=== PATIENT | female | born 1955 | race Caucasian/White ===

== ENCOUNTER → 2019-11-23 11:30 | Outpatient (CLI) | payer MEDICARE, OTHER, SELFPAY ==
--- NOTE | ~2019-11-23 | DEXA_ITS ---
Bone Density Report Name: Ofelia Hilliard Age: 64 Sex: Female Ethnicity: White Date of : 1955 Indication: postmenopausal; screening for osteoporosis; hysterectomy; Referring Provider: Hermilo, Lindsay Valerio Study: Bone densitometry was performed. Exam Date: November 23, 2019 Accession number: [id number] Bone Density: Region BMD T-score Z-score Classification AP Spine (L1-L4) 1.085 0.3 2.1 Normal Femoral Neck (Left) 0.709 -1.3 0.3 Osteopenia Total Hip (Left) 0.854 -0.7 0.5 Normal Femoral Neck (Right) 0.731 -1.1 0.5 Osteopenia Total Hip (Right) 0.933 -0.1 1.2 Normal Total Hip Mean 0.894 -0.4 0.9 Normal World Health Organization criteria for BMD impression classify patients as: Normal (T-score at or above -1.0), Osteopenia (T-score between -1.0 and -2.5), or Osteoporosis (T-score at or below -2.5). 10-year Fracture Risk(1): Major Osteoporotic Fracture 7.4% Hip Fracture 0.6% Reported Risk Factors: [place] (), Neck BMD=0.709, BMI=39.5 (1) FRAX(R) Version 3.08. Fracture probability calculated for an untreated patient. Fracture probability may be lower if the patient has received treatment. Previous Exams: Region Exam Age BMD T-score BMD Change BMD Change Date g/cm2 vs Baseline vs Previous AP Spine(L1-L4) 11/23/2019 64 1.085 0.3 -0.002 0.012 09/09/2017 62 1.074 0.2 -0.014 0.057* 01/05/2011 55 1.017 -0.3 -0.070 -0.048* 11/30/2008 53 1.065 0.2 -0.023 -0.023 10/25/2005 50 1.087 0.4 Total Hip(Left) 11/23/2019 64 0.854 -0.7 -0.019 -0.029* 09/09/2017 62 0.883 -0.5 0.010 0.035* 01/05/2011 55 0.849 -0.8 -0.025 0.020 11/30/2008 53 0.829 -0.9 -0.044 -0.044 10/25/2005 50 0.873 -0.6 Total Hip(Right) 11/23/2019 64 0.933 -0.1 -0.009 -0.039* 09/09/2017 62 0.972 0.2 0.030 0.066* 01/05/2011 55 0.906 -0.3 -0.036 -0.008 11/30/2008 53 0.913 -0.2 -0.028 -0.028 10/25/2005 50 0.942 0.0 *Denotes significance at 95% confidence level, LSC for AP Spine = 0.022 g/cm2, LSC for Total Hip = 0.027 g/cm2 Clinical Information Provided by Patient: Has used the following medications: Vitamin D, Calcium Has the following medical conditions: Hysterectomy Patient maximum height was 62 Menopause Age: 41 No regular weight beari
--- NOTE | ~2019-11-23 | MM_ITS ---
EXAMINATION: MM screening [facility] BI w ezequiel HISTORY: Screening mammogram TECHNIQUE: Craniocaudal and mediolateral oblique 3-D tomosynthesis images were obtained and synthetic 2-D images were generated. CAD analysis was submitted and interpreted. COMPARISON: 10/06/2018, 09/08/2017, 08/16/2016, 08/08/2016 BREAST PARENCHYMAL COMPOSITION: There are scattered areas of fibroglandular density. FINDINGS: There are stable asymmetries of the breasts. There is no evidence of suspicious mass, calci fication, or architectural distortion to suggest malignancy in either breast. There has been no suspi cious interval change. IMPRESSION: 1. No mammographic evidence of malignancy. 2. Recommend routine screening mammography in one year. BI-RADS Category 2: Benign finding(s). Reviewed, dictated and finalized at location A. 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
== END ==
PROVIDERS: Visit Provider Nurse Practitioner Obstetrics & Gynecology
DX: Z12.31 Encounter for screening mammogram for malignant neoplasm of breast (principal); Z78.0 Asymptomatic menopausal state; M85.852 Other specified disorders of bone density and structure, left thigh; M85.851 Other specified disorders of bone density and structure, right thigh
CPT/HCPCS: 77063; 77067; 77080

== ENCOUNTER 2020-02-13 12:44 | Inpatient (IN) | payer MEDICARE, OTHER, SELFPAY ==
--- NOTE | ~2020-02-13 | XR_ITS ---
EXAMINATION: XR chest 1V portable INDICATION: Cough TECHNIQUE: Portable AP chest at 1317 hours COMPARISON: 06/16/2014 FINDINGS: The lungs are free of acute opacities. There is no pleural effusion or pneumothorax. The ca rdiomediastinal silhouette is normal. There is a small hiatal hernia. IMPRESSION: 1. No acute cardiopulmonary abnormality. Reviewed, dictated and finalized at location A.
--- NOTE | ~2020-02-13 | CT_ITS ---
EXAMINATION: CTA chest PE protocol DATE: 02/13/2020 14:18 INDICATION: Shortness of breath, dyspnea. Cough, fever. TECHNIQUE: Computed tomography angiography (CTA) of the chest was performed with 100 mL Omnipaque-350 intravenous contrast timed to evaluate the pulmonary arteries. Coronal maximum intensity projection 3D-reconstructions were created by the technologist. Automated exposure control and iterative reconst ruction technique were employed. Exam dose: 862.37 mGy-cm total exam DLP. COMPARISON: 02/13/2020 portable AP chest at 1317 hours FINDINGS: There is diagnostic contrast enhancement of the pulmonary arteries and no evidence of pulmo nary embolism. No thoracic aortic aneurysm or dissection. No hilar or mediastinal mass lesion or lymphadenopathy. Normal heart size. Trace pericardial fluid. No pulmonary infiltrate or consolidation or pulmonary mass lesion. Hiatal hernia with surgical sutures. Status post cholecystectomy. Diffuse idiopathic skeletal hyperostosis of the thoracic spine. No suspicious osteolytic or osteoblas tic lesions are noted. IMPRESSION: No evidence of pulmonary embolism Reviewed, dictated and finalized at Location A. Reviewed, dictated and finalized at location A.
[2020-02-13 12:49] VITALS: BP 127/82; PULSE 115; RESP 19; TEMP 36.8; O2SAT 97
--- NOTE | 2020-02-13 12:58 | ECG_ITS ---
Measurements Intervals [place] Rate: 114 P: 38 IN: 132 QRS: -17 QRSD: 81 T: 18 QT: 319 QTc: 439 Interpretive Statements SINUS TACHYCARDIA LOW QRS VOLTAGE IN PRECORDIAL LEADS ANTEROLATERAL INFARCT, AGE INDETERMINATE HIGH LATERAL INFARCT, AGE INDETERMINATE BORDERLINE T WAVE ABNORMALITY- INFERIOR LEADS ABNORMAL ECG Electronically Signed On 02-13-2020 15:03:31 CDT by Britton Wang D.O.
[2020-02-13] MEDS: SODIUM CHLORIDE 0.9% IV 1,000 ML 999 ML IV CONT ×2 (13:09→15:08)
--- NOTE | 2020-02-13 13:25 | ED.URI ---
HPI - URI/Sore Throat General Chief Complaint: Upper Respiratory Infection Stated Complaint: fever, cough symptoms Time Seen by Provider: 02/13/20 12:46 Source: RN notes reviewed History of Present Illness HPI Narrative: Patient presents emergency department from home for cough. Patient states symptoms began yesterday. States she had a cough is been nonproductive as well as a low-grade temperature with T-max of 99.9 last night. She notes generalized weakness with the symptoms. She denies any rhinorrhea sore throat chest pain shortness of breath abdominal pain nausea vomiting or any other symptoms Related Data Home Medications Medication Instructions Recorded Confirmed aspirin 81 mg tablet,delayed 81 mg PO DAILY 12/22/19 02/13/20 release cholecalciferol (vitamin D3) 50 6,000 unit PO DAILY tablet 12/22/19 02/13/20 mcg (2,000 unit) chewable tablet lactobacillus combination no.8 3 3,000 mmu cells PO DAILY 12/22/19 02/13/20 billion cell capsule multivitamin 1 tablet PO DAILY 12/22/19 02/13/20 Allergies Allergy/AdvReac Type Severity Reaction Status Date / Time No Known Allergies Allergy Verified 02/13/20 12:54 Review of Systems Review of Systems: Narrative: Gen.: Reports low-grade fever, denies chills Eyes: Denies eye pain or visual change ENT: Denies congestion Respiratory: Denies shortness of breath reports cough CV: Denies chest pain or palpitations GI: Denies abdominal pain nausea, emesis or diarrhea denies burning, urgency, frequency or hematuria Musculoskeletal: Denies back pain or muscle pain Neuro: Denies numbness, tingling, weakness or focal weakness Skin: Denies rash Except as documented, all other systems reviewed and negative [facility] Past Medical History Medical History Decreased GFR Hypercalcemia Hyperkalemia Hyperlipidemia Hypertension Morbid obesity Thrombocytosis Type 2 diabetes mellitus, without long-term current use of insulin Surgical History Surgical History (Updated 12/22/19 @ 07:14 by Nabila Wisdom CMA) History of abdominoplasty 2005 History of gastric bypass 2003 History of hysterectomy 1996 Hx of cholecystectomy 2006 Family History Family History (Updated 12/22/19 @ 07:14 by Nabila Wisdom CMA) Father Family history of lung cancer Hypertension Heart disease Mother Family history of Parkinson's disease Diabetes mellitus Hypertension Social History Social History Smoking status: Never smoker Alcohol intake: never Gender identity (if verbalized by the patient): Female Exam Narrative: Exam Narrative: APPEARANCE: No acute distress, nontoxic, resting in bed EYES: EOMI HEENT: Normocephalic, atraumatic, OMM RESPIRATORY: No respiratory distress Clear to auscultation bilaterally with no rhonchi wheezing or rales. CARDIOVASCULAR: Tachycardic and regular without murmurs rubs or gallops. ABDOMINAL: Soft, nontender, nondistended, no rebound or guarding MUSCULOSKELETAl: Moves all extremities. No clubbing, cyanosis or edema. Bilateral calves nontender to palpation NEURO: Awake and alert x 3. Following commands, speech normal, no focal deficits muscle strength 5 out of 5 bilateral upper and lower extremities SKIN:: Warm, dry. No rashes lesions or abrasions PSYCHIATRIC: Normal affect/mood, Course Course Emergency Course: Discussed with MAAME Elise presentation work-up. Agrees with admission at this time Discussed with patient and family results of workup and diagnosis. Discussed need for admission. Patient and family understand and agree to current treatment plan Vital Signs Vital signs: Vital Signs Temperature 98.3 F 02/13/20 12:49 Pulse Rate 115 H 02/13/20 12:49 Respiratory Rate 19 02/13/20 12:49 Blood Pressure 127/82 02/13/20 12:49 Pulse Oximetry 97 02/13/20 12:49 Temperature 98.3 F 02/13/20 12:49 Pul
[2020-02-13 13:27] LABS: Basophils Absolute Auto 0.1 K/mm3 (0.0-0.1); Basophils Percent Auto 0.3 % (0.2-1.2); Eosinophils Percent Auto 0.1 % (0-4.4); Hematocrit 37.8 % (37.0-47.0); Hemoglobin 11.7 g/dL (12.0-15.0); Immature Granulocyte Absolute 0.08 K/mm3 (0.00-0.031); Immature Granulocyte Percent A 0.4 % (0-0.5); Lymphocytes Absolute Auto 1.85 K/mm3 (0.9-3.2); Lymphocytes Percent Auto 10.4 % (18.3-44.2); Mean Corpuscular Hemoglobin 21.9 pg (26-34); Mean Corpuscular Volume 70.8 fl (80-100); Monocytes Absolute Auto 0.9 K/mm3 (0.1-0.6); Monocytes Percent Auto 4.9 % (2.6-8.5); Neutrophils Percent Auto 83.9 % (45.5-73.1); Platelet Count Result 485 k/mm3 (150-375); Red Blood Count 5.34 M/mm3 (4.2-5.4); Red Cell Distribution Width 19.5 % (11.5-14.5); White Blood Count 17.8 K/mm3 (4.5-10.0)
[2020-02-13 13:37] LABS: Prothrombin Time 13.1 Seconds (11.1-14.7)
[2020-02-13 13:38] LABS: Partial Thromboplastin Time 30.9 SECONDS (22.3-36.8)
[2020-02-13 13:43] LABS: Lactic Acid Reflex 3.2 mmol/L (0.7-2.1)
[2020-02-13 13:45] LABS: Alanine Aminotransferase 30 U/L (4-35); Albumin Level 4.4 g/dL (3.5-5.1); Alkaline Phosphatase 124 U/L (38-126); Aspartate Amino Transferase 37 U/L (14-36); Bilirubin,Total 0.4 mg/dL (0.2-1.3); Blood Urea Nitrogen 22 mg/dL (7-17); Carbon Dioxide 16 mmol/L (22-30); Chloride 106 mmol/L (98-107); Estimated CRCL calculation 54 ml/min; Estimated Glomerular Filt Rate 56; Glucose 258 mg/dL (65-105); Potassium 4.1 mmol/L (3.4-5.0); Sodium 135 mmol/L (137-145)
[2020-02-13 13:56] LABS: Troponin I < 0.012 ng/mL (0.000-0.034)
[2020-02-13 14:00] LABS: Add Urine Microscopic? YES; Appearance Urine Clear (Clear); Bacteria Urine Trace /hpf; Bilirubin Urine 2+ (Negative); Blood Urine Negative (Negative); Color Urine Yellow (Yellow); Glucose Urine UA Negative (Negative); Hyaline Casts Urine 20-29 /lpf; Ketones Urine Trace mg/dL (Negative); Leukocyte Esterase Ur 1+ LEU/UL (Negative); Mucus Urine Rare /lpf; Nitrate Urine Negative (Negative); Protein Urine 1+ mg/dL (Negative); RBC Urine 0-2 /hpf (0-2); Specific Grav Ur 1.036 (1.001-1.035); Squamous Epithelial Cell Urine Many /hpf (Few); Urobilinogen Urine Negative mg/dL (<2.0)
[2020-02-13 15:07] VITALS: BP 135/75; PULSE 95; RESP 18; O2SAT 100
[2020-02-13 16:26] LABS: Reflex Lactic Acid Yes or No Add Lactic
[2020-02-13] MEDS: ACETAMINOPHEN 500 MG TABLET 1000 MG PO ×2 (16:37→21:45)
[2020-02-13 16:39] VITALS: BP 134/78; PULSE 108; RESP 19; TEMP 36.9; O2SAT 100
[2020-02-13 16:52] LABS: Lactic Acid 2.5 mmol/L (0.7-2.1)
[2020-02-13 17:00] VITALS: BP 148/95; PULSE 109; RESP 16; TEMP 36.8; O2SAT 100
--- NOTE | 2020-02-13 17:07 | ADMGEN ---
This patient, Ofelia Hilliard, was admitted to [facility] Surg Room 333-01. Patient/family oriented to hospital policies and general routines including ID bracelet, bed and alarms, visiting hours, pain management, procedures, bathroom and other care routines, personal items, smoking policy, room service/diet, and visiting hours. Valuables list has been completed. Information on how to activate the Rapid Response Team has been discussed. Patient/Family are encouraged to report perceived risks to care and to ask questions if they do not understand what they are told or what they should do.
[2020-02-13] MEDS: SODIUM CHLORIDE 0.9% IV 1,000 ML 80 ML IV CONT (17:16)
[2020-02-13 17:23] VITALS: O2SAT 100; BMI 39.4
[2020-02-13] MEDS: GUAIFENESIN 200 MG/10 ML UDC PO (21:53)
[2020-02-13 22:00] VITALS: BP 135/67; PULSE 110; RESP 20; TEMP 37.3; O2SAT 98
[2020-02-14 02:00] VITALS: BP 123/72; PULSE 92; RESP 18; TEMP 36.4; O2SAT 99
--- NOTE | 2020-02-14 02:06 | PM.IMHP ---
H&P: HPI History of Present Illness Chief complaint: Suspected COVID 19 infection/lactic acidosis/leuko Narrative: This is a 64 year old morbidly obese prediabetic female who presented to the hospital yesterday with a complaint of one day of chills, nonproductive cough, and generalized weakness. She has not had any overt fever. She also denies any sore throat, congestion, wheezing, or shortness of breath. She decided to come to the hospital secondary to her increased weakness. She admits to me that this past weekend she visited her sister and her children. The patient was evaluated in the ER yesterday and found to have an elevated lactic acid level and elevated WBC count. The patient was tested for novel COVID-19 virus and placed on isolation. She was admitted to the hospital for observation. Her CXR was clear and the patient has no further symptoms and asking when she can go home. Review of Systems Review of Systems: All systems reviewed & are unremarkable except as noted in HPI and below PMFSH Past Medical History Medical History Decreased GFR Hypercalcemia Hyperkalemia Hyperlipidemia Hypertension Morbid obesity Thrombocytosis Type 2 diabetes mellitus, without long-term current use of insulin Surgical History Surgical History History of abdominoplasty 2005 History of gastric bypass 2004 History of hysterectomy 1996 Hx of cholecystectomy 2007 Family History Family History Father Family history of lung cancer Hypertension Heart disease Mother Family history of Parkinson's disease Diabetes mellitus Hypertension Social History Social History Smoking status: Never smoker Alcohol intake: never Substance use: never Gender identity (if verbalized by the patient): Female Spiritual care concerns: No Agree to blood products: Yes Meds Home Medications and Allergies Home Medications Medication Instructions Recorded Confirmed Type simvastatin 20 mg tablet 20 mg PO .every other day #45 10/11/19 02/13/20 Rx tablet lisinopril 20 mg tablet 20 mg PO DAILY #90 tablet 10/19/19 02/13/20 Rx amitriptyline 25 mg tablet 25 mg PO BID #180 tablet 01/31/20 04/26/20 Rx perphenazine 4 mg tablet 4 mg PO BID #180 tablet 11/19/19 02/13/20 Rx aspirin 81 mg tablet,delayed 81 mg PO DAILY 12/22/19 02/13/20 History release cholecalciferol (vitamin D3) 50 6,000 unit PO DAILY tablet 12/22/19 02/13/20 History mcg (2,000 unit) chewable tablet lactobacillus combination no.8 3 3,000 mmu cells PO DAILY 12/22/19 02/13/20 History billion cell capsule multivitamin 1 tablet PO DAILY 12/22/19 02/13/20 History metformin 500 mg tablet 500 mg PO BID #180 tablet 01/25/20 02/13/20 Rx xtysyvcux-TK-ymqoxkie-guaifen 20 ml PO Q4H PRN 02/13/20 02/13/20 History [Mucinex Cold,Flu,Sore Throat] Allergies Allergy/AdvReac Type Severity Reaction Status Date / Time No Known Allergies Allergy Verified 02/13/20 12:54 Vital Signs Vital Signs - 24 hr 02/13/20 12:49 02/13/20 15:07 02/13/20 16:39 Temperature 36.8 C 36.9 C Pulse Rate 115 H 95 108 H Respiratory Rate 19 18 19 Blood Pressure 127/82 135/75 134/78 Pulse Oximetry 97 100 100 02/13/20 17:00 02/13/20 17:23 02/13/20 22:00 Temperature 36.8 C 37.3 C Pulse Rate 109 H 110 H Respiratory Rate 16 20 Blood Pressure 148/95 H 135/67 Pulse Oximetry 100 100 98 Exam Const: General: cooperative, alert, awake and other (diaphoretic+) Nutritional Appearance: obese morbidly obese Orientation/consciousness: patient oriented x3 HENMT: Head: normal to inspection General nose exam: Normal external nose present Face and sinus: normal facial exam Mouth: Yes Normal oral and palatal mucosa present and Yes oropharynx normal Eyes: Pupils: Equal,
[2020-02-14] MEDS: ALBUTEROL SULFATE (*SP) AEROSOL 1 PUFF 2 PUFF INHALATION ×2 (02:53→08:45)
[2020-02-14] MEDS: ACETAMINOPHEN 500 MG TABLET 1000 MG PO ×2 (02:57→08:40)
[2020-02-14] MEDS: GUAIFENESIN 200 MG/10 ML UDC PO ×2 (03:02→08:32)
[2020-02-14 06:00] VITALS: BP 124/78; PULSE 86; RESP 16; TEMP 36.6; O2SAT 100
[2020-02-14] MEDS: SODIUM CHLORIDE 0.9% IV 1,000 ML 80 ML IV CONT (06:16)
[2020-02-14 06:41] LABS: Blood Urea Nitrogen 15 mg/dL (7-17); Calcium 8.7 mg/dL (8.4-10.2); Carbon Dioxide 17 mmol/L (22-30); Chloride 113 mmol/L (98-107); Estimated CRCL calculation 75 ml/min; Estimated Glomerular Filt Rate > 60; Glucose 130 mg/dL (65-105); Potassium 3.7 mmol/L (3.4-5.0); Sodium 136 mmol/L (137-145)
[2020-02-14 07:42] LABS: Hemoglobin A1C 6.4 % (<5.7)
[2020-02-14 08:00] VITALS: O2SAT 98
[2020-02-14 08:16] LABS: Basophils Percent Auto 0.5 % (0.2-1.2); Eosinophils Percent Auto 0.4 % (0-4.4); Hematocrit 31.5 % (37.0-47.0); Hemoglobin 9.3 g/dL (12.0-15.0); Immature Granulocyte Absolute 0.02 K/mm3 (0.00-0.031); Immature Granulocyte Percent A 0.3 % (0-0.5); Lymphocytes Absolute Auto 1.52 K/mm3 (0.9-3.2); Lymphocytes Percent Auto 20.2 % (18.3-44.2); Mean Corpuscular HGB Conc 29.5 g/dl (32-36); Mean Corpuscular Hemoglobin 21.6 pg (26-34); Mean Corpuscular Volume 73.3 fl (80-100); Mean Platelet Volume 11.3 fl (7.4-10.4); Monocytes Absolute Auto 0.5 K/mm3 (0.1-0.6); Monocytes Percent Auto 6.3 % (2.6-8.5); Neutrophils Absolute Auto 5.4 K/mm3 (1.3-6.7); Neutrophils Percent Auto 72.3 % (45.5-73.1); Platelet Count Result 337 k/mm3 (150-375); Red Cell Distribution Width 19.1 % (11.5-14.5); White Blood Count 7.5 K/mm3 (4.5-10.0)
[2020-02-14] MEDS: PERPHENAZINE 2 MG TABLET 4 MG PO (08:32)
[2020-02-14] MEDS: MULTIVITS W-FE,MIN CHEWABLE TABLET 1 TABLET PO (08:33)
[2020-02-14] MEDS: AMITRIPTYLINE HCL 25 MG TABLET PO (08:33)
[2020-02-14] MEDS: metFORMIN HCL 500 MG TABLET PO (08:33)
[2020-02-14] MEDS: ACIDOPHILUS/BULGARICUS CHEWABLE TABLET 1 TABLET PO (08:33)
[2020-02-14] MEDS: ASPIRIN 81 MG ENTERIC TABLET PO (08:33)
[2020-02-14] MEDS: lisinopriL 20 MG TABLET PO (08:33)
[2020-02-14] MEDS: CHOLECALCIFEROL 1,000 UNIT TABLET 6000 UNITS PO (08:33)
[2020-02-14 08:49] LABS: Glucose Point of Care 107 (65-105)
[2020-02-14 09:17] LABS: Anisocytosis 1+ (NORMAL); Hypochromasia 1+ (NORMAL); Platelet Estimate Adequate (Adequate)
[2020-02-14 10:37] VITALS: BP 121/72; PULSE 91; RESP 18; TEMP 36.2; O2SAT 98
--- NOTE | 2020-02-14 11:43 | PM.DS ---
DS: Diagnosis Admitting Diagnosis Admitting Diagnosis: Sepsis, unspecified organism Discharge Diagnosis (1) Generalized weakness: Code(s): R53.1 - Weakness Status: Acute Assessment and Plan: Date of Service 02/14/20 Ms. Hilliard is a 64yo F with prediabetes, hypertension, and hyperlipidemia who presented to the ED for evaluation of generalized weakness and chills. She described a slight cough as well. CTA chest was clear without evidence of PE. She was tested for COVID-19 from the ED which was negative. She had leukocytosis and elevated lactic acid, etiology unclear but may have been secondary to dehydration. WBC improved to 7.5 from 17 overnight and the patient was feeling well with no complaints. Urine culture grew > 100,000 colonies per HPF E coli for which she was prescribed antibiotics by PCP via a virtual visit the day after discharge. Blood cultures were negative. She was hemodynamically stable for discharge 02/14/20 with instructions to call PCP for any worsening symptoms. She was feeling stronger and agreeable with plan for discharge. (2) Leukocytosis: Qualifiers: Leukocytosis type: unspecified Qualified Code(s): D72.829 - Elevated white blood cell count, unspecified Code(s): D72.829 - Elevated white blood cell count, unspecified Status: Acute Assessment and Plan: Resolved prior to discharge. (3) Type 2 diabetes mellitus, without long-term current use of insulin: Qualifiers: Diabetes mellitus complication status: without complication Qualified Code(s): E11.9 - Type 2 diabetes mellitus without complications Code(s): E11.9 - Type 2 diabetes mellitus without complications Status: Chronic Assessment and Plan: Patient carries a diagnosis of prediabetes. Continue metformin. Hgb A1c 6.4 02/14/20. (4) Hypertension: Qualifiers: Hypertension type: unspecified Qualified Code(s): I10 - Essential (primary) hypertension Code(s): I10 - Essential (primary) hypertension Status: Chronic (5) Hyperlipidemia: Qualifiers: Hyperlipidemia type: unspecified Qualified Code(s): E78.5 - Hyperlipidemia, unspecified Code(s): E78.5 - Hyperlipidemia, unspecified Status: Chronic DS: Summary Time Spent with Patient Time attestation: Total time spent providing and/or coordinating discharge services: 35 minutes Exam Narrative: Exam Narrative: General: Female resting supine in bed in no acute distress. HEENT: Normocephalic, EOMI, oral mucosa moist. Cardiovascular: Rate and rhythm are regular. Respiratory: Lungs clear to auscultation all mo. Non-labored breathing. Abdomen: Soft, non-tender, non-distended, bowel sounds present. Extremities: Peripheral pulses intact. No edema. Neuro: No focal neurological deficits. Speech is clear. DS: Data Data Completed and Pending Labs on day of discharge: Labs from last 24 hours 02/14/20 02/14/20 02/14/20 08:39 07:28 07:28 WBC 7.5 RBC 4.30 Hgb 9.3 L Hct 31.5 L MCV 73.3 L MCH 21.6 L MCHC 29.5 L RDW 19.1 H Plt Count 337 MPV 11.3 H Immature Gran % (Auto) 0.3 Neut % (Auto) 72.3 Lymph % (Auto) 20.2 [place] % (Auto) 6.3 Eos % (Auto) 0.4 Baso % (Auto) 0.5 Lymph # (Auto) 1.52 [place] # (Auto) 0.5 Eos # (Auto) 0.0 Baso # (Auto) 0.0 Abs Immat Gran (auto) 0.02 Absolute Neuts (auto) 5.4 Absolute Nucleated RBC 0.0 Nucleated RBC % 0.0 Platelet Estimate Adequate Hypochromasia 1+ Anisocytosis 1+ PT INR APTT Sodium Potassium Chloride Carbon Dioxide BUN Creatinine Estim Creat Clear Calc Estimated GFR Glucose POC Capillary Glucose 107 Hemoglobin A1c 6.4 H Lactic Acid Calcium Total Bilirubin AST ALT Alkaline Phosphatase Troponin I
--- NOTE | 2020-02-14 12:13 | WPDCDIQUERY2 ---
CDI Query Clarification Request -Severe sepsis has been documented. -No infection identified -No antibiotic ordered/given Please clarify if severe sepsis was ruled in or ruled out.
[2020-02-14 12:17] LABS: SARS-CoV-2 RNA PCR Negative
[2020-02-14 13:03] LABS: Glucose Point of Care 99 (65-105)
== END 2020-02-14 14:45 | disposition home or self-care (01) | DRG 872 ==
LOC: ANHED 15:32 → ANH3MEDSUR 16:29
PROVIDERS: Family Medicine; Admitting Provider Internal Medicine; Emergency Provider Emergency Medicine; PCP Internal Medicine; Visit Provider Internal Medicine
DX: A41.9 Sepsis, unspecified organism (principal); E87.2 Acidosis; N39.0 Urinary tract infection, site not specified; R65.20 Severe sepsis without septic shock; B96.20 Unspecified Escherichia coli [E. coli] as the cause of diseases classified elsewhere; Z20.828 Contact with and (suspected) exposure to other viral communicable diseases; B34.9 Viral infection, unspecified; E86.0 Dehydration; E11.9 Type 2 diabetes mellitus without complications; I10 Essential (primary) hypertension; D72.829 Elevated white blood cell count, unspecified; E78.5 Hyperlipidemia, unspecified; D47.3 Essential (hemorrhagic) thrombocythemia; E66.01 Morbid (severe) obesity due to excess calories; Z68.39 Body mass index [BMI] 39.0-39.9, adult; Z79.4 Long term (current) use of insulin; Z90.49 Acquired absence of other specified parts of digestive tract; Z90.710 Acquired absence of both cervix and uterus
CPT/HCPCS: 36415; 51701; 71045; 71275; 80048; 80053; 81001; 83036; 83605; 84484; 85025; 85610; 85730; 87040; 87077; 87086; 87088; 87186; 87635; 87804; 93005; 94640; 96360; 96361; 99285; A9270; J7030; Q9967; U0003

== ENCOUNTER 2020-06-24 08:08 | Outpatient (CLI) | payer MEDICARE, OTHER, SELFPAY ==
[2020-06-24 09:08] LABS: Anion Gap 7 mmol/L (8-16); Blood Urea Nitrogen 21 mg/dL (7-17); Calcium 9.3 mg/dL (8.4-10.2); Carbon Dioxide 19 mmol/L (22-30); Chloride 111 mmol/L (98-107); Estimated Glomerular Filt Rate > 60; Glucose 126 mg/dL (65-105); Sodium 137 mmol/L (137-145)
[2020-06-24 09:22] LABS: Potassium 4.6 mmol/L (3.4-5.0)
== END 2020-06-24 08:09 | disposition home or self-care (01) ==
PROVIDERS: PCP Internal Medicine; Visit Provider Clinical Nurse Specialist
DX: E87.5 Hyperkalemia (principal)
CPT/HCPCS: 36415; 80048

== ENCOUNTER → 2020-12-25 09:56 | Outpatient (CLI) | payer MEDICARE, OTHER, SELFPAY ==
--- NOTE | ~2020-12-25 | MM_ITS ---
EXAMINATION: MM screening [facility] BI w ezequiel HISTORY: Screening mammogram TECHNIQUE: Craniocaudal and mediolateral oblique 3-D tomosynthesis images were obtained and synthetic 2-D images were generated. CAD analysis was submitted and interpreted. COMPARISON: 11/23/2019, 10/06/2018, 09/08/2017 bilateral digital screening mammogram examinations BREAST PARENCHYMAL COMPOSITION: There are scattered areas of fibroglandular density. FINDINGS: There is a biopsy marker on the right; history of 2 prior benign right breast biopsies. Sta ble mild fibroglandular asymmetry. There is no evidence of suspicious mass, calcification, or archite ctural distortion to suggest malignancy in either breast. There has been no suspicious interval walsh e. IMPRESSION: 1. No mammographic evidence of malignancy. 2. Recommend routine screening mammography in one year. BI-RADS Category 2: Benign finding(s). Reviewed, dictated and finalized at location A. SUPERINTENDENT
== END ==
PROVIDERS: Visit Provider Nurse Practitioner Obstetrics & Gynecology
DX: Z12.31 Encounter for screening mammogram for malignant neoplasm of breast (principal)
CPT/HCPCS: 77063; 77067

== ENCOUNTER 2021-03-29 10:15 | Emergency (ER) | payer MEDICARE, OTHER, SELFPAY ==
--- NOTE | ~2021-03-29 | XR_ITS ---
EXAMINATION: XR chest 2V EXAM DATE: 03/29/2021 11:18 INDICATION: Dry cough, hoarse voice x 3day. TECHNIQUE: Frontal and lateral projections of the chest obtained and reviewed. Comparison is made to prior examination from 02/13/2020. FINDINGS: The lungs are clear. There are no pleural effusions. The cardiomediastinal silhouette is within normal limits. There is no pneumothorax suspected. Some bridging thoracic endplate osteophyt es. There is small to moderate sliding gastroesophageal hiatal hernia. There are cholecystectomy clip s. IMPRESSION: 1. No acute cardiopulmonary findings. 2. Small to moderate hiatal hernia. Reviewed, dictated and finalized at location A.
[2021-03-29 10:25] VITALS: BP 169/95; PULSE 79; RESP 20; TEMP 37.2; O2SAT 100
--- NOTE | 2021-03-29 10:55 | ED.GENADULT ---
HPI - General Adult General Chief complaint: Upper Respiratory Infection Stated complaint: congestion in my lungs Time Seen by Provider: 03/29/21 10:25 History of Present Illness HPI narrative: Patient is a 65-year-old female who presents ER with chest congestion and cough ongoing for 2 days. Reports elevated temperature but no overt fever. No chills. She denies chest pain or chest pressure. No known sick contacts. She has been vaccinated against Covid. Patient denies sinus congestion or sore throat. Related Data Home Medications Medication Instructions Recorded Confirmed aspirin 81 mg tablet,delayed 81 mg PO DAILY 12/22/19 02/21/21 release cholecalciferol (vitamin D3) 50 6,000 unit PO DAILY tablet 12/22/19 02/21/21 mcg (2,000 unit) chewable tablet lactobacillus combination no.8 3 3,000 mmu cells PO DAILY 12/22/19 02/21/21 billion cell capsule multivitamin 1 tablet PO DAILY 12/22/19 02/21/21 ascorbate calcium (vitamin C) 500 500 mg PO DAILY 10/24/20 02/21/21 mg tablet ferrous sulfate 134 mg (27 mg 134 mg PO DAILY 10/24/20 02/21/21 iron) tablet Allergies Allergy/AdvReac Type Severity Reaction Status Date / Time No Known Allergies Allergy Verified 03/29/21 10:29 Review of Systems Review of Systems: All systems reviewed & are unremarkable except as noted in HPI and below Constitutional: Constitutional: Denies chills and Denies fever(s) Cardiovascular: Cardiovascular: Denies chest pain and Denies radiating jaw, neck or arm pain Respiratory: Respiratory: Reports chest congestion, Reports cough, Denies dyspnea and Denies wheezing PMFSH Past Medical History Medical History (Updated 03/29/21 @ 12:26 by Domenico Pepper MD) Decreased GFR Hypercalcemia Hyperkalemia Hyperlipidemia Hypertension Morbid obesity Thrombocytosis Type 2 diabetes mellitus, without long-term current use of insulin Surgical History Surgical History History of abdominoplasty 2005 History of gastric bypass 2003 History of hysterectomy 1996 Hx of cholecystectomy 2007 Family History Family History Father Family history of lung cancer Hypertension Heart disease Mother Family history of Parkinson's disease Diabetes mellitus Hypertension Social History Social History Smoking status: Never smoker Alcohol intake: never Substance use: never Gender identity (if verbalized by the patient): Female Spiritual care concerns: No Agree to blood products: Yes Exam Narrative: Exam Narrative: GENERAL: Well-appearing, well-nourished, and in no acute distress. HEAD: Normocephalic, atraumatic. CHEST: Intermittent rales right midlung zone otherwise clear lungs. No respiratory distress. HEART: Regular rate and rhythm. Normal peripheral pulses. EXTREMITIES: Normal range of motion. No edema. NEURO: Alert and oriented x3. PSYCH: Normal mood and affect. Course Course Emergency Course: Feels improved with nebulizer. No pneumonia on x-ray. Discharge home. Vital Signs Vital signs: Vital Signs Temperature 99.0 F 03/29/21 10:25 Pulse Rate 79 03/29/21 10:25 Respiratory Rate 20 03/29/21 10:25 Blood Pressure 169/95 H 03/29/21 10:25 Pulse Oximetry 100 03/29/21 10:25 Temperature 99.0 F 03/29/21 10:25 Pulse Rate 70 03/29/21 11:08 Respiratory Rate 18 03/29/21 11:08 Blood Pressure 169/95 H 03/29/21 10:25 Pulse Oximetry 100 03/29/21 10:25 Medical Decision Making Vital Signs Vital Signs: Vital Signs Temperature 99.0 F 03/29/21 10:25 Pulse Rate 79 03/29/21 10:25 Respiratory Rate 20 03/29/21 10:25 Blood Pressure 169/95 H 03/29/21 10:25 Pulse Oximetry 100 03/29/21 10:25 Temperature 99.0 F 03/29/21 10:25 Pulse Rate 70 03/29/21 11:08 Respiratory Rate 18 03/29/21 11:08 B
[2021-03-29] MEDS: IPRATROPIUM BR 0.02% INH SOLN 0.5 MG/2.5 ML VIAL INHALATION (11:05)
[2021-03-29] MEDS: ALBUTEROL SULFATE NEB 2.5 MG/0.5 ML INH 5 MG INHALATION (11:05)
[2021-03-29 11:08] VITALS: PULSE 70; RESP 18
[2021-03-29 12:43] VITALS: BP 161/97; PULSE 87; RESP 17; O2SAT 97
== END 2021-03-29 13:21 | disposition home or self-care (01) ==
PROVIDERS: Emergency Provider Emergency Medicine; PCP Internal Medicine
DX: J40 Bronchitis, not specified as acute or chronic (principal); E78.5 Hyperlipidemia, unspecified; I10 Essential (primary) hypertension; E66.01 Morbid (severe) obesity due to excess calories; Z68.41 Body mass index [BMI] 40.0-44.9, adult; E11.9 Type 2 diabetes mellitus without complications; Z79.82 Long term (current) use of aspirin; Z79.84 Long term (current) use of oral hypoglycemic drugs; Z98.84 Bariatric surgery status; K44.9 Diaphragmatic hernia without obstruction or gangrene
CPT/HCPCS: 71046; 94640; 99283

== ENCOUNTER 2021-07-05 12:30 | Outpatient (RCR) | payer MEDICARE, OTHER, SELFPAY ==
[2021-07-05 12:25] VITALS: BMI 41.8
== END 2021-07-26 15:55 | disposition home or self-care (01) ==
LOC: ANHDMC 12:30
PROVIDERS: PCP Internal Medicine; Visit Provider Clinical Nurse Specialist
DX: E11.9 Type 2 diabetes mellitus without complications (principal); E66.9 Obesity, unspecified; Z71.89 Other specified counseling; Z71.3 Dietary counseling and surveillance
CPT/HCPCS: 97802; G0108

== ENCOUNTER 2022-06-11 14:08 | Emergency (ER) | payer MEDICARE, SELFPAY ==
[2022-06-11] VITALS (20 sets, daily range): BP systolic 112–155; BP diastolic 54–106; PULSE 96–112; RESP 16–18; TEMP 37; O2SAT 93–98
[2022-06-11 14:34] LABS: Basophils Percent Auto 0.3 % (0.2-1.2); Hematocrit 46.7 % (37.0-47.0); Hemoglobin 15.5 g/dL (12.0-15.0); Immature Granulocyte Absolute 0.03 K/mm3 (0.00-0.031); Immature Granulocyte Percent A 0.3 % (0-0.5); Lymphocytes Absolute Auto 2.21 K/mm3 (0.9-3.2); Lymphocytes Percent Auto 21.5 % (18.3-44.2); Mean Corpuscular HGB Conc 33.2 g/dl (32-36); Mean Corpuscular Hemoglobin 28.9 pg (26-34); Mean Platelet Volume 10.6 fl (7.4-10.4); Monocytes Absolute Auto 0.7 K/mm3 (0.1-0.6); Monocytes Percent Auto 6.4 % (2.6-8.5); Neutrophils Absolute Auto 7.3 K/mm3 (1.3-6.7); Neutrophils Percent Auto 71.5 % (45.5-73.1); Platelet Count Result 381 k/mm3 (150-375); Red Blood Count 5.37 M/mm3 (4.2-5.4); White Blood Count 10.3 K/mm3 (4.5-10.0)
[2022-06-11] MEDS: MORPHINE SULFATE (*CRX) 4 MG/ML INJ IV PUSH (14:42)
[2022-06-11] MEDS: ONDANSETRON INJ 4 MG/2 ML VIAL IV PUSH (14:43)
[2022-06-11] MEDS: SODIUM CHLORIDE 0.9% IV 1,000 ML 999 ML IV CONT (14:43)
[2022-06-11 15:28] LABS: Alanine Aminotransferase 35 U/L (6-35); Alkaline Phosphatase 82 U/L (38-126); Anion Gap 15 mmol/L (8-16); Aspartate Amino Transferase 26 U/L (14-36); Bilirubin,Total 0.6 mg/dL (0.2-1.3); Blood Urea Nitrogen 18 mg/dL (7-17); Calcium 9.5 mg/dL (8.4-10.2); Carbon Dioxide 16 mmol/L (22-30); Chloride 103 mmol/L (98-107); Estimated CRCL calculation 71 ml/min; Estimated Glomerular Filt Rate > 60; Glucose 216 mg/dL (65-110); Lipase 23 U/L (23-300); Potassium 3.9 mmol/L (3.4-5.0); Sodium 134 mmol/L (137-145)
--- NOTE | 2022-06-11 15:39 | PC.NURSE ---
Up with tech to bathroom to attempt to obtain UA
[2022-06-11 16:32] LABS: Appearance Urine Clear (Clear); Bilirubin Urine 1+ (Negative); Blood Urine Negative (Negative); Color Urine Yellow (Yellow); Glucose Urine UA Negative (Negative); Ketones Urine 2+ mg/dL (Negative); Leukocyte Esterase Ur Negative LEU/UL (Negative); Nitrate Urine Positive (Negative); Protein Urine 1+ mg/dL (Negative); Specific Grav Ur >= 1.030 (1.001-1.035); Urobilinogen Urine 0.2 mg/dL (<2.0); pH Urine 5.5 (5.0-9.0)
[2022-06-11 16:43] LABS: Bacteria Urine 2+ /hpf; Mucus Urine Few /lpf; Squamous Epithelial Cell Urine Occasional /hpf (Few)
[2022-06-11 16:52] LABS: Add Urine Microscopic? YES
--- NOTE | 2022-06-11 16:53 | ED.GENADULT ---
HPI - General Adult General Chief complaint: Abdominal Pain Stated complaint: abd pain Time Seen by Provider: 06/11/22 14:21 History of Present Illness HPI narrative: Patient is a 66-year-old female who presents ER with abdominal cramping. Began last night and associated with nausea and vomiting as well as diarrhea. No known sick contacts. Has not been on antibiotics recently. No blood in stool. Denies fevers or chills or sweats. Called PCPs office and was told to come to the ER as lab work will come back faster. Related Data Home Medications Medication Instructions Recorded Confirmed aspirin 81 mg tablet,delayed 81 mg PO DAILY 12/22/19 04/30/22 release (Adult Low Dose Aspirin) cholecalciferol (vitamin D3) 50 6,000 unit PO DAILY 12/22/19 04/30/22 mcg (2,000 unit) chewable tablet lactobacillus combination no.8 3 3,000 mmu cells PO DAILY 12/22/19 04/30/22 billion cell capsule (Adult Probiotic) multivitamin (Chewable-Shannon tablet) 1 tablet PO DAILY 12/22/19 04/30/22 ascorbate calcium (vitamin C) 500 500 mg PO DAILY 10/24/20 04/30/22 mg tablet ferrous sulfate 134 mg (27 mg 268 mg PO DAILY 01/04/22 04/30/22 iron) tablet Allergies Allergy/AdvReac Type Severity Reaction Status Date / Time No Known Allergies Allergy Verified 06/11/22 14:21 Review of Systems Review of Systems: All systems reviewed & are unremarkable except as noted in HPI and below Constitutional: Constitutional: Denies chills and Denies fever(s) Cardiovascular: Cardiovascular: Denies chest pain, Denies rapid heart rate and Denies radiating jaw, neck or arm pain Respiratory: Respiratory: Denies cough and Denies dyspnea Gastrointestinal: Gastrointestinal: Reports abdominal pain, Reports diarrhea, Reports nausea and Reports vomiting Genitourinary: Genitourinary: Denies nocturia, Denies dysuria and Denies flank pain PMFSH Past Medical History Medical History (Updated 06/11/22 @ 17:01 by Domenico Pepper MD) Decreased GFR Hypercalcemia Hyperkalemia Hyperlipidemia Hypertension Morbid obesity Thrombocytosis Type 2 diabetes mellitus, without long-term current use of insulin Surgical History Surgical History History of abdominoplasty 2006 History of gastric bypass 2004 History of hysterectomy 1995 Hx of cholecystectomy 2006 Family History Family History Father Family history of lung cancer Hypertension Heart disease Mother Family history of Parkinson's disease Diabetes mellitus Hypertension Sibling History of brain shunt Social History Social History Social History: Caffeine-coffee 2 cups daily Smoking status: Never smoker Alcohol intake: current Substance use: never Gender identity (if verbalized by the patient): Female Spiritual care concerns: No Agree to blood products: Yes Exam Narrative: GENERAL: Well-appearing, well-nourished, and in no acute distress. HEAD: Normocephalic, atraumatic. ENT: Mucous membranes moist. CHEST: Clear to auscultation. No respiratory distress. HEART: Regular rate and rhythm. Normal peripheral pulses. ABDOMEN: Soft, nontender, nondistended. EXTREMITIES: Normal range of motion. No edema. SKIN: Warm, dry, no rash. NEURO: Alert and oriented x3. PSYCH: Normal mood and affect. Course Course Emergency Course: Patient resting comfortably. Informed of results. Labs show patient is a bit dry and she has received IV fluid. Urine concerning for UTI and she will be placed on Macrobid. Recommend follow-up with PCP. Will give antiemetics for home. Vital Signs Vital signs: Vital Signs Temperature 98.6 F 06/11/22 14:10 Pulse Rate 112 H 06/11/22 14:10 Respiratory Rate 18 06/11/22 14:10 Blood Pressure 137/85 06/11/22 14:10 Pulse Oximetry 98 06/11/22 14:10 Oxygen Deliver
== END 2022-06-11 17:20 | disposition home or self-care (01) ==
PROVIDERS: Preventive Medicine Aerospace Medicine; Emergency Provider Emergency Medicine; PCP Internal Medicine
DX: K52.9 Noninfective gastroenteritis and colitis, unspecified (principal); N39.0 Urinary tract infection, site not specified; E78.5 Hyperlipidemia, unspecified; I10 Essential (primary) hypertension; E11.9 Type 2 diabetes mellitus without complications; E66.01 Morbid (severe) obesity due to excess calories; Z68.42 Body mass index [BMI] 45.0-49.9, adult; Z98.84 Bariatric surgery status; Z90.710 Acquired absence of both cervix and uterus; Z79.84 Long term (current) use of oral hypoglycemic drugs; Z79.82 Long term (current) use of aspirin
CPT/HCPCS: 36415; 51701; 80053; 81001; 83690; 85025; 96361; 96374; 96375; 99284; J2270; J2405; J7030

== ENCOUNTER 2022-06-20 08:00 | Outpatient (RCR) | payer MEDICARE, SELFPAY ==
--- NOTE | 2022-05-23 16:04 | PTOPEVAL ---
PHYSICAL THERAPY INITIAL EVALUATION. Thank you for referring Ofelia Hilliard to [facility].? The patient is scheduled to be seen for therapy? 1x/week for 4 weeks. Please review, sign, date and return this plan of care MAN. I agree with and certify that the following plan of care is medically necessary. Referring Physician Date Attending Provider: PALLAVI Hernandez *PT Outpatient Evaluation Start: 05/23/22 Evaluation Information Diagnosis weakness Subjective Information Pt states she has been doing Query Text:As Reported By Patient/ therapy for the last couple of Family months but the clinic she has been going to is closing. She states she does not have any pain, that her main complaint is balance, particularly on stairs. She has travel plans to [place] next year and would like to be comfortable for this. Pain Assessment Pain Score 0: Self Report Lower Extremity Muscle Strength Testing Hip Strength Bilateral Hip Flexion Strength 4+ Good + Hip Abduction Strength 4 Good Hip Adduction Strength 4 Good Knee Strength Bilateral Knee Flexion Strength 4- Good - Knee Extension Strength 4 Good Balance Assessment Meeks Balance Assessment MEEKS Balance Evaluation Total Score (56 49/56 Comments L tandem: 10s R tandem: 30s L single leg stance: <2 R single leg stance: <1 Time Up Go (TUG) Timed Up and Go Test (TUG) (Seconds) 10 Assistive Devices None 5 Time Sit to Stand Time in Seconds 17 5 Time Sit to Stand Comments without the use of UEs Dynamic Gait Index Total Score () Gait Assessment Ambulation Assistive Devices None Gait Pattern No Deviations/Normal Other Gait Observations arm swing shanta 2 Minute Walk Total Distance Walked (feet) 480 2 Minute Walk Gait Speed Score (feet/s) 4.00 Stair Climbing Assessment Stair Climbing Assistive Devices None,Railings Technique Alternating Steps,Single Steps Stair Climbing Comments Ascends with a reciprocal pattern, single hand rail needed for balance Descends with a non- reciprocal pattern, leading with LLE, single hand rail needed for balance Can descend with a reciprocal
--- NOTE | 2022-06-20 08:52 | PTOPDC ---
Evaluation Information Assessment Status Progress Diagnosis weakness Subjective Information Pt reports she was sick with a UTI and GI infection last week so she has not done much movement or exercise. She states she is still feeling kind of weak since then. Prior to this, she reported good compliance with her HEP. She states she was progressing well, but a little slower than anticipated. Reported Pain Level Pain Score 0: Self Report Assessment PT Clinical Summary Ofelia presents to therapy today for her progress report following 4 visits of skilled therapy. Today she demonstrates improve gross strength throughout her BLEs. She also demonstrates improved scores on the Tinetti, MEEKS, and 5xSTS all now placing her in the low fall risk category . She also demonstrates improve gait speed during the 2min walk test. She has met or progressed towards all of her therapy goals. She will be discharged at this time with instructions to continue her HEP upon discharge and to follow up with her referring provider if needed. Pt is agreeable to this POC. Plan of Care PT Services Indicated No Treatment Frequency and to be d/c'ed Duration
== END 2022-06-20 13:55 | disposition home or self-care (01) ==
LOC: ANHPT 08:00
PROVIDERS: PCP Internal Medicine; Visit Provider Clinical Nurse Specialist
DX: R53.1 Weakness (principal)
CPT/HCPCS: 97110; 97161; 97530

== ENCOUNTER → 2023-01-13 08:42 | Outpatient (CLI) | payer MEDICARE, SELFPAY ==
--- NOTE | ~2023-01-13 | MR_ITS ---
EXAMINATION: MR brain/brain stem wo/w con DATE: 01/13/2023 09:24 INDICATION: Worsening balance and depth perception. Unsteady gait . TECHNIQUE: Magnetic resonance imaging (MRI) of the brain and brainstem was performed without and with 20 mL MultiHance intravenous contrast. COMPARISON: None. FINDINGS: There are scattered areas of nonspecific increased T2-weighted signal intensity in the cere bral white matter, which is within normal limits for the patient's age. There is no intracranial hemo rrhage or acute infarction. Anterior to the medulla on the right, there is a 9 mm enhancing extra-axi al mass, consistent with a meningioma. The ventricles are normal in size. The paranasal sinuses are c lear. The orbits are normal. The mastoid air cells are normal. IMPRESSION: 1. 9 mm meningioma in the premedullary cistern on the right. Reviewed, dictated and finalized at location A.
== END ==
PROVIDERS: PCP Internal Medicine; Visit Provider Clinical Nurse Specialist
DX: R26.89 Other abnormalities of gait and mobility (principal); R53.1 Weakness
CPT/HCPCS: 70553; A9577

== ENCOUNTER 2023-06-06 09:43 | Outpatient (CLI) | payer MEDICARE, SELFPAY ==
[2023-06-06 19:08] LABS: Hemoglobin A1C 5.8 % (<5.7)
== END 2023-06-06 09:44 | disposition home or self-care (01) ==
LOC: ANHGOSHLAB 09:44
PROVIDERS: PCP Internal Medicine; Visit Provider Clinical Nurse Specialist
DX: E11.9 Type 2 diabetes mellitus without complications (principal)
CPT/HCPCS: 36415; 83036

== ENCOUNTER → 2023-07-04 13:04 | Outpatient (CLI) | payer MEDICARE, SELFPAY ==
--- NOTE | ~2023-07-04 | MR_ITS ---
EXAMINATION: MR brain/brain stem wo/w con DATE: 07/04/2023 13:46 INDICATION: Benign neoplasm of cerebral meninges. TECHNIQUE: Magnetic resonance imaging (MRI) of the brain and brainstem was performed without with 19 mL MultiHance intravenous contrast. COMPARISON: Brain MRI 01/13/2023 FINDINGS: There are scattered areas of nonspecific increased T2-weighted signal intensity in the cere bral white matter, which is within normal limits for the patient's age. There is no acute ischemic in farct or intracranial hemorrhage. In the premedullary cistern on the right, there is a 9 mm extra-axi al enhancing mass, consistent with a meningioma. The ventricles are normal in size. The paranasal sin uses are clear. The orbits are normal. The mastoid air cells are normal. IMPRESSION: 1. Stable 9 mm meningioma in the premedullary cistern on the right. Reviewed, dictated and finalized at location E.
== END ==
PROVIDERS: PCP Internal Medicine
DX: D32.0 Benign neoplasm of cerebral meninges (principal)
CPT/HCPCS: 70553; A9577

== ENCOUNTER → 2023-10-16 13:19 | Outpatient (CLI) | payer MEDICARE, SELFPAY ==
--- NOTE | ~2023-10-16 | DEXA_ITS ---
Bone Density Report Name: JUAN PALUMBO Age: 68 Sex: Female Ethnicity: White Date of : 1955 Indication: postmenopausal; screening for osteoporosis; hysterectomy; Referring Provider: Karissa Koch Study: Bone densitometry was performed. Exam Date: October 16, 2023 Accession number: [id number] Bone Density: Region BMD T-score Z-score Classification AP Spine (L1-L4) 1.045 0.0 2.0 Normal Femoral Neck (Left) 0.620 -2.1 -0.3 Osteopenia Total Hip (Left) 0.828 -0.9 0.5 Normal Femoral Neck (Right) 0.654 -1.8 0.0 Osteopenia Total Hip (Right) 0.907 -0.3 1.2 Normal Total Hip Mean 0.868 -0.6 0.9 Normal World Health Organization criteria for BMD impression classify patients as: Normal (T-score at or above -1.0), Osteopenia (T-score between -1.0 and -2.5), or Osteoporosis (T-score at or below -2.5). 10-year Fracture Risk(1): Major Osteoporotic Fracture 11% Hip Fracture 1.9% Reported Risk Factors: [place] (), Neck BMD=0.620, BMI=35.5 (1) FRAX(R) Version 3.08. Fracture probability calculated for an untreated patient. Fracture probability may be lower if the patient has received treatment. Previous Exams: Region Exam Age BMD T-score BMD Change BMD Change Date g/cm2 vs Baseline vs Previous AP Spine(L1-L4) 10/16/2023 68 1.045 0.0 -0.042 -0.040* 11/23/2019 64 1.085 0.3 -0.002 0.012 09/09/2017 62 1.074 0.2 -0.014 0.057* 01/05/2011 55 1.017 -0.3 -0.070 -0.048* 11/30/2008 53 1.065 0.2 -0.023 -0.023 10/25/2005 50 1.087 0.4 Total Hip(Left) 10/16/2023 68 0.828 -0.9 -0.045 -0.026 11/23/2019 64 0.854 -0.7 -0.019 -0.029* 09/09/2017 62 0.883 -0.5 0.010 0.035* 01/05/2011 55 0.849 -0.8 -0.025 0.020 11/30/2008 53 0.829 -0.9 -0.044 -0.044 10/25/2005 50 0.873 -0.6 Total Hip(Right) 10/16/2023 68 0.907 -0.3 -0.035 -0.026 11/23/2019 64 0.933 -0.1 -0.009 -0.039* 09/09/2017 62 0.972 0.2 0.030 0.066* 01/05/2011 55 0.906 -0.3 -0.036 -0.008 11/30/2008 53 0.913 -0.2 -0.028 -0.028 10/25/2005 50 0.942 0.0 *Denotes significance at 95% confidence level, LSC for AP Spine = 0.022 g/cm2, LSC for Total Hip = 0.027 g/cm2 Clinical Information Provided by Patient:
--- NOTE | ~2023-10-16 | MM_ITS ---
EXAMINATION: MM screening patrick BI w ezequiel HISTORY: Screening mammogram TECHNIQUE: Craniocaudal and mediolateral oblique 3-D tomosynthesis images were obtained and synthetic 2-D images were generated. CAD analysis was submitted and interpreted. COMPARISON: 12/25/2020, 11/23/2019, 10/06/2018, 08/08/2016, 04/03/2015 bilateral screening mammogram [facility] [place] BREAST PARENCHYMAL COMPOSITION: There are scattered areas of fibroglandular density. FINDINGS: There is a biopsy marker on the right; history of prior right breast benign biopsies. Stable chronic mild fibroglandular asymmetry since 2014. There is no evidence of suspicious mass, calcification, or architectural distortion to suggest malign jayne in either breast. There has been no suspicious interval change. IMPRESSION: 1. No mammographic evidence of malignancy. 2. Recommend routine screening mammography in one year. BI-RADS Category 1: Negative Reviewed, dictated and finalized at location A. 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
== END ==
PROVIDERS: PCP Clinical Nurse Specialist; Visit Provider Clinical Nurse Specialist
DX: Z12.31 Encounter for screening mammogram for malignant neoplasm of breast (principal); Z78.0 Asymptomatic menopausal state; M85.852 Other specified disorders of bone density and structure, left thigh; M85.851 Other specified disorders of bone density and structure, right thigh
CPT/HCPCS: 77063; 77067; 77080

== ENCOUNTER 2024-06-23 12:03 | Outpatient (CLI) | payer MEDICARE, SELFPAY ==
--- NOTE | ~2024-06-23 | XR_ITS ---
EXAMINATION: XR shoulder LT min 2V DATE: 06/23/2024 12:11 INDICATION: 4 months of left shoulder pain TECHNIQUE: AP internally and externally rotated, AP oblique externally rotated and transscapular Y vi ews of the left shoulder were obtained. COMPARISON: None FINDINGS: Normal alignment. No fracture.Moderate osteoarthritis at the left glenohumeral and acromioclavicular joints. Visualized portions of the left lung are clear. Soft tissues are unremarkable. 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 Reviewed, dictated and finalized at location A.
== END 2024-06-23 12:04 | disposition home or self-care (01) ==
PROVIDERS: PCP Clinical Nurse Specialist; Visit Provider Clinical Nurse Specialist
DX: M19.012 Primary osteoarthritis, left shoulder (principal)
CPT/HCPCS: 73030

== ENCOUNTER 2024-07-13 12:57 | Outpatient (CLI) | payer MEDICARE, SELFPAY ==
--- NOTE | ~2024-07-13 | MR_ITS ---
EXAMINATION: MR brain/brain stem wo/w con DATE: 07/13/2024 13:50 INDICATION: Intracranial meningioma. TECHNIQUE: Magnetic resonance imaging (MRI) of the brain and brainstem was performed without and with 17 mL MultiHance intravenous contrast. COMPARISON: Brain MRI 07/04/2023. FINDINGS: There are scattered areas of nonspecific increased T2-weighted signal intensity in the cere bral white matter, which is within normal limits for the patient's age. There is no intracranial hemo rrhage or acute ischemic infarct. There is a 9 mm enhancing extra-axial mass with dural tails in the premedullary cistern on the right, consistent with a meningioma. The ventricles are normal in size. T he paranasal sinuses are clear. The orbits are normal. The mastoid air cells are normal. IMPRESSION: 1. Stable 9 mm meningioma in the premedullary cistern on the right. Reviewed, dictated and finalized at location A.
== END 2024-07-13 12:58 | disposition home or self-care (01) ==
LOC: MICIMG 12:58
PROVIDERS: PCP Clinical Nurse Specialist
DX: D32.0 Benign neoplasm of cerebral meninges (principal)
CPT/HCPCS: 70553; A9577

== ENCOUNTER 2024-12-05 09:37 | Emergency (ER) | payer MEDICARE, SELFPAY ==
--- NOTE | ~2024-12-05 | CT_ITS ---
CT soft tissue neck w con Ordering provider: Popeye Schneider MD History: 69 years Female with . Worsening sore throat difficulty swallowing . Comparison: None. Technique: CT soft tissues neck was performed with contrast. . The dose-length product was 523.59 mGy -cm. Findings: LOWER HEAD: The visualized brain parenchyma, optic globes/orbits and mastoids are normal. The visua lized paranasal sinuses are well aerated. SALIVARY GLANDS: Unremarkable THYROID: Normal. SUPRAHYOID DEEP SPACES: Normal. CAROTID ARTERIES: Normal. JUGULAR VEINS: Normal. TONSILS: Normal. ORAL CAVITY: Partially obscured by dental amalgam but normal as visualized. PHARYNX, LARYNX AND TRACHEA: Patent and normal. No significant prevertebral soft tissue swelling. SUPERFICIAL SOFT TISSUES: Unremarkable No morphologically suspicious or pathologically enlarged lymph adenopathy or neck mass. THORACIC INLET/VISUALIZED UPPER CHEST: Unremarkable SKELETAL: Age appropriate degenerative changes. IMPRESSION: No rim-enhancing fluid collection is identified within the soft tissues of the neck No significant asymmetry, as detailed above. Reviewed, dictated and finalized at location A. Y ASSISTANT
--- OUTSIDE RECORDS SUMMARY | 2024-12-05 09:40 | XMS_ITS | Data Portability ---
Author Organization [facility] Address [address] [place] [address] Care Team Providers Care Motor Bus Driver Name Role Phone KAMARI OTTO Primary Care Provider Assessment Encounter Date Assessment Date Assessment LastModified by Organization Details LastModified Time 12/25/2020 12/25/2020 Annual gynecological exam performed. Patient will come back in a year unless there are new symptoms. Not available 12/25/2020 09:46:11 Plan of Treatment Reminders Order Date Submit Date Provider Last Modified By Organization Details Last Modified Time Details Appointments None record ed. Lab None record ed. Referral None record ed. Procedures None record ed. Surgeries None record ed. Imaging None record ed. Medication Orders None record ed. Patient TargetsNo targets recorded. Patient InstructionsNo instructions recorded. Reason for Referral None Reported. Results Created Date Observation Date Name Description Value Unit Range Abnormal Flag Note LastModifiedBy Organization Detail LastModifiedTime 12/26/1912/25/2020 MAMMO , scree richard, bilat eral No observ ation record ed. [facility] [address], [place], [address], 12/29/2020 18:37:45 Result Notes None recorded. Problems Name Problem SNOMED Code Status Onset Date Resolution Date Notes Provider Name and Address Organization Details Recorded Time SNOMED CT Concept Completed 201512/25/2021 Well woman check w/o abnormal finding;R ecorded Elsewhere : No Locati on: [facility] So urce: EHR Chron ic: N Practic e ID: 0001 Bill able Time: 09:00:00 AM Olga Jessica [facility] 2 09:54:[address] Concept Completed 201612/25/2021 Encntr for general adult medical exam w/o abnormal findings; Recorded Elsewhere : No Locati on: [facility] So urce: EHR Chron ic: N Practic e ID: 0001 Bill able Time: 01:30:00 PM Olga Jessica [facility] 2 09:54:36 Speciali zed medical examinat ion Completed 201312/25/2021 Gynecolog ical Examinati on;Record ed Elsewhere : No Locati on: [facility] So urce: EHR Chron ic: N Practic e ID: 0001 Bill able Time: 10:45:00 AM Olga Jessica [facility] 2 09:54:40 Mammogra phy abnormal [id number] Completed 201412/25/2021 Unspecifi ed abnormal mammogram ;Recorded Elsewhere : No Locati on: [facility] So urce: EHR Chron ic: N Practic e ID: 0001 Bill able Time: 03:36:09 PM Olga Jessica [facility] 2 09:54:31 Adult health examinat ion Completed 201412/25/2021 ROUTINE MEDICAL EXAM;Gen rded Elsewhere : No Locati on: [facility] So urce: EHR Chron ic: N Practic e ID: 0001 Bill able Time: 08:30:00 AM Olga Jessica [facility] 2 09:54:28 Screenin g for malignan t neoplasm of rectum Completed 201112/25/2021 Screening for malignant neoplasms of the rectum;Re corded Elsewhere : No Locati on: [facility] So urce: EHR Chron ic: N Practic e ID: [id number] Bill able Time: 01:30:00 PM Olga Jessica [facility] 2 09:54:35 Screenin g for malignan t neoplasm of cervix Completed 201112/25/2021 Screening for malignant neoplasms of the cervix;Re corded Elsewhere : No Locati on: [facility] So urce: EHR Chron ic: N Practic e ID: 0001 Bill able Time: 01:30:00 PM Olga [facility] 2 09:54:33 Leukocyt osis [id number] Completed 201212/25/2021 LEUKOCYTO SIS NOS;Recor ded Elsewhere : No Locati on: [facility] So urce: EHR Chron ic: N Practic e ID: 0001 Bill able Time: 03:30:00 PM Olga Jessica [facility] 2 09:54:30 Problem Notes None recorded. Procedures Surgical History Date Name Laterality Status Provider Name and Address Organization Details Recorded Time 11/25/19 20 Date of Last Mammogram completed [facility] 11/17/2020 10:57:25 09/14/20 18 Date of Last Pap Smear completed [facility] 11/17/2020 10:54:42 10/20/19 06 cholecystectomy completed [facility] 11/17/2020 10:45:09 10/20/19 05 abdominoplasty completed [facility] 11/17/2020 10:46:20 10/20/19 04 colonoscopy completed [facility] 11/17/2020 10:44:54 10/20/19 03 Gastric Bypass completed [facility] 11/17/2020 10:45:34 Total Hysterectomy completed Jeanette Juarez [facility] 12/25/2020 09:46:45 Imaging Results Imaging Date Name Status LastModified by Organiz ation Details LastModified Time 12/25/2020 MAMMO, screening, bilateral completed [facility] [address], [place], [address], 12/29/2020 18:37:45 Procedure Notes None recorded. Medical Equipment None Reported. Allergies No known drug allergies Medications Name Sig Start Date Stop Date Status Note LastModified by Organization Details LastModified Time furosemid e 10 mg/mL injection solution inject 2 millilit er by intraven ous route every day slowly 12/25 completed Prescrib ed Elsewher e: Yes Loca tion: [facility] odify By: miah Branch nter DateTime : 12/22/19 12 06:07:01 PM Not Available Not Available Not Available metformin 500 mg tablet active Not Available Not Available Not Available prednison e 10 mg tablet TAKE 1 TABLET BY MOUTH TWICE DAILY active Not Available Not Available No t Available nystatin 100,000 unit/gram topical ointment APPLY TOPICALL Y TO THE AFFECTED AREA TWICE DAILY NEEDED FOR RASH active Not Available Not Available No t Available Nystop 100,000 unit/gram topical powder APPLY TOPICALL Y TWICE DAILY NEEDED FOR RASH active Not Available Not Available No t Available lisinopri l 20 mg tablet active Not Available Not Available Not Available clobetaso l 0.05 % topical cream APPLY TOPICALL Y TO THE AFFECTED AREA TWICE DAILY active Not Available Not Available No t Available sulfameth oxazole 800 mg-trimet hoprim 160 mg tablet TAKE 1 TABLET BY MOUTH EVERY 12 HOURS active Not Available Not Available No t Available amitripty line 25 mg tablet TAKE 1 TABLET BY MOUTH TWICE DAILY FOR 2 WEEKS active Not Available Not Available No t Available amitripty line 10 mg tablet TAKE 1 TABLET BY MOUTH EVERY NIGHT AT BEDTIME active Not Available Not Available No t Available simvastat in 5 mg tablet take 1 tablet by oral route every day in the evening active Prescrib ed Elsewher e: Yes Loca tion: [facility] M odify By: miah Branch nter DateTime : 12/22/19 12 06:07:01 PM Not Available Not Available Not Available simvastat in 20 mg tablet active Not Available Not Available Not Available nitrofura ntoin macrocrys james 100 mg capsule TAKE 1 CAPSULE BY MOUTH EVERY 12 HOURS FOR 5 DAYS active Not Available Not Available No t Available triamcino lone acetonide 0.1 % topical ointment APPLY TOPICALL Y TO THE AFFECTED AREA TWICE DAILY active Not Available Not Available No t Available perphenaz ine 4 mg tablet TAKE 1 TABLET BY MOUTH TWICE DAILY active Not Available Not Available No t Available perphenaz ine-amitr iptyline 2 mg-10 mg tablet take 1 tablet by oral route 2 times every day active Prescrib ed Elsewher e: Yes Loca [facility]ion: [facility] odify By: shellie brown DateTime : 01/27/20 13 03:30:00 PM Not Available Not Available Not Available hydroxyzi ne HCl 25 mg tablet TAKE 1 TABLET BY MOUTH EVERY NIGHT AT BEDTIME USE FOR ITCHING active Not Available Not Available No t Available Baby Aspirin 81 mg chewable tablet chew 1 tablet by oral route every day active Prescrib ed Elsewher e: Yes Loca tion: Qu[facility] bapt[facility] odify By: trey sam DateTime : 12/24/19 12 01:30:00 PM Not Available Not Available Not Available ondansetr on 4 mg disintegr ating tablet DISSOLVE 1 TABLET ON THE TONGUE EVERY 6 HOURS NEEDED FOR NAUSEA OR VOMITING active Not Available Not Available No t Available lisinopri l 2.5 mg tablet take 1 tablet by oral route every day active Prescrib ed Elsewher e: Yes Loca tion: Quique baptiste [facility] odify By: miah blas DateTime : 12/22/19 12 06:07:01 PM Not Available Not Available Not Available Vitamins and Minerals tablet active Prescrib ed Elsewher e: Yes Loca [facility]ion: [facility] odify By: trey sam DateTime : 12/24/19 12 01:30:00 PM Not Available Not Available Not Available iron ER 325 mg (65 mg iron) capsule,e xtended release 09/08 completed Prescrib ed Elsewher e: Yes Loca [facility]ion: [facility] odify By: gunner sam DateTime : 12/24/19 12 01:30:00 PM Not Available Not Available Not Available nitrofura ntoin monohydra te/macroc rystals 100 mg capsule TAKE 1 CAPSULE BY MOUTH EVERY 12 HOURS FOR 5 DAYS active Not Available Not Available No t Available Calcio Carmelita 500 mg tablet 10/27 completed Prescrib ed Elsewher e: Yes Loca tion: [facility] odify By: tomasa sam DateTime : 12/24/19 12 01:30:00 PM Not Available Not Available Not Available metformin active Not Available Not Dee ilable Not Available ProAir HFA 90 mcg/actua tion aerosol inhaler active Not Available Not Available Not Available Fish Oil 340 mg-1,000 mg capsule active Prescrib ed Elsewher e: Yes Loca tion: [facility] odify By: gunner sam DateTime : 08/07/20 16 09:00:00 AM Not Available Not Available Not Available Probiotic active Not Available Not Dee ilable Not Available Vitals Date Recorded Body height Body mass index (BMI) Body weight Systolic blood pressure Diastolic blood pressure Provider Name and Address Organization Details Last Updated DateTime 12/25/2020 157.48 cm 41.3 kg/m2 442349.8 8 g 137 mm[Hg] 82 mm[Hg] Jeanette Juarez [facility] 10:00:59 Social History Question Answer Notes LastModified by Organizat ion Details LastModified Time Tobacco Smoking Status Never Smoker Jeanette Juarez [facility] 12/25/2020 10:01:38 What Is Your Level Of Alcohol Consumption? None Information not available 12/25/2020 What Is Your Level Of Caffeine Consumption? Occasional Information not available 12/25/2020 Has Tobacco Cessation Counseling Been Provided? No Information not available 12/25/2020 Do You Or Have You Ever Used Any Other Forms Of Tobacco Or Nicotine? No Information not available 12/25/2020 Sex: Unknown Functional Status None recorded. Mental Status None recorded. Family History Relationship Description Onset Age of this Age Resolved Age Notes LastModified by Organization Details LastModified Time Maternal Grandmother Malignant tumor of breast jgumber Not available 2020 10:48:16 Maternal Aunt Malignant tumor of breast jgumber Not available 2020 10:48:16 Maternal Aunt Leukemia jgumber Not dee ilable 11/17/2020 10:48:36 Maternal Aunt Diabetes mellitus jgumber Not available 2020 10:48:58 Mother Diabetes mellitus jgumber Not available 2020 10:48:58 Mother Hypertensive disorder jgumber Not available 2020 10:49:27 Father Hypertensive disorder jgumber Not available 2020 10:49:27 Father Myocardial infarction jgumber Not available 11/17 10:49:50 Unspecified Relation Acute stroke jgumber Not available 10/21 10:50:21 Notes:Cousin: DVT PE Family history of Coronary artery disease, Family history of hear attack, stroke Father: history of heart attack and stroke, Cancer, lung, dvt pe, Myocardial infarction, Hypertension Maternal aunt: Diabetes mellitus, Leukemia, Cancer, breast Maternal grandmother: Cancer, breast Mother: Hypertension, Diabetes mellitus Paternal aunt: Diabetes mellitus Medical History Condition Response Diabetes Y Hypertension Y High Cholesterol Y Gynecological History Statement/Question Response Date of Last Pap Smear 09/14/2018 Current Control Method Hysterectom y Date of Last Mammogram 11/25/2019 Obstetrics History GPAL:G 0 P 0 0 0 0 Past Encounters Encounter ID Performer Location Encounter Start Date Encounter Closed Date Diagnosis/Indication Diagnosis SNOMED-CT Code Diagnosis ICD10 Code Diagnosis Note [id number] Lindsay Akhtar [facility] [address] [address] 12/25/2020 09:48:10 12/25/2020 10:47:30 Gynecologic examination 35346093 Z01.419 Take Calcium with Vitamin D 12-1500mg daily. Do monthly self breast exams. It is advised to get annual flu shot in the fall and she could obtain at [facility] or [facility] care clinic. If you haven't received the Tdap vaccine in the last 10 years you should obtain one as well. Have mammogram yearly, bone density every 2-3 years and colonoscop y every 5-10 years depending on findings and history. Engage in daily exercise of low impact aerobic exercise 45-60 minutes 4-5 times weekly. Avoid tobacco and illicit drugs as well as using moderation with alcohol intake less than 1-2 8 oz beverages daily. This lifestyle behavior pattern will lead to less health conditions and longer life span. If BMI greater than 25 weight watchers or dietary consult advised. Questions have been answered. Patient appears to understand instructio ns, but if you have any further questions call or respond to this email USPSTF recommends against screening for cervical cancer in women older than 65yo who have had adequate prior screening & are not otherwise at high risk for cervical cancer. Hyst for non-cancer indication s. Dexa due 2021 COlonoscop y UTD 2016 wnl No partner Not SA No issues or concerns [id number] RICKY [facility] [address] [address] 12/25/2021 09:52:02 12/26/2021 15:26:13 Health Concerns Section Related Observation LastModified by Organization Detai ls LastModified Time None Recorded Concern Status LastModified by Organization Details LastModified Time None Recorded Advance Directives Directive None Recorded Payers Encounter Date Sequence Insurance Name Policy Number Policy Leoms Covered Member ID Lemos Member ID Guarantor Name 12/25/2020 1 [place] Ofelia Cartyay [id number] Ofelia Cartyay 12/25/2021 1 [facility] (MEDICARE REPLACEMENT/A DVANTAGE - PPO) [id number] Ofelia C[address] [place] [id number] fOelia Cartyay Notes Date Note Type Note Provider Name and Address Organization Details Recorded Time 12/25/2020 text/html Annual Mold Closer Post-MenopausalRe ported bypatient.Menopau holly Symptoms:no menopausal symptoms; normal vaginal lubrication Vaginal Bleeding:history of menopause having occurred; no history of post menopausal bleeding Urinary Symptoms:no hematuria; no incontinence; no nocturia; no urinary frequency Vulva:no genital lesion; no vulvar atrophy Vagina:normal vaginal discharge; no vaginal atrophy Breast:no breast lump; no nipple discharge; no breast pain Sexual Complaints:no sexual complaints Psychological Symptoms:no depression; no anxiety Preventive Measures:encourag e regular mammograms starting age 40; encourage self breast examination; encourage regular exercise; encourage no tobacco use; needs to schedule mammogram; history of recent colonoscopy; Dexa due 2021 NOt sexuall active RICKY Castanon- [address], [place], [address], [place] [facility] 12/25/2020 10:27:07 OBGyn Episode No OBEpisode recorded.
--- OUTSIDE RECORDS SUMMARY | 2024-12-05 09:40 | XMS_ITS | Clinical Summary ---
Author Organization [facility] nemo [facility] Address [address] [place] [place] [address] Care Team Providers Care Rug Layer Name Role Phone Sly Driver DO Primary Care Provider Allergies No known active allergies Medications lisinopriL (PRINIVIL) 20 mg tablet 10/17/2020 Active metFORMIN (GLUCOPHAGE) 500 mg tablet 10/23/2020 Activ e simvastatin (ZOCOR) 20 mg tablet 10/10/2020 Active amitriptyline (ELAVIL) 10 mg tablet Take 10 mg by mouth daily at bedtime. Active perphenazine (TRILAFON) 4 mg tablet Take 4 mg by mouth 2 times daily. Active aspirin (EDUARDO CHEWABLE) 81 mg Tablet, Chewable Baby Aspirin 81 mg chewable tablet chew 1 tablet by oral route every day Active multivitamin-mi nerals (Vitamins and Minerals) tablet Vitamins and Minerals tablet Active ferrous sulfate 325 mg (65 mg iron) tablet Take 325 mg by mouth daily. Active vit C/vit E ac/lut/copper/z inc (VIT C-VIT O-WJQDNS-WUHX-L UTEIN ORAL) Take by mouth. 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 Encounters Date Type Department Care Team Description 11/10/2024 External Device Data [facility] ABSTRACTION Provider, Abstract 11/10/2024 External Device Data [facility] ABSTRACTION Provider, Abstract from Last 3 Months Family History Medical History Relation Name Comments Heart Disease Father Lung Cancer Father Diabetes Mother Healthy Sister Relation Name Status Comments Father Mother Sister Alive Social History Tobacco Use Types Packs/Day Years Used Date Smoking Tobacco: Never Smokeless Tobacco: Never Tobacco Cessation:Counseling Given: Not Answered Alcohol Use Standard Drinks/Week Comments Yes 0 (1 standard drink = 0.6 oz pur e alcohol) occasional Feeling Safe Answer Date Recorded Within the last year, have y ou been afraid of your partner or ex-partner? Patient declined 12/18/2020 Within the last year, have y ou been humiliated or emotionally abused in other ways by your partner or ex-partner? Patient declined 12/18/2020 Within the last year, have y ou been kicked, hit, slapped, or otherwise physically hurt by your partner or ex-partner? Patient declined 12/18/2020 Within the last year, have y ou been raped or forced to have any kind of sexual activity by your partner or ex-partner? Patient declined 12/18/2020 Social Connections Answer Date Recorded In a typical week, how many times do you talk on the phone with family, friends, or neighbors? More than three times a week 12/18/2020 How often do you get togethe r with friends or relatives? More than three times a week 12/18/2020 How often do you attend chur or anabaptist services? Not asked 12/18/2020 Do you belong to any clubs o r organizations such as congregational groups, unions, fraternal or athletic groups, or school groups? No 12/18/2020 How often do you attend meet ings of the clubs or organizations you belong to? Never 12/18/2020 Are you , , di vorced, , never , or living with a partner? Not asked 12/18/2020 Financial Resource Strain Answer Date R ecorded How hard is it for you to pa y for the very basics like food, housing, medical care, and heating? Not hard at all 12/18/2020 Food Insecurity Answer Date Recorded Within the past 12 months, y ou worried that your food would run out before you got the money to buy more. Never true 12/19/19 21 Ran Out of Food in the Last Year Not on file 12/18/2020 Transportation Needs Answer Date Record ed In the past 12 months, has l ack of transportation kept you from medical appointments or from getting medications? No 10/2020 In the past 12 months, has l ack of transportation kept you from meetings, work, or from getting things needed for daily living? No 12/18/2020 Comments Unknown Sex and Gender Information Value Date Recorded Sex Assigned at Not on file Legal Sex Female 11:13 AM SALES MARKET LEADER Gender Identity Not on file Sexual Orientation Not on file Last Filed Vital Signs Vital Sign Reading Time Taken Comments Blood Pressure 139/76 09/08/2023 11:07 AM SALES MARKET LEADER Pulse 83 09/08/2023 11:07 AM SALES MARKET LEADER Temperature 35.7 C (96.3 F) 09/08/2023 11:07 AM SALES MARKET LEADER Respiratory Rate 10 09/08/2023 11:07 AM SALES MARKET LEADER Oxygen Saturation 100% 09/08/2023 11:07 AM SALES MARKET LEADER Inhaled Oxygen Concentration - - Weight 87.1 kg (192 lb) 09/08/2023 11:07 AM SALES MARKET LEADER Height 157.5 cm (5' 2 ) 03/04/2022 9:02 AM CDT Body Mass Index 35.12 03/04/2022 9:02 AM CDT Plan of Treatment Health Maintenance Due Date Last Done Comments DTAP/TDAP/TD VACCINES (1 - Tdap) 1973 COLORECTAL SCREENING 1999 FIT-DNA Q 3 years 1999 Flex Sig/CT Colonography Q 5 years 1999 PNEUMOCOCCAL VACCINE 65+ YEA RS (1 of 1 - PCV) 2004 ZOSTER VACCINE (1 of 2) 2004 BREAST CANCER SCREENING 09/09/2017 09/09/2016, 09/02 Colorectal Cancer Screening 12/20/2021 FIT/FOBT Q 1 year 12/20/2021 12/20/2020 INFLUENZA VACCINE (#1) 2024 RSV VACCINE (60+ or ) (1 - 1-dose 75+ series) 2029 OSTEOPOROSIS SCREENING Completed 11/23/2019 Procedures Procedure Name Priority Date/Time Associated Diagnosis Comments OCCULT BLOOD IMMUNOASSAY, COLORECTAL SCREEN Routine 12/20/2020 5:06 PM SALES MARKET LEADER from Last 3 Months or Most Recently Relevant to Health Maintenance Results * OCCULT BLOOD IMMUNOASSAY, COLORECTAL SCREEN (12/20/2020 5:06 PM SALES MARKET LEADER) OCCULT BLOOD, STOOL Negative Negative [facility] 12/20/2020 5:06 PM SALES MARKET LEADER 12/20/2020 Narrative [facility] - 12/21/2020 3:08 PM SALES MARKET LEADER Performed at: - [address] [id number] Manager In Home: Brad Pacheco PhD, Phone: [phone] us Yogesh Amos MD BODY FLUIDS AND STOOLS Final Re sult [facility] [phone] from Last 3 Months or Most Recently Relevant to Health Maintenance Insurance Care Teams Rug Layer Relationship Specialty Start Date End Date Sly Driver DO [address] [place] [address] PCP - General Internal Medicine 12/18/20
[2024-12-05 09:47] VITALS: BP 161/95; PULSE 110; RESP 18; TEMP 37.3; O2SAT 100
--- OUTSIDE RECORDS SUMMARY | 2024-12-05 10:03 | XMS_ITS | Clinical Summary ---
Author Organization [facility] nemo [facility] Address [address] [place] [address] Care Team Providers Care Viscosity Tester Name Role Phone Sly Driver DO Primary [...] vit C/vit E ac/lut/copper/z inc (VIT C-VIT W-[id number]-L UTEIN ORAL) Take by mouth. Active Active [...] How often do you attend chur or congregational services? Not asked 12/18/2020 Do you belong to any clubs o r organizations such as jew groups, unions, fraternal or athletic groups, or [...] on file Legal Sex Female 11:13 AM SEARCH ENGINE OPTIMIZATION SPECIALIST Gender Identity Not on file Sexual Orientation Not on file Last Filed Vital Signs Vital Sign Reading Time Taken Comments Blood Pressure 139/76 09/08/2023 11:07 AM SEARCH ENGINE OPTIMIZATION SPECIALIST Pulse 83 09/08/2023 11:07 AM SEARCH ENGINE OPTIMIZATION SPECIALIST Temperature 35.7 C (96.3 F) 09/08/2023 11:07 AM SEARCH ENGINE OPTIMIZATION SPECIALIST Respiratory Rate 10 09/08/2023 11:07 AM SEARCH ENGINE OPTIMIZATION SPECIALIST Oxygen Saturation 100% 09/08/2023 11:07 AM SEARCH ENGINE OPTIMIZATION SPECIALIST Inhaled Oxygen Concentration - - Weight 87.1 kg (192 lb) 09/08/2023 11:07 AM SEARCH ENGINE OPTIMIZATION SPECIALIST Height 157.5 cm (5' 2 ) 03/04/2022 [...] IMMUNOASSAY, COLORECTAL SCREEN Routine 12/20/2020 5:06 PM SEARCH ENGINE OPTIMIZATION SPECIALIST from Last 3 Months or Most Recently Relevant to Health Maintenance Results * OCCULT BLOOD IMMUNOASSAY, COLORECTAL SCREEN (12/20/2020 5:06 PM SEARCH ENGINE OPTIMIZATION SPECIALIST) OCCULT BLOOD, STOOL Negative Negative [facility] 12/20/2020 5:06 PM SEARCH ENGINE OPTIMIZATION SPECIALIST 12/20/2020 Narrative [facility] - 12/21/2020 3:08 PM SEARCH ENGINE OPTIMIZATION SPECIALIST Performed at: - [address] [id number] Art Coordinator: Brad Pacheco PhD, Phone: [phone] us Yogesh Amos MD BODY FLUIDS AND STOOLS Final Re sult [facility] [phone] from Last 3 Months or Most Recently Relevant to Health Maintenance Insurance Care Teams Viscosity Tester Relationship Specialty Start Date End Date Sly Driver DO [address] [place] [address] PCP - General Internal Medicine 12/18/20
--- NOTE | 2024-12-05 10:29 | ED.GENADULT ---
HPI - General Adult General Chief complaint: Upper Respiratory Infection Stated complaint: sore throat Time Seen by Provider: 12/05/24 09:58 History of Present Illness HPI narrative: 69-year-old female presents emergency department for evaluation of sore throat that is been ongoing for the last 2 days. Patient does report a hoarse voice. Patient denies any difficulty breathing. Patient was complaining some pain with swallowing. Patient is mildly tachycardic in the emergency department patient states this is secondary to her anxiety. Related Data Home Medications ?Medication ?Instructions ?Recorded ?Confirmed ?Last Taken ?Type aspirin 81 mg tablet,delayed 81 mg PO DAILY 12/22/19 09/07/24 02/12/20 09:00 History release (Adult Low Dose Aspirin) multivitamin (Chewable-Shannon tablet) 1 tablet PO DAILY 12/22/19 09/07/24 02/12/20 09:00 History ascorbate calcium (vitamin C) 500 500 mg PO DAILY 10/24/20 09/07/24 Unknown History mg tablet cholecalciferol (vitamin D3) 50 5,000 unit PO DAILY 12/31/22 09/07/24 Unknown History mcg (2,000 unit) chewable tablet ferrous sulfate 134 mg (27 mg 134 mg PO DAILY 01/28/23 09/07/24 Unknown History iron) tablet magnesium PO 12/03/23 09/07/24 Unknown History carbidopa 10 mg-levodopa 100 mg 1 tablet PO QHS 09/06/24 09/07/24 Unknown History tablet Allergies Allergy/AdvReac Type Severity Reaction Status Date / Time No Known Allergies Allergy Verified 12/05/24 09:51 Review of Systems Review of Systems: All systems reviewed & are unremarkable except as noted in HPI and below PMFSH Past Medical History Medical History Chronic constipation Decreased GFR Hypercalcemia Hyperkalemia Hyperlipidemia Hypertension Morbid obesity Severe sepsis Thrombocytosis Type 2 diabetes mellitus, without long-term current use of insulin Surgical History Surgical History History of abdominoplasty 2005 History of gastric bypass 2004 History of hysterectomy 1996 Hx of cholecystectomy 2007 Family History Family History Father Family history of lung cancer Hypertension Heart disease Mother Family history of Parkinson's disease Diabetes mellitus Hypertension Sibling History of brain shunt Social History Social History Social History: Caffeine-coffee 2 cups daily Smoking status: Never smoker Alcohol intake: current Alcohol use details: rarely Substance use: never Substance use type: does not use Do You Feel Safe in your Home?: Yes Lack of Transportation: No Lack of Food: Never True Current Housing: I Have Housing Concerned About Future Housing: No Difficulty Paying Gas/Electric Bills: No Difficulty Paying for Meds: No Currently Unemployed: No Education: Master's Degree or Higher Difficulty w/ Childcare or Family Care: No Gender identity (if verbalized by the patient): Female Spiritual care concerns: No Agree to blood products: Yes Exam Narrative: APPEARANCE: Well appearing, no pain, no distress, well-nourished. HEAD: normocephalic, atraumatic. EYES: PERRLA/EOMI, conjunctivae clear. NOSE: Normal no drainage EARS:TMS clear with good light reflex. THROAT: Pharynx clear, no exudate. NECK: Supple. No adenopathy, no masses. RESPIRATORY: Airway patent, respirations nonlabored. Clear to auscultation bilaterally, no rales, rhonchi, wheezing. CARDIOVASCULAR: Regular rate and rhythm without murmurs rubs or gallops. ABDOMINAL: Soft, nontender, nondistended, normal bowel sounds MUSCULOSKELETAL: Moves all extremities. Strength/ROM intact, No edema, No calf tenderness. NEURO: Alert. Cranial nerves II through XII intact. SKIN: Warm, dry. Normal Color Course Vital Signs Vital signs: Vital Signs Temperature 99.1 F 12/05/24 09:47 Pulse Rate 110 H 12/05/24 09:47 Respiratory Rate 18 12/05/24 09:47 Blood Pressure 161/95 H 12/05/24 09:47 Pulse Oximetry 100 12/05/24 09:47 Oxygen Delivery Room Air 12/05/24 09:47 Temperature 99.1 F 12/05/24 09:47 Pulse Rate 116 H 12/05/24 15:27 Respiratory Rate 16 12/05/24 15:27 Blood Pressure 166/101 H 12/05/24 15:27 Pulse Oximetry 95 12/05/24 15:27 Oxygen Delivery Room Air 12/05/24 09:47 Medical Decision Making MDM Narrative Medical decision making narrative: 69-year-old female presented to the emergency department for evaluation for sore throat. Patient has no swelling or posterior pharynx, no submandibular swelling or fullness, no clinical evidence of strep throat. Patient was negative influenza RSV and for COVID, PCR for strep a was negative. CT scan was negative for abscess or phlegmon. Heart rate was improved with IV fluids. Patient was treated with a dose of dexamethasone and was advised to take [id number] medications for pain control. Patient was also encouraged close follow-up with her primary care physician. All questions concerns were addressed. Patient was started on antibiotics due to the leukocytosis. Patient denies any other pain or complaint. Differential Diagnosis Differential Diagnosis: COVID, RSV, influenza, strep, tonsillitis, peritonsillar abscess, posterior pharyngeal abscess Vital Signs Vital Signs: Vital Signs Temperature 99.1 F 12/05/24 09:47 Pulse Rate 110 H 12/05/24 09:47 Respiratory Rate 18 12/05/24 09:47 Blood Pressure 161/95 H 12/05/24 09:47 Pulse Oximetry 100 12/05/24 09:47 Oxygen Delivery Room Air 12/05/24 09:47 Temperature 99.1 F 12/05/24 09:47 Pulse Rate 116 H 12/05/24 15:27 Respiratory Rate 16 12/05/24 15:27 Blood Pressure 166/101 H 12/05/24 15:27 Pulse Oximetry 95 12/05/24 15:27 Oxygen Delivery Room Air 12/05/24 09:47 Lab Data Lab results reviewed: Yes I reviewed the patient's lab results. 12/05/24 13:01 12/05/24 13:01 Labs: Lab Results 12/05/24 12/05/24 Range/Units 10:08 13:01 WBC 18.3 H (4.5-10.0) K/mm3 RBC 4.89 (4.2-5.4) M/mm3 Hgb 14.2 (12.0-15.0) g/dL Hct 44.1 (37.0-47.0) % MCV 90.2 (80-100) fl MCH 29.0 (26-34) pg MCHC 32.2 (32-36) g/dl RDW 14.1 (11.5-14.5) % Plt Count 291 (150-375) k/mm3 MPV 10.5 H (7.4-10.4) fl Immature Gran % (Auto) 0.5 (0-0.5) % Neut % (Auto) 75.2 H (45.5-73.1) % Lymph % (Auto) 18.6 (18.3-44.2) % [place] % (Auto) 5.4 (2.6-8.5) % Eos % (Auto) 0.0 (0-4.4) % Baso % (Auto) 0.3 (0.2-1.2) % Lymph # (Auto) 3.41 H (0.9-3.2) K/mm3 [place] # (Auto) 1.0 H (0.1-0.6) K/mm3 Eos # (Auto) 0.0 (0-0.3) K/mm3 Baso # (Auto) 0.1 (0.0-0.1) K/mm3 Abs Immat Gran (auto) 0.09 H (0.00-0.031) K/mm3 Absolute Neuts (auto) 13.8 H (1.3-6.7) K/mm3 Absolute Nucleated RBC 0.000 (0.0-0.012) K/mm3 Nucleated RBC % 0.0 (0.0-0.2) % Sodium 137 (137-145) mmol/L Potassium 4.3 (3.4-5.0) mmol/L Chloride 104 (98-107) mmol/L Carbon Dioxide 19 L (22-30) mmol/L Anion Gap 14 H (4-12) mmol/L BUN 20 H (7-17) mg/dL Creatinine 0.65 L (0.7-1.0) mg/dL Estim Creat Clear Calc 73 ml/min Estimated GFR > 60 (59 - ) Glucose 225 H (65-110) mg/dL Calcium 9.6 (8.4-10.2) mg/dL Total Bilirubin 0.9 (0.2-1.3) mg/dL AST 93 H (14-36) U/L ALT 73 H (6-35) U/L Alkaline Phosphatase 127 H (38-126) U/L Total Protein 7.0 (6.3-8.2) g/dL Albumin 4.1 (3.5-5.1) g/dL Influenza A (RT-PCR) Negative (Negative) Influenza B (RT-PCR) Negative (Negative) RSV (RT-PCR) Negative (Negative) SARS-CoV-2 RNA (RT-PCR) Negative (Negative) Group A Strep (PCR) Not detected (Negative) Imaging Data Radiologist's impression: Impressions Soft Tissue Neck CT 12/05/24 13:35 IMPRESSION: No rim-enhancing fluid collection is identified within the soft tissues of the neck No significant asymmetry, as detailed above. Discharge Plan Discharge Clinical Impression: Acute sore throat, Pharyngitis Patient Disposition: Home, Self-Care Condition: Stable Instructions: Antibiotic Form, Pharyngitis (ED) Additional Instructions: Antibiotic as directed until completed. [id number] pain medications as directed. Warm salt water gargles. Have close follow-up with her primary care physician. If you have any worsening symptoms then please call or return to the emergency department. Have close follow-up with your primary care physician. Patient Language: Croatian Prescriptions: New amoxicillin-pot clavulanate 875-125 mg tablet 1 tablet PO Q12H 7 Days Qty: 14 0RF No Action ascorbate calcium (vitamin C) 500 mg tablet 500 mg PO DAILY carbidopa-levodopa 10-100 mg tablet 1 tablet PO QHS aspirin [Adult Low Dose Aspirin] 81 mg tablet,delayed release (DR/EC) 81 mg PO DAILY Chewable-Shannon Tablet,Chewable 1 tablet PO DAILY cholecalciferol (vitamin D3) 50 mcg (2,000 unit) tablet,chewable 5,000 unit PO DAILY ferrous sulfate 134 mg (27 mg iron) tablet 134 mg PO DAILY magnesium PO perphenazine 4 mg tablet 4 mg PO BID Qty: 180 3RF Patient Comments: sometimes only takes once a day amitriptyline 25 mg tablet 25 mg PO QHS Qty: 90 3RF simvastatin 20 mg tablet See Rx Instructions .ROUTE .COMPLEX Qty: 45 1RF Dose Instruction: TAKE 1 TABLET BY MOUTH EVERY OTHER DAY Rx Instructions: TAKE 1 TABLET BY MOUTH EVERY OTHER DAY Linzess 145 mcg capsule 145 mcg PO QAM Qty: 90 0RF lisinopril 20 mg tablet See Rx Instructions .ROUTE .COMPLEX Qty: 90 3RF Dose Instruction: TAKE 1 TABLET BY MOUTH DAILY Rx Instructions: TAKE 1 TABLET BY MOUTH DAILY metformin 500 mg tablet See Rx Instructions .ROUTE .COMPLEX Qty: 180 3RF Dose Instruction: TAKE 1 TABLET BY MOUTH TWICE DAILY Rx Instructions: TAKE 1 TABLET BY MOUTH TWICE DAILY Follow-up/Referrals: Karissa Koch, ELECTRON BEAM PHOTO MASK MAKER-C [Primary Care Provider] -
[2024-12-05 10:38] LABS: Strep Group A RT-PCR NOT DETECTED (Negative)
[2024-12-05 10:49] LABS: Influenza A QL RT-PCR Negative (Negative); Influenza B QL RT-PCR Negative (Negative); RSV RNA, RT-PCR Negative (Negative); SARS-CoV-2 RNA PCR Negative (Negative)
[2024-12-05 11:31] VITALS: BP 166/108; PULSE 120; RESP 18; O2SAT 99
[2024-12-05] MEDS: dexAMETHasone SOD PHOS INJ 10 MG/ML 1 ML VIAL IM (11:32)
[2024-12-05] MEDS: SODIUM CHLORIDE 0.9% IV 1,000 ML 999 ML IV CONT (12:07)
--- NOTE | 2024-12-05 12:13 | PC.NURSE ---
Pt and family member complaining about the tight blood pressure cuff and the beeps that go along the monitor. Put monitor on standy by for pt requests. Informed pt that we will check her BP and PO soon.
[2024-12-05] MEDS: KETOROLAC 15 MG/ML VIAL (*BKC) IV PUSH (12:47)
[2024-12-05 12:52] VITALS: PULSE 126; RESP 20; O2SAT 100
[2024-12-05 13:06] LABS: Basophils Absolute Auto 0.1 K/mm3 (0.0-0.1); Basophils Percent Auto 0.3 % (0.2-1.2); Hematocrit 44.1 % (37.0-47.0); Hemoglobin 14.2 g/dL (12.0-15.0); Immature Granulocyte Absolute 0.09 K/mm3 (0.00-0.031); Immature Granulocyte Percent A 0.5 % (0-0.5); Lymphocytes Absolute Auto 3.41 K/mm3 (0.9-3.2); Lymphocytes Percent Auto 18.6 % (18.3-44.2); Mean Corpuscular HGB Conc 32.2 g/dl (32-36); Mean Corpuscular Volume 90.2 fl (80-100); Mean Platelet Volume 10.5 fl (7.4-10.4); Monocytes Percent Auto 5.4 % (2.6-8.5); Neutrophils Absolute Auto 13.8 K/mm3 (1.3-6.7); Neutrophils Percent Auto 75.2 % (45.5-73.1); Platelet Count Result 291 k/mm3 (150-375); Red Blood Count 4.89 M/mm3 (4.2-5.4); Red Cell Distribution Width 14.1 % (11.5-14.5); White Blood Count 18.3 K/mm3 (4.5-10.0)
[2024-12-05 13:16] LABS: Alanine Aminotransferase 73 U/L (6-35); Albumin Level 4.1 g/dL (3.5-5.1); Alkaline Phosphatase 127 U/L (38-126); Anion Gap 14 mmol/L (4-12); Aspartate Amino Transferase 93 U/L (14-36); Bilirubin,Total 0.9 mg/dL (0.2-1.3); Blood Urea Nitrogen 20 mg/dL (7-17); Calcium 9.6 mg/dL (8.4-10.2); Carbon Dioxide 19 mmol/L (22-30); Chloride 104 mmol/L (98-107); Estimated CRCL calculation 73 ml/min; Estimated Glomerular Filt Rate > 60; Glucose 225 mg/dL (65-110); Potassium 4.3 mmol/L (3.4-5.0); Sodium 137 mmol/L (137-145)
[2024-12-05 15:27] VITALS: BP 166/101; PULSE 116; RESP 16; O2SAT 95
== END 2024-12-05 15:29 | disposition home or self-care (01) ==
PROVIDERS: Emergency Medicine; Emergency Provider Emergency Medicine; PCP Clinical Nurse Specialist
DX: J02.9 Acute pharyngitis, unspecified (principal); Z20.822 Contact with and (suspected) exposure to COVID-19; I10 Essential (primary) hypertension; E78.5 Hyperlipidemia, unspecified; E66.01 Morbid (severe) obesity due to excess calories; Z68.37 Body mass index [BMI] 37.0-37.9, adult; E11.9 Type 2 diabetes mellitus without complications; Z98.84 Bariatric surgery status; Z90.710 Acquired absence of both cervix and uterus; Z90.49 Acquired absence of other specified parts of digestive tract; Z79.82 Long term (current) use of aspirin; Z79.899 Other long term (current) drug therapy; Z79.84 Long term (current) use of oral hypoglycemic drugs
CPT/HCPCS: 36415; 70491; 80053; 85025; 87637; 87651; 96360; 96361; 96372; 96374; 99284; J1100; J1885; J7030; Q9967

== ENCOUNTER 2024-12-05 17:20 | Inpatient (IN) | payer MEDICARE, SELFPAY ==
[2024-12-05] VITALS (10 sets, daily range): BP systolic 113–143; BP diastolic 25–121; PULSE 100–126; RESP 15–20; TEMP 37.3; O2SAT 97–100
--- NOTE | ~2024-12-05 | XR_ITS ---
Portable chest x-ray Comparison: 12/05/2024 Clinical History: Dyspnea Findings: Endotracheal tube and NG tube are in satisfactory positions. There is probable mild pulmon zach edema pattern in the lungs. No pleural effusion. Cardiomediastinal silhouette is stable. Bones a nd soft tissues are unremarkable. Impression: Mild pulmonary edema pattern. Support tubes, as above. Reviewed, dictated and finalized at location . NING AND DEVELOPMENT INTERN Impression: Mild pulmonary edema pattern. Support tubes, as above.
--- NOTE | ~2024-12-05 | XR_ITS ---
EXAMINATION: XR chest 1V portable DATE: 12/05/2024 20:01 INDICATION: Shortness of breath TECHNIQUE: frontal view of the chest was obtained. COMPARISON: Chest radiograph dated 03/29/2021 FINDINGS: Lung volumes are decreased due to at least in part to more lordotic positioning. Retrocardiac opaciti es in the left lower lung zone which could represent atelectasis or pneumonia. No pulmonary edema, pl eural effusion or pneumothorax. Heart size is normal. Cholecystectomy clips in the right upper quadra nt. IMPRESSION: 1. Opacities in the left lower lung zone which could represent atelectasis or pneumonia. Reviewed, dictated and finalized at location A. SUPERVISOR IMPRESSION: 1. Opacities in the left lower lung zone which could represent atelectasis or p neumonia.
--- NOTE | ~2024-12-05 | CT_ITS ---
CT Scan of the Chest without Contrast: Clinical Indication: Evaluate lower lobe Technique: Contiguous sections were acquired throughout the chest without intravenous contrast. Dose reduction technique was used on this scan by utilizing automated exposure control and iterative recon struction technique. The dose-length product (DLP) was 662.51 mGy-cm. Findings: There is no evidence of any significant mediastinal, hilar or axillary lymphadenopathy. The mediastin al soft tissues appear normal. There is no evidence of pleural or pericardial effusion. The lungs are clear. No pulmonary nodules or infiltrates are noted. Images through the upper abdomen reveal small to moderate hiatal hernia. 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 Impression: Clear lungs. [id number] hiatal hernia. Reviewed, dictated and finalized at location . ASSEMBLER Impression: Clear lungs. [id number] hiatal hernia.
--- NOTE | ~2024-12-05 | CT_ITS ---
CT of the Abdomen and Pelvis: Indication: Sepsis Technique: 2.5 mm axial scans were obtained through the abdomen and pelvis following intravenous adm inistration of 100 cc of Omnipaque 350. Dose reduction technique was used on this scan by utilizing a utomated exposure control and iterative reconstruction technique. The dose-length product (DLP) was 1 259.73 mGy-cm. Findings: Scans through the lung bases are unremarkable. Moderate hiatal hernia present. The liver, spleen, pancreas, adrenals and kidneys are within normal limits. Cholecystectomy clips are present. No evidence of aortic aneurysm. No lymphadenopathy. No bowel obstruction or bowel wall thickening. There is no evidence to suggest acute appendicitis. Images through the pelvis were performed. Urinary bladder unremarkable. No pelvic mass seen. No ascit es. Impression: No acute abnormality. Moderate hiatal hernia. Reviewed, dictated and finalized at [facility]. 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 Moderate hiatal hernia.
--- OUTSIDE RECORDS SUMMARY | 2024-12-05 17:23 | XMS_ITS | Clinical Summary ---
Author Organization [facility] nemo [facility] Address [address] [place] [address] Care Team Providers Care Hr Clerk Name Role Phone Sly Driver DO Primary [...] vit C/vit E ac/lut/copper/z inc (VIT C-VIT [id number] UTEIN ORAL) Take by mouth. Active Active [...] How often do you attend chur or orthodoxy services? Not asked 12/18/2020 Do you belong to any clubs o r organizations such as yazidi groups, unions, fraternal or athletic groups, or [...] on file Legal Sex Female 11:13 AM CAR TESTER Gender Identity Not on file Sexual Orientation Not on file Last Filed Vital Signs Vital Sign Reading Time Taken Comments Blood Pressure 139/76 09/08/2023 11:07 AM CAR TESTER Pulse 83 09/08/2023 11:07 AM CAR TESTER Temperature 35.7 C (96.3 F) 09/08/2023 11:07 AM CAR TESTER Respiratory Rate 10 09/08/2023 11:07 AM CAR TESTER Oxygen Saturation 100% 09/08/2023 11:07 AM CAR TESTER Inhaled Oxygen Concentration - - Weight 87.1 kg (192 lb) 09/08/2023 11:07 AM CAR TESTER Height 157.5 cm (5' 2 ) 03/04/2022 [...] IMMUNOASSAY, COLORECTAL SCREEN Routine 12/20/2020 5:06 PM CAR TESTER from Last 3 Months or Most Recently Relevant to Health Maintenance Results * OCCULT BLOOD IMMUNOASSAY, COLORECTAL SCREEN (12/20/2020 5:06 PM CAR TESTER) OCCULT BLOOD, STOOL Negative Negative [facility] 12/20/2020 5:06 PM CAR TESTER 12/20/2020 Narrative [facility] - 12/21/2020 3:08 PM CAR TESTER Performed at: - [address] [id number] Finished Stock Inspector: Brad Pacheco PhD, Phone: [phone] us Yogesh Amso MD BODY FLUIDS AND STOOLS Final Re sult [facility] [phone] from Last 3 Months or Most Recently Relevant to Health Maintenance Insurance Care Teams Hr Clerk Relationship Specialty Start Date End Date Sly Driver DO [address] [place] [address] PCP - General Internal Medicine 12/18/20
--- OUTSIDE RECORDS SUMMARY | 2024-12-05 19:56 | XMS_ITS | Clinical Summary ---
Author Organization [facility] nemo [facility] Address [address] [place] [address] Care Team Providers Care Network Developer Name Role Phone Sly Driver DO Primary [...] vit C/vit E ac/lut/copper/z inc (VIT C-VIT [id number] UTEIN ORAL) Take by mouth. Active Active [...] How often do you attend chur or protestant services? Not asked 12/18/2020 Do you belong to any clubs o r organizations such as mu-ism groups, unions, fraternal or athletic groups, or [...] on file Legal Sex Female 11:13 AM COMPUTER TECHNICAL SPECIALIST Gender Identity Not on file Sexual Orientation Not on file Last Filed Vital Signs Vital Sign Reading Time Taken Comments Blood Pressure 139/76 09/08/2023 11:07 AM COMPUTER TECHNICAL SPECIALIST Pulse 83 09/08/2023 11:07 AM COMPUTER TECHNICAL SPECIALIST Temperature 35.7 C (96.3 F) 09/08/2023 11:07 AM COMPUTER TECHNICAL SPECIALIST Respiratory Rate 10 09/08/2023 11:07 AM COMPUTER TECHNICAL SPECIALIST Oxygen Saturation 100% 09/08/2023 11:07 AM COMPUTER TECHNICAL SPECIALIST Inhaled Oxygen Concentration - - Weight 87.1 kg (192 lb) 09/08/2023 11:07 AM COMPUTER TECHNICAL SPECIALIST Height 157.5 cm (5' 2 ) [...] IMMUNOASSAY, COLORECTAL SCREEN Routine 12/20/2020 5:06 PM COMPUTER TECHNICAL SPECIALIST from Last 3 Months or Most Recently Relevant to Health Maintenance Results * OCCULT BLOOD IMMUNOASSAY, COLORECTAL SCREEN (12/20/2020 5:06 PM COMPUTER TECHNICAL SPECIALIST) OCCULT BLOOD, STOOL Negative Negative [facility] 12/20/2020 5:06 PM COMPUTER TECHNICAL SPECIALIST 12/20/2020 Narrative [facility] - 12/21/2020 3:08 PM COMPUTER TECHNICAL SPECIALIST Performed at: - [address] [id number] Grease Machine Worker: Brad Pacheco PhD, Phone: [phone] us Yogesh Amos MD BODY FLUIDS AND STOOLS Final Re sult [facility] [phone] from Last 3 Months or Most Recently Relevant to Health Maintenance Insurance Care Teams Network Developer Relationship Specialty Start Date End Date Sly Driver DO [address] [place] [address] PCP - General Internal Medicine 12/18/20
[2024-12-05] MEDS: MAGNESIUM SULF 2 GM/WATER 50ML 2 GM/50 ML BAG IVPB (20:30)
[2024-12-05] MEDS: SODIUM CHLORIDE 0.9% IV 1,000 ML 999 ML IV CONT (20:31)
[2024-12-05 20:40] LABS: Basophils Absolute Auto 0.1 K/mm3 (0.0-0.1); Basophils Percent Auto 0.4 % (0.2-1.2); Hematocrit 42.6 % (37.0-47.0); Hemoglobin 13.7 g/dL (12.0-15.0); Immature Granulocyte Percent A 0.5 % (0-0.5); Lymphocytes Percent Auto 20.3 % (18.3-44.2); Mean Corpuscular HGB Conc 32.2 g/dl (32-36); Mean Corpuscular Hemoglobin 29.2 pg (26-34); Mean Corpuscular Volume 90.8 fl (80-100); Mean Platelet Volume 10.9 fl (7.4-10.4); Monocytes Absolute Auto 1.5 K/mm3 (0.1-0.6); Monocytes Percent Auto 6.9 % (2.6-8.5); Neutrophils Absolute Auto 15.6 K/mm3 (1.3-6.7); Neutrophils Percent Auto 71.9 % (45.5-73.1); Platelet Count Result 300 k/mm3 (150-375); Red Blood Count 4.69 M/mm3 (4.2-5.4); Red Cell Distribution Width 14.3 % (11.5-14.5); White Blood Count 21.7 K/mm3 (4.5-10.0)
[2024-12-05] MEDS: IPRATROPIUM 0.5 MG/ALBUTEROL SULFATE 2.5 MG AMPUL.NEB 3 ML 12 ML INHALATION (20:44)
[2024-12-05 21:02] LABS: Lactic Acid Reflex 3.6 mmol/L (0.7-2.0)
[2024-12-05 21:03] LABS: Albumin Level 4.2 g/dL (3.5-5.1); Alkaline Phosphatase 91 U/L (38-126); Anion Gap 17 mmol/L (4-12); Aspartate Amino Transferase 79 U/L (14-36); Blood Urea Nitrogen 22 mg/dL (7-17); Calcium 10.1 mg/dL (8.4-10.2); Carbon Dioxide 19 mmol/L (22-30); Chloride 100 mmol/L (98-107); Estimated CRCL calculation 58 ml/min; Estimated Glomerular Filt Rate > 60; Glucose 351 mg/dL (65-110); Potassium 4.9 mmol/L (3.4-5.0); Sodium 136 mmol/L (137-145)
[2024-12-05 21:10] LABS: Alanine Aminotransferase 96 U/L (6-35)
--- NOTE | 2024-12-05 21:31 | ED_ITS ---
HPI - General Adult General Chief complaint: Shortness of Breath/Dyspnea Stated complaint: SOB Time Seen by Provider: 12/05/24 19:46 History of Present Illness HPI narrative: This is a 69-year-old female presenting ED with chief complaint of difficulty breathing. She was seen here earlier today for sore throat symptoms she was discharged home. when she got home she started feel short of breath and had wheezing. She called EMS who gave her breathing treatment with significant improvement. She was then brought to the hospital for re-evaluation. Related Data Home Medications ?Medication ?Instructions ?Recorded ?Confirmed ?Last Taken ?Type aspirin 81 mg tablet,delayed 81 mg PO DAILY 12/22/19 09/07/24 02/12/20 09:00 History release (Adult Low Dose Aspirin) multivitamin (Chewable-Shannon tablet) 1 tablet PO DAILY 12/22/19 09/07/24 02/12/20 09:00 History ascorbate calcium (vitamin C) 500 500 mg PO DAILY 10/24/20 09/07/24 Unknown History mg tablet cholecalciferol (vitamin D3) 50 5,000 unit PO DAILY 12/31/22 09/07/24 Unknown History mcg (2,000 unit) chewable tablet ferrous sulfate 134 mg (27 mg 134 mg PO DAILY 01/28/23 09/07/24 Unknown History iron) tablet magnesium PO 12/03/23 09/07/24 Unknown History carbidopa 10 mg-levodopa 100 mg 1 tablet PO QHS 09/06/24 09/07/24 Unknown History tablet Allergies Allergy/AdvReac Type Severity Reaction Status Date / Time No Known Allergies Allergy Verified 12/05/24 09:51 PMFSH Past Medical History Medical History Chronic constipation Severe sepsis Hyperkalemia Hypercalcemia Thrombocytosis Decreased GFR Type 2 diabetes mellitus, without long-term current use of insulin Morbid obesity Hypertension Hyperlipidemia Surgical History Surgical History History of abdominoplasty 2006 History of gastric bypass 2004 History of hysterectomy 1996 Hx of cholecystectomy 2006 Family History Family History Father Family history of lung cancer Hypertension Heart disease Mother Family history of Parkinson's disease Diabetes mellitus Hypertension Sibling History of brain shunt Social History Social History Social History: Caffeine-coffee 2 cups daily Smoking status: Never smoker Alcohol intake: current Alcohol use details: rarely Substance use: never Substance use type: does not use Do You Feel Safe in your Home?: Yes Lack of Transportation: No Lack of Food: Never True Current Housing: I Have Housing Concerned About Future Housing: No Difficulty Paying Gas/Electric Bills: No Difficulty Paying for Meds: No Currently Unemployed: No Education: Master's Degree or Higher Difficulty w/ Childcare or Family Care: No Gender identity (if verbalized by the patient): Female Spiritual care concerns: No Agree to blood products: Yes Exam 2 Narrative: APPEARANCE: No apparent distress. Hoarse voice Head: atraumatic. EYES: EOMI, NOSE: Atraumatic NECK: Trachea midline RESPIRATORY: Mildly tachypneic, scattered rhonchi CARDIOVASCULAR: tachycardic, ABDOMINAL: Non-distended soft nontender MUSCULOSKELETAl: No obvious deformities NEURO: Alert. Moving 4/4 extremities SKIN:: Warm, dry. Normal color PSYCHIATRIC: Normal affect Course Vital Signs Vital signs: Vital Signs Temperature 99.2 F 12/05/24 17:51 Pulse Rate 105 H 12/05/24 17:51 Respiratory Rate 17 12/05/24 17:51 Blood Pressure 130/46 L 12/05/24 17:51 Pulse Oximetry 97 12/05/24 17:51 Temperature 99.2 F 12/05/24 17:51 Pulse Rate 120 H 12/05/24 22:02 Respiratory Rate 20 12/05/24 22:02 Blood Pressure 122/75 12/05/24 22:02 Pulse Oximetry 99 12/05/24 22:02 Oxygen Delivery Room Air 12/05/24 20:35 Medical Decision Making MDM Narrative Medical decision making narrative: -Course: 69-year-old female presenting with shortness of breath. Patient given a breathing treatment as she reported that helped from EMS. White count elevated. Lactic elevated. Started on ceftriaxone and doxy for suspected pneumonia while completing workup. Patient given 30 cc/kilogram bolus. Chest x-ray showed lower lobe infiltrates versus atelectasis. CT ordered to further evaluate which did not show any obvious pneumonia. Official read will occur in the morning. doxy d/c'd. Urinalysis with 6-10 white blood cells and positive nitrites. Previous cultures showed pansensitive ecoli. Patient also has a hoarse voice but CT the soft tissues performed earlier today was unremarkable. Her posterior oropharynx is not erythematous or look infected. Strep negative. [place] was added. Patient meets sepsis criteria. Blood culture still pending. Patient re-evaluated for perfusion which was improved after fluid resuscitation. Patient will be admitted the hospital for further management.. -DDX includes but is not limited to: Pneumonia, viral illness, tonsillitis UTI sepsis Vital Signs Vital Signs: Vital Signs Temperature 99.2 F 12/05/24 17:51 Pulse Rate 105 H 12/05/24 17:51 Respiratory Rate 17 12/05/24 17:51 Blood Pressure 130/46 L 12/05/24 17:51 Pulse Oximetry 97 12/05/24 17:51 Temperature 99.2 F 12/05/24 17:51 Pulse Rate 120 H 12/05/24 22:02 Respiratory Rate 20 12/05/24 22:02 Blood Pressure 122/75 12/05/24 22:02 Pulse Oximetry 99 12/05/24 22:02 Oxygen Delivery Room Air 12/05/24 20:35 Lab Data 12/05/24 20:33 12/05/24 20:33 Labs: Lab Results 12/05/24 12/05/24 Range/Units 20:33 22:59 WBC 21.7 H (4.5-10.0) K/mm3 RBC 4.69 (4.2-5.4) M/mm3 Hgb 13.7 (12.0-15.0) g/dL Hct 42.6 (37.0-47.0) % MCV 90.8 (80-100) fl MCH 29.2 (26-34) pg MCHC 32.2 (32-36) g/dl RDW 14.3 (11.5-14.5) % Plt Count 300 (150-375) k/mm3 MPV 10.9 H (7.4-10.4) fl Immature Gran % (Auto) 0.5 (0-0.5) % Neut % (Auto) 71.9 (45.5-73.1) % Lymph % (Auto) 20.3 (18.3-44.2) % [place] % (Auto) 6.9 (2.6-8.5) % Eos % (Auto) 0.0 (0-4.4) % Baso % (Auto) 0.4 (0.2-1.2) % Lymph # (Auto) 4.40 H (0.9-3.2) K/mm3 [place] # (Auto) 1.5 H (0.1-0.6) K/mm3 Eos # (Auto) 0.0 (0-0.3) K/mm3 Baso # (Auto) 0.1 (0.0-0.1) K/mm3 Abs Immat Gran (auto) 0.10 H (0.00-0.031) K/mm3 Absolute Neuts (auto) 15.6 H (1.3-6.7) K/mm3 Absolute Nucleated RBC 0.000 (0.0-0.012) K/mm3 Nucleated RBC % 0.0 (0.0-0.2) % Sodium 136 L (137-145) mmol/L Potassium 4.9 (3.4-5.0) mmol/L Chloride 100 (98-107) mmol/L Carbon Dioxide 19 L (22-30) mmol/L Anion Gap 17 H (4-12) mmol/L BUN 22 H (7-17) mg/dL Creatinine 0.81 (0.7-1.0) mg/dL Estim Creat Clear Calc 58 ml/min Estimated GFR > 60 (59 - ) Glucose 351 H (65-110) mg/dL Lactic Acid 3.6 H (0.7-2.0) mmol/L Calcium 10.1 (8.4-10.2) mg/dL Total Bilirubin 1.0 (0.2-1.3) mg/dL AST 79 H (14-36) U/L ALT 96 H (6-35) U/L Alkaline Phosphatase 91 (38-126) U/L Total Protein 7.0 (6.3-8.2) g/dL Albumin 4.2 (3.5-5.1) g/dL Urine Color Yellow (Yellow) Urine Appearance Clear (Clear) Urine pH 5.0 (5.0-9.0) Ur Specific [place] > 1.045 H (1.001-1.035) Urine Protein 1+ H (Negative) mg/dL Urine Glucose (UA) 3+ H (Negative) mg/dL Urine Ketones 2+ H (Negative) mg/dL Ur Blood (Man) Trace (Negative) Urine Nitrate Positive H (Negative) Urine Bilirubin Negative (Negative) Urine Urobilinogen 0.2 (<2.0) mg/dL Leukocyte Esterase Rfl Negative (Negative) SILVANO/UL Urine RBC 0-2 (0-2) /hpf Urine WBC 6-10 H (0-3) /hpf Ur Squamous Epith Cells Occasional (Few) /hpf Urine Bacteria 4+ H /hpf Urine Casts 3-5 Critical Care Time Critical Care Time Critical Care Time: Yes Total Critical Care Time: 35 Discharge Plan Discharge Clinical Impression: Sepsis, Acute UTI Patient Disposition: Still a Patient Condition: Stable Patient Language: [place] Korean Prescriptions: No Action ascorbate calcium (vitamin C) 500 mg tablet 500 mg PO DAILY carbidopa-levodopa 10-100 mg tablet 1 tablet PO QHS aspirin [Adult Low Dose Aspirin] 81 mg tablet,delayed release (DR/EC) 81 mg PO DAILY Chewable-Shannon Tablet,Chewable 1 tablet PO DAILY cholecalciferol (vitamin D3) 50 mcg (2,000 unit) tablet,chewable 5,000 unit PO DAILY ferrous sulfate 134 mg (27 mg iron) tablet 134 mg PO DAILY magnesium PO perphenazine 4 mg tablet 4 mg PO BID Qty: 180 3RF Patient Comments: sometimes only takes once a day amitriptyline 25 mg tablet 25 mg PO QHS Qty: 90 3RF amoxicillin-pot clavulanate 875-125 mg tablet 1 tablet PO Q12H 7 Days Qty: 14 0RF simvastatin 20 mg tablet See Rx Instructions .ROUTE .COMPLEX Qty: 45 1RF Dose Instruction: TAKE 1 TABLET BY MOUTH EVERY OTHER DAY Rx Instructions: TAKE 1 TABLET BY MOUTH EVERY OTHER DAY Linzess 145 mcg capsule 145 mcg PO QAM Qty: 90 0RF lisinopril 20 mg tablet See Rx Instructions .ROUTE .COMPLEX Qty: 90 3RF Dose Instruction: TAKE 1 TABLET BY MOUTH DAILY Rx Instructions: TAKE 1 TABLET BY MOUTH DAILY metformin 500 mg tablet See Rx Instructions .ROUTE .COMPLEX Qty: 180 3RF Dose Instruction: TAKE 1 TABLET BY MOUTH TWICE DAILY Rx Instructions: TAKE 1 TABLET BY MOUTH TWICE DAILY Follow-up/Referrals: Karissa Koch, WEIGHER OPERATOR-C [Primary Care Provider] -
[2024-12-05] MEDS: KETOROLAC 15 MG/ML VIAL (*BKC) IV PUSH (21:59)
[2024-12-05] MEDS: LACTATED RINGERS 600 ML 999 ML IV CONT (22:01)
[2024-12-05] MEDS: LACTATED RINGERS 1,000 ML 999 ML IV CONT ×2 (22:01)
[2024-12-05 23:10] LABS: Add Urine Microscopic? YES; Appearance Urine Clear (Clear); Bacteria Urine 4+ /hpf; Bilirubin Urine Negative (Negative); Blood Urine Trace (Negative); Color Urine Yellow (Yellow); Glucose Urine UA 3+ mg/dL (Negative); Ketones Urine 2+ mg/dL (Negative); Leukocyte Esterase Ur Negative LEU/UL (Negative); Nitrate Urine Positive (Negative); Protein Urine 1+ mg/dL (Negative); RBC Urine 0-2 /hpf (0-2); Specific Grav Ur > 1.045 (1.001-1.035); Squamous Epithelial Cell Urine Occasional /hpf (Few); Urobilinogen Urine 0.2 mg/dL (<2.0)
[2024-12-05 23:37] LABS: Reflex Lactic Acid Yes or No Add Lactic
[2024-12-06] VITALS (26 sets, daily range): BP systolic 49–158; BP diastolic 32–109; PULSE 93–136; RESP 20–37; TEMP 36.6–40.3; O2SAT 92–100; BMI 37.9
[2024-12-06 00:15] LABS: Lactic Acid 5.7 mmol/L (0.7-2.0)
[2024-12-06 01:26] LABS: Lactic Acid Reflex 5.8 mmol/L (0.7-2.0)
[2024-12-06 02:14] LABS: Monoscreen Negative (Negative); Negative Monotest Control Negative (Negative); Positive Monotest Control Positive (Positive)
[2024-12-06 02:53] LABS: Thyroid Stimulating Hormone Reflex 0.974 uIU/mL (0.465-4.68)
[2024-12-06] MEDS: LACTATED RINGERS 1,000 ML 100 ML IV CONT (04:09)
--- NOTE | 2024-12-06 04:22 | ADMGEN ---
This patient, Ofelia Hilliard, was admitted to IMU Room 205-01. Patient/family oriented to hospital policies and general routines including ID bracelet, bed and alarms, visiting hours, pain management, procedures, bathroom and other care routines, personal items, smoking policy, room service/diet, and visiting hours. Information on how to activate the Rapid Response Team has been discussed. Patient/Family are encouraged to report perceived risks to care and to ask questions if they do not understand what they are told or what they should do.
--- NOTE | 2024-12-06 04:22 | PM.IMHP ---
H&P: HPI History of Present Illness Date/Time: 12/06/24 04:22 Chief Complaint: Shortness of breath Narrative: 69-year-old female with a past medical history of obesity, Parkinson's disease, vitamin-D deficiency, essential hypertension and evidently diabetes who presented to the ER from home via EMS due to shortness of breath. The patient had initially been evaluated in the ER around 13:00 on the . She came in at that time for sore throat and hoarseness of voice. She had CT of the soft tissues of the neck which was negative for significant process. Her white count at that time was 18. Her rapid strep COVID, flu and RSV PCR were negative. She was discharged home with acute pharyngitis on Augmentin. Within a few hours the patient developed shortness of breath and had some wheezing. She called EMS and received did nebulizer treatment in route with significant improvement in her breathing. Given the the no localizing source of infection had been identified at the earlier ER visit a CT of the chest was ordered with contrast. This demonstrated no evidence of infection. Given the patient's increased lactic acid levels as a side also do a CT of the abdomen pelvis with contrast which again demonstrated no acute process. The patient's urine did have some nitrates with 6-10 white cells and bacteria but had moderate squamous cells. She was started on empiric antibiotic therapy with Rocephin for possible UTI her previous cultures from several years ago demonstrated pansensitive E coli. A Monospot was added which was also negative. However, patient's repeat labs demonstrated increasing white count of 21 lactic acid of 3.8 that increased despite 30 mL/kilos bolus up to 5.7 and 5.8. The patient's perfusion initially seemed to improve after resuscitation with improved cap refill and lower heart rate. But given the elevated lactic acid level in persistent tachycardia and mild developing tachypnea she was mid to the IMU. On arrival to the IMU nursing staff called me because the patient was in acute respiratory distress with a respiratory rate of 30 to 35. She was having sets re muscle use and was mottled. Her upper extremities or mottled and cold to touch she had 5-6 second cap refill, she was in overt distress.. The patient had an area of skin discoloration on the dependent skin folds the on her chin. The ER provider had reported that there had been some mild erythema to the area earlier. The ER game of and visualized the area again and agreed that the area of skin discoloration was much larger and darker in color had almost a purplish hue with some erythema. The patient has stat ABG performed which demonstrated pH 7.36 pCO2 26 PO2 of 43. Patient was transferred to the ICU for emergent intubation. The patient denies significant history of diabetes but is on metformin. Her metformin was filled in September. Her sister states that the patient diabetes was being monitored by A1c. The patient on presentation to the ER had blood sugars around 350. Prior to intubation the patient was able to tell me that she did not have a history of obstructive sleep apnea but did snore quite loudly. She denies having chest pain. She was unable to answer many questions due to her respiratory status. Review of Systems Review of Systems: ROS unobtainable: Yes unobtainable due to medical condition (Patient was unable to communicate because of respiratory distress) [facility] Past Medical History Medical History (Updated 12/06/24 @ 09:05 by Krystle Ruiz DO) Vitamin D deficiency Benign meningioma Obesity (BMI 35.0-39.9 without comorbidity) Type 2 diabetes mellitus, without long-term current use of insulin Parkinsons disease Arthritis of left glenohumeral joint Esophageal spasm GERD (gastroesophageal reflux disease) Chronic constipation Hypertension Hyperlipidemia Surgical History Surgical History History of abdominoplasty 2006 History of gastric bypass 2004 History of hysterectomy 1996 Hx of cholecystectomy 2006 Family History Family History Father Family history of lung cancer Hypertension Heart disease Mother Family history of Parkinson's disease Diabetes mellitus Hypertension Sibling History of brain shunt Social History Social History (Updated 12/06/24 @ 08:52 by Krystle Ruiz DO) Social History: The patient lives alone. She has never been . She does not have any children. Code status: Full code Surrogate decision maker: Ellie Ingramarry (sister) Smoking status: Never smoker Alcohol intake: never Alcohol use details: rarely Substance use: never Substance use type: does not use Do You Feel Safe in your Home?: Yes Lack of Transportation: No Lack of Food: Never True Current Housing: I Have Housing Concerned About Future Housing: No Difficulty Paying Gas/Electric Bills: No Difficulty Paying for Meds: No Currently Unemployed: No Education: Master's Degree or Higher Difficulty w/ Childcare or Family Care: No Gender identity (if verbalized by the patient): Female Spiritual care concerns: No Agree to blood products: Yes Meds Home Medications and Allergies Home Medications ?Medication ?Instructions ?Recorded ?Confirmed ?Type aspirin 81 mg tablet,delayed 81 mg PO DAILY 12/22/19 09/07/24 History release (Adult Low Dose Aspirin) multivitamin (Chewable-Shannon tablet) 1 tablet PO DAILY 12/22/19 09/07/24 History ascorbate calcium (vitamin C) 500 500 mg PO DAILY 10/24/20 09/07/24 History mg tablet cholecalciferol (vitamin D3) 50 5,000 unit PO DAILY 12/31/22 09/07/24 History mcg (2,000 unit) chewable tablet ferrous sulfate 134 mg (27 mg 134 mg PO DAILY 01/28/23 09/07/24 History iron) tablet magnesium PO 12/03/23 09/07/24 History amitriptyline 25 mg tablet 25 mg PO QHS #90 tabs 01/01/24 09/07/24 Rx perphenazine 4 mg tablet 4 mg PO BID #180 tabs 01/01/24 09/07/24 Rx carbidopa 10 mg-levodopa 100 mg 1 tablet PO QHS 09/06/24 09/07/24 History tablet simvastatin 20 mg tablet See Rx Instructions .Route 10/05/24 Rx .COMPLEX #45 tabs linaclotide 145 mcg capsule 145 mcg PO QAM #90 caps 10/18/24 Rx (Linzess) lisinopril 20 mg tablet See Rx Instructions .Route 11/29/24 Rx .COMPLEX #90 tabs metformin 500 mg tablet See Rx Instructions .Route 11/29/24 Rx .COMPLEX #180 tabs amoxicillin 875 mg-potassium 1 tablet PO Q12H 7 days #14 tabs 12/05/24 Rx clavulanate 125 mg tablet Allergies Allergy/AdvReac Type Severity Reaction Status Date / Time No Known Allergies Allergy Verified 12/06/24 05:10 Vital Signs Vital Signs - 24 hr 12/05/24 17:51 12/05/24 19:53 12/05/24 20:02 Temperature 99.2 F Pulse Rate 105 H 103 H 100 Respiratory Rate 17 20 20 Blood Pressure 130/46 L 143/71 H 137/77 Pulse Oximetry 97 99 100 Oxygen Delivery 12/05/24 20:32 12/05/24 20:35 12/05/24 20:44 Temperature Pulse Rate 102 H 116 H Respiratory Rate 20 20 Blood Pressure 113/62 Pulse Oximetry 100 100 Oxygen Delivery Room Air 12/05/24 21:02 12/05/24 21:31 12/05/24 22:02 Temperature Pulse Rate 113 H 126 H 120 H Respiratory Rate 16 15 20 Blood Pressure 127/25 L 132/121 H 122/75 Pulse Oximetry 100 99 Oxygen Delivery 12/05/24 22:35 12/06/24 00:50 Temperature Pulse Rate 121 H 113 H Respiratory Rate 20 21 H Blood Pressure 131/67 133/64 Pulse Oximetry 100 99 Oxygen Delivery Exam Narrative: Weight 93.5 kg BMI 37.7 Const: Other: Acutely ill-appearing, respiratory distress, obese HENMT: Other: Mucous membranes are dry, fair dentition, head is normocephalic atraumatic Eyes: Other: Left pupil as dilated slightly more than right the patient had recently received Atrovent nebulizer, pupils are equally reactive, scleral and noninjected, no scleral icterus, no conjunctival pallor Neck: Other: Area of erythema in the dependent skin fold under the chin with mild associated warmth erythema S surrounding an area of darker discoloration hearing almost danika color extending from side to side in approximately 6 cm in with Resp: Other: Accessory muscle use, coarse upper airway sounds, lungs at bases sound clear Cardio: Other: Sinus tachycardia, 1+ radial right radial pulse, difficult to palpate left radial pulse, pedal pulse 1 +bilateral, no JVD GI: Other: Soft, obese, nontender, no organomegaly, normoactive bowel sounds : Other: Patient had residual stool in her perineum her underwear was damp in discolored with stool, no rashes, no erythema, Vincent catheter was placed during resuscitation efforts with dark clear yellow urine Back/Spine/Pelvis: Other: No CVA tenderness, no rashes, no skin breakdown Skin: Other: Erythema noted to the chin as discussed above but otherwise no rashes, no petechiae, skin was cool to touch 5-6 second cap refill, mottled appearance to the upper extremities bilaterally after intubation the patient was re-evaluated and temperature of the patient neck and upper chest felt hot to touch Neuro: Other: Patient was alert oriented to person and place she was confused as to the month but was oriented to the year, her speech was clear, she did not have any facial asymmetry, she equal strength in all extremities and was able to sit up assisted in bed Extrem: Other: No clubbing, no edema, cyanosis of the finger tips bilaterally with delayed cap refill as discussed above Psych: Other: Appropriately anxious, cooperative, appropriate judgment and insight H&P: Results Labs Labs: Short CBC 12/05/24 Range/Units 20:33 WBC 21.7 H (4.5-10.0) K/mm3 Hgb 13.7 (12.0-15.0) g/dL Hct 42.6 (37.0-47.0) % Plt Count 300 (150-375) k/mm3 BMP 12/05/24 20:33 Sodium 136 L Potassium 4.9 Chloride 100 Carbon Dioxide 19 L BUN 22 H Creatinine 0.81 Glucose 351 H Calcium 10.1 Liver Function 12/05/24 Range/Units 20:33 Total Bilirubin 1.0 (0.2-1.3) mg/dL AST 79 H (14-36) U/L ALT 96 H (6-35) U/L Alkaline Phosphatase 91 (38-126) U/L Albumin 4.2 (3.5-5.1) g/dL Urine 12/05/24 Range/Units 22:59 Urine Color Yellow (Yellow) Urine Appearance Clear (Clear) Urine pH 5.0 (5.0-9.0) Ur Specific [place] > 1.045 H (1.001-1.035) Urine Protein 1+ H (Negative) mg/dL Urine Glucose (UA) 3+ H (Negative) mg/dL Laboratory Tests 12/05/24 12/05/24 12/05/24 20:33 22:59 23:58 WBC 21.7 H RBC 4.69 Hgb 13.7 Hct 42.6 MCV 90.8 MCH 29.2 MCHC 32.2 RDW 14.3 Plt Count 300 MPV 10.9 H Immature Gran % (Auto) 0.5 Neut % (Auto) 71.9 Lymph % (Auto) 20.3 [place] % (Auto) 6.9 Eos % (Auto) 0.0 Baso % (Auto) 0.4 Lymph # (Auto) 4.40 H [place] # (Auto) 1.5 H Eos # (Auto) 0.0 Baso # (Auto) 0.1 Abs Immat Gran (auto) 0.10 H Absolute Neuts (auto) 15.6 H Absolute Nucleated RBC 0.000 Nucleated RBC % 0.0 Platelet Estimate Schistocytes PT INR APTT Puncture Site ABG pH ABG pCO2 ABG pO2 ABG PO2/FiO2 Ratio ABG HCO3 ABG O2 Saturation ABG O2 Content ABG Base Excess A-a Gradient Oxyhemoglobin Carboxyhemoglobin Methemoglobin Reduced Hemoglobin Total Hemoglobin O2 Delivery Device O2 Liters/Min Minute Volume Vent Rate Vent Mode FiO2 Tidal Volume PEEP Peak Inspir Pressure Pressure Support Sodium 136 L Potassium 4.9 Chloride 100 Carbon Dioxide 19 L Anion Gap 17 H BUN 22 H Creatinine 0.81 Estim Creat Clear Calc 58 Estimated GFR > 60 Glucose 351 H POC Capillary Glucose Lactic Acid 3.6 H 5.7 H* Calcium 10.1 Total Bilirubin 1.0 AST 79 H ALT 96 H Alkaline Phosphatase 91 C-Reactive Protein Total Protein 7.0 Albumin 4.2 Procalcitonin TSH (Reflex) Urine Color Yellow Urine Appearance Clear Urine pH 5.0 Ur Specific [place] > 1.045 H Urine Protein 1+ H Urine Glucose (UA) 3+ H Urine Ketones 2+ H Ur Blood (Man) Trace Urine Nitrate Positive H Urine Bilirubin Negative Urine Urobilinogen 0.2 Ur Leukocyte Esterase Leukocyte Esterase Rfl Negative Urine RBC 0-2 Urine WBC 6-10 H Ur Squamous Epith Cells Occasional Urine Bacteria 4+ H Urine Casts 3-5 Monoscreen 12/06/24 12/06/24 12/06/24 00:44 01:32 04:17 WBC RBC Hgb Hct MCV MCH MCHC RDW Plt Count MPV Immature Gran % (Auto) Neut % (Auto) Lymph % (Auto) [place] % (Auto) Eos % (Auto) Baso % (Auto) Lymph # (Auto) [place] # (Auto) Eos # (Auto) Baso # (Auto) Abs Immat Gran (auto) Absolute Neuts (auto) Absolute Nucleated RBC Nucleated RBC % Platelet Estimate Schistocytes PT INR APTT Puncture Site ABG pH ABG pCO2 ABG pO2 ABG PO2/FiO2 Ratio ABG HCO3 ABG O2 Saturation ABG O2 Content ABG Base Excess A-a Gradient Oxyhemoglobin Carboxyhemoglobin Methemoglobin Reduced Hemoglobin Total Hemoglobin O2 Delivery Device O2 Liters/Min Minute Volume Vent Rate Vent Mode FiO2 Tidal Volume PEEP Peak Inspir Pressure Pressure Support Sodium Potassium Chloride Carbon Dioxide Anion Gap BUN Creatinine Estim Creat Clear Calc Estimated GFR Glucose POC Capillary Glucose 304 H Lactic Acid 5.8 H* Calcium Total Bilirubin AST ALT Alkaline Phosphatase C-Reactive Protein Total Protein Albumin Procalcitonin TSH (Reflex) 0.974 Urine Color Urine Appearance Urine pH Ur Specific [place] Urine Protein Urine Glucose (UA) Urine Ketones Ur Blood (Man) Urine Nitrate Urine Bilirubin Urine Urobilinogen Ur Leukocyte Esterase Leukocyte Esterase Rfl Urine RBC Urine WBC Ur Squamous Epith Cells Urine Bacteria Urine Casts Monoscreen Negative 12/06/24 12/06/24 12/06/24 04:35 05:59 06:00 WBC 9.5 RBC 4.93 Hgb 14.2 Hct 45.0 MCV 91.3 MCH 28.8 MCHC 31.6 L RDW 14.4 Plt Count 295 MPV 11.0 H Immature Gran % (Auto) 0.2 Neut % (Auto) 45.9 Lymph % (Auto) 47.5 H [place] % (Auto) 3.2 Eos % (Auto) 2.7 Baso % (Auto) 0.5 Lymph # (Auto) 4.49 H [place] # (Auto) 0.3 Eos # (Auto) 0.3 Baso # (Auto) 0.1 Abs Immat Gran (auto) 0.02 Absolute Neuts (auto) 4.3 Absolute Nucleated RBC 0.000 Nucleated RBC % 0.0 Platelet Estimate Adequate Schistocytes None seen PT INR APTT Puncture Site Left radial ABG pH 7.364 ABG pCO2 26.8 L ABG pO2 43.9 L* ABG PO2/FiO2 Ratio 2.09 ABG HCO3 14.9 L ABG O2 Saturation 79.2 L* ABG O2 Content 17.2 ABG Base Excess -8.6 A-a Gradient 73.7 Oxyhemoglobin 80.4 L* Carboxyhemoglobin 0.9 Methemoglobin 0.3 Reduced Hemoglobin 18.4 H Total Hemoglobin 15.3 O2 Delivery Device Room air O2 Liters/Min Not Reportable Minute Volume Vent Rate Vent Mode FiO2 21 Tidal Volume PEEP Peak Inspir Pressure Pressure Support Sodium 137 Potassium 3.9 Chloride 108 H Carbon Dioxide 13 L Anion Gap 16 H BUN 20 H Creatinine 0.89 Estim Creat Clear Calc 55 Estimated GFR > 60 Glucose 321 H POC Capillary Glucose Lactic Acid 4.7 H* Calcium 9.7 Total Bilirubin 1.3 AST 61 H ALT 74 H Alkaline Phosphatase 92 C-Reactive Protein 16.3 H Total Protein 6.0 L Albumin 3.4 L Procalcitonin 22.5 TSH (Reflex) Urine Color Urine Appearance Urine pH Ur Specific [place] Urine Protein Urine Glucose (UA) Urine Ketones Ur Blood (Man) Urine Nitrate Urine Bilirubin Urine Urobilinogen Ur Leukocyte Esterase Leukocyte Esterase Rfl Urine RBC Urine WBC Ur Squamous Epith Cells Urine Bacteria Urine Casts Monoscreen 12/06/24 12/06/24 12/06/24 06:02 06:24 08:16 WBC RBC Hgb Hct MCV MCH MCHC RDW Plt Count MPV Immature Gran % (Auto) Neut % (Auto) Lymph % (Auto) [place] % (Auto) Eos % (Auto) Baso % (Auto) Lymph # (Auto) [place] # (Auto) Eos # (Auto) Baso # (Auto) Abs Immat Gran (auto) Absolute Neuts (auto) Absolute Nucleated RBC Nucleated RBC % Platelet Estimate Schistocytes PT INR APTT Puncture Site Right radial ABG pH 7.333 L ABG pCO2 31.1 L ABG pO2 177.8 H ABG PO2/FiO2 Ratio 1.78 ABG HCO3 16.1 L ABG O2 Saturation 99.1 ABG O2 Content 20.1 ABG Base Excess -8.4 A-a Gradient 504.1 Oxyhemoglobin 98.2 Carboxyhemoglobin 0.4 Methemoglobin 0.3 Reduced Hemoglobin 1.1 Total Hemoglobin 14.3 O2 Delivery Device Ventilator O2 Liters/Min Not Reportable Minute Volume Not Reportable Vent Rate 20 Vent Mode Cmv FiO2 100 Tidal Volume 350 PEEP 5 Peak Inspir Pressure Not Reportable Pressure Support Not Reportable Sodium Potassium Chloride Carbon Dioxide Anion Gap BUN Creatinine Estim Creat Clear Calc Estimated GFR Glucose POC Capillary Glucose 275 H Lactic Acid Calcium Total Bilirubin AST ALT Alkaline Phosphatase C-Reactive Protein Total Protein Albumin Procalcitonin TSH (Reflex) Urine Color Yellow Urine Appearance Clear Urine pH 5.0 Ur Specific [place] > 1.045 H Urine Protein 1+ H Urine Glucose (UA) 3+ H Urine Ketones 1+ H Ur Blood (Man) 1+ H Urine Nitrate Positive Urine Bilirubin Negative Urine Urobilinogen 0.2 Ur Leukocyte Esterase Negative Leukocyte Esterase Rfl Urine RBC 0-2 Urine WBC 0-5 Ur Squamous Epith Cells None seen Urine Bacteria 2+ H Urine Casts 3-5 Monoscreen 12/06/24 08:23 WBC 17.1 H RBC 4.54 Hgb 13.1 Hct 40.8 MCV 89.9 MCH 28.9 MCHC 32.1 RDW 14.4 Plt Count 342 MPV 10.7 H Immature Gran % (Auto) Not Reportable Neut % (Auto) Not Reportable Lymph % (Auto) Not Reportable [place] % (Auto) Not Reportable Eos % (Auto) Not Reportable Baso % (Auto) Not Reportable Lymph # (Auto) Not Reportable [place] # (Auto) Not Reportable Eos # (Auto) Not Reportable Baso # (Auto) Not Reportable Abs Immat Gran (auto) Not Reportable Absolute Neuts (auto) Not Reportable Absolute Nucleated RBC Not Reportable Nucleated RBC % Not Reportable Platelet Estimate Schistocytes PT 17.5 H INR 1.4 APTT 32.3 Puncture Site ABG pH ABG pCO2 ABG pO2 ABG PO2/FiO2 Ratio ABG HCO3 ABG O2 Saturation ABG O2 Content ABG Base Excess A-a Gradient Oxyhemoglobin Carboxyhemoglobin Methemoglobin Reduced Hemoglobin Total Hemoglobin O2 Delivery Device O2 Liters/Min Minute Volume Vent Rate Vent Mode FiO2 Tidal Volume PEEP Peak Inspir Pressure Pressure Support Sodium Potassium Chloride Carbon Dioxide Anion Gap BUN Creatinine Estim Creat Clear Calc Estimated GFR Glucose POC Capillary Glucose Lactic Acid Calcium Total Bilirubin AST ALT Alkaline Phosphatase C-Reactive Protein Total Protein Albumin Procalcitonin TSH (Reflex) Urine Color Urine Appearance Urine pH Ur Specific [place] Urine Protein Urine Glucose (UA) Urine Ketones Ur Blood (Man) Urine Nitrate Urine Bilirubin Urine Urobilinogen Ur Leukocyte Esterase Leukocyte Esterase Rfl Urine RBC Urine WBC Ur Squamous Epith Cells Urine Bacteria Urine Casts Monoscreen ITS Impressions Chest X-Ray 12/05/24 20:13 IMPRESSION: 1. Opacities in the left lower lung zone which could represent atelectasis or pneumonia. However no infiltrate noted on CT of the chest Chest CT 12/06/24 05:35 Impression: Clear lungs. [id number] hiatal hernia. Incidental findings of cardiomegaly Abdomen/Pelvis CT 12/06/24 05:53 Impression: No acute abnormality. Moderate hiatal hernia. Chest X-Ray 12/06/24 06:04 Impression: Mild pulmonary edema pattern. ET tube appropriately position in the tube appropriately position new finding of pulmonary disease edema past All imaging and EKGs personally reviewed and interpreted. And unless stated otherwise agree with radiologic and cardiology interpretation. Assessment and Plan Assessment and plan (1) Sepsis: Qualifiers: Sepsis type: sepsis due to unspecified organism Sepsis acute organ dysfunction status: with acute organ dysfunction Acute respiratory failure type: with hypoxia Severe sepsis shock status: with septic shock Severe sepsis acute organ dysfunction type: acute respiratory failure Qualified Code(s): A41.9 - Sepsis, unspecified organism; R65.21 - Severe sepsis with septic shock; J96.01 - Acute respiratory failure with hypoxia Code(s): A41.9 - Sepsis, unspecified organism Status: Acute (2) Acute hypoxic respiratory failure: Code(s): J96.01 - Acute respiratory failure with hypoxia Status: Acute (3) Endotracheally intubated: Code(s): Z97.8 - Presence of other specified devices Status: Acute (4) Cellulitis and abscess of neck: Code(s): L03.221 - Cellulitis of neck; L02.11 - Cutaneous abscess of neck Status: Acute (5) Abnormal urinalysis: Code(s): R82.90 - Unspecified abnormal findings in urine Status: Acute (6) Type 2 diabetes mellitus with hyperglycemia, without long-term current use of insulin: Code(s): E11.65 - Type 2 diabetes mellitus with hyperglycemia Status: Acute (7) High anion gap metabolic acidosis: Code(s): E87.29 - Other acidosis Status: Acute (8) Transaminitis: Code(s): R74.01 - Elevation of levels of liver transaminase levels Status: Acute Plan The patient initially presented with severe sepsis that progressed to septic shock despite adequate fluid resuscitation the patient S condition continued to worsen. She developed acute hypoxic respiratory failure requiring intubation. She was subsequently intubated and moved to the ICU. She was placed on a.c. CMV mode with tidal volumes 350 rate of 20 peep of 5 and eventually oxygen was weaned to 60% after post intubation ABG. Patient placed on sedation with fentanyl and Versed with goal RASS of 0--2. About an hour and half after intubation despite 30 mL/kilos fluids bolus and an additional 1 L fluid bolus patient then developed acute hypotension. She required initiation of pressor therapy and was given 2 amps of bicarb due to metabolic acidosis. Anion gap acidosis felt to be most likely due to lactic acidosis. Patient is hyperglycemic but not to the point that we would suspect DKA to be the culprit. Patient was initially started on pressors peripherally in central line was placed shortly thereafter. Initial a UA in the ER was significant for nitrates 4+ bacteria a few white cells and moderate squamous cells. At the time of my physical exam the patient had stool and other debris in her inguinal region. Her initial UA was reportedly a clean-catch specimen but the stool on the patient's perineum was old and I suspect that the urine specimen was contaminated subsequently a repeat UA was sent after the patient's catheter was placed repeat UA demonstrated elevated urine specific gravity 1+ ketones 0-5 wbc's 2+ bacteria and positive nitrates. She had initially been placed on antibiotic therapy with Rocephin. But after exam demonstrated spreading erythema and warmth of the dependent skin of her neck there was concern for rapidly progressive cellulitis possibly necrotizing fasciitis developing. The patient was not stable enough for repeat CT scan at the time. But patient was empirically started on Zosyn vancomycin and clindamycin. Temp probe Vincent was placed patient was noted to have fever that spiked up to 104.7. IV ibuprofen was administered. Fever continued to climb. Patient was placed under cooling blanket with ice packs. Patient was started on sliding scale insulin every 4 hours while NPO. IV fluids were continued. Patient was started on PPI prophylaxis with Protonix. Given that there was concern for possible rapidly progressing infection/possible necrotizing fasciitis of the neck attempted to arrange transfer to tertiary care. [facility] transfer line and [facility]. I did talk to Dr. Perera from [facility] who is ENT. The patient is currently on wait list for surgical ICU bed at [facility]. I talked to Dr. Romero from [facility] MICU the patient has been accepted in transfer but we are awaiting bed assignment. The patient's sister Ellie arrived after shift change. I did stop in and update her as to the events that occurred in the current plan of care. Was unable to confirm the patient's home med rec due to deterioration in her clinical status. 3 hours spent in critical care activities. Due to a high probability of clinically significant, life threatening deterioration, the patient required my highest level of preparedness to intervene emergently and I personally spent this critical care time directly and personally managing the patient. This critical care time included obtaining a history; examining the patient; pulse oximetry; ordering and review of studies; arranging urgent treatment with development of a management plan; evaluation of patient's response to treatment; frequent reassessment; and discussions with other providers. It was exclusive of separately billable procedures and treating other patients and teaching time. Please see Assessment and Plan section and the rest of the note for further information on patient assessment and treatment. Quality VTE Prophylaxis VTE prophylaxis: pharmacologic ordered Hospitalist MIPS Advance Care Plan I have confirmed that the patient's Advanced Care Plan is present, code status is documented, or surrogate decision maker is listed in patient medical record.: Yes Medication Reconciliation The patient is not eligible for med reconciliation; the patient is in a emergent medical situation where delaying treatment would jeopardize the patients health.: Yes
[2024-12-06 04:26] LABS: Glucose Point of Care 304 mg/dl (65-105)
--- NOTE | 2024-12-06 04:38 | PC.NURSE ---
Attempted to call patient's listed contact, Ellie. Voicemail left.
[2024-12-06 04:41] LABS: Alveolar/Arterial O2 Gradient 73.7 mmHg; Base Excess ABG -8.6 mEq/l (+/-2.0); Carboxyhemoglobin 0.9 % THb (0-2.0); Fractional Inspired Oxygen 21 %; HCO3 ABG 14.9 mEq/l (22.0-26.0); Methemoglobin ABG 0.3 %THb (0-1.5); Oxygen Content ABG 17.2 %vol (16.0-22.0); PCO2 ABG 26.8 mmHg (35.0-45.0); PO2 FiO2 Ratio Arterial Blood 2.09 %; Reduced Hemoglobin 18.4 %THb (0-5.0); Total Hemoglobin 15.3 g/dL (12.0-18.0); pH ABG 7.364 (7.350-7.450)
[2024-12-06] MEDS: ETOMIDATE 20 MG/10 ML AMPUL IV PUSH (04:47)
[2024-12-06] MEDS: SUCCINYLCHOLINE CHLORIDE 20 MG/ML 10 ML VIAL 100 MG IV PUSH (04:48)
--- NOTE | 2024-12-06 04:50 | PC.NURSE ---
pt brought from IMU for intubation. pt non verbal but eyes open in respiratory distress. Pt placed on NRB at 15 lpm sats 96% RR34 HR 135. Dr Ruiz And Dr Silva at bedside
[2024-12-06] MEDS: CLINDAMYCIN 900 MG/D5W 50 ML 900 MG/50 ML PIGGYBACK 50 MG IVPB (05:00)
[2024-12-06] MEDS: FENTANYL 2,500MCG/NS250ML(*CRX 2,500 MCG/250 ML BAG IV CONT (05:01)
[2024-12-06] MEDS: MIDAZOLAM 100MG/NS 100ML(*CRX) 100 MG/100 ML BAG IV CONT (05:02)
[2024-12-06] MEDS: PIPERACILLIN/TAZ 4.5G/NS 100ML 4.5 GM/100 ML BAG IVPB (05:06)
[2024-12-06] MEDS: MIDAZOLAM HCL (*CRX) 2 MG/2 ML VIAL 4 MG IV PUSH (05:08)
--- NOTE | 2024-12-06 05:19 | PC.NURSE ---
This patient, Ofelia Hilliard, was transferred to [ icu-2] on 12/06/24 at 0435 for respiratory distress requiring intubation. Personal belongings sent with patient. Appropriate documentation sent with patient.
[2024-12-06] MEDS: IBUPROFEN IV 800 MG/200 ML 800 MG/200 ML BAG 370.37 MG IVPB (05:37)
[2024-12-06 05:41] LABS: Oxygen Saturation ABG 79.2 % (95.0-100.0); PO2 ABG 43.9 mmHg (80.0-100.0)
[2024-12-06 05:42] LABS: Device ROOM AIR; Modified Allen's Test Pass; Oxyhemoglobin 80.4 % THb (90.0-100.0); Site Drawn LEFT RADIAL
[2024-12-06 06:04] LABS: Alveolar/Arterial O2 Gradient 504.1 mmHg; Base Excess ABG -8.4 mEq/l (+/-2.0); Carboxyhemoglobin 0.4 % THb (0-2.0); Fractional Inspired Oxygen 100 %; HCO3 ABG 16.1 mEq/l (22.0-26.0); Methemoglobin ABG 0.3 %THb (0-1.5); Oxygen Content ABG 20.1 %vol (16.0-22.0); Oxygen Saturation ABG 99.1 % (95.0-100.0); Oxyhemoglobin 98.2 % THb (90.0-100.0); PCO2 ABG 31.1 mmHg (35.0-45.0); PO2 ABG 177.8 mmHg (80.0-100.0); PO2 FiO2 Ratio Arterial Blood 1.78 %; Reduced Hemoglobin 1.1 %THb (0-5.0); Total Hemoglobin 14.3 g/dL (12.0-18.0); pH ABG 7.333 (7.350-7.450)
[2024-12-06 06:09] LABS: Device VENTILATOR; Modified Allen's Test Pass; Site Drawn RIGHT RADIAL
[2024-12-06 06:10] LABS: Arterial Blood Gas PEEP 5 cmH2O; Arterial Blood Gas Tidal Volume 350 ml; Arterial Blood Gas Vent Mode CMV; Arterial Blood Gas Ventilator rate 20 /MIN
--- NOTE | 2024-12-06 06:12 | WPDPROCEDUR ---
Procedures Intubation Intubation Date: 12/06/24 Intubation Time: 04:45 Consent: Risks and benefits of innovation were discussed with patient. Patient consented to procedure. A pre-procedural Time-Out was completed immediately before starting the procedure and confirmed: Patient Identification, Site, Procedure, Patient Position and the Availability of Requisite Equipment: Yes Sedative: etomidate Mg given: 20 Paralytic: succinylcholine Mg given: 100 Laryngoscope: fiber optic video scope ET tube size: 8 Tube secured depth (cm): 24 Tube secured location: lips Tube placement confirmation: visualized tube passing through cords, equal breath sounds bilaterally, no breath sounds over epigastrium and confirmation by capnometry Patient tolerated procedure: well and no complications Intubation complications: none Additional comments: Chest x-ray reviewed ET tube and OG in appropriate position. Official radiologic interpretation pending.
[2024-12-06 06:15] LABS: Basophils Absolute Auto 0.1 K/mm3 (0.0-0.1); Basophils Percent Auto 0.5 % (0.2-1.2); Eosinophils Absolute Auto 0.3 K/mm3 (0-0.3); Eosinophils Percent Auto 2.7 % (0-4.4); Hemoglobin 14.2 g/dL (12.0-15.0); Immature Granulocyte Absolute 0.02 K/mm3 (0.00-0.031); Immature Granulocyte Percent A 0.2 % (0-0.5); Lymphocytes Absolute Auto 4.49 K/mm3 (0.9-3.2); Lymphocytes Percent Auto 47.5 % (18.3-44.2); Mean Corpuscular HGB Conc 31.6 g/dl (32-36); Mean Corpuscular Hemoglobin 28.8 pg (26-34); Mean Corpuscular Volume 91.3 fl (80-100); Monocytes Absolute Auto 0.3 K/mm3 (0.1-0.6); Monocytes Percent Auto 3.2 % (2.6-8.5); Neutrophils Absolute Auto 4.3 K/mm3 (1.3-6.7); Neutrophils Percent Auto 45.9 % (45.5-73.1); Platelet Count Result 295 k/mm3 (150-375); Red Blood Count 4.93 M/mm3 (4.2-5.4); Red Cell Distribution Width 14.4 % (11.5-14.5); White Blood Count 9.5 K/mm3 (4.5-10.0)
[2024-12-06 06:25] LABS: Alanine Aminotransferase 74 U/L (6-35); Albumin Level 3.4 g/dL (3.5-5.1); Alkaline Phosphatase 92 U/L (38-126); Anion Gap 16 mmol/L (4-12); Aspartate Amino Transferase 61 U/L (14-36); Bilirubin,Total 1.3 mg/dL (0.2-1.3); Blood Urea Nitrogen 20 mg/dL (7-17); Calcium 9.7 mg/dL (8.4-10.2); Carbon Dioxide 13 mmol/L (22-30); Chloride 108 mmol/L (98-107); Estimated CRCL calculation 55 ml/min; Estimated Glomerular Filt Rate > 60; Glucose 321 mg/dL (65-110); Potassium 3.9 mmol/L (3.4-5.0); Sodium 137 mmol/L (137-145)
[2024-12-06 06:26] LABS: Lactic Acid Reflex 4.7 mmol/L (0.7-2.0)
[2024-12-06] MEDS: VANCOMYCIN 1,250 MG/NS 250 ML 1,250 MG/250 ML BAG 166.67 MG IVPB (06:33)
[2024-12-06 06:35] LABS: Add Urine Microscopic? YES; Appearance Urine Clear (Clear); Bacteria Urine 2+ /hpf; Bilirubin Urine Negative (Negative); Blood Urine 1+ (Negative); Color Urine Yellow (Yellow); Glucose Urine UA 3+ mg/dL (Negative); Ketones Urine 1+ mg/dL (Negative); Leukocyte Esterase Ur Negative LEU/UL (Negative); Nitrate Urine Positive (Negative); Protein Urine 1+ mg/dL (Negative); RBC Urine 0-2 /hpf (0-2); Specific Grav Ur > 1.045 (1.001-1.035); Squamous Epithelial Cell Urine None Seen /hpf (Few); Urobilinogen Urine 0.2 mg/dL (<2.0); WBC Urine 0-5 /hpf (0-3)
[2024-12-06 06:38] LABS: CRP 16.3 mg/dL (<1.0)
[2024-12-06] MEDS: NOREPINEPHRINE 8 MG/D5W 250 ML 8 MG/250 ML BAG 9.38 MG IV CONT (06:40)
[2024-12-06 06:43] LABS: Procalcitonin 22.5 ng/mL
[2024-12-06 06:49] LABS: Platelet Estimate Adequate (Adequate)
[2024-12-06 06:53] LABS: Schistocytes None Seen
[2024-12-06] MEDS: VANCOMYCIN 1,000 MG/NS 250 ML 1,000 MG/250 ML BAG 250 MG IVPB (07:30)
[2024-12-06] MEDS: LACTATED RINGERS 1,000 ML 75 ML (07:38)
[2024-12-06] MEDS: IPRATROPIUM 0.5 MG/ALBUTEROL SULFATE 2.5 MG AMPUL.NEB 3 ML INHALATION (08:15)
[2024-12-06 08:19] LABS: Glucose Point of Care 275 mg/dl (65-105)
[2024-12-06 08:29] LABS: Hematocrit 40.8 % (37.0-47.0); Hemoglobin 13.1 g/dL (12.0-15.0); Mean Corpuscular HGB Conc 32.1 g/dl (32-36); Mean Corpuscular Hemoglobin 28.9 pg (26-34); Mean Corpuscular Volume 89.9 fl (80-100); Mean Platelet Volume 10.7 fl (7.4-10.4); Platelet Count Result 342 k/mm3 (150-375); Red Blood Count 4.54 M/mm3 (4.2-5.4); Red Cell Distribution Width 14.4 % (11.5-14.5); White Blood Count 17.1 K/mm3 (4.5-10.0)
[2024-12-06] MEDS: SODIUM BICARBONATE 8.4% 50 MEQ/50 ML SYRINGE 100 MEQ IV PUSH (08:41)
[2024-12-06 08:43] LABS: INR 1.4; Prothrombin Time 17.5 Seconds (11.1-14.7)
[2024-12-06 08:44] LABS: Partial Thromboplastin Time 32.3 Seconds (22.3-36.8)
[2024-12-06] MEDS: fentaNYL CITRATE INJ (*CRX) 100 MCG/2 ML VIAL 50 MCG IV PUSH (08:47)
[2024-12-06] MEDS: MIDAZOLAM HCL (*CRX) 2 MG/2 ML VIAL IV PUSH (08:47)
[2024-12-06 09:03] LABS: Band Neutrophils Percent 11 % (0-6); Lymphocytes Percent Manual 48 % (18-44); Monocytes Absolute Manual 0.34 K/mm3 (0.1-0.90); Monocytes Percent Manual 2 % (3-9); Myelocytes Percent 2 %; Neutrophils Percent Manual 37 % (46-73); Total Cells Counted 100
[2024-12-06 09:04] LABS: Anisocytosis 1+; Burr Cells 2+; Large Platelets Present; Schistocytes None Seen; Smudge Cells FEW
--- NOTE | 2024-12-06 09:05 | PC.NURSE ---
Report called to ADRIAN Kidd at [facility]. Ambulance scheduled and is expected to be her to transport patient at 0930am. Family at bedside and made aware at this time.
[2024-12-06 09:08] LABS: Platelet Estimate Adequate (Adequate)
--- NOTE | 2024-12-06 09:18 | P.PCNBED_ITS ---
Procedures Central Line Placement Right Femoral: Central Line Date: 12/06/24 Central Line Time: 07:25 Discussed w/ the patient/family/POA,the placement of a central venous catheter, including its clinical necessity/indication & associated potential risks, benifits and alternatives.: Yes The patient/family/POA understand(s) and acknowledge(s) the need to proceed with central venous catheter insertion as an important element of the patient's clinical management.: Yes Consent: I have discussed with the patient and/or surrogate, the non-emergent placement of a central venous catheter, including its clinical necessity/indication and associated potential risks and complications. The patient and/or surrogate understand(s) and acknowledge(s) the need to proceed with central venous catheter insertion as an important element of the patient's clinical management. Time Out Performed: Yes Patient Position: supine Patient placed on monitor/pulse ox: Yes Provider Prep: mask, sterile gown, sterile gloves, Max. sterile barrier precautions, cap and hand hygiene with conventional soap/water or alcohol based hand rub Central line prep: 2% Chlorhexidine scrub Local anesthesia used: lidocaine 1% Amount of anesthesia used (ml): 3 Sterile US Technique with sterile gel/sterile probe covers: Yes Central line lumen inserted: triple Citizen [place]: 7 Length (cm): 20 Depth of Insertion (cm): 20 Post Procedure: sutured in place, good blood return, all ports aspirated, flushed, capped, transparent dressing, hemostatic product, antimicrobial product, securement product and aseptic technique maintained throughout procedure Patient tolerated procedure: well Complications: none
--- NOTE | 2024-12-06 09:25 | WPDCNINT ---
Assessment and Plan Assessment and plan (1) Acute hypoxic respiratory failure: Code(s): J96.01 - Acute respiratory failure with hypoxia Status: Acute Assessment and Plan: Acute hypoxic respiratory failure secondary to shortness of breath, sore throat, impending respiratory failure with tachypnea, use of accessory muscles of respiration 10/05: Patient intubated -remains on CMV mode of ventilation, peep of 5, 60% FiO2 -chest x-ray and ABGs reviewed -sedated with fentanyl and Versed infusion, maintain RASS of 0 to -2, daily SBT and SAT 12/06: CT chest Impression: Clear lungs. [id number] hiatal hernia 12/05: CT neck and soft tissue IMPRESSION: No rim-enhancing fluid collection is identified within the soft tissues of the neck No significant asymmetry (2) Septic shock: Code(s): A41.9 - Sepsis, unspecified organism; R65.21 - Severe sepsis with septic shock Status: Acute Assessment and Plan: Patient presented sore throat, leukocytosis, lactic acidosis, hoarseness in voice -dropped her blood pressures post intubation -Pt received 3800 ml IV fluids despite which she was hypotensive -started on Levophed, added vasopressin, will maintain MAP > 65 mmHg for adequate end organ profuse -elevated lactic acid will try -monitor urine output -12/05: blood and urine cultures have been obtained -12/06: started on vancomycin, Zosyn and clindamycin -add stress dose steroids 12/06: CT scan of the abdomen and pelvis: Impression No acute abnormality. Moderate hiatal hernia. (3) UTI (urinary tract infection): Code(s): N39.0 - Urinary tract infection, site not specified Status: Acute Assessment and Plan: Urine cultures have been obtained and pending -continue antibiotics as above (4) Cellulitis and abscess of neck: Code(s): L03.221 - Cellulitis of neck; L02.11 - Cutaneous abscess of neck Status: Acute Assessment and Plan: Continue antibiotics as above -patient may require surgical evaluation, for which she is being transferred to [facility], she has been accepted and already has a bed and awaiting ambulance for transfer 12/05: CT neck and soft tissue IMPRESSION: No rim-enhancing fluid collection is identified within the soft tissues of the neck No significant asymmetry (5) Type 2 diabetes mellitus with hyperglycemia, without long-term current use of insulin: Code(s): E11.65 - Type 2 diabetes mellitus with hyperglycemia Status: Acute Assessment and Plan: Continue high-dose sliding scale insulin and Accu-Cheks -check hemoglobin A1c (6) Transaminitis: Code(s): R74.01 - Elevation of levels of liver transaminase levels Status: Acute Assessment and Plan: Mild elevation in LFTs -could be related to hypotension, sepsis -, will continue to monitor Plan DVT prophylaxis: Lovenox subQ Stress ulcer prophylaxis: IV Protonix Nutrition: NPO Code Status: Full code Critical Care Time Spent: 77 minutes Discuss with Ellie, patient's sister and POA, updated her with patient's condition and plan of care. She is aware that patient has been accepted to [facility] for higher level of care. Due to a high probability of clinically significant, life threatening deterioration, the patient required my highest level of preparedness to intervene emergently and I personally spent this critical care time directly and personally managing the patient. This critical care time included obtaining a history; examining the patient; pulse oximetry; ordering and review of studies; arranging urgent treatment with development of a management plan; evaluation of patient's response to treatment; frequent reassessment; and discussions with other providers. It was exclusive of separately billable procedures and treating other patients and teaching time. Please see Assessment and Plan section and the rest of the note for further information on patient assessment and treatment This dictation may have been done utilizing a voice recognition system. Attempts have been made to correct errors. However, there may be uncorrected grammatical, spelling, and recognitions errors present. [employer] Consult Note Consult date: 12/06/24 Reason for consult: Septic shock, acute respiratory failure, skin infection, UTI S. Patient presented with shortness of breath, difficulty swallowing, hoarseness of voice HPI: Ofelia Hilliard is a 69 year old female a past medical history of 0 benign meningioma, morbid obesity, type 2 diabetes, Parkinson's disease, arthritis, GERD, chronic constipation, essential hypertension, hyperlipidemia presented the ED 12/05/2024 in the afternoon with complains of hoarseness and voice and sore throat. She had a CT scan of the neck and soft tissues which was negative for significant process. White count was 18 at this time, rapid strep, COVID flu and RSV PCR were negative. He was discharged home with acute pharyngitis on Augmentin. Within a few hours she developed shortness of breath at some wheezing and cold EMS who brought her to the ED. EN route she received a nebulizer treatment with improvement in her breathing. In the ER patient had elevated WBC count, elevated lactic acid. CT scan of the abdomen and pelvis demonstrated no acute process. UA reflective of UTI. She was started on ceftriaxone for possible UTI by ER physician. A Monospot was also performed which was negative. Repeat labs showed increasing WBC count to 21, lactic acid of 3.5 that increased to 5.7 and 5.8 even after 30 mL/kg IV fluid bolus. Patient had some mottling noted on her upper and lower extremities. Patient also had discoloration of the skin on her chin, which was a significant change since admission. Patient was intubated for impending respiratory failure with tachypnea, respiratory distress. He patient dropped her blood pressures post intubation, started on Levophed peripherally. Antibiotics switched to vancomycin, clindamycin Zosyn. Patient was acidotic was given 2 amps of sodium bicarb. Patient also spiked fevers to 104.7. Was placed on cooling blanket and ice packs. When I arrived to the ICU this morning, placed central line in the right femoral vein with no difficulty. Levophed was switched to the central line, Levophed requirements continued to increase, have added vasopressin. In the meantime hospitalist was very helpful and arranging the transfer to [facility] in [place]. Patient has been accepted the attending physician is Dr. Romero. Patient already has a bed, nurses given the report, awaiting ambulance for patient transfer. Review of Systems Review of Systems: ROS unobtainable: Yes unobtainable due to endotracheal tube, unobtainable due to medical condition and unobtainable due to mental status PMFSH Past Medical History Medical History (Updated 12/06/24 @ 09:38 by Jayme Ordoñez MD) Vitamin D deficiency Benign meningioma Obesity (BMI 35.0-39.9 without comorbidity) Type 2 diabetes mellitus, without long-term current use of insulin Parkinsons disease Arthritis of left glenohumeral joint Esophageal spasm GERD (gastroesophageal reflux disease) Chronic constipation Hypertension Hyperlipidemia Surgical History Surgical History History of abdominoplasty 2005 History of gastric bypass 2003 History of hysterectomy 1995 Hx of cholecystectomy 2006 Family History Family History Father Family history of lung cancer Hypertension Heart disease Mother Family history of Parkinson's disease Diabetes mellitus Hypertension Sibling History of brain shunt Social History Social History (Updated 12/06/24 @ 08:52 by Krystle Ruiz DO) Social History: The patient lives alone. She has never been . She does not have any children. Code status: Full code Surrogate decision maker: Ellie Cancino (sister) Smoking status: Never smoker Alcohol intake: never Alcohol use details: rarely Substance use: never Substance use type: does not use Do You Feel Safe in your Home?: Yes Lack of Transportation: No Lack of Food: Never True Current Housing: I Have Housing Concerned About Future Housing: No Difficulty Paying Gas/Electric Bills: No Difficulty Paying for Meds: No Currently Unemployed: No Education: Master's Degree or Higher Difficulty w/ Childcare or Family Care: No Gender identity (if verbalized by the patient): Female Spiritual care concerns: No Agree to blood products: Yes Meds Home Medications and Allergies Home Medications ?Medication ?Instructions ?Recorded ?Confirmed ?Type aspirin 81 mg tablet,delayed 81 mg PO DAILY 12/22/19 09/07/24 History release (Adult Low Dose Aspirin) multivitamin (Chewable-Shannon tablet) 1 tablet PO DAILY 12/22/19 09/07/24 History ascorbate calcium (vitamin C) 500 500 mg PO DAILY 10/24/20 09/07/24 History mg tablet cholecalciferol (vitamin D3) 50 5,000 unit PO DAILY 12/31/22 09/07/24 History mcg (2,000 unit) chewable tablet ferrous sulfate 134 mg (27 mg 134 mg PO DAILY 01/28/23 09/07/24 History iron) tablet magnesium PO 12/03/23 09/07/24 History amitriptyline 25 mg tablet 25 mg PO QHS #90 tabs 01/01/24 09/07/24 Rx perphenazine 4 mg tablet 4 mg PO BID #180 tabs 01/01/24 09/07/24 Rx carbidopa 10 mg-levodopa 100 mg 1 tablet PO QHS 09/06/24 09/07/24 History tablet simvastatin 20 mg tablet See Rx Instructions .Route 10/05/24 Rx .COMPLEX #45 tabs linaclotide 145 mcg capsule 145 mcg PO QAM #90 caps 10/18/24 Rx (Linzess) lisinopril 20 mg tablet See Rx Instructions .Route 11/29/24 Rx .COMPLEX #90 tabs metformin 500 mg tablet See Rx Instructions .Route 11/29/24 Rx .COMPLEX #180 tabs amoxicillin 875 mg-potassium 1 tablet PO Q12H 7 days #14 tabs 12/05/24 Rx clavulanate 125 mg tablet Allergies Allergy/AdvReac Type Severity Reaction Status Date / Time No Known Allergies Allergy Verified 12/06/24 05:10 Vital Signs Vital Signs - 24 hr 12/05/24 17:51 12/05/24 19:53 12/05/24 20:02 Temperature 99.2 F Pulse Rate 105 H 103 H 100 Respiratory Rate 17 20 20 Blood Pressure 130/46 L 143/71 H 137/77 Pulse Oximetry 97 99 100 Oxygen Delivery Fraction of Inspired Oxygen 12/05/24 20:32 12/05/24 20:35 12/05/24 20:44 Temperature Pulse Rate 102 H 116 H Respiratory Rate 20 20 Blood Pressure 113/62 Pulse Oximetry 100 100 Oxygen Delivery Room Air Fraction of Inspired Oxygen 12/05/24 21:02 12/05/24 21:31 12/05/24 22:02 Temperature Pulse Rate 113 H 126 H 120 H Respiratory Rate 16 15 20 Blood Pressure 127/25 L 132/121 H 122/75 Pulse Oximetry 100 99 Oxygen Delivery Fraction of Inspired Oxygen 12/05/24 22:35 12/06/24 00:50 12/06/24 04:00 Temperature Pulse Rate 121 H 113 H Respiratory Rate 20 21 H 36 H Blood Pressure 131/67 133/64 Pulse Oximetry 100 99 92 Oxygen Delivery Room Air Fraction of Inspired Oxygen 12/06/24 04:00 12/06/24 04:00 12/06/24 04:50 Temperature 97.8 F Pulse Rate 117 H 118 H 136 H Respiratory Rate 22 H Blood Pressure 104/70 Pulse Oximetry 92 98 Oxygen Delivery Mechanical Ventilation Fraction of Inspired Oxygen 100 12/06/24 04:56 12/06/24 05:00 12/06/24 05:01 Temperature Pulse Rate 121 H 124 H Respiratory Rate 34 H 33 H Blood Pressure 158/109 H Pulse Oximetry 92 99 Oxygen Delivery Room Air Fraction of Inspired Oxygen 12/06/24 05:02 12/06/24 05:02 12/06/24 05:02 Temperature Pulse Rate 128 H 121 H 128 H Respiratory Rate 37 H 34 H Blood Pressure Pulse Oximetry 92 Oxygen Delivery Mechanical Ventilation Fraction of Inspired Oxygen 100 12/06/24 05:30 12/06/24 05:37 12/06/24 05:40 Temperature 104 F H 104.6 F H Pulse Rate 118 H 110 H Respiratory Rate 33 H 21 H Blood Pressure 94/69 L Pulse Oximetry 97 96 Oxygen Delivery Fraction of Inspired Oxygen 12/06/24 06:00 12/06/24 06:26 12/06/24 06:26 Temperature Pulse Rate 98 100 Respiratory Rate 27 H Blood Pressure Pulse Oximetry 96 Oxygen Delivery Mechanical Ventilation Fraction of Inspired Oxygen 60 100 12/06/24 06:38 12/06/24 06:40 12/06/24 06:40 Temperature Pulse Rate 115 H 110 H 115 H Respiratory Rate 23 H 23 H Blood Pressure 49/32 L Pulse Oximetry Oxygen Delivery Fraction of Inspired Oxygen 12/06/24 06:45 12/06/24 07:00 12/06/24 07:30 Temperature 102 F H Pulse Rate 95 95 97 Respiratory Rate 23 H 22 H 22 H Blood Pressure 49/32 L 68/42 L 81/51 L Pulse Oximetry 99 97 99 Oxygen Delivery Fraction of Inspired Oxygen 12/06/24 08:00 12/06/24 08:00 12/06/24 08:00 Temperature 99.9 F H Pulse Rate 113 H 115 H 115 H Respiratory Rate 23 H 22 H 23 H Blood Pressure 111/75 Pulse Oximetry 98 Oxygen Delivery Fraction of Inspired Oxygen 12/06/24 08:01 12/06/24 08:15 12/06/24 08:15 Temperature 100.1 F H Pulse Rate 111 H 105 H 105 H Respiratory Rate 22 H 28 H Blood Pressure 111/75 Pulse Oximetry 97 98 Oxygen Delivery Mechanical Ventilation Fraction of Inspired Oxygen 60 12/06/24 08:39 Temperature Pulse Rate 109 H Respiratory Rate 20 Blood Pressure Pulse Oximetry Oxygen Delivery Fraction of Inspired Oxygen Exam Narrative: General: Intubated and sedated, in no acute distress HEENT:? Pupils are equal and reactive, sclera is clear, ETT in place. Neck:? Discoloration of skin under the chin, skin is erythematous and warm. There may be some induration Respiratory: Coarse breath sounds bilaterally, decreased at bases, no wheezing, adequate air entry otherwise Cardiac:? Sinus tachycardia, no murmurs Abdomen:? Soft, non tender, non distended, obese, hypoactive bowel sound Extremities:? No edema, palpable pedal pulses bilateral Neuro:? Patient is intubated, sedated, opens her eyes, does follow commands Skin:? Mottling noted on the lower and upper extremities Psych:? Unable to assess at this Results Labs 12/06/24 08:23 12/06/24 06:00 Labs: Short CBC 12/05/24 12/06/24 12/06/24 Range/Units 20:33 05:59 08:23 WBC 21.7 H 9.5 17.1 H (4.5-10.0) K/mm3 Hgb 13.7 14.2 13.1 (12.0-15.0) g/dL Hct 42.6 45.0 40.8 (37.0-47.0) % Plt Count 300 295 342 (150-375) k/mm3 BMP 12/05/24 12/06/24 20:33 06:00 Sodium 136 L 137 Potassium 4.9 3.9 Chloride 100 108 H Carbon Dioxide 19 L 13 L BUN 22 H 20 H Creatinine 0.81 0.89 Glucose 351 H 321 H Calcium 10.1 9.7 Liver Function 12/05/24 12/06/24 Range/Units 20:33 06:00 Total Bilirubin 1.0 1.3 (0.2-1.3) mg/dL AST 79 H 61 H (14-36) U/L ALT 96 H 74 H (6-35) U/L Alkaline Phosphatase 91 92 (38-126) U/L Albumin 4.2 3.4 L (3.5-5.1) g/dL Urine 12/05/24 12/06/24 Range/Units 22:59 06:24 Urine Color Yellow Yellow (Yellow) Urine Appearance Clear Clear (Clear) Urine pH 5.0 5.0 (5.0-9.0) Ur Specific [place] > 1.045 H > 1.045 H (1.001-1.035) Urine Protein 1+ H 1+ H (Negative) mg/dL Urine Glucose (UA) 3+ H 3+ H (Negative) mg/dL
[2024-12-06] MEDS: ALBUMIN HUMAN 25% 25 GM/100 ML 100 ML IVPB (09:29)
[2024-12-06] MEDS: VASOPRESSIN INJ 100 UNITS in DEXTROSE 5% 95 ML IV CONT (09:39)
[2024-12-06] MEDS: MINERAL OIL/WHITE PETROLATUM OINTMENT 1 APPLIC EACH EYE (09:43)
[2024-12-06] MEDS: INSULIN ASPART (*BKC) 100 UNITS/ML SUB-Q (09:43)
[2024-12-06] MEDS: PANTOPRAZOLE SODIUM IV 40 MG VIAL IV PUSH (09:44)
[2024-12-06] MEDS: HYDROCORTISONE SODIUM SUCCINATE 100 MG/2 ML VIAL IV PUSH (10:26)
[2024-12-06] MEDS: ENOXAPARIN 40 MG/0.4 ML SYRINGE SUB-Q (10:26)
--- NOTE | 2024-12-06 11:30 | P.TS_ITS ---
Transfer Discharge Sum: Prov Provider Date of admission: 12/05/24 23:53 Primary care physician: WILDER Hernandez-C Admitting clinician: Krystle Ruiz DO Consults: 12/06/24 Consult to Physician Routine Comment: Consulting Provider: Jayme Ordoñez parimutuel cashier/MD group to consult: Dr. Ordoñez Reason for consultation: Acute respiratory failure Has provider been notified: Yes Receiving physician/facility: Attending physician on discharge: Angelica Ordoñez MD Discharge condition: Angelica Ordoñez MD Anticipated date of transfer: 12/06/2024 Receiving physician: Dr. Romero Receiving facility: [facility] on [facility] in [facility] DS: Admitting Diagnosis Discharge Date Septic shock, possible severe skin infection under the chin, possible necrotizing fasciitis since the is a concern for possible rapidly progressing infection. Admitting Diagnosis Hoarseness of voice, Sore throat, hypotension, septic shock, acute respiratory failure, lactic acidosis DS: Discharge Diagnosis Discharge Diagnosis (1) Acute hypoxic respiratory failure: Code(s): J96.01 - Acute respiratory failure with hypoxia Status: Acute Assessment and Plan: Acute hypoxic respiratory failure secondary to shortness of breath, sore throat, impending respiratory failure with tachypnea, use of accessory muscles of respiration 10/05: Patient intubated -remains on CMV mode of ventilation, peep of 5, 60% FiO2 -chest x-ray and ABGs reviewed -sedated with fentanyl and Versed infusion, maintain RASS of 0 to -2, daily SBT and SAT 12/06: CT chest Impression: Clear lungs. [id number] hiatal hernia 12/05: CT neck and soft tissue IMPRESSION: No rim-enhancing fluid collection is identified within the soft tissues of the neck No significant asymmetry (2) Septic shock: Code(s): A41.9 - Sepsis, unspecified organism; R65.21 - Severe sepsis with septic shock Status: Acute Assessment and Plan: Patient presented sore throat, leukocytosis, lactic acidosis, hoarseness in voice -dropped her blood pressures post intubation -Pt received 3800 ml IV fluids despite which she was hypotensive -started on Levophed, added vasopressin, will maintain MAP > 65 mmHg for adequate end organ profuse -elevated lactic acid will try -monitor urine output -12/05: blood and urine cultures have been obtained -12/06: started on vancomycin, Zosyn and clindamycin -add stress dose steroids 12/06: CT scan of the abdomen and pelvis: Impression No acute abnormality. Moderate hiatal hernia. (3) UTI (urinary tract infection): Code(s): N39.0 - Urinary tract infection, site not specified Status: Acute Assessment and Plan: Urine cultures have been obtained and pending -continue antibiotics as above (4) Cellulitis and abscess of neck: Code(s): L03.221 - Cellulitis of neck; L02.11 - Cutaneous abscess of neck Status: Acute Assessment and Plan: Continue antibiotics as above -patient may require surgical evaluation, for which she is being transferred to [facility], she has been accepted and already has a bed and awaiting ambulance for transfer 12/05: CT neck and soft tissue IMPRESSION: No rim-enhancing fluid collection is identified within the soft tissues of the neck No significant asymmetry (5) Type 2 diabetes mellitus with hyperglycemia, without long-term current use of insulin: Code(s): E11.65 - Type 2 diabetes mellitus with hyperglycemia Status: Acute Assessment and Plan: Continue high-dose sliding scale insulin and Accu-Cheks -check hemoglobin A1c (6) Transaminitis: Code(s): R74.01 - Elevation of levels of liver transaminase levels Status: Acute Assessment and Plan: Mild elevation in LFTs -could be related to hypotension, sepsis -, will continue to monitor Plan DVT prophylaxis: Lovenox subQ Stress ulcer prophylaxis: IV Protonix Nutrition: NPO Code Status: Full code Critical Care Time Spent: 77 minutes Condition on transfer: Guarded Discuss with Ellie, patient's sister and POA, updated her with patient's condition and plan of care. She is aware that patient has been accepted to [facility] for higher level of care. Due to a high probability of clinically significant, life threatening deterioration, the patient required my highest level of preparedness to intervene emergently and I personally spent this critical care time directly and personally managing the patient. This critical care time included obtaining a history; examining the patient; pulse oximetry; ordering and review of studies; arranging urgent treatment with development of a management plan; evaluation of patient's response to treatment; frequent reassessment; and discussions with other providers. It was exclusive of separately billable procedures and treating other patients and teaching time. Please see Assessment and Plan section and the rest of the note for further information on patient assessment and treatment This dictation may have been done utilizing a voice recognition system. Attempts have been made to correct errors. However, there may be uncorrected grammatical, spelling, and recognitions errors present. Transfer Discharge Sum: Med Medications Active and Home Medications: Home Medications aspirin 81 mg tablet,delayed release (Adult Low Dose Aspirin) 81 mg PO DAILY 12/22/19 [History Confirmed 09/07/24] multivitamin (Chewable-Shannon tablet) 1 tablet PO DAILY 12/22/19 [History Confirmed 09/07/24] ascorbate calcium (vitamin C) 500 mg tablet 500 mg PO DAILY 10/24/20 [History Confirmed 09/07/24] cholecalciferol (vitamin D3) 50 mcg (2,000 unit) chewable tablet 5,000 unit PO DAILY 12/31/22 [History Confirmed 09/07/24] ferrous sulfate 134 mg (27 mg iron) tablet 134 mg PO DAILY 01/28/23 [History Confirmed 09/07/24] magnesium PO 12/03/23 [History Confirmed 09/07/24] amitriptyline 25 mg tablet 25 mg PO QHS #90 tabs 01/01/24 [Rx Confirmed 09/07/24] perphenazine 4 mg tablet 4 mg PO BID #180 tabs 01/01/24 [Rx Confirmed 09/07/24] carbidopa 10 mg-levodopa 100 mg tablet 1 tablet PO QHS 09/06/24 [History Confirmed 09/07/24] simvastatin 20 mg tablet See Rx Instructions .Route .COMPLEX #45 tabs 10/05/24 [Rx] linaclotide 145 mcg capsule (Linzess) 145 mcg PO QAM #90 caps 10/18/24 [Rx] lisinopril 20 mg tablet See Rx Instructions .Route .COMPLEX #90 tabs 11/29/24 [Rx] metformin 500 mg tablet See Rx Instructions .Route .COMPLEX #180 tabs 11/29/24 [Rx] amoxicillin 875 mg-potassium clavulanate 125 mg tablet 1 tablet PO Q12H 7 days #14 tabs 12/05/24 [Rx] Active Medications Albuterol/Ipratropium (Ipratropium 0.5 Mg/Albuterol Sulfate 2.5 Mg Ampul.Neb 3 Ml) 3 ml INHALATION Q6HRT [facility] Last Admin: 12/06/24 08:15 Dose: 3 ml Dextrose (Dextrose 50% 25 Gm/50 Ml Syringe) 12.5 gm IV PUSH PRN PRN; Protocol PRN Reason: Hypoglycemia Dextrose (Dextrose 50% 25 Gm/50 Ml Syringe) 12.5 gm IV PUSH PRN PRN; Protocol PRN Reason: Hypoglycemia Enoxaparin Sodium (Enoxaparin 40 Mg/0.4 Ml Syringe) 40 mg SUB-Q DAILY [facility] Last Admin: 12/06/24 10:26 Dose: 40 mg Glucagon (Glucagon For Inj 1 Mg Vial) 1 mg IM PRN PRN; Protocol PRN Reason: Hypoglycemia Glucagon (Glucagon For Inj 1 Mg Vial) 1 mg IM PRN PRN; Protocol PRN Reason: Hypoglycemia Glucose (Glucose Oral Gel 15 Gm Of Glucse In 37.5 Gm Tube) 15 gm PO PRN PRN; Protocol PRN Reason: Hypoglycemia Glucose (Glucose Oral Gel 15 Gm Of Glucse In 37.5 Gm Tube) 15 gm PO PRN PRN; Protocol PRN Reason: Hypoglycemia Hydrocortisone Sodium Succinate (Hydrocortisone Sodium Succinate 100 Mg/2 Ml Vial) 100 mg IV PUSH Q8HR [facility] Last Admin: 12/06/24 10:26 Dose: 100 mg Fentanyl Citrate (Fentanyl 2,500 Mcg/Ns 250 Ml) 2,500 mcg in 250 mls @ 2.5 mls/hr IV CONT .Q72H [facility]; Protocol Last Titration: 12/06/24 08:00 Dose: 25 mcg/hr, 2.5 mls/hr Midazolam HCl (Versed 100 Mg/Ns 100 Ml) 100 mg in 100 mls @ 1 mls/hr IV CONT .Q72H [facility]; Protocol Last Titration: 12/06/24 08:00 Dose: 1 mg/hr, 1 mls/hr Clindamycin Phosphate (Cleocin 900 Mg/D5w 50 Ml) 900 mg in 50 mls @ 50 mls/hr IVPB Q8H [facility] Last Infusion: 12/06/24 06:00 Dose: Infused Piperacillin Sod/Tazobactam Sod (Zosyn 4.5 Gm/Ns 100 Ml) 4.5 gm in 100 mls @ 200 mls/hr IVPB Q6HR [facility] Last Infusion: 12/06/24 05:39 Dose: Infused Vancomycin HCl (Vancomycin 1,500 Mg/Ns 500 Ml) 1,500 mg in 500 mls @ 250 mls/hr IVPB Q18H [facility] Norepinephrine Bitartrate (Levophed 8 Mg/D5w 250 Ml) 8 mg in 250 mls @ 56.25 mls/hr IV CONT .Q4H27M [facility]; Protocol Last Titration: 12/06/24 09:21 Dose: 30 mcg/min, 56.25 mls/hr Dextrose (Dextrose 5% 1,000 Ml) 1,000 mls @ 100 mls/hr IVPB PRN PRN; Protocol PRN Reason: Hypoglycemia Dextrose (Dextrose 5% 1,000 Ml) 1,000 mls @ 100 mls/hr IVPB PRN PRN; Protocol PRN Reason: Hypoglycemia Vasopressin 100 units/ (Dextrose) 100 mls @ 1.2 mls/hr IV CONT .Q72H [facility]; Protocol Last Admin: 12/06/24 09:39 Dose: 0.02 units/min, 1.2 mls/hr Insulin Aspart (Insulin Aspart (*Bkc) 100 Units/Ml) 4 - 8 units SUB-Q Q4HR [facility]; Protocol Last Admin: 12/06/24 09:43 Dose: 5 units Multi-Ingred Cream/Lotion/Oil/Oint (Mineral Oil/White Petrolatum Ointment) 1 a pplic EACH EYE Q12HR [facility] Last Admin: 12/06/24 09:43 Dose: 1 applic Pantoprazole Sodium (Pantoprazole Sodium Iv 40 Mg Vial) 40 mg IV PUSH DAILY [facility] Last Admin: 12/06/24 09:44 Dose: 40 mg Vancomycin HCl (Vancomycin Pharmacist To Dose) 1 each IVPB PER PROTOCOL [facility] Transfer Discharge Sum: Hosp Hospital Course Hospital course: Ofelia Hilliard is a 69 year old female a past medical history of 0 benign meningioma, morbid obesity, type 2 diabetes, Parkinson's disease, arthritis, GERD, chronic constipation, essential hypertension, hyperlipidemia presented the ED 12/05/2024 in the afternoon with complains of hoarseness and voice and sore throat. She had a CT scan of the neck and soft tissues which was negative for significant process. White count was 18 at this time, rapid strep, COVID flu and RSV PCR were negative. He was discharged home with acute pharyngitis on Augmentin. Within a few hours she developed shortness of breath at some wheezing and cold EMS who brought her to the ED. EN route she received a nebulizer treatment with improvement in her breathing. In the ER patient had elevated WBC count, elevated lactic acid. CT scan of the abdomen and pelvis demonstrated no acute process. UA reflective of UTI. She was started on ceftriaxone for possible UTI by ER physician. A Monospot was also performed which was negative. Repeat labs showed increasing WBC count to 21, lactic acid of 3.5 that increased to 5.7 and 5.8 even after 30 mL/kg IV fluid bolus. Patient had some mottling noted on her upper and lower extremities. Patient also had discoloration of the skin on her chin, which was a significant change since admission. Patient was intubated for impending respiratory failure with tachypnea, respiratory distress. He patient dropped her blood pressures post intubation, started on Levophed peripherally. Antibiotics switched to vancomyc in, clindamycin Zosyn. Patient was acidotic was given 2 amps of sodium bicarb. Patient also spiked fevers to 104.7. Was placed on cooling blanket and ice packs. When I arrived to the ICU this morning, placed central line in the right femoral vein with no difficulty. Levophed was switched to the central line, Levophed requirements continued to increase, have added vasopressin. In the meantime hospitalist was very helpful and arranging the transfer to [facility] in [place]. Patient has been accepted the attending physician is Dr. Romero. Patient already has a bed, nurses given the report, awaiting ambulance for patient transfer. Condition on transfer: Guarded Time Spent with Patient Time attestation: Total time spent providing and/or coordinating transfer services: 25 minute Exam Narrative: General: Intubated and sedated, in no acute distress HEENT:? Pupils are equal and reactive, sclera is clear, ETT in place. Neck:? Discoloration of skin under the chin, skin is erythematous and warm. There may be some induration Respiratory: Coarse breath sounds bilaterally, decreased at bases, no wheezing, adequate air entry otherwise Cardiac:? Sinus tachycardia, no murmurs Abdomen:? Soft, non tender, non distended, obese, hypoactive bowel sound Extremities:? No edema, palpable pedal pulses bilateral Neuro:? Patient is intubated, sedated, opens her eyes, does follow commands Skin:? Mottling noted on the lower and upper extremities Psych:? Unable to assess at this DS: Data Data Completed and Pending Labs on day of discharge: Labs from last 24 hours 12/06/24 12/06/24 12/06/24 08:23 08:16 06:24 WBC 17.1 H RBC 4.54 Hgb 13.1 Hct 40.8 MCV 89.9 MCH 28.9 MCHC 32.1 RDW 14.4 Plt Count 342 MPV 10.7 H Immature Gran % (Auto) Not Reportable Neut % (Auto) Not Reportable Lymph % (Auto) Not Reportable [place] % (Auto) Not Reportable Eos % (Auto) Not Reportable Baso % (Auto) Not Reportable Lymph # (Auto) Not Reportable [place] # (Auto) Not Reportable Eos # (Auto) Not Reportable Baso # (Auto) Not Reportable Abs Immat Gran (auto) Not Reportable Absolute Neuts (auto) Not Reportable Absolute Nucleated RBC Not Reportable Total Counted 100 Neutrophils % (Manual) 37 L Band Neutrophils % 11 H Lymphocytes % (Manual) 48 H Monocytes % (Manual) 2 L Myelocytes % 2 Nucleated RBC % Not Reportable Abs Neuts (Manual) 8.20 H Abs Lymphs (Manual) 8.20 H Abs Monocytes (Manual) 0.34 Smudge Cells Few Platelet Estimate Adequate Large Platelets Present Anisocytosis 1+ [place] Cells 2+ Schistocytes None seen PT 17.5 H INR 1.4 APTT 32.3 Puncture Site ABG pH ABG pCO2 ABG pO2 ABG PO2/FiO2 Ratio ABG HCO3 ABG O2 Saturation ABG O2 Content ABG Base Excess A-a Gradient Oxyhemoglobin Carboxyhemoglobin Methemoglobin Reduced Hemoglobin Total Hemoglobin O2 Delivery Device O2 Liters/Min Minute Volume Vent Rate Vent Mode FiO2 Tidal Volume PEEP Peak Inspir Pressure Pressure Support Sodium Potassium Chloride Carbon Dioxide Anion Gap BUN Creatinine Estim Creat Clear Calc Estimated GFR Glucose POC Capillary Glucose 275 H Hemoglobin A1c Pending Lactic Acid Calcium Total Bilirubin AST ALT Alkaline Phosphatase C-Reactive Protein Total Protein Albumin Procalcitonin TSH (Reflex) Urine Color Yellow Urine Appearance Clear Urine pH 5.0 Ur Specific [place] > 1.045 H Urine Protein 1+ H Urine Glucose (UA) 3+ H Urine Ketones 1+ H Ur Blood (Man) 1+ H Urine Nitrate Positive Urine Bilirubin Negative Urine Urobilinogen 0.2 Ur Leukocyte Esterase Negative Leukocyte Esterase Rfl Urine RBC 0-2 Urine WBC 0-5 Ur Squamous Epith Cells None seen Urine Bacteria 2+ H Urine Casts 3-5 Monoscreen 12/06/24 12/06/24 12/06/24 06:02 06:00 05:59 WBC 9.5 RBC 4.93 Hgb 14.2 Hct 45.0 MCV 91.3 MCH 28.8 MCHC 31.6 L RDW 14.4 Plt Count 295 MPV 11.0 H Immature Gran % (Auto) 0.2 Neut % (Auto) 45.9 Lymph % (Auto) 47.5 H [place] % (Auto) 3.2 Eos % (Auto) 2.7 Baso % (Auto) 0.5 Lymph # (Auto) 4.49 H [place] # (Auto) 0.3 Eos # (Auto) 0.3 Baso # (Auto) 0.1 Abs Immat Gran (auto) 0.02 Absolute Neuts (auto) 4.3 Absolute Nucleated RBC 0.000 Total Counted Neutrophils % (Manual) Band Neutrophils % Lymphocytes % (Manual) Monocytes % (Manual) Myelocytes % Nucleated RBC % 0.0 Abs Neuts (Manual) Abs Lymphs (Manual) Abs Monocytes (Manual) Smudge Cells Platelet Estimate Adequate Large Platelets Anisocytosis [place] Cells Schistocytes None seen PT INR APTT Puncture Site Right radial ABG pH 7.333 L ABG pCO2 31.1 L ABG pO2 177.8 H ABG PO2/FiO2 Ratio 1.78 ABG HCO3 16.1 L ABG O2 Saturation 99.1 ABG O2 Content 20.1 ABG Base Excess -8.4 A-a Gradient 504.1 Oxyhemoglobin 98.2 Carboxyhemoglobin 0.4 Methemoglobin 0.3 Reduced Hemoglobin 1.1 Total Hemoglobin 14.3 O2 Delivery Device Ventilator O2 Liters/Min Not Reportable Minute Volume Not Reportable Vent Rate 20 Vent Mode Cmv FiO2 100 Tidal Volume 350 PEEP 5 Peak Inspir Pressure Not Reportable Pressure Support Not Reportable Sodium 137 Potassium 3.9 Chloride 108 H Carbon Dioxide 13 L Anion Gap 16 H BUN 20 H Creatinine 0.89 Estim Creat Clear Calc 55 Estimated GFR > 60 Glucose 321 H POC Capillary Glucose Hemoglobin A1c Lactic Acid 4.7 H* Calcium 9.7 Total Bilirubin 1.3 AST 61 H ALT 74 H Alkaline Phosphatase 92 C-Reactive Protein 16.3 H Total Protein 6.0 L Albumin 3.4 L Procalcitonin 22.5 TSH (Reflex) Urine Color Urine Appearance Urine pH Ur Specific [place] Urine Protein Urine Glucose (UA) Urine Ketones Ur Blood (Man) Urine Nitrate Urine Bilirubin Urine Urobilinogen Ur Leukocyte Esterase Leukocyte Esterase Rfl Urine RBC Urine WBC Ur Squamous Epith Cells Urine Bacteria Urine Casts Monoscreen 12/06/24 12/06/24 12/06/24 04:35 04:17 01:32 WBC RBC Hgb Hct MCV MCH MCHC RDW Plt Count MPV Immature Gran % (Auto) Neut % (Auto) Lymph % (Auto) [place] % (Auto) Eos % (Auto) Baso % (Auto) Lymph # (Auto) [place] # (Auto) Eos # (Auto) Baso # (Auto) Abs Immat Gran (auto) Absolute Neuts (auto) Absolute Nucleated RBC Total Counted Neutrophils % (Manual) Band Neutrophils % Lymphocytes % (Manual) Monocytes % (Manual) Myelocytes % Nucleated RBC % Abs Neuts (Manual) Abs Lymphs (Manual) Abs Monocytes (Manual) Smudge Cells Platelet Estimate Large Platelets Anisocytosis [place] Cells Schistocytes PT INR APTT Puncture Site Left radial ABG pH 7.364 ABG pCO2 26.8 L ABG pO2 43.9 L* ABG PO2/FiO2 Ratio 2.09 ABG HCO3 14.9 L ABG O2 Saturation 79.2 L* ABG O2 Content 17.2 ABG Base Excess -8.6 A-a Gradient 73.7 Oxyhemoglobin 80.4 L* Carboxyhemoglobin 0.9 Methemoglobin 0.3 Reduced Hemoglobin 18.4 H Total Hemoglobin 15.3 O2 Delivery Device Room air O2 Liters/Min Not Reportable Minute Volume Vent Rate Vent Mode FiO2 21 Tidal Volume PEEP Peak Inspir Pressure Pressure Support Sodium Potassium Chloride Carbon Dioxide Anion Gap BUN Creatinine Estim Creat Clear Calc Estimated GFR Glucose POC Capillary Glucose 304 H Hemoglobin A1c Lactic Acid Calcium Total Bilirubin AST ALT Alkaline Phosphatase C-Reactive Protein Total Protein Albumin Procalcitonin TSH (Reflex) 0.974 Urine Color Urine Appearance Urine pH Ur Specific [place] Urine Protein Urine Glucose (UA) Urine Ketones Ur Blood (Man) Urine Nitrate Urine Bilirubin Urine Urobilinogen Ur Leukocyte Esterase Leukocyte Esterase Rfl Urine RBC Urine WBC Ur Squamous Epith Cells Urine Bacteria Urine Casts Monoscreen Negative 12/06/24 12/05/24 12/05/24 00:44 23:58 22:59 WBC RBC Hgb Hct MCV MCH MCHC RDW Plt Count MPV Immature Gran % (Auto) Neut % (Auto) Lymph % (Auto) [place] % (Auto) Eos % (Auto) Baso % (Auto) Lymph # (Auto) [place] # (Auto) Eos # (Auto) Baso # (Auto) Abs Immat Gran (auto) Absolute Neuts (auto) Absolute Nucleated RBC Total Counted Neutrophils % (Manual) Band Neutrophils % Lymphocytes % (Manual) Monocytes % (Manual) Myelocytes % Nucleated RBC % Abs Neuts (Manual) Abs Lymphs (Manual) Abs Monocytes (Manual) Smudge Cells Platelet Estimate Large Platelets Anisocytosis [place] Cells Schistocytes PT INR APTT Puncture Site ABG pH ABG pCO2 ABG pO2 ABG PO2/FiO2 Ratio ABG HCO3 ABG O2 Saturation ABG O2 Content ABG Base Excess A-a Gradient Oxyhemoglobin Carboxyhemoglobin Methemoglobin Reduced Hemoglobin Total Hemoglobin O2 Delivery Device O2 Liters/Min Minute Volume Vent Rate Vent Mode FiO2 Tidal Volume PEEP Peak Inspir Pressure Pressure Support Sodium Potassium Chloride Carbon Dioxide Anion Gap BUN Creatinine Estim Creat Clear Calc Estimated GFR Glucose POC Capillary Glucose Hemoglobin A1c Lactic Acid 5.8 H* 5.7 H* Calcium Total Bilirubin AST ALT Alkaline Phosphatase C-Reactive Protein Total Protein Albumin Procalcitonin TSH (Reflex) Urine Color Yellow Urine Appearance Clear Urine pH 5.0 Ur Specific [place] > 1.045 H Urine Protein 1+ H Urine Glucose (UA) 3+ H Urine Ketones 2+ H Ur Blood (Man) Trace Urine Nitrate Positive H Urine Bilirubin Negative Urine Urobilinogen 0.2 Ur Leukocyte Esterase Leukocyte Esterase Rfl Negative Urine RBC 0-2 Urine WBC 6-10 H Ur Squamous Epith Cells Occasional Urine Bacteria 4+ H Urine Casts 3-5 Monoscreen 12/05/24 20:33 WBC 21.7 H RBC 4.69 Hgb 13.7 Hct 42.6 MCV 90.8 MCH 29.2 MCHC 32.2 RDW 14.3 Plt Count 300 MPV 10.9 H Immature Gran % (Auto) 0.5 Neut % (Auto) 71.9 Lymph % (Auto) 20.3 [place] % (Auto) 6.9 Eos % (Auto) 0.0 Baso % (Auto) 0.4 Lymph # (Auto) 4.40 H [place] # (Auto) 1.5 H Eos # (Auto) 0.0 Baso # (Auto) 0.1 Abs Immat Gran (auto) 0.10 H Absolute Neuts (auto) 15.6 H Absolute Nucleated RBC 0.000 Total Counted Neutrophils % (Manual) Band Neutrophils % Lymphocytes % (Manual) Monocytes % (Manual) Myelocytes % Nucleated RBC % 0.0 Abs Neuts (Manual) Abs Lymphs (Manual) Abs Monocytes (Manual) Smudge Cells Platelet Estimate Large Platelets Anisocytosis [place] Cells Schistocytes PT INR APTT Puncture Site ABG pH ABG pCO2 ABG pO2 ABG PO2/FiO2 Ratio ABG HCO3 ABG O2 Saturation ABG O2 Content ABG Base Excess A-a Gradient Oxyhemoglobin Carboxyhemoglobin Methemoglobin Reduced Hemoglobin Total Hemoglobin O2 Delivery Device O2 Liters/Min Minute Volume Vent Rate Vent Mode FiO2 Tidal Volume PEEP Peak Inspir Pressure Pressure Support Sodium 136 L Potassium 4.9 Chloride 100 Carbon Dioxide 19 L Anion Gap 17 H BUN 22 H Creatinine 0.81 Estim Creat Clear Calc 58 Estimated GFR > 60 Glucose 351 H POC Capillary Glucose Hemoglobin A1c Lactic Acid 3.6 H Calcium 10.1 Total Bilirubin 1.0 AST 79 H ALT 96 H Alkaline Phosphatase 91 C-Reactive Protein Total Protein 7.0 Albumin 4.2 Procalcitonin TSH (Reflex) Urine Color Urine Appearance Urine pH Ur Specific [place] Urine Protein Urine Glucose (UA) Urine Ketones Ur Blood (Man) Urine Nitrate Urine Bilirubin Urine Urobilinogen Ur Leukocyte Esterase Leukocyte Esterase Rfl Urine RBC Urine WBC Ur Squamous Epith Cells Urine Bacteria Urine Casts Monoscreen Procedures/Treatments: Intubation Right femoral central line
[2024-12-06] MEDS: NOREPINEPHRINE 8 MG/D5W 250 ML 8 MG/250 ML BAG 56.25 MG IV CONT (11:41)
--- NOTE | 2024-12-06 12:27 | PC.NURSE ---
[facility] network support analyst called the facility stating that she had a proximal occlusion on the IV pump and that she needed help troubleshooting the pump as she is unfamiliar with our pumps . This RN took the call. This RN asked the network support analyst to check the lines for kinks, and then instructed the network support analyst to flush the line. The network support analyst stated that it was still reading proximal occlusion . This RN asked if she had facetime. The network support analyst stated that she did have facetime and she called in to troubleshoot the IV pump. This RN walked into the managers office while on facetime with the network support analyst to trouble shoot the IV pump, along with the project manager finance and director of the unit as a witness. The Director Of Casework had opened the pump and the pump needed to then be reprogramed. Discussed with the network support analyst how to find the medication to be infused and then how to reprogram based on previous settings (see eMAR for infusion rate). The pump was successfully programed and showed pumping on the screen when the facetime call ended.
--- NOTE | 2024-12-06 12:44 | PC.NURSE ---
At approximately 1130 am, [facility] here to machine pecan picker patient and transfer to [facility]. Report given to Radiotelephone Operator and assisted with IV medications and transfer from the bed to stretcher. A new bag of Levophed hung at this time, as previous bag was noted to have a small about left in bag. This RN then called to update RUFINO Kidd at [facility] on machine pecan picker time and most recent medications given since last report. Marti denied further questions at this time.
[2024-12-06 13:16] LABS: Hemoglobin A1C 6.2 % (<5.7)
== END 2024-12-06 11:45 | disposition short-term general hospital (02) | DRG 871 ==
LOC: ANHED 23:24 → ANH3MEDSUR 12-06 02:07 → ANHICU 12-06 08:10 → ANH3MEDSUR 12-08 10:14 → ANHICU 12-08 10:14 → ANHIMU 12-08 10:14
PROVIDERS: Admitting Provider Internal Medicine; Emergency Provider Emergency Medicine; PCP Clinical Nurse Specialist; Visit Provider Internal Medicine
DX: A41.9 Sepsis, unspecified organism (principal); J96.01 Acute respiratory failure with hypoxia; R65.21 Severe sepsis with septic shock; L03.221 Cellulitis of neck; E87.20 Acidosis, unspecified; I10 Essential (primary) hypertension; E55.9 Vitamin D deficiency, unspecified; E11.9 Type 2 diabetes mellitus without complications; E78.5 Hyperlipidemia, unspecified; E66.01 Morbid (severe) obesity due to excess calories; K59.09 Other constipation; G20.A1 Parkinson's disease without dyskinesia, without mention of fluctuations; Z68.37 Body mass index [BMI] 37.0-37.9, adult; Z79.82 Long term (current) use of aspirin; Z98.84 Bariatric surgery status
CPT/HCPCS: 36415; 36600; 71045; 71250; 74177; 80053; 81001; 82375; 82805; 82948; 83036; 83050; 83605; 84145; 84443; 85018; 85025; 85610; 85730; 86140; 86308; 87040; 87086; 87186; 94002; 94640; 96365; 96366; 96367; 96368; 96375; 99285; C1751; J0330; J0696; J1650; J1720; J1741; J1815; J1885; J2250; J2470; J2543; J3010; J3370; J3475; J7030; J7120; P9047; Q9967

== ENCOUNTER 2025-01-19 11:47 | Outpatient (NON) | payer MEDICARE, SELFPAY ==
[2025-01-19 12:18] LABS: Basophils Percent Auto 0.5 % (0.2-1.2); Eosinophils Absolute Auto 0.2 K/mm3 (0-0.3); Eosinophils Percent Auto 1.9 % (0-4.4); Hematocrit 41.1 % (37.0-47.0); Hemoglobin 13.2 g/dL (12.0-15.0); Immature Granulocyte Absolute 0.02 K/mm3 (0.00-0.031); Immature Granulocyte Percent A 0.3 % (0-0.5); Lymphocytes Absolute Auto 3.83 K/mm3 (0.9-3.2); Lymphocytes Percent Auto 48.1 % (18.3-44.2); Mean Corpuscular HGB Conc 32.1 g/dl (32-36); Mean Corpuscular Hemoglobin 28.6 pg (26-34); Mean Platelet Volume 11.2 fl (7.4-10.4); Monocytes Absolute Auto 0.5 K/mm3 (0.1-0.6); Monocytes Percent Auto 5.9 % (2.6-8.5); Neutrophils Absolute Auto 3.5 K/mm3 (1.3-6.7); Neutrophils Percent Auto 43.3 % (45.5-73.1); Platelet Count Result 386 k/mm3 (150-375); Red Blood Count 4.62 M/mm3 (4.2-5.4); Red Cell Distribution Width 14.8 % (11.5-14.5)
[2025-01-19 12:37] LABS: Alanine Aminotransferase 16 U/L (6-35); Albumin Level 4.3 g/dL (3.5-5.1); Alkaline Phosphatase 96 U/L (38-126); Anion Gap 13 mmol/L (4-12); Aspartate Amino Transferase 37 U/L (14-36); Bilirubin,Total 0.5 mg/dL (0.2-1.3); Blood Urea Nitrogen 25 mg/dL (7-17); Calcium 10.1 mg/dL (8.4-10.2); Carbon Dioxide 19 mmol/L (22-30); Chloride 105 mmol/L (98-107); Estimated Glomerular Filt Rate > 60; Glucose 185 mg/dL (65-110); Potassium 4.1 mmol/L (3.4-5.0); Sodium 137 mmol/L (137-145)
--- OUTSIDE RECORDS SUMMARY | 2025-01-19 13:16 | XMS_ITS | Clinical Summary ---
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 Active metoprolol tartrate (LOPRESSOR) 25 mg tablet Take 1 Tablet (25 mg) by mouth 2 times daily. 5 Active tamsulosin (FLOMAX) 0.4 mg capsule Take 2 Capsules (0.8 mg) by mouth daily after supper. 5 Active carbidopa-levod opa (SINEMET) 25-100 mg tablet Take 1 Tablet by mouth 3 times daily. 5 Active cefdinir (OMNICEF) 300 mg capsule Take 1 Capsule (300 mg) by mouth every 12 hours for 13 days. 01/04/20 Active Problems Problem Noted Date Diagnosed Date Generalized muscle weakness 12/20/2024 Protein-calorie malnutrition, severe 12/13/2024 LV dysfunction 12/13/2024 Bacteremia 12/10/2024 Necrotizing cellulitis 12/08/2024 CINTIA (acute kidney injury) 12/08/2024 Vegetation of heart valve 12/08/2024 Parkinson's disease 12/08/2024 Type 2 diabetes mellitus without complication Severe sepsis with septic shock 12/06/2024 Cellulitis of neck 12/06/2024 Acute respiratory failure with hypoxia Iron deficiency anemia 01/01/2021 Reactive thrombocytosis 12/18/2020 Encounters Date Type Department Care Team Description 01/11/2025 External Device Data [facility] Provider, Abstract 01/11/2025 External Device Data [facility] Provider, Abstract 01/11/2025 External Device Data [facility] Provider, Abstract 12/17/2024 Travel 12/14/2024 External Device Data [facility] Provider, Abstract 12/14/2024 External Device Data [facility] Provider, Abstract 12/14/2024 External Device Data [facility] Provider, Abstract 12/12/2024 Travel 12/08/2024 External Device Data [facility] Provider, Abstract 12/07/2024 External Device Data [facility] Provider, Abstract 12/07/2024 External Device Data [facility] Provider, Abstract 12/06/2024 1:07 PM PERSONAL LINES SALES EXECUTIVE - 12/21/2024 1:19 PM PERSONAL LINES SALES EXECUTIVE Hospital Encounter [facility] [address] [place] [address] Laurie Espinoza MD Bunaye, Zerihun A, MD Sangani, Vikram, MD Hassan, MD Octavio Jesus, Christian Palma MD Severe sepsis with septic shock (CMS/[facility]) [facility]charge Disposition: [facility](SNF) with Medicare Certification in Anticipation of Skilled Care 11/10/2024 External Device Data [facility] Provider, [...] 12/18/2020 How often do you attend chur ch or buddhist services? Not asked 12/18/2020 Do you belong to any clubs o r organizations such as scientologist groups, unions, fraternal or athletic groups, or [...] things needed for daily living? No 12/18/2020 Feeling Safe Answer Date Recorded Are you in a relationship wi th someone who hurts you emotionally and/or physically? Patient unable to answer 12/12/2024 Food Insecurity Answer Date Recorded Social/Environmental Concerns Patient unable to answer 12/12/2024 Transportation Needs Answer Date Record ed Social/Environmental Concerns Patient unable to answer 12/12/2024 Comments Unknown Sex and Gender Information Value Date Recorded Sex Assigned at Not on file Legal Sex Female 11:13 AM PERSONAL LINES SALES EXECUTIVE Gender Identity Not on file Sexual Orientation Not on file Last Filed Vital Signs Vital Sign Reading Time Taken Comments Blood Pressure 155/79 12/21/2024 5:57 AM PERSONAL LINES SALES EXECUTIVE Pulse 73 12/21/2024 5:57 AM PERSONAL LINES SALES EXECUTIVE Temperature 36.6 C (97.9 F) 12/21/2024 4:49 AM PERSONAL LINES SALES EXECUTIVE Respiratory Rate 18 12/21/2024 4:49 AM PERSONAL LINES SALES EXECUTIVE Oxygen Saturation 98% 12/21/2024 4:49 AM PERSONAL LINES SALES EXECUTIVE Inhaled Oxygen Concentration - - Weight 85.7 kg (189 lb) 12/13/2024 11:00 AM PERSONAL LINES SALES EXECUTIVE Height 157.5 cm (5' 2 ) 12/06/2024 3:05 PM PERSONAL LINES SALES EXECUTIVE Body Mass Index 34.57 12/06/2024 3:05 PM PERSONAL LINES SALES EXECUTIVE Plan of Treatment Health Maintenance Due Date Last Done Comments DIABETES ANNUAL FOOT EXAM 1972 DIABETES ANNUAL RETINAL EXAM 1972 DIABETES MICROALBUMIN ANNUAL SCREEN 1972 LDL CHOLESTEROL ANNUAL 1972 DTAP/TDAP/TD VACCINES (1 - Tdap) 1973 PNEUMOCOCCAL VACCINE 50+ YEA RS (1 of 2 - PCV) 1973 FIT-DNA Q 3 years 1999 Flex Sig/CT Colonography Q 5 years 1999 ZOSTER VACCINE (1 of 2) 2004 COLORECTAL SCREENING 10/20/2013 10/20/2003 Colorectal Cancer Screening 12/20/2021 FIT/FOBT Q 1 year 12/20/2021 12/20/2020 BREAST CANCER SCREENING 12/25/2021 12/26/19 21, 12/25/2020, 11/23/2019, Additional history exists INFLUENZA VACCINE (#1) 2024 Medicare [place]) Preventative Visit/Annual Wellness Visit 10/20/2024 DIABETES HBA1C Q 6 MONTHS 06/05/20252024, 10/18/2021, 06/21/2021, Additional history exists RSV VACCINE (60+ or ) (1 - 1-dose 75+ series) 2029 OSTEOPOROSIS SCREENING Completed 11/23/2019 Procedures Procedure Name Priority Date/Time Associated Diagnosis Comments TELEMETRY REPORT 12/22/2024 10:0 1 AM PERSONAL LINES SALES EXECUTIVE POC GLUCOSE Routine 12/21/2024 8:02 AM PERSONAL LINES SALES EXECUTIVE PHOSPHORUS Routine 12/21/2024 7:07 AM PERSONAL LINES SALES EXECUTIVE MAGNESIUM LEVEL Routine 12/21/2024 7:07 AM PERSONAL LINES SALES EXECUTIVE CBC WITH DIFFERENTIAL Routine 12/21/2024 7:07 AM PERSONAL LINES SALES EXECUTIVE COMPREHENSIVE METABOLIC PANEL Routine 12/21/2024 7:07 AM PERSONAL LINES SALES EXECUTIVE POC GLUCOSE Routine 12/20/2024 8:58 PM PERSONAL LINES SALES EXECUTIVE POC GLUCOSE Routine 12/20/2024 4:56 PM PERSONAL LINES SALES EXECUTIVE POC GLUCOSE Routine 12/20/2024 12:40 PM PERSONAL LINES SALES EXECUTIVE POC GLUCOSE Routine 12/20/2024 7:47 AM PERSONAL LINES SALES EXECUTIVE PHOSPHORUS Routine 12/20/2024 3:24 AM PERSONAL LINES SALES EXECUTIVE MAGNESIUM LEVEL Routine 12/20/2024 3:24 AM PERSONAL LINES SALES EXECUTIVE CBC WITH DIFFERENTIAL Routine 12/20/2024 3:24 AM PERSONAL LINES SALES EXECUTIVE COMPREHENSIVE METABOLIC PANEL Routine 12/20/2024 3:24 AM PERSONAL LINES SALES EXECUTIVE POC GLUCOSE Routine 12/19/2024 9:53 PM PERSONAL LINES SALES EXECUTIVE POC GLUCOSE Routine 12/19/2024 4:54 PM PERSONAL LINES SALES EXECUTIVE POC GLUCOSE Routine 12/19/2024 12:44 PM PERSONAL LINES SALES EXECUTIVE POC GLUCOSE Routine 12/19/2024 8:11 AM PERSONAL LINES SALES EXECUTIVE PHOSPHORUS Routine 12/19/2024 6:45 AM PERSONAL LINES SALES EXECUTIVE MAGNESIUM LEVEL Routine 12/19/2024 6:45 AM PERSONAL LINES SALES EXECUTIVE CBC WITH DIFFERENTIAL Routine 12/19/2024 6:45 AM PERSONAL LINES SALES EXECUTIVE COMPREHENSIVE METABOLIC PANEL Routine 12/19/2024 6:45 AM PERSONAL LINES SALES EXECUTIVE POC GLUCOSE Routine 12/18/2024 10:02 PM PERSONAL LINES SALES EXECUTIVE POC GLUCOSE Routine 12/18/2024 4:58 PM PERSONAL LINES SALES EXECUTIVE POC GLUCOSE Routine 12/18/2024 12:32 PM PERSONAL LINES SALES EXECUTIVE POC GLUCOSE Routine 12/18/2024 9:31 AM PERSONAL LINES SALES EXECUTIVE PHOSPHORUS Routine 12/18/2024 4:17 AM PERSONAL LINES SALES EXECUTIVE MAGNESIUM LEVEL Routine 12/18/2024 4:17 AM PERSONAL LINES SALES EXECUTIVE CBC WITH DIFFERENTIAL Routine 12/18/2024 4:17 AM PERSONAL LINES SALES EXECUTIVE COMPREHENSIVE METABOLIC PANEL Routine 12/18/2024 4:17 AM PERSONAL LINES SALES EXECUTIVE POC GLUCOSE Routine 12/17/2024 9:12 PM PERSONAL LINES SALES EXECUTIVE POC GLUCOSE Routine 12/17/2024 6:34 PM PERSONAL LINES SALES EXECUTIVE POC GLUCOSE Routine 12/17/2024 3:05 PM PERSONAL LINES SALES EXECUTIVE POC GLUCOSE Routine 12/17/2024 10:12 AM PERSONAL LINES SALES EXECUTIVE PHOSPHORUS Routine 12/17/2024 6:33 AM PERSONAL LINES SALES EXECUTIVE MAGNESIUM LEVEL Routine 12/17/2024 6:33 AM PERSONAL LINES SALES EXECUTIVE CBC WITH DIFFERENTIAL Routine 12/17/2024 6:33 AM PERSONAL LINES SALES EXECUTIVE COMPREHENSIVE METABOLIC PANEL Routine 12/17/2024 6:33 AM PERSONAL LINES SALES EXECUTIVE POC GLUCOSE Routine 12/16/2024 10:44 PM PERSONAL LINES SALES EXECUTIVE POC GLUCOSE Routine 12/16/2024 5:16 PM PERSONAL LINES SALES EXECUTIVE TELEMETRY REPORT 12/16/2024 2:21 PM PERSONAL LINES SALES EXECUTIVE POC GLUCOSE Routine 12/16/2024 12:33 PM PERSONAL LINES SALES EXECUTIVE POC GLUCOSE Routine 12/16/2024 8:58 AM PERSONAL LINES SALES EXECUTIVE POC GLUCOSE Routine 12/16/2024 4:46 AM PERSONAL LINES SALES EXECUTIVE PHOSPHORUS Routine 12/16/2024 3:43 AM PERSONAL LINES SALES EXECUTIVE MAGNESIUM LEVEL Routine 12/16/2024 3:43 AM PERSONAL LINES SALES EXECUTIVE CBC WITH DIFFERENTIAL Routine 12/16/2024 3:43 AM PERSONAL LINES SALES EXECUTIVE COMPREHENSIVE METABOLIC PANEL Routine 12/16/2024 3:43 AM PERSONAL LINES SALES EXECUTIVE POC GLUCOSE Routine 12/16/2024 12:14 AM PERSONAL LINES SALES EXECUTIVE POC GLUCOSE Routine 12/15/2024 8:02 PM PERSONAL LINES SALES EXECUTIVE PHOSPHORUS Routine 12/15/2024 4:25 PM PERSONAL LINES SALES EXECUTIVE MAGNESIUM LEVEL Routine 12/15/2024 4:25 PM PERSONAL LINES SALES EXECUTIVE CBC WITH DIFFERENTIAL Routine 12/15/2024 4:25 PM PERSONAL LINES SALES EXECUTIVE COMPREHENSIVE METABOLIC PANEL Routine 12/15/2024 4:25 PM PERSONAL LINES SALES EXECUTIVE POC GLUCOSE Routine 12/15/2024 12:32 PM PERSONAL LINES SALES EXECUTIVE TELEMETRY REPORT 12/15/2024 12:0 8 PM PERSONAL LINES SALES EXECUTIVE NM MYOCARD PERF IMAG SPECT MULT Routine 12/15/2024 11:10 AM PERSONAL LINES SALES EXECUTIVE HM EJECTION FRACTION Routine 12/15/2024 11:10 AM PERSONAL LINES SALES EXECUTIVE NM PHARMACOLOGICAL STRESS TEST Routine 12/15/2024 9:32 AM PERSONAL LINES SALES EXECUTIVE POC GLUCOSE Routine 12/15/2024 3:44 AM PERSONAL LINES SALES EXECUTIVE POC GLUCOSE Routine 12/14/2024 11:47 PM PERSONAL LINES SALES EXECUTIVE POC GLUCOSE Routine 12/14/2024 7:38 PM PERSONAL LINES SALES EXECUTIVE POC GLUCOSE Routine 12/14/2024 4:03 PM PERSONAL LINES SALES EXECUTIVE XR VIDEO SWALLOW W SPEECH Routine 12/14/2024 2:20 PM PERSONAL LINES SALES EXECUTIVE DIFFERENTIAL, MANUAL Routine 12/14/2024 12:25 PM PERSONAL LINES SALES EXECUTIVE PHOSPHORUS Routine 12/14/2024 12:25 PM PERSONAL LINES SALES EXECUTIVE MAGNESIUM LEVEL Routine 12/14/2024 12:25 PM PERSONAL LINES SALES EXECUTIVE CBC WITH DIFFERENTIAL Routine 12/14/2024 12:25 PM PERSONAL LINES SALES EXECUTIVE COMPREHENSIVE METABOLIC PANEL Routine 12/14/2024 12:25 PM PERSONAL LINES SALES EXECUTIVE POC GLUCOSE Routine 12/14/2024 12:18 PM PERSONAL LINES SALES EXECUTIVE POC GLUCOSE Routine 12/14/2024 9:03 AM PERSONAL LINES SALES EXECUTIVE ECHO LIMITED W CONTRAST Routine 12/14/19 7:24 AM PERSONAL LINES SALES EXECUTIVE POC GLUCOSE Routine 12/14/2024 3:29 AM PERSONAL LINES SALES EXECUTIVE POC GLUCOSE Routine 12/13/2024 11:56 PM PERSONAL LINES SALES EXECUTIVE POC GLUCOSE Routine 12/13/2024 7:48 PM PERSONAL LINES SALES EXECUTIVE POC GLUCOSE Routine 12/13/2024 4:43 PM PERSONAL LINES SALES EXECUTIVE XR CHEST PA OR AP 1 VW Routine 2:51 PM PERSONAL LINES SALES EXECUTIVE TELEMETRY REPORT 12/13/2024 11:4 7 AM PERSONAL LINES SALES EXECUTIVE POC GLUCOSE Routine 12/13/2024 11:45 AM PERSONAL LINES SALES EXECUTIVE POC GLUCOSE Routine 12/13/2024 7:25 AM PERSONAL LINES SALES EXECUTIVE DIFFERENTIAL, MANUAL Routine 12/13/2024 5:18 AM PERSONAL LINES SALES EXECUTIVE PHOSPHORUS Routine 12/13/2024 5:18 AM PERSONAL LINES SALES EXECUTIVE MAGNESIUM LEVEL Routine 12/13/2024 5:18 AM PERSONAL LINES SALES EXECUTIVE CBC WITH DIFFERENTIAL Routine 12/13/2024 5:18 AM PERSONAL LINES SALES EXECUTIVE COMPREHENSIVE METABOLIC PANEL Routine 12/13/2024 5:18 AM PERSONAL LINES SALES EXECUTIVE POC GLUCOSE Routine 12/13/2024 4:19 AM PERSONAL LINES SALES EXECUTIVE POC GLUCOSE Routine 12/12/2024 11:51 PM PERSONAL LINES SALES EXECUTIVE POC GLUCOSE Routine 12/12/2024 7:55 PM PERSONAL LINES SALES EXECUTIVE BASIC METABOLIC PANEL Routine 12/12/2024 4:39 PM PERSONAL LINES SALES EXECUTIVE POC GLUCOSE Routine 12/12/2024 3:56 PM PERSONAL LINES SALES EXECUTIVE POC GLUCOSE Routine 12/12/2024 12:28 PM PERSONAL LINES SALES EXECUTIVE XR CHEST PA OR AP 1 VW Routine 9:02 AM PERSONAL LINES SALES EXECUTIVE POC GLUCOSE Routine 12/12/2024 7:45 AM PERSONAL LINES SALES EXECUTIVE C-REACTIVE PROTEIN Routine 12/12/2024 4: 28 AM PERSONAL LINES SALES EXECUTIVE DIFFERENTIAL, MANUAL Routine 12/12/2024 4:28 AM PERSONAL LINES SALES EXECUTIVE PHOSPHORUS Routine 12/12/2024 4:28 AM PERSONAL LINES SALES EXECUTIVE MAGNESIUM LEVEL Routine 12/12/2024 4:28 AM PERSONAL LINES SALES EXECUTIVE CBC WITH DIFFERENTIAL Routine 12/12/2024 4:28 AM PERSONAL LINES SALES EXECUTIVE COMPREHENSIVE METABOLIC PANEL Routine 12/12/2024 4:28 AM PERSONAL LINES SALES EXECUTIVE POC GLUCOSE Routine 12/12/2024 3:32 AM PERSONAL LINES SALES EXECUTIVE POC GLUCOSE Routine 12/12/2024 12:11 AM PERSONAL LINES SALES EXECUTIVE POC GLUCOSE Routine 12/11/2024 9:09 PM PERSONAL LINES SALES EXECUTIVE POC GLUCOSE Routine 12/11/2024 4:16 PM PERSONAL LINES SALES EXECUTIVE US ABDOMEN LIMITED Routine 12/11/2024 3: 35 PM PERSONAL LINES SALES EXECUTIVE POC GLUCOSE Routine 12/11/2024 1:14 PM PERSONAL LINES SALES EXECUTIVE XR CHEST PA OR AP 1 VW Routine 10:44 AM PERSONAL LINES SALES EXECUTIVE POC GLUCOSE Routine 12/11/2024 8:07 AM PERSONAL LINES SALES EXECUTIVE DIFFERENTIAL, MANUAL Routine 12/11/2024 4:27 AM PERSONAL LINES SALES EXECUTIVE PHOSPHORUS Routine 12/11/2024 4:27 AM PERSONAL LINES SALES EXECUTIVE MAGNESIUM LEVEL Routine 12/11/2024 4:27 AM PERSONAL LINES SALES EXECUTIVE CBC WITH DIFFERENTIAL Routine 12/11/2024 4:27 AM PERSONAL LINES SALES EXECUTIVE COMPREHENSIVE METABOLIC PANEL Routine 12/11/2024 4:27 AM PERSONAL LINES SALES EXECUTIVE POC GLUCOSE Routine 12/11/2024 3:47 AM PERSONAL LINES SALES EXECUTIVE POC GLUCOSE Routine 12/10/2024 11:41 PM PERSONAL LINES SALES EXECUTIVE CT SOFT TISSUE NECK W CONTRAST Stat 12/10/2024 10:27 PM PERSONAL LINES SALES EXECUTIVE POC GLUCOSE Routine 12/10/2024 7:36 PM PERSONAL LINES SALES EXECUTIVE POC GLUCOSE Routine 12/10/2024 4:05 PM PERSONAL LINES SALES EXECUTIVE POC GLUCOSE Routine 12/10/2024 12:16 PM PERSONAL LINES SALES EXECUTIVE TELEMETRY REPORT 12/10/2024 11:3 9 AM PERSONAL LINES SALES EXECUTIVE POC GLUCOSE Routine 12/10/2024 7:58 AM PERSONAL LINES SALES EXECUTIVE DIFFERENTIAL, MANUAL Routine 12/10/2024 4:22 AM PERSONAL LINES SALES EXECUTIVE PHOSPHORUS Routine 12/10/2024 4:22 AM PERSONAL LINES SALES EXECUTIVE MAGNESIUM LEVEL Routine 12/10/2024 4:22 AM PERSONAL LINES SALES EXECUTIVE CBC WITH DIFFERENTIAL Routine 12/10/2024 4:22 AM PERSONAL LINES SALES EXECUTIVE COMPREHENSIVE METABOLIC PANEL Routine 12/10/2024 4:22 AM PERSONAL LINES SALES EXECUTIVE POC GLUCOSE Routine 12/10/2024 3:42 AM PERSONAL LINES SALES EXECUTIVE POC GLUCOSE Routine 12/09/2024 11:42 PM PERSONAL LINES SALES EXECUTIVE POC GLUCOSE Routine 12/09/2024 7:59 PM PERSONAL LINES SALES EXECUTIVE POC GLUCOSE Routine 12/09/2024 4:16 PM PERSONAL LINES SALES EXECUTIVE POC GLUCOSE Routine 12/09/2024 12:01 PM PERSONAL LINES SALES EXECUTIVE BLOOD GAS VENOUS Stat 12/09/2024 10:4 4 AM PERSONAL LINES SALES EXECUTIVE XR CHEST PA OR AP 1 VW Stat 10:43 AM PERSONAL LINES SALES EXECUTIVE EXTUBATION Routine 12/09/2024 8:23 AM PERSONAL LINES SALES EXECUTIVE POC GLUCOSE Routine 12/09/2024 7:49 AM PERSONAL LINES SALES EXECUTIVE C-REACTIVE PROTEIN Routine 12/09/2024 4: 39 AM PERSONAL LINES SALES EXECUTIVE PHOSPHORUS Routine 12/09/2024 4:39 AM PERSONAL LINES SALES EXECUTIVE MAGNESIUM LEVEL Routine 12/09/2024 4:39 AM PERSONAL LINES SALES EXECUTIVE CBC WITH DIFFERENTIAL Routine 12/09/2024 4:39 AM PERSONAL LINES SALES EXECUTIVE COMPREHENSIVE METABOLIC PANEL Routine 12/09/2024 4:39 AM PERSONAL LINES SALES EXECUTIVE POC GLUCOSE Routine 12/09/2024 3:36 AM PERSONAL LINES SALES EXECUTIVE POC GLUCOSE Routine 12/08/2024 11:35 PM PERSONAL LINES SALES EXECUTIVE POC GLUCOSE Routine 12/08/2024 7:58 PM PERSONAL LINES SALES EXECUTIVE POC GLUCOSE Routine 12/08/2024 3:57 PM PERSONAL LINES SALES EXECUTIVE POC GLUCOSE Routine 12/08/2024 12:09 PM PERSONAL LINES SALES EXECUTIVE US DOPPLER VENOUS ARM BILATERAL Routine 12/08/2024 10:39 AM PERSONAL LINES SALES EXECUTIVE POC GLUCOSE Routine 12/08/2024 8:08 AM PERSONAL LINES SALES EXECUTIVE DIFFERENTIAL, MANUAL Routine 12/08/2024 4:25 AM PERSONAL LINES SALES EXECUTIVE PHOSPHORUS Routine 12/08/2024 4:25 AM PERSONAL LINES SALES EXECUTIVE MAGNESIUM LEVEL Routine 12/08/2024 4:25 AM PERSONAL LINES SALES EXECUTIVE CBC WITH DIFFERENTIAL Routine 12/08/2024 4:25 AM PERSONAL LINES SALES EXECUTIVE COMPREHENSIVE METABOLIC PANEL Routine 12/08/2024 4:25 AM PERSONAL LINES SALES EXECUTIVE POC GLUCOSE Routine 12/08/2024 3:43 AM PERSONAL LINES SALES EXECUTIVE POC GLUCOSE Routine 12/07/2024 11:39 PM PERSONAL LINES SALES EXECUTIVE POC GLUCOSE Routine 12/07/2024 8:32 PM PERSONAL LINES SALES EXECUTIVE POC GLUCOSE Routine 12/07/2024 7:41 PM PERSONAL LINES SALES EXECUTIVE POC GLUCOSE Routine 12/07/2024 4:19 PM PERSONAL LINES SALES EXECUTIVE XR ABDOMEN FOR FEEDING TUBE 1 VW Stat 12/07/2024 12:18 PM PERSONAL LINES SALES EXECUTIVE POC GLUCOSE Routine 12/07/2024 11:59 AM PERSONAL LINES SALES EXECUTIVE LACTIC ACID Timed Study 12/07/2024 11:58 AM PERSONAL LINES SALES EXECUTIVE BLOOD CULTURE Routine 12/07/2024 11:51 AM PERSONAL LINES SALES EXECUTIVE BLOOD CULTURE Routine 12/07/2024 11:51 AM PERSONAL LINES SALES EXECUTIVE ECHO TRANSESOPHAGEAL W DOPPLER AND COLOR FLOW Stat 12/07/2024 11:34 AM PERSONAL LINES SALES EXECUTIVE POC GLUCOSE Routine 12/07/2024 10:27 AM PERSONAL LINES SALES EXECUTIVE BLOOD GAS ARTERIAL Routine 12/07/2024 10 :27 AM PERSONAL LINES SALES EXECUTIVE POC GLUCOSE Routine 12/07/2024 9:15 AM PERSONAL LINES SALES EXECUTIVE SPUTUM CULTURE WITH GRAM STAIN Routine 12/07/2024 8:44 AM PERSONAL LINES SALES EXECUTIVE POC GLUCOSE Routine 12/07/2024 8:32 AM PERSONAL LINES SALES EXECUTIVE POC GLUCOSE Routine 12/07/2024 7:06 AM PERSONAL LINES SALES EXECUTIVE POC GLUCOSE Routine 12/07/2024 6:37 AM PERSONAL LINES SALES EXECUTIVE POC GLUCOSE Routine 12/07/2024 5:57 AM PERSONAL LINES SALES EXECUTIVE POC GLUCOSE Routine 12/07/2024 5:26 AM PERSONAL LINES SALES EXECUTIVE POC GLUCOSE Routine 12/07/2024 4:09 AM PERSONAL LINES SALES EXECUTIVE DIFFERENTIAL, MANUAL Routine 12/07/2024 4:01 AM PERSONAL LINES SALES EXECUTIVE PHOSPHORUS Routine 12/07/2024 4:01 AM PERSONAL LINES SALES EXECUTIVE MAGNESIUM LEVEL Routine 12/07/2024 4:01 AM PERSONAL LINES SALES EXECUTIVE CBC WITH DIFFERENTIAL Routine 12/07/2024 4:01 AM PERSONAL LINES SALES EXECUTIVE COMPREHENSIVE METABOLIC PANEL Routine 12/07/2024 4:01 AM PERSONAL LINES SALES EXECUTIVE VANCOMYCIN LEVEL RANDOM Routine 12/07/19 25 4:01 AM PERSONAL LINES SALES EXECUTIVE LACTIC ACID Timed Study 12/07/2024 4:01 AM PERSONAL LINES SALES EXECUTIVE POC GLUCOSE Routine 12/07/2024 3:18 AM PERSONAL LINES SALES EXECUTIVE POC GLUCOSE Routine 12/07/2024 2:10 AM PERSONAL LINES SALES EXECUTIVE POC GLUCOSE Routine 12/07/2024 1:03 AM PERSONAL LINES SALES EXECUTIVE BLOOD CULTURE Routine 12/07/2024 12:14 AM PERSONAL LINES SALES EXECUTIVE BLOOD CULTURE Routine 12/07/2024 12:14 AM PERSONAL LINES SALES EXECUTIVE LACTIC ACID Timed Study 12/07/2024 12:08 AM PERSONAL LINES SALES EXECUTIVE POC GLUCOSE Routine 12/06/2024 11:55 PM PERSONAL LINES SALES EXECUTIVE POC GLUCOSE Routine 12/06/2024 11:24 PM PERSONAL LINES SALES EXECUTIVE POC GLUCOSE Routine 12/06/2024 10:46 PM PERSONAL LINES SALES EXECUTIVE POC GLUCOSE Routine 12/06/2024 10:00 PM PERSONAL LINES SALES EXECUTIVE CT CHEST W CONTRAST Stat 12/06/2024 9 :05 PM PERSONAL LINES SALES EXECUTIVE CT SOFT TISSUE NECK W CONTRAST Stat 12/06/2024 9:04 PM PERSONAL LINES SALES EXECUTIVE POC GLUCOSE Routine 12/06/2024 8:03 PM PERSONAL LINES SALES EXECUTIVE POC GLUCOSE Routine 12/06/2024 7:18 PM PERSONAL LINES SALES EXECUTIVE SODIUM, RANDOM URINE Routine 12/06/2024 6:39 PM PERSONAL LINES SALES EXECUTIVE DRUG SCREEN, URINE Routine 12/06/2024 6: 39 PM PERSONAL LINES SALES EXECUTIVE URINALYSIS W/REFLEX MICROSCOPIC Routine 12/06/2024 6:39 PM PERSONAL LINES SALES EXECUTIVE URINE CULTURE Routine 12/06/2024 6:39 PM PERSONAL LINES SALES EXECUTIVE KETONES/BETA HYDROXYBUTYRATE Routine 12/06/2024 6:19 PM PERSONAL LINES SALES EXECUTIVE TROPONIN 6 HR, 5TH GEN Timed Study 5 6:19 PM PERSONAL LINES SALES EXECUTIVE LACTIC ACID Timed Study 12/06/2024 6:19 PM PERSONAL LINES SALES EXECUTIVE POC GLUCOSE Routine 12/06/2024 5:50 PM PERSONAL [employer]ES SALES EXECUTIVE RESPIRATORY PATHOGEN PCR PANEL Routine 12/06/2024 5:15 PM PERSONAL [employer]ES SALES EXECUTIVE MRSA PCR RAPID SCREEN Routine 12/06/2024 5:04 PM PERSONAL LINES SALES EXECUTIVE POC GLUCOSE Routine 12/06/2024 5:00 PM PERSONAL LINES SALES EXECUTIVE TROPONIN 2 HR, 5TH GEN Timed Study 4:57 PM PERSONAL LINES SALES EXECUTIVE BLOOD GAS ARTERIAL Stat 12/06/2024 4: 56 PM PERSONAL LINES SALES EXECUTIVE ECHOCARDIOGRAM W/ CONTRAST AGENT Stat 12/06/2024 3:41 PM PERSONAL LINES SALES EXECUTIVE POC GLUCOSE Routine 12/06/2024 3:37 PM PERSONAL LINES SALES EXECUTIVE XR CHEST PA OR AP 1 VW Stat 2:25 PM PERSONAL LINES SALES EXECUTIVE CALCIUM IONIZED Routine 12/06/2024 2:23 PM PERSONAL [employer]ES SALES EXECUTIVE DIFFERENTIAL, MANUAL Routine 12/06/2024 1:46 PM PERSONAL LINES SALES EXECUTIVE CBC WITH DIFFERENTIAL Routine 12/06/2024 1:46 PM PERSONAL LINES SALES EXECUTIVE TSH REFLEXIVE Routine 12/06/2024 1:46 PM PERSONAL LINES SALES EXECUTIVE TROPONIN BASELINE, 5TH GEN Stat 12/06/2024 1:46 PM PERSON[employer]ES SALES EXECUTIVE PROCALCITONIN Routine 12/06/2024 1:46 PM PERSONAL LINES SALES EXECUTIVE C-REACTIVE PROTEIN Routine 12/06/2024 1: 46 PM PERSONAL LINES SALES EXECUTIVE HEMOGLOBIN A1C Routine 12/06/2024 1:46 PM PERSONAL LINES SALES EXECUTIVE COMPREHENSIVE METABOLIC PANEL Routine 12/06/2024 1:46 PM [employer] EXEC[employer]IVE LACTIC ACID Stat 12/06/2024 1:46 PM [employer] EXECUTIVE MAGNESIUM LEVEL Routine 12/06/2024 1:46 PM [employer] EXECUTIVE DIC PROFILE Routine 12/06/2024 1:46 PM [employer] EXECUTIVE POC GLUCOSE Routine 12/06/2024 1:23 PM [employer] EXEC[employer]IVE OCCULT BLOOD IMMUNOASSAY, COLORECTAL SCREEN Routine 12/20/2020 5:06 PM [employer] EXECUTIVE from Last 3 Months or Most Recently Relevant to Health Maintenance Results * TELEMETRY REPORT (12/22/2024 10:01 AM [employer] EXECUTIVE) Only the most recent of5 resultswithin the time period is included. Provider Scanning ECG ORDERABLES Final Result * (ABNORMAL) POC GLUCOSE (12/21/2024 8:02 AM [employer] EXECUTIVE) Only the most recent of94 resultswithin the time period is included. Pathologist [facility] GLUCOSE POC 110(H) 74 - 99 mg/dL 12/21/2024 8:02 AM [facility] SPECIMEN SOURCE, GLUCOSE POC Whole Blood 12/21/2024 8:02 AM [facility] COMMENT, GLU POC Notified RN/MD 12/21/2024 8:02 AM [facility] Blood, whole 12/21/2024 8:02 AM [employer]EC[employer]IVE 12/21/2024 8:16 AM [employer] EXECUTIVE Christian Cunningham MD POINT OF CARE TESTING Final Result [facility]# [id number] [facility] [place] [place] [address] * (ABNORMAL) CBC WITH DIFFERENTIAL (12/21/2024 7:07 AM [employer] EXECUTIVE) Only the most recent of16 resultswithin the time period is included. [facility] WBC 10.6(H) 4.0 - 9.8 K/uL 12/21/2024 7:40 AM [facility] RBC 3.94 3.90 - 4.90 M/uL 12/21/2024 7:40 AM [facility] HEMOGLOBIN 11.6(L) 11.8 - 14.8 g/dL 12/21/2024 7:40 AM [facility] HEMATOCRIT 37.5 35.5 - 44.0 % 12/21/2024 7:40 AM [facility] MCV 95.2 82.0 - 99.0 fL 12/21/2024 7:40 AM [employer] EXECUTIVE [facility] - [facility] MCH 29.4 27.2 - 32.6 pg 12/21/2024 7:40 AM P[employer] EXECUTIVE [employer] [facility] MCHC 30.9(L) 31.5 - 35.5 g/dL 12/21/2024 7:40 AM PERSONAL LINES SALES EXECUTIVE [employer] [facility] RDW 16.4(H) 11.5 - 14.5 % 12/21/2024 7:40 AM PERSONAL LINES SALES EXECUTIVE [employer] [facility] RDW-STDEV 55.8(H) 37.1 - 48.7 fL 12/21/2024 7:40 AM PERSONAL LINES SALES EXECUTIVE [employer] [facility] - [facility] PLATELETS 410(H) 140 - 350 K/uL 12/21/2024 7:40 AM PERSONAL LINES SALES EXECUTIVE [employer] [facility] MPV 11.4 9.3 - 12.4 fL 12/21/2024 7:40 AM PERSONAL LINES SALES EXECUTIVE [employer] [facility] NEUTROPHILS 45 % 12/21/2024 7:40 AM PERSONAL LINES SALES EXECUTIVE [employer] [facility] LYMPHOCYTES 43 % 12/21/2024 7:40 AM PERSONAL LINES SALES EXECUTIVE [employer] [facility] MONOCYTES 9 % 12/21/2024 7:40 AM PERSONAL LINES SALES EXECUTIVE [employer] [facility] EOSINOPHILS 1 % 12/21/2024 7:40 AM PERSONAL LINES SALES EXECUTIVE [employer] [facility] BASOPHILS 1 % 12/21/2024 7:40 AM PERSONAL LINES SALES EXECUTIVE [employer] [facility] IMMATURE GRANULOCYTES 1 % 12/21/2024 7:40 AM PERSONAL LINES SALES EXECUTIVE [employer] [facility] Comment:IG (Immature Granulo cyte) count includes Metamyelocytes, Myelocytes, and Promyelocytes NEUTROPHIL ABSOLUTE 4.80 1.90 - 7.00 K/uL 12/21/2024 7:40 AM PERSONAL LINES SALES EXECUTIVE [employer] [facility] LYMPHOCYTE ABSOLUTE 4.56(H) 0.70 - 4.50 K/uL 12/21/2024 7:40 AM PERSONAL LINES SALES EXECUTIVE [employer] [facility] MONOCYTE ABSOLUTE 1.00 0.10 - 1.30 K/uL 12/21/2024 7:40 AM PERSONAL LINES SALES EXECUTIVE [employer] [facility] EOSINOPHIL ABSOLUTE 0.12 0.00 - 0.70 K/uL 12/21/2024 7:40 AM PERSONAL LINES SALES EXECUTIVE [facility] LABORATORY [facility] - [facility] BASOPHILS ABSOLUTE 0.08 0.00 - 0.20 K/uL 12/21/2024 7:40 AM [facility] LABORATORY [facility] - . [facility] IMMATURE GRANULOCYTES ABSOLUTE 0.05(H) 0.00 - 0.03 K/uL 12/21/2024 7:40 AM [facility] LABORATORY [facility] Blood Venipuncture / Unknown 12/21/2024 7:07 AM PERSONAL LINES SALES EXECUTIVE 12/21/2024 7:26 AM PERSONAL LINES SALES EXECUTIVE Quentin BAUTISTA HEMATOLOGY ORDERABLES Fi nal Result Performing Organization Address [facility] Co de Phone Number [facility] CLIA# [id number] [address] [place] [address] * PHOSPHORUS (12/21/2024 7:07 AM PERSONAL LINES SALES EXECUTIVE) Only the most recent of15 resultswithin the time period is included. PHOSPHORUS 2.8 2.5 - 4.5 mg/dL 12/21/2024 8:16 AM [facility] Blood Venipuncture / Unknown 12/21/2024 7:07 AM PERSONAL LINES SALES EXECUTIVE 12/21/2024 7:26 AM PERSONAL LINES SALES EXECUTIVE Quentin BAUTISTA CHEMISTRY ORDERABLES Fin al Result Performing Organization Address City/[facility] Co de Phone Number [facility] CLIA# [id number] [address] [place] [address] * MAGNESIUM LEVEL (12/21/2024 7:07 AM PERSONAL LINES SALES EXECUTIVE) Only the most recent of16 resultswithin the time period is included. MAGNESIUM 1.8 1.6 - 2.4 mg/dL 12/21/2024 8:16 AM [facility] LABORATORY [facility] Blood Venipuncture / Unknown 12/21/2024 7:07 AM PERSONAL LINES SALES EXECUTIVE 12/21/2024 7:26 AM PERSONAL LINES SALES EXECUTIVE Quentin BAUTISTA CHEMISTRY ORDERABLES Fin al Result [facility] Meeps SERVICES [facility] CLIA# [id number] 5 [facility] [address] [place] [address] * (ABNORMAL) COMPREHENSIVE METABOLIC PANEL (12/21/2024 7:07 AM PERSONAL LINES SALES EXECUTIVE) Only the most recent of16 resultswithin the time period is included. SODIUM 138 136 - 145 mmol/L 12/21/2024 9:06 AM [facility] [employer] LABORATORY [facility] POTASSIUM 3.6 3.5 - 5.0 mmol/L 12/21/2024 9:06 AM [facility] [employer] [facility] CHLORIDE 102 98 - 107 mmol/L 12/21/2024 9:06 AM [facility] [employer] [facility] CO2 25 22 - 29 mmol/L 12/21/2024 9:06 AM [facility] [employer] [facility] CALCIUM 9.2 8.6 - 10.2 mg/dL 12/21/2024 9:06 AM [facility] [employer] LABORATORY [facility] BUN 7(L) 8 - 23 mg/dL 12/21/2024 9:06 AM [facility] LABORATORY [facility] CREATININE 0.60 0.51 - 0.95 mg/dL 12/21/2024 9:06 AM [facility] [employer] LABORATORY SERVICES [facility] Comment:The GFR result is no t clinically significant on patients <18 or >70 years of age. GLUCOSE 126(H) 74 - 99 mg/dL 12/21/2024 9:06 AM [facility] [employer] LABORATORY SERVICES [facility]. [facility] TOTAL PROTEIN 5.5(L) 6.7 - 8.6 g/dL 12/21/2024 9:06 AM [facility] [employer] LABORATORY [facility] ALBUMIN 2.7(L) 3.5 - 5.2 g/dL 12/21/2024 9:06 AM [facility] [employer] LABORATORY SERVICES [facility] BILIRUBIN TOTAL 0.3 0.2 - 1.1 mg/dL 12/21/2024 9:06 AM [facility] ALKALINE PHOSPHATASE 73 35 - 104 U/L 12/21/2024 9:06 AM [facility] AST 21 <33 U/L 12/21/2024 9:06 AM [facility] Comment:Hemolysis present. R esult may be falsely elevated. ALT <5 <34 U/L 12/21/2024 9:06 AM [facility] GFR >60 mL/min/1.7 3 sq meter 12/21/2024 9:06 AM [facility] Comment:eGFR calculated with 2020 CKD-EPI equation. Vegetarian diet, extremely high or low muscle mass, and may affect results. Cystatin C with Glomerular Filtration Rate is a suitable alternative for these patients. ANION GAP 11 8 - 16 mmol/L 12/21/2024 9:06 AM [facility] Blood Venipuncture / Unknown 12/21/2024 7:07 AM PERSONAL LINES SALES EXECUTIVE 12/21/2024 7:26 AM PERSONAL LINES SALES EXECUTIVE Narrative [facility] - 12/21/2024 9:06 AM [facility] Samples containing indocyanine green cause interferences on Total and/or Direct Bilirubin and must not be measured. Quentin Cloud [facility] CHEMISTRY ORDERABLES Fin al Result [facility]# [id number] 5 [facility] [address] [place] [address] * NM MYOCARD PERF IMAG SPECT MULT (12/15/2024 11:10 AM PERSONAL LINES SALES EXECUTIVE) 12/15/2024 11:1 1 AM PERSONAL LINES SALES EXECUTIVE Impressions INTERFACE SYSTEM - 12/15/2024 12:20 PM PERSONAL LINES SALES EXECUTIVE IMPRESSION: 1) Stress EKG response was negative for ischemia. 2) The overall quality of the study is fair. Prone post stress SPECT imaging was not performed to assess for attenuation artifact. 3) The nuclear myocardial perfusion scan reveals a mild severity fixed defect in the septal wall and the inferolateral wall. Inferolateral wall defect is more pronounced on rest imaging. Findings likely represent attenuation artifact given normal wall motion on gated images. There is no evidence of reversible ischemia. 4) Left ventricular size is normal with normal left ventricular systolic function, and a calculated ejection fraction of 72%. 5) No previous study was available for comparison. Recommendations: Clinical correlation is recommended. Narrative INTERFACE SYSTEM - 12/15/2024 12:20 PM PERSONAL LINES SALES EXECUTIVE Procedure Type: One Day Myoview Regadenoson Pharmacologic Stress Test Date of Procedure: 12/15/2024 11:10 AM Clinical Indication: This 69 years old Female with a clinical history of hypertension, hyperlipidemia, and diabetes who is undergoing an evaluation for coronary artery disease via a pharmacologic stress test due to chest pain. Height: 5 feet 2 inches; Weight: 189 pounds Medications:See List Pharmacologic Stress Procedure: The patient performed a pharmacologic stress test using 0.4 mg regadenoson IVP over 10 seconds without low level exercise. The heart rate was 61 bpm at baseline and increased to 90 bpm. The blood pressure was 122/67 mmHg at baseline and 127/71 mmHg during infusion, demonstrating a normal response to regadenoson. The patient felt of breath, cough, and nausea during the procedure. EKG: The baseline electrocardiogram showed sinus rhythm, 61 bpm. Low voltage QRS in precordial leads. RSR' in V1, likely normal variant. Nonspecific T wave changes. Baseline motion artifact present on resting EKG. The stress electrocardiogram showed no ischemic changes. The electrocardiogram changes show a non-ischemic response to regadenoson. Nuclear Imaging Protocol: Myocardial perfusion imaging was performed at rest approximately 30 minutes following the intravenous injection of 6.6 mCi TC99m Myoview. Immediately after regadenoson infusion, the patient was injected intravenously with 20.2 mCi TC99m Myoview. Gated post - stress tomographic imaging was performed approximately 60 minutes later in same manner. SPECT reconstruction was performed in the short, vertical long and horizontal axis views in both resting and gated image sets. Post-stress prone images were not obtained in the short, vertical long, and horizontal axis views. Findings: The overall quality of the study is fair. Rotating planar images reveal no motion artifact. The left ventricular size is normal. SPECT myocardial perfusion images reveal a mild severity fixed defect in the septal wall and inferolateral wall. Inferolateral wall defect is more pronounced on rest imaging. Rest imaging reveals no reversibility. Findings likely represent attenuation artifact given normal wall motion on gated images. Gated SPECT imaging demonstrates normal wall motion in all regions, and a calculated left ventricular ejection fraction estimated to be 72%. There is no evidence of transient ischemic dilatation. Procedure Note Axel Loera MD - 12/15/2024 Procedure Type: One Day Myoview Regadenoson Pharmacologic Stress Test Date of Procedure: 12/15/2024 11:10 AM Clinical Indication: This 69 years old Female with a clinical history of hypertension, hyperlipidemia, and diabetes who is undergoing an evaluation for coronary artery disease via a pharmacologic stress test due to chest pain. Height: 5 feet 2 inches; Weight: 189 pounds Medications:See List Pharmacologic Stress Procedure: The patient performed a pharmacologic stress test using 0.4 mg regadenoson IVP over 10 seconds without low level exercise. The heart rate was 61 bpm at baseline and increased to 90 bpm. The blood pressure was 122/67 mmHg at baseline and 127/71 mmHg during infusion, demonstrating a normal response to regadenoson. The patient felt of breath, cough, and nausea during the procedure. EKG: The baseline electrocardiogram showed sinus rhythm, 61 bpm. Low voltage QRS in precordial leads. RSR' in V1, likely normal variant. Nonspecific T wave changes. Baseline motion artifact present on resting EKG. The stress electrocardiogram showed no ischemic changes. The electrocardiogram changes show a non-ischemic response to regadenoson. Nuclear Imaging Protocol: Myocardial perfusion imaging was performed at rest approximately 30 minutes following the intravenous injection of 6.6 mCi TC99m Myoview. Immediately after regadenoson infusion, the patient was injected intravenously with 20.2 mCi TC99m Myoview. Gated post - stress tomographic imaging was performed approximately 60 minutes later in same manner. SPECT reconstruction was performed in the short, vertical long and horizontal axis views in both resting and gated image sets. Post-stress prone images were not obtained in the short, vertical long, and horizontal axis views. Findings: The overall quality of the study is fair. Rotating planar images reveal no motion artifact. The left ventricular size is normal. SPECT myocardial perfusion images reveal a mild severity fixed defect in the septal wall and inferolateral wall. Inferolateral wall defect is more pronounced on rest imaging. Rest imaging reveals no reversibility. Findings likely represent attenuation artifact given normal wall motion on gated images. Gated SPECT imaging demonstrates normal wall motion in all regions, and a calculated left ventricular ejection fraction estimated to be 72%. There is no evidence of transient ischemic dilatation. IMPRESSION: 1) Stress EKG response was negative for ischemia. 2) The overall quality of the study is fair. Prone post stress SPECT imaging was not performed to assess for attenuation artifact. 3) The nuclear myocardial perfusion scan reveals a mild severity fixed defect in the septal wall and the inferolateral wall. Inferolateral wall defect is more pronounced on rest imaging. Findings likely represent attenuation artifact given normal wall motion on gated images. There is no evidence of reversible ischemia. 4) Left ventricular size is normal with normal left ventricular systolic function, and a calculated ejection fraction of 72%. 5) No previous study was available for comparison. Recommendations: Clinical correlation is recommended. Result [facility] Quentin [facility] [facility] ORDERABLES Final Re sult INTERFACE SYSTEM Refer to clinic/hospital department * (ABNORMAL) HM EJECTION FRACTION (12/15/2024 11:10 AM PERSONAL LINES SALES EXECUTIVE) [facility] EJECTION FRACTION 72(A) 50 - 65 % Historical Provider HEALTH MAINTENANCE Final Res ult * NM PHARMACOLOGICAL STRESS TEST (12/15/2024 9:32 AM PERSONAL LINES SALES EXECUTIVE) Narrative 12/15/2024 9:33 AM PERSONAL LINES SALES EXECUTIVE Order information only. Exam was auto-finalized. Result [facility] [employer]entin [facility] [facility] ORDERABLES Final Re sult * XR VIDEO SWALLOW W SPEECH (12/14/2024 2:20 PM PERSONAL LINES SALES EXECUTIVE) Anatomical Region Laterality Modality Chest Computed Radiogr aphy 12/14/2024 2:22 PM PERSONAL LINES SALES EXECUTIVE Impressions 12/14/2024 2:51 PM PERSONAL LINES SALES EXECUTIVE IMPRESSION: No laryngeal penetration or tracheal aspiration. DICTATION LOCATION: Location 1 - [facility] Narrative 12/14/2024 2:51 PM PERSONAL LINES SALES EXECUTIVE EXAMINATION: MODIFIED SWALLOWING STUDY DATE: 12/14/2024 2:20 PM HISTORY: 69-year-old female with history of dysphagia. FLUOROSCOPY TIME: 0.8 minutes REFERENCE AIR KERMA DOSE: 3.17 mGy TECHNIQUE: Fluoroscopy was provided to assist modified swallowing study. Utilizing different consistency levels of barium, multiple swallowing episodes were recorded. FINDINGS: There is normal bolus transfer of food material from the oropharynx to hypopharynx to esophagus. Swallowing reflex is intact. Vallecular and piriform sinus residuals are noted. There is no nasopharyngeal reflux or glottic penetration. No tracheal aspiration is seen. Please see the speech-language pathology note for further details. INCIDENTAL FINDINGS: None. Procedure Note Guillaume Samuels, DO - 12/14/2024 EXAMINATION: MODIFIED SWALLOWING STUDY DATE: 12/14/2024 2:20 PM HISTORY: 69-year-old female with history of dysphagia. FLUOROSCOPY TIME: 0.8 minutes REFERENCE AIR KERMA DOSE: 3.17 mGy TECHNIQUE: Fluoroscopy was provided to assist modified swallowing study. Utilizing different consistency levels of barium, multiple swallowing episodes were recorded. FINDINGS: There is normal bolus transfer of food material from the oropharynx to hypopharynx to esophagus. Swallowing reflex is intact. Vallecular and piriform sinus residuals are noted. There is no nasopharyngeal reflux or glottic penetration. No tracheal aspiration is seen. Please see the speech-language pathology note for further details. INCIDENTAL FINDINGS: None. IMPRESSION: No laryngeal penetration or tracheal aspiration. DICTATION LOCATION: Location 1 - [facility] Susu Rowan MD DIAGNOSTIC IMAGING ORDERABLE S Final Result * (ABNORMAL) MANUAL DIFFERENTIAL (12/14/2024 12:25 PM PERSONAL LINES SALES EXECUTIVE) Only the most recent of8 resultswithin the time period is included. SEGMENTED NEUTROPHILS 51 % 12/15/2024 10:23 AM [facility] LABORATORY SERVICES [facility] LYMPHOCYTES RELATIVE 38(L) 43 - 53 % 12/15/2024 10:23 AM [facility] ATYPICAL LYMPHOCYTES RELATIVE 11(H) 0 - 5 % 12/15/2024 10:23 AM [facility] LABORATORY [facility] NEUTROPHILS ABSOLUTE COUNT 10.15(H) 1.90 - 7.00 K/uL 12/15/2024 10:23 AM [facility] LABORATORY [facility] LYMPHOCYTES ABSOLUTE 7.56(H) 0.70 - 4.50 K/uL 12/15/2024 10:23 AM [facility] LABORATORY [facility]. [facility] TOTAL CELLS COUNTED IN DIFF 100 12/15/2024 10:23 AM [facility] Meeps [facility] PLATELET EST. Consistent w Count 12/15/2024 10:23 AM [facility]. [facility] ANISOCYTOSIS 1+ /hpf 12/15/2024 10:23 AM [facility] Meeps [facility]. [facility] SMUDGE CELLS Present /100 12/15/2024 10:23 AM [facility] Meeps [facility] Blood Venipuncture / Unknown 12/14/2024 12:25 PM PERSONAL LINES SALES EXECUTIVE 12/14/2024 12:33 PM [facility] LABORATORY [facility] - 12/15/2024 10:23 AM PERSONAL LINES SALES EXECUTIVE Manual differential performed on albumin slide.Pathologist's comment: Leukocytosis with absolute neutrophilia and lymphocytosis. Scattered atypical lymphocytes. Suggest flow cytometry to further evaluate. Reviewed by: Tatiana Mithcell MD. Quentin ROMAN HEMATOLOGY ORDERABLES CO M Final Result [facility] CLIA# [id number] [address] [place] [address] * ECHO LIMITED W CONTRAST (12/14/2024 7:24 AM PERSONAL LINES SALES EXECUTIVE) EJECTION FRACTION 65 INTERFACE SYSTEM 12/14/2024 7:09 AM [facility] [employer] INTERFACE SYSTEM - 12/14/2024 9:09 AM [facility] [address] [place] [address] [email or web address] Transthoracic Echocardiogram Patient: Ofelia Hilliard Study ID: ECHO LIMITED W C Gender: Jazz : 1955 Age: 69 Race: JODIE Height 157.5cm Study Date: 12/14/2024 Weight: 85.7kg Access. #: [id number] BP: *Referring Physician:Raegan Castaneda Lalasa *Ordering Physician:* Ragean Cooley team assembler: Nurse: Indications: Cardiomyopathy. Limited study. STUDY CONCLUSIONS: SUMMARY: - Left ventricle: Wall thickness was increased in a pattern of mild LVH.Small region of basal inferior hypokinesis, otherwise normal LVSF. For Epic reporting: the left ventricular ejection fraction is 65% . - Pericardium: Small pericardial effusion, no hemodynamic effect. Cardiac Anatomy: LEFT VENTRICLE: Wall thickness was increased in a pattern of mild LVH.Small region of basal inferior hypokinesis, otherwise normal LVSF. For Epic reporting: the left ventricular ejection fraction is 65% . AORTIC VALVE: Not well visualized. PERICARDIUM: Small pericardial effusion, no hemodynamic effect. Measurements Left ventricle Value Ref MORALES, LAX (L) 2.7 cm 3.8 - 5.2 MORALES/bsa, LAX (L) 1.4 cm/m^2 2.3 - 3.1 MORALES, LAX chord (N) 4.3 cm 3.8 - 5.2 ESD, LAX chord (N) 2.7 cm 2.2 - 3.5 MORALES/bsa, LAX chord (N) 2.3 cm/m^2 2.3 - 3.1 ESD/bsa, LAX chord (N) 1.4 cm/m^2 1.3 - 2.1 FS, LAX chord (N) 37 % 27 - 45 IVS, ED (H) 1.2 cm 0.6 - 0.9 PW, ED (H) 1.2 cm 0.6 - 0.9 EDV, 2-p (N) 81 ml 46 - 106 ESV, 2-p (N) 28 ml 14 - 42 EF, 2-p (N) 65 % 54 - 74 SV, 2-p 53 ml --------- SV/bsa, 2-p 28.3 ml/m^2 --------- Legend: (L) and (H) cruz values outside specified reference range. (N) chapin values inside specified reference range. Procedure data: Procedure information: A transthoracic echocardiogram was performed. Scanning was performed from the parasternal, apical, and subcostal acoustic windows. Intravenous contrast (Definity) was administered. Transthoracic echocardiogram. Complete 2D, complete spectral Doppler, and color Doppler. Birthdate: Patient birthdate: 1955. Age: Patient is 69year(s) old. Sex: gender: female. Height: 157.5cm. 62in. Weight: 85.7kg. 189lb. Body mass index: 34.6kg/m^2. Body surface area: 1.87m^2. Study date: Study date: 12/14/2024. Study time: 07:09 AM. Prepared and Electronically Authenticated Dano Reno Bruce [id number] Procedure Note Salomon Reno MD - 12/14/2024 [place] [address] [email or web address] [email or web address] Echocardiogram Patient: Ofelia Hilliard Study ID: ECHO LIMITED W C Gender: F : 1955 Age: 69 Race: CAU Height 157.5cm Study Date: 12/14/2024 Weight: 85.7kg Access. #: [id number] BP: *Referring Physician:Raegan Castaneda Lalasa *Ordering Physician:Raegan Castaneda team assembler: Nurse: Indications: Cardiomyopathy. Limited study. STUDY CONCLUSIONS: SUMMARY: - Left ventricle: Wall thickness was increased in a pattern of mildLVH.Small region of basal inferior hypokinesis, otherwise normal LVSF. For Epic reporting: the left ventricular ejection fraction is 65% . - Pericardium: Small pericardial effusion, no hemodynamic effect. Cardiac Anatomy: LEFT VENTRICLE: Wall thickness was increased in a pattern of mildLVH.Small region of basal inferior hypokinesis, otherwise normal LVSF. For Epic reporting: the left ventricular ejection fraction is 65% . AORTIC VALVE: Not well visualized. PERICARDIUM: Small pericardial effusion, no hemodynamic effect. Measurements Left ventricle Value Ref MORALES, LAX (L) 2.7 cm 3.8 - 5.2 MORALES/bsa, LAX (L) 1.4 cm/m^2 2.3 - 3.1 MORALES, LAX chord (N) 4.3 cm 3.8 - 5.2 ESD, LAX chord (N) 2.7 cm 2.2 - 3.5 MORALES/bsa, LAX chord (N) 2.3 cm/m^2 2.3 - 3.1 ESD/bsa, LAX chord (N) 1.4 cm/m^2 1.3 - 2.1 FS, LAX chord (N) 37 % 27 - 45 IVS, ED (H) 1.2 cm 0.6 - 0.9 PW, ED (H) 1.2 cm 0.6 - 0.9 EDV, 2-p (N) 81 ml 46 - 106 ESV, 2-p (N) 28 ml 14 - 42 EF, 2-p (N) 65 % 54 - 74 SV, 2-p 53 ml --------- SV/bsa, 2-p 28.3 ml/m^2 --------- Legend: (L) and (H) cruz values outside specified reference range. (N) chapin values inside specified reference range. Procedure data: Procedure information: A transthoracic echocardiogram was performed.Scanning was performed from the parasternal, apical, and subcostal acousticwindows. Intravenous contrast (Definity) was administered. Transthoracic echocardiogram. Complete 2D, complete spectral Doppler, and colorDoppler. Birthdate: Patient birthdate: 1955. Age: Patient is 69year(s)old. Sex: gender: female. Height: 157.5cm. 62in. Weight: 85.7kg.189lb. Body mass index: 34.6kg/m^2. Body surface area: 1.87m^2. Studydate: Study date: 12/14/2024. Study time: 07:09 AM. Prepared andElectronically Authenticated Dano Reno, Salomon [id number] Raegan Cooley NP US ORDERABLES Final Result INTERFACE SYSTEM Refer to clinic/hospital department * XR CHEST PA OR AP 1 VW (12/13/2024 2:51 PM PERSONAL LINES SALES EXECUTIVE) Only the most recent of5 resultswithin the time period is included. Anatomical Region Laterality Modality Chest Computed Radiogr aphy 12/13/2024 2:51 PM PERSONAL LINES SALES EXECUTIVE Impressions 12/13/2024 3:47 PM PERSONAL LINES SALES EXECUTIVE IMPRESSION: Hypoinflated lungs. No new focal consolidation or enlarging pleural effusion. DICTATION LOCATION: Location [facility] Hui Perkins Narrative 12/13/2024 3:47 PM PERSONAL LINES SALES EXECUTIVE EXAMINATION: XR CHEST PA OR AP 1 VW DATE: 12/13/2024 2:51 PM HISTORY: Hypoxia. See Reason for Exam COMPARISON: Prior chest radiographs, most recently 12/12/2024. FINDINGS: The lungs are hypoinflated. No new focal consolidation or enlarging pleural effusion. There is no pneumothorax. The cardiomediastinal silhouette is stable. Procedure Note Garo Simms MD - 12/13/2024 EXAMINATION: XR CHEST PA OR AP 1 VW DATE: 12/13/2024 2:51 PM HISTORY: Hypoxia. See Reason for Exam COMPARISON: Prior chest radiographs, most recently 12/12/2024. FINDINGS: The lungs are hypoinflated. No new focal consolidation or enlarging pleural effusion. There is no pneumothorax. The cardiomediastinal silhouette is stable. IMPRESSION: Hypoinflated lungs. No new focal consolidation or enlarging pleural effusion. DICTATION LOCATION: [facility] Teresa Hui Perkins Quentin Cloud [facility] DIAGNOSTIC IMAGING ORDER ZAIN Final Result * (ABNORMAL) BASIC METABOLIC PANEL (12/12/2024 4:39 PM PERSONAL LINES SALES EXECUTIVE) SODIUM 138 136 - 145 mmol/L 12/12/2024 6:17 PM PERSONAL LINES SALES EXECUTIVE [facility] - [facility] POTASSIUM 4.0 3.5 - 5.0 mmol/L 12/12/2024 6:17 PM PERSONAL LINES SALES EXECUTIVE [facility] CHLORIDE 103 98 - 107 mmol/L 12/12/2024 6:17 PM PERSONAL LINES SALES EXECUTIVE [facility] - . [place] CO2 23 22 - 29 mmol/L 12/12/2024 6:17 PM PERSONAL LINES SALES EXECUTIVE [facility] CALCIUM 9.0 8.6 - 10.2 mg/dL 12/12/2024 6:17 PM PERSONAL LINES SALES EXECUTIVE [facility] - . [facility] BUN 36(H) 8 - 23 mg/dL 12/12/2024 6:17 PM PERSONAL LINES SALES EXECUTIVE [facility] - . [facility] CREATININE 0.76 0.51 - 0.95 mg/dL 12/12/2024 6:17 PM PERSONAL LINES SALES EXECUTIVE [facility] - . [place] Comment:The GFR result is no t clinically significant on patients <18 or >70 years of age. GLUCOSE 265(H) 74 - 99 mg/dL 12/12/2024 6:17 PM PERSONAL LINES SALES EXECUTIVE [facility] GFR >60 mL/min/1.7 3 sq meter 12/12/2024 6:17 PM [facility] Comment:eGFR calculated with 2020 CKD-EPI equation. Vegetarian diet, extremely high or low muscle mass, and may affect results. Cystatin C with Glomerular Filtration Rate is a suitable alternative for these patients. ANION GAP 12 8 - 16 mmol/L 12/12/2024 6:17 PM PERSONAL LINES SALES EXECUTIVE [facility] Blood Venipuncture / Unknown 12/12/2024 4:39 PM PERSONAL LINES SALES EXECUTIVE 12/12/2024 4:59 PM PERSONAL LINES SALES EXECUTIVE Quentin BAUTISTA CHEMISTRY ORDERABLES Fin al Result Performing Organization Address City/[facility]/ZIP Co de Phone Number [facility] CLIA# [id number] [address] [place] [address] * (ABNORMAL) C-REACTIVE PROTEIN (12/12/2024 4:28 AM PERSONAL LINES SALES EXECUTIVE) Only the most recent of3 resultswithin the time period is included. CRP 14.6(H) <5.0 mg/L 12/12/2024 8:54 AM [facility] Blood Venipuncture / Unknown 12/12/2024 4:28 AM PERSONAL LINES SALES EXECUTIVE 12/12/2024 4:34 AM PERSONAL LINES SALES EXECUTIVE Sudhakar Napier MD CHEMISTRY ORDERABLES Final Resul t Performing Organization Address [facility]/ZIP Co de Phone Number [facility] CLIA# [id number] [address] [place] [address] * US ABDOMEN LIMITED (12/11/2024 3:35 PM PERSONAL LINES SALES EXECUTIVE) Anatomical Region Laterality Modality Abdomen Ultrasound 12/11/2024 3:37 PM PERSONAL LINES SALES EXECUTIVE Impressions 12/11/2024 4:01 PM PERSONAL LINES SALES EXECUTIVE IMPRESSION: 1. Mild diffuse hepatic steatosis with morphologic features suggestive of underlying hepatic fibrosis. Trace perihepatic ascites. 2. Status post cholecystectomy without significant biliary ductal dilatation. DICTATION LOCATION: Location [address] [place] [address] Narrative 12/11/2024 4:01 PM PERSONAL LINES SALES EXECUTIVE EXAMINATION: Limited abdominal ultrasound HISTORY: Elevated LFT's COMPARISON: CT abdomen pelvis performed on an outside facility on 12/06/2024 FINDINGS: Pancreas: The visualized portions of the pancreatic head/body are normal. Liver: Mildly increased hepatic echogenicity is indicative of mild diffuse hepatic steatosis. Mild liver surface nodularity is suggestive of underlying hepatic fibrosis. Vasculature: The imaged portions of the portal and hepatic veins are patent with appropriate directional flow. Gallbladder: The gallbladder is surgically absent. Biliary: The common duct is nondilated. Right kidney: Limited images of the right kidney demonstrate no hydronephrosis. Other findings: Trace perihepatic ascites is noted. Procedure Note Manfred Neely MD - 12/11/2024 EXAMINATION: Limited abdominal ultrasound HISTORY: Elevated LFT's COMPARISON: CT abdomen pelvis performed on an outside facility on 12/06/2024 FINDINGS: Pancreas: The visualized portions of the pancreatic head/body are normal. Liver: Mildly increased hepatic echogenicity is indicative of mild diffuse hepatic steatosis. Mild liver surface nodularity is suggestive of underlying hepatic fibrosis. Vasculature: The imaged portions of the portal and hepatic veins are patent with appropriate directional flow. Gallbladder: The gallbladder is surgically absent. Biliary: The common duct is nondilated. Right kidney: Limited images of the right kidney demonstrate no hydronephrosis. Other findings: Trace perihepatic ascites is noted. IMPRESSION: 1. Mild diffuse hepatic steatosis with morphologic features suggestive of underlying hepatic fibrosis. Trace perihepatic ascites. 2. Status post cholecystectomy without significant biliary ductal dilatation. DICTATION LOCATION: Location 1 - [facility] us Quentin BAUTISTA US ORDERABLES Final Re sult * CT SOFT TISSUE NECK W CONTRAST (12/10/2024 10:27 PM PERSONAL LINES SALES EXECUTIVE) Only the most recent of2 resultswithin the time period is included. Anatomical Region Laterality Modality Neck Computed Tomogra phy 12/10/2024 10:1 1 PM PERSONAL LINES SALES EXECUTIVE Impressions 12/10/2024 10:49 PM PERSONAL LINES SALES EXECUTIVE IMPRESSION: 1. Soft tissue mass in the subcutaneous fat of the submental space. No fluid collection to suggest abscess 2. Bilateral pleural effusions, similar to prior exam 3. Unchanged retrocaval meningioma DICTATION LOCATION: Location 1 - [facility] 12/10/2024 10:49 PM PERSONAL LINES SALES EXECUTIVE CT SOFT TISSUE NECK WITH IV CONTRAST WITH REFORMATS DATE: 12/10/2024 10:27 PM HISTORY: Soft tissue infection suspected, neck, xray done. See Reason for Exam COMPARISON: 12/06/2024 TECHNIQUE: Helical transverse intravenous enhanced CT sections were obtained from lung apices to sphenoid sinus during intravenous infusion of contrast. The examination was performed with the adjustment of mA according to the patient size and/or the use of Iterative Reconstruction Technique. CONTRAST: IOPAMIDOL 61 % INTRAVENOUS SOLUTION (MULTI-DOSE BULK PACK) Given:90 mL FINDINGS: Paranasal sinuses: Unremarkable. Mastoids: Unremarkable. Bones: Unremarkable. Pulmonary apices: Bilateral pleural effusions. Limited intracranial: Grossly unchanged 10 mm meningioma in the right retroclival location. Orbits: Unremarkable. Nasal cavity: Unremarkable. Nasopharynx: Unremarkable. Oral cavity/tongue: Unremarkable. Upper aerodigestive: Unremarkable Retrophayrnx: Unremarkable Trachea: Unremarkable. Esophagus: Unremarkable. Thyroid: Unremarkable. Submandibular glands: Unremarkable. Parotid glands: Unremarkable. Lymph nodes: Unremarkable. Vessels: Grossly unremarkable on this nonangiographic technique. Additional: There is soft tissue gas in the subcutaneous fat of the submental space. There is no significant fat stranding. There are no discernible fluid collections. Procedure Note Sly Bello MD - 12/10/2024 CT SOFT TISSUE NECK WITH IV CONTRAST WITH REFORMATS DATE: 12/10/2024 10:27 PM HISTORY: Soft tissue infection suspected, neck, xray done. See Reason for Exam COMPARISON: 12/06/2024 TECHNIQUE: Helical transverse intravenous enhanced CT sections were obtained from lung apices to sphenoid sinus during intravenous infusion of contrast. The examination was performed with the adjustment of mA according to the patient size and/or the use of Iterative Reconstruction Technique. CONTRAST: IOPAMIDOL 61 % INTRAVENOUS SOLUTION (MULTI-DOSE BULK PACK) Given:90 mL FINDINGS: Paranasal sinuses: Unremarkable. Mastoids: Unremarkable. Bones: Unremarkable. Pulmonary apices: Bilateral pleural effusions. Limited intracranial: Grossly unchanged 10 mm meningioma in the right retroclival location. Orbits: Unremarkable. Nasal cavity: Unremarkable. Nasopharynx: Unremarkable. Oral cavity/tongue: Unremarkable. Upper aerodigestive: Unremarkable Retrophayrnx: Unremarkable Trachea: Unremarkable. Esophagus: Unremarkable. Thyroid: Unremarkable. Submandibular glands: Unremarkable. Parotid glands: Unremarkable. Lymph nodes: Unremarkable. Vessels: Grossly unremarkable on this nonangiographic technique. Additional: There is soft tissue gas in the subcutaneous fat of the submental space. There is no significant fat stranding. There are no discernible fluid collections. IMPRESSION: 1. Soft tissue mass in the subcutaneous fat of the submental space. No fluid collection to suggest abscess 2. Bilateral pleural effusions, similar to prior exam 3. Unchanged retrocaval meningioma DICTATION LOCATION: Location 1 - [facility] Quentin lCoud [facility] CT ORDERABLES Final Re sult * BLOOD GAS VENOUS (12/09/2024 10:44 AM PERSONAL LINES SALES EXECUTIVE) PH, VENOUS 7.42 7.32 - 7.43 12/09/2024 10:58 AM [facility] PCO2 VENOUS 39 38 - 50 mm Hg 12/09/2024 10:58 AM [facility]ORY [facility] PO2 VENOUS 36 25 - 40 mm Hg 12/09/2024 10:58 AM [facility] HCO3 VENOUS 24 22 - 29 mmol/L 10:58 AM [facility] BASE EXCESS VENOUS 0.4 Reference Range Not Established mmol/L 12/09/2024 10:58 AM [facility] HEMOGLOBIN VENOUS 12.5 No Ref Range Estab g/dL 12/09/2024 10:58 AM [facility]OR[facility] O2 SAT EST VENOUS 64 40 - 70 % 12/09/2024 10:58 AM [facility] OXYGEN MODE BIPAP/CPA P 12/09/2024 10:58 AM [facility] FIO2 21.0 21.0 - 100.0 % 12/09/2024 10:58 AM [facility] Blood, venous Venipuncture / Unknown 12/09/2024 10:44 AM PERSONAL LINES SALES EXECUTIVE 12/09/2024 10:51 AM PERSONAL LINES SALES EXECUTIVE Sarah LAINEZ ABG ORDERABLES Final Result Performing Organization Address City/State/[facility] Co de Phone Number [facility] CLVIRA# [id number] [address] [place] [address] * US DOPPLER VENOUS ARM BILATERAL (12/08/2024 10:39 AM PERSONAL LINES SALES EXECUTIVE) Anatomical Region Laterality Modality Upper Extremity Ultrasound 12/08/2024 10:0 3 AM PERSONAL LINES SALES EXECUTIVE Narrative 12/08/2024 1:37 PM [facility] [address] [place] [address] [email or web address] Venous Exam Complete Upper Extremity Duplex Patient: Ofelia Hilliard Study ID: [id number] Gender: F : 1955 Age: 69 Race: CAU Height Study Date: 12/08/2024 Weight: Access. #: [id number] *Referring Physician:* Quentin Cloud Lalasa *Ordering Physician:* Quentin Cloud *Leadlighter:* Lavern Washburn History: DVT per ordering provider. PMH: No prior study is available for comparison. Concern for neck cellulitis. Study data: New node Study status: Routine. Bilateral upper extremity venous duplex. Doppler flow study including spectral analysis, color and pratt scale imaging. Birthdate: Patient birthdate: 1955. Age: Patient is 69year(s) old. Sex: gender: female. Study date: Study date: 12/08/2024. Study time: 10:03 AM. Location: Bedside. Patient status: Inpatient. Impressions 1. No evidence of deep vein thrombosis involving the visualized veins of the right upper extremity. 2. There is superficial vein thrombosis noted in the right cephalic vein zone 5 and zone 6. 3. No evidence of deep vein thrombosis involving the visualized veins of the left upper extremity. 4. There is no evidece of superficial vein thrombosis noted in the left upper extremity. 5. Limiting views due to dressings and arm restraints. Tables: Venous flow: + + + + + + !Location !Overall !Flow properties !Thrombus !Comments ! + + + + + + !Right !Patent !Phasic; ! ! ! !internal ! !spontaneous; ! ! ! !jugular - ! !compressible ! ! ! + + + + + + !Right !Patent !Phasic; ! ! ! !subclavian -! !spontaneous; normal! ! ! ! ! !augmentation; ! ! ! ! ! !compressible ! ! ! + + + + + + !Right !Patent !Phasic; ! ! ! !axillary - ! !spontaneous; normal! ! ! ! ! !augmentation; ! ! ! ! ! !compressible ! ! ! + + + + + + !Right !Patent !Phasic; ! ! ! !brachial - ! !spontaneous; normal! ! ! ! ! !augmentation; ! ! ! ! ! !compressible ! ! ! + + + + + + !Right !Totally !Noncompressible !Indeterminate age!Zone 5 and 6.! !cephalic - !thrombosed ! ! ! ! + + + + + + !Right ! !Compressible ! ! ! !basilic - ! ! ! ! ! + + + + + + !Right radial! !Compressible ! ! ! !- ! ! ! ! ! + + + + + + !Right ulnar ! !Compressible ! ! ! !- ! ! ! ! ! + + + + + + !Left !Patent !Phasic; ! ! ! !internal ! !spontaneous; ! ! ! !jugular - ! !compressible ! ! ! + + + + + + !Left !Patent !Phasic; ! ! ! !subclavian -! !spontaneous; normal! ! ! ! ! !augmentation; ! ! ! ! ! !compressible ! ! ! + + + + + + !Left !Patent !Phasic; ! ! ! !axillary - ! !spontaneous; normal! ! ! ! ! !augmentation; ! ! ! ! ! !compressible ! ! ! + + + + + + !Left !Patent !Phasic; ! ! ! !brachial - ! !spontaneous; normal! ! ! ! ! !augmentation; ! ! ! ! ! !compressible ! ! ! + + + + + + !Left ! !Compressible ! ! ! !cephalic - ! ! ! ! ! + + + + + + !Left basilic! !Compressible ! ! ! !- ! ! ! ! ! + + + + + + !Left radial ! !Compressible ! ! ! !- ! ! ! ! ! + + + + + + !Left ulnar -! !Compressible ! ! ! + + + + + + *Velocities are expressed in cm/s, Diameters are expressed in mm Prepared and Electronically Authenticated Sukumar Barraza [id number] Procedure Note Sukumar Barraza MD - 12/08/2024 [place] [place] [address] [email or web address] Venous Exam Complete Upper Extremity Duplex Patient: Ofelia Hilliard Study ID:[id number] Gender: F :1955 Age: 69 Race: CAU Height Study Date:12/08/2024 Weight: Access. #:[id number] *Referring Physician:* Quentin Cloud Lalasa *Ordering Physician:* Quentin Cloud *Leadlighter:* Lavern Washburn History: DVT per ordering provider. [facility]: No prior study is availablefor comparison. Concern for neck cellulitis. Study data: New node Study status: Routine. Bilateral upperextremity venous duplex. Doppler flow study including spectral analysis, colorand pratt scale imaging. Birthdate: Patient birthdate: 1955. Age:Patient is 69year(s) old. Sex: gender: female. Study date: Study date: 12/08/2024. Study time: 10:03 AM. Location: Bedside. Patient status: Inpatient. Impressions 1. No evidence of deep vein thrombosis involving the visualized veins ofthe right upper extremity. 2. There is superficial vein thrombosis noted in the right cephalic veinzone 5 and zone 6. 3. No evidence of deep vein thrombosis involving the visualized veins ofthe left upper extremity. 4. There is no evidece of superficial vein thrombosis noted in the leftupper extremity. 5. Limiting views due to dressings and arm restraints. Tables: Venous flow: + + + + + + !Location !Overall !Flow properties !Thrombus !Comments! + + + + + + !Right !Patent !Phasic;! ! ! !internal ! !spontaneous; ! !! !jugular - ! !compressible ! !! + + + + + + !Right !Patent !Phasic;! ! ! !subclavian -! !spontaneous; normal! !! ! ! !augmentation; ! !! ! ! !compressible ! !! + + + + + + !Right !Patent !Phasic;! ! ! !axillary - ! !spontaneous; normal! !! ! ! !augmentation; ! !! ! ! !compressible ! !! + + + + + + !Right !Patent !Phasic;! ! ! !brachial - ! !spontaneous; normal! !! ! ! !augmentation; ! !! ! ! !compressible ! !! + + + + + + !Right !Totally !Noncompressible !Indeterminate age!Zone 5 and6.! !cephalic - !thrombosed ! ! !! + + + + + + !Right ! !Compressible! ! ! !basilic - ! ! ! !! + + + + + + !Right radial! !Compressible! ! ! !- ! ! ! !! + + + + + + !Right ulnar ! !Compressible! ! ! !- ! ! ! !! + + + + + + !Left !Patent !Phasic;! ! ! !internal ! !spontaneous; ! !! !jugular - ! !compressible ! !! + + + + + + !Left !Patent !Phasic;! ! ! !subclavian -! !spontaneous; normal! !! ! ! !augmentation; ! !! ! ! !compressible ! !! + + + + + + !Left !Patent !Phasic;! ! ! !axillary - ! !spontaneous; normal! !! ! ! !augmentation; ! !! ! ! !compressible ! !! + + + + + + !Left !Patent !Phasic;! ! ! !brachial - ! !spontaneous; normal! !! ! ! !augmentation; ! !! ! ! !compressible ! !! + + + + + + !Left ! !Compressible! ! ! !cephalic - ! ! ! !! + + + + + + !Left basilic! !Compressible! ! ! !- ! ! ! !! + + + + + + !Left radial ! !Compressible! ! ! !- ! ! ! !! + + + + + + !Left ulnar -! !Compressible! ! ! + + + + + + *Velocities are expressed in cm/s, Diameters are expressed in mm Prepared and Electronically Authenticated Sukumar Barraza [id number] us Quentin ROMAN US ORDERABLES Final Re sult * XR ABDOMEN FOR FEEDING TUBE 1 VW (12/07/2024 12:18 PM PERSONAL LINES SALES EXECUTIVE) Anatomical Region Laterality Modality Abdomen Computed Radiogr aphy 12/07/2024 12:1 9 PM PERSONAL LINES SALES EXECUTIVE Impressions 12/07/2024 10:31 PM PERSONAL LINES SALES EXECUTIVE : The exam shows a gastric tube extending below the diaphragm into the stomach. The tip is in the proximal stomach. DICTATION LOCATION: Location 1 - [facility] Narrative 12/07/2024 10:31 PM PERSONAL LINES SALES EXECUTIVE XR ABDOMEN FOR FEEDING TUBE 1 VW DATE: 12/07/2024 12:18 PM HISTORY: Check Tube Placement. COMPARISON: None. TECHNIQUE: Supine portable abdomen. FINDINGS/ us Susu Rowan MD DIAGNOSTIC IMAGING ORDERABLE S Final Result * LACTIC ACID (12/07/2024 11:58 AM PERSONAL LINES SALES EXECUTIVE) Only the most recent of5 resultswithin the time period is included. LACTIC ACID 1.4 <=2.0 mmol/L 12/07/2024 12:38 PM [facility] Blood Venipuncture / Unknown 12/07/2024 11:58 AM PERSONAL LINES SALES EXECUTIVE 12/07/2024 12:10 PM PERSONAL LINES SALES EXECUTIVE Quentin ROMANBS CHEMISTRY ORDERABLES Fin al Result Performing Organization Address City/[facility]/ZIP Co de Phone Number [facility]# [id number] [address] [facility] [place] [address] * BLOOD CULTURE (12/07/2024 11:51 AM PERSONAL LINES SALES EXECUTIVE) Only the most recent of2 resultswithin the time period is included. Pathologist [facility] BLOOD CULTURE No growth 12/12/2024 1:05 PM [facility] Blood (Peripheral) Venipuncture / Unknown 12/07/2024 11:51 AM PERSONAL LINES SALES EXECUTIVE 12/07/2024 12:20 PM PERSONAL LINES SALES EXECUTIVE [facility] - 12/12/2024 1:05 PM PERSONAL LINES SALES EXECUTIVE Specimen processed with suboptimal blood volume collected. us Susu Rowan MD MICROBIOLOGY - GENERAL ORDER ZAIN Final Result Performing Organization Address [facility] Co de Phone Number [facility]# [id number] [address] [place] [address] [place] [address] * ECHO TRANSESOPHAGEAL W DOPPLER AND COLOR FLOW (12/07/2024 11:34 AM PERSONAL LINES SALES EXECUTIVE) EJECTION FRACTION EF: INTERFACE SYSTEM 12/07/2024 10:4 1 AM PERSONAL LINES SALES EXECUTIVE Narrative INTERFACE SYSTEM - 12/07/2024 5:17 PM PERSONAL LINES SALES EXECUTIVE [facility] [address] [place] [address] [email or web address] Transesophageal Echocardiogram Patient: Ofelia Hilliard Study ID: SHIRLEY VEE Gender: F : 1955 Age: 69 Race: [facility] Height Study Date: 12/07/2024 Weight: Access. #: [id number] BP: *Referring Physician:* Quentin Cloud *Ordering Physician:* Quentin Cloud team assembler: Nurse: Indications: Bacteremia / Endocarditis. STUDY CONCLUSIONS: SUMMARY: - Left ventricle: The cavity size was normal. Wall thickness was normal. Global systolic function is mildly to moderately reduced, worse inferior segment. The estimated ejection fraction is 40-45%. - Aortic valve: Trileaflet. The leaflets are mildly thickened. Small 0.3 cm mobile vegetation right coronary leaflet. Trivial aortic insufficiency. - Mitral valve: Mild regurgitation. - Left atrium: The atrium is dilated. No evidence of thrombus in the atrium or atrial appendage. - Right ventricle: The cavity size is normal. Systolic function is normal. - Tricuspid valve: There is no evidence of a vegetation. Mild regurgitation. - Pulmonic valve: There is no evidence of a vegetation. Mild regurgitation. Impressions: Small 0.3 cm aortic leaflet vegetation with trivial aortic regurgitation. Cardiac Anatomy: LEFT VENTRICLE: The cavity size was normal. Wall thickness was normal. Global systolic function is mildly to moderately reduced, worse inferior segment. The estimated ejection fraction is 40-45%. AORTIC VALVE: Trileaflet. The leaflets are mildly thickened. Small 0.3 cm mobile vegetation right coronary leaflet. Trivial aortic insufficiency. AORTA: Mild descending aortic atheroma, no mobile elements. MITRAL VALVE: Structurally normal valve. Mild regurgitation. LEFT ATRIUM: The atrium is dilated. No evidence of thrombus in the atrium or atrial appendage. ATRIAL SEPTUM: The septum is normal. PULMONARY VEINS: Well visualized, appeared normal. RIGHT VENTRICLE: The cavity size is normal. Systolic function is normal. PULMONIC VALVE: There is no evidence of a vegetation. Mild regurgitation. TRICUSPID VALVE: There is no evidence of a vegetation. Mild regurgitation. RIGHT ATRIUM: The atrium was normal in size. SYSTEMIC VEINS: Superior vena cava: The SVC is normal. PERICARDIUM: There is no pericardial effusion. Procedure data: Procedure information: The patient arrived at the laboratory in a fasting state. Intravenous access was obtained. Surface ECG leads and pulse oximetric signals were monitored. Deep sedation with fentanyl and propofol adminstered by critical care attending. A transesophageal echocardiogram was performed. A transesophageal probe was inserted by the attending industrial sweeper cleaner without difficulty. Study completion: There were no complications. Administered medications: Fentanyl. Diagnostic transesophageal echocardiogram. 2D, spectral Doppler, and color Doppler. Birthdate: Patient birthdate: 1955. Age: Patient is 69year(s) old. Sex: gender: female. Study date: Study date: 12/07/2024. Study time: 10:41 AM. Prepared and Electronically Authenticated Dano Reno Bruce [id number] Procedure Note Salomon Reno MD - 12/07/2024 [place] [address] [email or web address] Transesophageal Echocardiogram Patient: Ofelia Hilliard Study ID: SHIRLEY MARIUSZ Gender: F : 1955 Age: 69 Race: [facility] Height Study Date: 12/07/2024 Weight: Access. #: [id number] BP: *Referring Physician:* Quentin Cloud *Ordering Physician:* Quentin Cloud team assembler: Nurse: Indications: Bacteremia / Endocarditis. STUDY CONCLUSIONS: SUMMARY: - Left ventricle: The cavity size was normal. Wall thickness was normal. Global systolic function is mildly to moderately reduced, worseinferior segment. The estimated ejection fraction is 40-45%. - Aortic valve: Trileaflet. The leaflets are mildly thickened. Small 0.3cm mobile vegetation right coronary leaflet. Trivial aorticinsufficiency. - Mitral valve: Mild regurgitation. - Left atrium: The atrium is dilated. No evidence of thrombus in theatrium or atrial appendage. - Right ventricle: The cavity size is normal. Systolic function isnormal. - Tricuspid valve: There is no evidence of a vegetation. Mildregurgitation. - Pulmonic valve: There is no evidence of a vegetation. Mildregurgitation. Impressions: Small 0.3 cm aortic leaflet vegetation with trivial aortic regurgitation. Cardiac Anatomy: LEFT VENTRICLE: The cavity size was normal. Wall thickness was normal.Global systolic function is mildly to moderately reduced, worse inferior segment.The estimated ejection fraction is 40-45%. AORTIC VALVE: Trileaflet. The leaflets are mildly thickened. Small 0.3cm mobile vegetation right coronary leaflet. Trivial aortic insufficiency. AORTA: Mild descending aortic atheroma, no mobile elements. MITRAL VALVE: Structurally normal valve. Mild regurgitation. LEFT ATRIUM: The atrium is dilated. No evidence of thrombus in theatrium or atrial appendage. ATRIAL SEPTUM: The septum is normal. PULMONARY VEINS: Well visualized, appeared normal. RIGHT VENTRICLE: The cavity size is normal. Systolic function isnormal. PULMONIC VALVE: There is no evidence of a vegetation. Mildregurgitation. TRICUSPID VALVE: There is no evidence of a vegetation. Mildregurgitation. RIGHT ATRIUM: The atrium was normal in size. SYSTEMIC VEINS: Superior vena cava: The SVC is normal. PERICARDIUM: There is no pericardial effusion. Procedure data: Procedure information: The patient arrived at the laboratory in afasting state. Intravenous access was obtained. Surface ECG leads and pulseoximetric signals were monitored. Deep sedation with fentanyl and propofoladminstered by critical care attending. A transesophageal echocardiogram wasperformed. A transesophageal probe was inserted by the attending industrial sweeper cleaner without difficulty. Study completion: There were no complications.Administered medications: Fentanyl. Diagnostic transesophagealechocardiogram. 2D, spectral Doppler, and color Doppler. Birthdate: Patient birthdate: 1955. Age: Patient is 69year(s) old. Sex: gender:female. Study date: Study date: 12/07/2024. Study time: 10:41 AM. Preparedand Electronically Authenticated [place] Bruce [id number] Quentin Cloud [facility] ORDERABLES Final Re sult INTERFACE SYSTEM Refer to clinic/hospital department * (ABNORMAL) BLOOD GAS ARTERIAL (12/07/2024 10:27 AM PERSONAL LINES SALES EXECUTIVE) Only the most recent of2 resultswithin the time period is included. PH ARTERIAL 7.43 7.35 - 7.45 12/07/2024 10:46 AM [facility] [employer] [facility] PCO2 ARTERIAL 30(L) 35 - 48 mm Hg 12/07/2024 10:46 AM [facility] [employer] [facility] PO2 ARTERIAL 179(H) 83 - 108 mm Hg 12/07/2024 10:46 AM PERSONAL LINES SALES EXECUTIVE [employer] [facility] HCO3 ARTERIAL 20(L) 22 - 26 mmol/L 12/07/2024 10:46 AM [facility] [employer] [facility] BASE EXCESS ABG -3.5(L) -2.0 - 3.0 mmol/L 12/07/2024 10:46 AM [facility] [employer] [facility] O2 SAT EST ARTERIAL 99 95 - 99 % 12/07/2024 10:46 AM [facility] [employer] [facility] P/F RATIO ARTERIAL 511 12/07/2024 10:46 AM PERSONAL LINES SALES EXECUTIVE [facility] OXYGEN MODE Ventilator 12/07/2024 10:46 AM [facility] LABORATORY [facility] FIO2 35.0 21.0 - 100.0 % 12/07/2024 10:46 AM [facility] Meeps [facility] Blood, arterial Arterial / Unknown 2024 10:27 AM PERSONAL LINES SALES EXECUTIVE 12/07/2024 10:43 AM PERSONAL LINES SALES EXECUTIVE Quentin BAUTISTA ABG ORDERABLES Final Re sult [facility] Meeps [facility] CLIA# [id number] [address] [place] [address] * SPUTUM CULTURE WITH GRAM STAIN (12/07/2024 8:44 AM PERSONAL LINES SALES EXECUTIVE) CULTURE No growth 12/09/2024 11:02 AM [facility] Meeps [facility] GRAM STAIN Non diagnostic pattern 12/09/2024 11:02 AM [facility] Meeps [facility] GRAM STAIN 2+ (Few) Polymorphonuclear WBC 12/09/2024 11:02 AM [facility] Meeps [facility] Sputum SPUTUM SPECIMEN OBTAINED BY ASPIRATION / Unknown Collection / Unknown 12/07/2024 8:44 AM PERSONAL LINES SALES EXECUTIVE 12/07/2024 8:50 AM PERSONAL LINES SALES EXECUTIVE Quentin BAUTISTA MICROBIOLOGY - GENERAL O RDERABLES Final Result [facility] Meeps [facility] CLIA# [id number] [address] [place] [address] * VANCOMYCIN LEVEL RANDOM (12/07/2024 4:01 AM PERSONAL LINES SALES EXECUTIVE) VANCOMYCIN, RANDOM 13.4 See Comment ug/mL 12/07/2024 4:50 AM [facility]OR[facility] Blood Venipuncture / Unknown 12/07/2024 4:01 AM PERSONAL LINES SALES EXECUTIVE 12/07/2024 4:16 AM PERSONAL LINES SALES EXECUTIVE Narrative [facility] - 12/07/2024 4:50 AM PERSONAL LINES SALES EXECUTIVE Vancomycin Trough Therapeutic Range = 10.0 - 20.0 ug/mL Vancomycin Trough Toxic Level = >25.0 ug/mL Laurie Davis MD CHEMISTRY ORDERABLES Fi nal Result [facility] CLIA# [id number] [address] [facility] [address] [address] * CT CHEST W CONTRAST (12/06/2024 9:05 PM PERSONAL LINES SALES EXECUTIVE) Anatomical Region Laterality Modality Chest Computed Tomogra phy 12/06/2024 8:40 PM PERSONAL LINES SALES EXECUTIVE Impressions 12/06/2024 9:42 PM PERSONAL LINES SALES EXECUTIVE IMPRESSION: 1. Motion limited evaluation. 2. Soft tissue swelling/fat stranding about the lower neck and upper portion of the anterior chest wall. Findings are suspicious for an infectious or inflammatory etiology. Please see separately dictated CT of the neck soft tissue report. 3. Small bilateral pleural effusions with adjacent compressive atelectasis. Adjacent ground glass opacities which may relate to superimposed infectious or inflammatory etiology but could be further evidence of atelectasis. 4. Endotracheal tube in place. Gastric drainage tube with tip in the jejunum distal to the gastrojejunostomy. Postoperative changes of gastric bypass. 5. 1 cm hypoenhancing left renal lesion which is incompletely characterized. Recommend follow-up with nonemergent/outpatient renal mass protocol MRI or renal ultrasound when clinically feasible. 6. Additional findings as detailed in the body of the report. DICTATION LOCATION: Location 1 - [facility] Narrative 12/06/2024 9:42 PM PERSONAL LINES SALES EXECUTIVE CT CHEST W CONTRAST IOPAMIDOL 61 % INTRAVENOUS SOLUTION (MULTI-DOSE BULK PACK) Given:140 mL Ordering provider: QUENTIN CLOUD History: 69 years Female with See Reason for Exam. Soft tissue infection suspected, chest, no prior imaging, Soft tissue infection suspected, chest, xray done, soft tissue infection neck, possible spread to chest?. Comparison: Chest CT 12/05/2024 Technique: CT chest with IV contrast. The examination was performed with the adjustment of mA according to the patient size and/or the use of Iterative Reconstruction Technique. Findings: VISUALIZED THORACIC INLET: There is soft tissue edema/soft tissue swelling about the upper neck and anterior chest wall. Please see separately dictated CT of the neck soft tissues. Findings may be infectious or inflammatory. Endotracheal tube with tip in the thoracic trachea. Gastric drainage tube with tip in the jejunum distal to the gastrojejunostomy. MEDIASTINUM: Evaluation is limited by motion artifact. No significant coronary artery calcifications identified. Heart size is normal. No thoracic aortic aneurysm. No enlarged mediastinal or hilar lymph nodes identified. No pericardial effusion. 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 LUNGS: Small bilateral pleural effusions with adjacent compressive atelectasis. Evaluation of the lungs is limited by respiratory motion. There are dependent areas of bilateral lung atelectasis. There are adjacent bilateral lung groundglass opacities which may relate to superimposed infectious or inflammatory etiology. No pneumothorax. VISUALIZED UPPER ABDOMEN: Postoperative changes of Lamberto-en-Y gastric bypass. Gastric drainage tube with tip in the jejunum distal to the gastrojejunostomy. Small hiatal hernia. Cholecystectomy. Borderline hepatomegaly. Hepatic steatosis. 1 cm hypoenhancing left renal lesion series 3 image 245 which is incompletely characterized. Colonic lipoma partially visualized along the transverse colon. MUSCULOSKELETAL: Superficial soft tissues: Unremarkable. Bones: Evaluation is limited by motion artifact. No acute fracture identified. Procedure Note Frankie Hoover MD - 12/06/2024 CT CHEST W CONTRAST IOPAMIDOL 61 % INTRAVENOUS SOLUTION (MULTI-DOSE BULK PACK) Given:140 mL Ordering provider: QUENTIN CLOUD History: 69 years Female with See Reason for Exam. Soft tissue infection suspected, chest, no prior imaging, Soft tissue infection suspected, chest, xray done, soft tissue infection neck, possible spread to chest?. Comparison: Chest CT 12/05/2024 Technique: CT chest with IV contrast. The examination was performed with the adjustment of mA according to the patient size and/or the use of Iterative Reconstruction Technique. Findings: VISUALIZED THORACIC INLET: There is soft tissue edema/soft tissue swelling about the upper neck and anterior chest wall. Please see separately dictated CT of the neck soft tissues. Findings may be infectious or inflammatory. Endotracheal tube with tip in the thoracic trachea. Gastric drainage tube with tip in the jejunum distal to the gastrojejunostomy. MEDIASTINUM: Evaluation is limited by motion artifact. No significant coronary artery calcifications identified. Heart size is normal. No thoracic aortic aneurysm. No enlarged mediastinal or hilar lymph nodes identified. No pericardial effusion. 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 LUNGS: Small bilateral pleural effusions with adjacent compressive atelectasis. Evaluation of the lungs is limited by respiratory motion. There are dependent areas of bilateral lung atelectasis. There are adjacent bilateral lung groundglass opacities which may relate to superimposed infectious or inflammatory etiology. No pneumothorax. VISUALIZED UPPER ABDOMEN: Postoperative changes of Lamberto-en-Y gastric bypass. Gastric drainage tube with tip in the jejunum distal to the gastrojejunostomy. Small hiatal hernia. Cholecystectomy. Borderline hepatomegaly. Hepatic steatosis. 1 cm hypoenhancing left renal lesion series 3 image 245 which is incompletely characterized. Colonic lipoma partially visualized along the transverse colon. MUSCULOSKELETAL: Superficial soft tissues: Unremarkable. Bones: Evaluation is limited by motion artifact. No acute fracture identified. IMPRESSION: 1. Motion limited evaluation. 2. Soft tissue swelling/fat stranding about the lower neck and upper portion of the anterior chest wall. Findings are suspicious for an infectious or inflammatory etiology. Please see separately dictated CT of the neck soft tissue report. 3. Small bilateral pleural effusions with adjacent compressive atelectasis. Adjacent ground glass opacities which may relate to superimposed infectious or inflammatory etiology but could be further evidence of atelectasis. 4. Endotracheal tube in place. Gastric drainage tube with tip in the jejunum distal to the gastrojejunostomy. Postoperative changes of gastric bypass. 5. 1 cm hypoenhancing left renal lesion which is incompletely characterized. Recommend follow-up with nonemergent/outpatient renal mass protocol MRI or renal ultrasound when clinically feasible. 6. Additional findings as detailed in the body of the report. DICTATION LOCATION: Location 1 - [facility] Quentin Cloud [facility] ORDERABLES Final Re sult * SODIUM, RANDOM URINE (12/06/2024 6:39 PM PERSONAL LINES SALES EXECUTIVE) SODIUM, URINE 62 mmol/L 12/07/2024 10:21 AM PERSONAL LINES SALES EXECUTIVE [facility] Meeps [facility] Comment:Reference range not established Urine URINE SPECIMEN OBTAINED BY CLEAN CATCH PROCEDURE / Unknown Collection / Unknown 12/06/2024 6:39 PM PERSONAL LINES SALES EXECUTIVE 12/06/2024 6:45 PM PERSONAL LINES SALES EXECUTIVE Susu Rowan MD URINE ORDERABLES Final Resul t [facility] Meeps SERVICES [facility]# [id number] [address] [facility] [address] [address] * (ABNORMAL) DRUG SCREEN, URINE (12/06/2024 6:39 PM PERSONAL LINES SALES EXECUTIVE) Pathologist [facility] AMPHETAMINE QUAL, URINE Negative Negative 12/06/2024 7:49 PM PERSONAL LINES SALES EXECUTIVE [facility] Meeps [facility] BARBITURATE QUAL, URINE Negative Negative 12/06/2024 7:49 PM PERSONAL LINES SALES EXECUTIVE [facility] Meeps [facility] BENZODIAZEPINE QUAL, URINE Presumptive Positive(A) Negative 12/06/2024 7:49 PM PERSONAL LINES SALES EXECUTIVE [facility] Meeps [facility] COCAINE QUAL URINE Negative Negative 12/06/2024 7:49 PM PERSONAL LINES SALES EXECUTIVE [facility] Meeps [facility] OPIATE QUAL, URINE Negative Negative 12/06/2024 7:49 PM PERSONAL LINES SALES EXECUTIVE [facility] Meeps [facility] CANNABINOIDS QUAL, URINE Negative Negative 12/06/2024 7:49 PM [facility] Meeps [facility] PCP QUAL, URINE Negative Negative 7:49 PM PERSONAL LINES SALES EXECUTIVE [facility] Meeps [facility] OXYCODONE QUAL, URINE Negative Negative 12/06/2024 7:49 PM PERSONAL LINES SALES EXECUTIVE [facility] Meeps [facility] METHADONE QUAL, URINE Negative Negative 12/06/2024 7:49 PM PERSONAL LINES SALES EXECUTIVE [facility] Meeps [facility] FENTANYL QUAL, URINE Presumptive Positive(A) Negative 12/06/2024 7:49 PM PERSONAL LINES SALES EXECUTIVE [facility] Meeps [facility] CREATININE, URINE 126.0 29.0 - 226.0 mg/dL 12/06/2024 7:49 PM PERSONAL LINES SALES EXECUTIVE [employer] [facility] Comment:Reference Range vari es with fluid intake and diet. Urine URINE SPECIMEN OBTAINED BY CLEAN CATCH PROCEDURE / Unknown Collection / Unknown 12/06/2024 6:39 PM PERSONAL LINES SALES EXECUTIVE 12/06/2024 6:45 PM PERSONAL LINES SALES EXECUTIVE Narrative [facility] LABORATORY [facility] - 12/06/2024 7:49 PM PERSONAL LINES SALES EXECUTIVE This test is a qualitative screen. The presumptive positive results should not be used for legal purposes. If confirmation of results is desired, the lab must be contacted without delay. Drug Ref. Range Screening Threshold Amphetamines Negative 500 ng/mL Barbiturates Negative 200 ng/mL Benzodiazepines Negative 100 ng/mL Cannabinoids Negative 50 ng/mL Cocaine Negative 150 ng/mL Methadone Negative 300 ng/mL Opiates Negative 300 ng/mL Oxycodone Negative 100 ng/mL Phencyclidine Negative 25 ng/mL Fentanyl Negative 5 ng/mL Quentin Cloud MB URINE ORDERABLES Final R esult [facility]# [id number] [address] [place] [address] * (ABNORMAL) URINALYSIS WITH REFLEX MICROSCOPIC (12/06/2024 6:39 PM PERSONAL LINES SALES EXECUTIVE) COLOR UA Yellow Pale to Dark Yellow 12/06/2024 7:52 PM [facility] LABORATORY [facility] CLARITY UA Slightly Cloudy(A) Clear 12/06/2024 7:52 PM [facility] LABORAT[facility] SPECIFIC GRAVITY UA >=1.030 1.003 - 1.035 12/06/2024 7:52 PM [facility] LABORATORY [facility] PH UA 5.5 5.0 - 8.0 12/06/2024 7:52 PM [facility] LABORATORY [facility] LEUKOCYTE ESTERASE UA Negative Negative 12/06/2024 7:52 PM [facility] LABORAT[facility] NITRITE UA Negative Negative 12/06/2024 7:52 PM [facility] LABORAT[facility] PROTEIN UA 2+(A) Negative 12/06/2024 7:52 PM [facility] LABORAT[facility] GLUCOSE UA Negative Negative 12/06/2024 7:52 PM [facility] LABORATORY [facility] KETONES UA Negative Negative 12/06/2024 7:52 PM [facility] LABORATORY [facility] UROBILINOGEN UA 1.0 <2.0 mg/dL 7:52 PM PERSONAL LINES SALES EXECUTIVE [facility] LABORATORY [facility] BILIRUBIN UA 1+(A) Negative 12/06/2024 7:52 PM PERSONAL LINES SALES EXECUTIVE [facility] BLOOD UA 2+(A) Negative 12/06/2024 7:52 PM PERSONAL LINES SALES EXECUTIVE [facility] LABORATORY [facility] WBC UA 6-10(A) 0 - 2 /hpf 12/06/2024 7:52 PM PERSONAL LINES SALES EXECUTIVE [facility] LABORATORY [facility] RBC UA 0-2 0 - 2 /hpf 12/06/2024 7:52 PM PERSONAL LINES SALES EXECUTIVE [facility] LABORATORY [facility] BACTERIA UA 1+(A) Negative /hpf 12/06/2024 7:52 PM PERSONAL LINES SALES EXECUTIVE [facility] EPITHELIAL CELLS, URINE 0-5 0 - 5 /hpf 12/06/2024 7:52 PM PERSONAL LINES SALES EXECUTIVE [facility] GRANULAR CAST 11-25(A) None Seen /lpf 12/06/2024 7:52 PM PERSONAL LINES SALES EXECUTIVE [facility] Urine URINE SPECIMEN OBTAINED BY CLEAN CATCH PROCEDURE / Unknown Collection / Unknown 12/06/2024 6:39 PM PERSONAL LINES SALES EXECUTIVE 12/06/2024 6:45 PM PERSONAL LINES SALES EXECUTIVE us Susu Rowan MD URINE ORDERABLES Final Resul t Performing Organization Address City/[facility]/ZIP Co de Phone Number [facility]# [id number] [address] [address] * URINE CULTURE (12/06/2024 6:39 PM PERSONAL LINES SALES EXECUTIVE) CULTURE No growth at 24 hours 12/08/2024 8:25 AM PERSONAL LINES SALES EXECUTIVE [facility] Urine URINE SPECIMEN OBTAINED BY CLEAN CATCH PROCEDURE / Unknown Collection / Unknown 12/06/2024 6:39 PM PERSONAL LINES SALES EXECUTIVE 12/06/2024 6:45 PM PERSONAL LINES SALES EXECUTIVE us Quentin ROMANBS MICROBIOLOGY - GENERAL O RDERABLES Final Result [facility] Meeps [facility]# [id number] [address] [place] [place] [address] * (ABNORMAL) TROPONIN 6 HR, 5TH GEN (12/06/2024 6:19 PM PERSONAL LINES SALES EXECUTIVE) TROPONIN T, 6 HR 5TH GEN 564(HH) <11 ng/L 12/06/2024 7:29 PM PERSONAL LINES SALES EXECUTIVE [facility] LABORATORY [facility] DELTA 6HR TROPONIN T % -27(LL) See Interp. % 12/06/2024 7:29 PM PERSONAL LINES SALES EXECUTIVE [facility] Meeps [facility] Blood Venipuncture / Unknown 12/06/2024 6:19 PM PERSONAL LINES SALES EXECUTIVE 12/06/2024 6:28 PM PERSONAL LINES SALES EXECUTIVE Narrative [facility] LABORATORY [facility] - 12/06/2024 7:29 PM PERSONAL LINES SALES EXECUTIVE Troponin elevated. Delay in collection of timed specimen beyond recommended collection interval. Results must be interpreted in clinical context. Delta significant change. us Susu Rowan MD CHEMISTRY ORDERABLES Final R esult Performing Organization Address [facility]/ZIP Co de Phone Number [facility]# [id number] [address] [place] [place] [address] * KETONES/BETA HYDROXYBUTYRATE (12/06/2024 6:19 PM PERSONAL LINES SALES EXECUTIVE) BETA HYDROXYBUTYRATE <0.2 <0.4 mmol/L 12/06/2024 7:19 PM PERSONAL LINES SALES EXECUTIVE [facility] Meeps [facility] Blood Venipuncture / Unknown 12/06/2024 6:19 PM PERSONAL LINES SALES EXECUTIVE 12/06/2024 6:28 PM PERSONAL LINES SALES EXECUTIVE us Quentin BAUTISTA CHEMISTRY ORDERABLES Fin al Result Performing Organization Address [facility]/ZIP Co de Phone Number [facility] Meeps [facility]# [id number] [address] [place] [address] * RESPIRATORY PATHOGEN PCR PANEL (12/06/2024 5:15 PM PERSONAL LINES SALES EXECUTIVE) Pathologist [facility] Respiratory Pathogen PCR Panel NOT DETECTED No respiratory pathogen nucleic acids detected. 12/06/2024 6:54 PM PERSONAL LINES SALES EXECUTIVE [facility] COVID-19 PCR NOT DETECTED Not Detected 12/06/2024 6:54 PM PERSONAL LINES SALES EXECUTIVE [facility] Upper Respiratory ENTIRE NASOPHARYNX / Unknown Collection / Unknown 12/06/2024 5:15 PM PERSONAL LINES SALES EXECUTIVE 12/06/2024 5:30 PM PERSONAL LINES SALES EXECUTIVE [facility] - 12/06/2024 6:54 PM PERSONAL LINES SALES EXECUTIVE The Film Array Respiratory Panel (RP2.1) is a multiplex nucleic acid detection test for 22 targets. Viruses: Adenovirus Coronavirus HKU1, NL63, 229E, and OC43 COVID-19/Severe Acute Respiratory Syndrome Coronavirus 2 Influenza A with the following subtypes: H1, H1-2009, and H3 Influenza B Human Metapneumovirus Parainfluenza virus 1, 2, 3, and 4 Respiratory Syncytial virus (RSV) Rhinovirus/Enterovirus (cannot differentiate due to genetic similarities) Bacteria: Bordetella pertussis Bordetella parapertussis Chlamydophila pneumoniae Mycoplasma pneumoniae Quentin ROMANBS MICROBIOLOGY - GENERAL O RDERABLES Final Result [facility]# [id number] [address] [place] [address] * MRSA PCR RAPID SCREEN (12/06/2024 5:04 PM PERSONAL LINES SALES EXECUTIVE) MRSA PCR RESULT MRSA not detected MRSA not detected 12/06/2024 7:09 PM PERSONAL LINES SALES EXECUTIVE [facility] Surveillance ANTERIOR NARES SWAB / Unknown Collection / Unknown 12/06/2024 5:04 PM PERSONAL LINES SALES EXECUTIVE 12/06/2024 5:22 PM PERSONAL LINES SALES EXECUTIVE [facility] - 12/06/2024 7:09 PM PERSONAL LINES SALES EXECUTIVE This assay is used to detect Methicillin-Resistant S. aureus (MRSA) colonization of the nares. PLEASE NOTE: This test has not been approved to monitor effectiveness of MRSA decolonization. Residual DNA may temporarily be present after successful decolonization. This test was performed using an FDA approved screening methodology. Susu Rowan MD MICROBIOLOGY - GENERAL ORDER ZAIN Final Result Performing Organization Address [facility] Co de Phone Number [facility]# [id number] [address] [place], [place] [address] [address] * (ABNORMAL) TROPONIN 2 HR, 5TH GEN (12/06/2024 4:57 PM PERSONAL LINES SALES EXECUTIVE) TROPONIN T, 2 HR 5TH GEN 600(HH) <=10 ng/L 12/06/2024 6:45 PM PERSONAL LINES SALES EXECUTIVE [facility] LABORATORY [facility] DELTA 2HR TROPONIN T % -22(LL) See Interp. % 12/06/2024 6:45 PM PERSONAL LINES SALES EXECUTIVE [facility] Blood Venipuncture / Unknown 12/06/2024 4:57 PM PERSONAL LINES SALES EXECUTIVE 12/06/2024 5:22 PM PERSONAL LINES SALES EXECUTIVE [facility] LABORATORY [facility] - 12/06/2024 6:45 PM PERSONAL LINES SALES EXECUTIVE Troponin elevated. Delay in collection of timed specimen beyond recommended collection interval. Results must be interpreted in clinical context. Delta significant change. Susu Rowan MD CHEMISTRY ORDERABLES Final R esult Performing Organization Address [facility] Co de Phone Number [facility] HOSPITAL Meeps [facility]# [id number] [address] [place], [place] [address] [address] * ECHOCARDIOGRAM W/ CONTRAST AGENT (12/06/2024 3:41 PM PERSONAL LINES SALES EXECUTIVE) EJECTION FRACTION 40 INTERFACE SYSTEM 12/06/2024 4:11 PM PERSONAL LINES SALES EXECUTIVE Narrative INTERFACE SYSTEM - 12/06/2024 4:34 PM PERSONAL LINES SALES EXECUTIVE [facility] [address] [place] [address] [email or web address] Transthoracic Echocardiogram Patient: Ofelia Hilliard Study ID: [id number] Gender: F : 1955 Age: 69 Race: JODIE Height 157.5cm Study Date: 12/06/2024 Weight: 97.5kg Access. #: [id number] BP: *Referring Physician:* Susu Rowan *Ordering Physician:Susu Nettles team assembler: Nurse: STUDY CONCLUSIONS: SUMMARY: - Left ventricle: The cavity size was normal. Wall thickness was normal. Basal LV and inferior hypokinesis. The estimated ejection fraction is 35-40%. For Epic reporting: the left ventricular ejection fraction is 40% . Diastolic function assessment consistent with increased left atrial pressure. - Aortic valve: There is a sub-optimally visualized mobile echodensity that appears to be on the LV side of aortic valve (0.7cm x 0.2cm, view 7) - possible vegetation. Trileaflet. No significant regurgitation. - Mitral valve: Moderate regurgitation. - Left atrium: The atrium is normal in size. - Right ventricle: The cavity size is normal. Systolic function is normal. - Tricuspid valve: Mild regurgitation. - Pulmonary arteries: The peak systolic pressure is 40mm Hg. - Pericardium: There is a small pericardial effusion, no hemodynamic effect. Cardiac Anatomy: LEFT VENTRICLE: The cavity size was normal. Wall thickness was normal. Basal LV and inferior hypokinesis. The estimated ejection fraction is 35-40%. For Epic reporting: the left ventricular ejection fraction is 40% . Diastolic function assessment consistent with increased left atrial pressure. AORTIC VALVE: There is a sub-optimally visualized mobile echodensity that appears to be on the LV side of aortic valve (0.7cm x 0.2cm, view 7) - possible vegetation. Trileaflet. No significant regurgitation. The mean systolic gradient is 4mm Hg. The peak systolic gradient is 8mm Hg. The LVOT to aortic valve VTI ratio is 0.9. The valve area is 2.3cm^2. The ratio of LVOT to aortic valve peak velocity is 0.79. AORTA: Aortic root: The root is normal-sized. MITRAL VALVE: Mitral annular calcification. Moderate regurgitation. The peak diastolic gradient is 4mm Hg. LEFT ATRIUM: The atrium is normal in size. RIGHT VENTRICLE: The cavity size is normal. Systolic function is normal. PULMONIC VALVE: Structurally normal valve. No significant regurgitation. TRICUSPID VALVE: Structurally normal valve. Mild regurgitation. RIGHT ATRIUM: The atrium was normal in size. SYSTEMIC VEINS: Inferior vena cava: The IVC is normal-sized. PERICARDIUM: There is a small pericardial effusion, no hemodynamic effect. Measurements Left ventricle Value Ref EDV, 2-p (H) 139 ml 46 - 106 ESV, 2-p (H) 87 ml 14 - 42 EF, 2-p (L) 37 % 54 - 74 SV, 2-p 52 ml --------- SV/bsa, 2-p 26.3 ml/m^2 --------- E', lat helene, TDI (L) 7.0 cm/sec >=10.0 E/e', lat helene, TDI (N) 13 <=13 E', med helene, TDI (L) 4.8 cm/sec >=7.0 E/e', med helene, TDI 19 --------- E', avg, TDI 5.9 cm/sec --------- E/e', avg, TDI (H) 16 <=14 LVOT Value Ref Diam, S 1.8 cm --------- Area 2.5 cm^2 --------- Peak rachael, S 1.15 m/sec --------- VTI, S 18.3 cm --------- Peak grad, S 5 mm Hg --------- Right ventricle Value Ref TAPSE, MM (L) 1.6 cm >=1.7 S' lateral (N) 10.7 cm/sec >=9.5 Left atrium Value Ref AP dim, ES (H) 4.1 cm 2.7 - 3.8 AP dim index, ES (N) 2.1 cm/m^2 1.5 - 2.3 SI dim, A4C 6.1 cm --------- Area ES, A4C (N) 19 cm^2 <=20 Area/bsa ES, A4C 9.44 cm^2/m^2 --------- SI dim, A2C 5.3 cm --------- SI dim, shorter 5.3 cm --------- Vol, ES, 1-p A4C (N) 45 ml 22 - 52 Vol/bsa, ES, 1-p A4C (N) 23 ml/m^2 11 - 40 Vol, ES, 1-p A2C (N) 48 ml 22 - 52 Vol/bsa, ES, 1-p A2C (N) 24 ml/m^2 13 - 40 Vol, ES, 2-p 49 ml --------- Vol/bsa, ES, 2-p (N) 25 ml/m^2 16 - 34 LA/Ao root ratio 1.46 --------- Right atrium Value Ref SI dim, ES, A4C (N) 4.6 cm 3.4 - 5.3 SI dim/bsa, ES, A4C (N) 2.4 cm/m^2 1.9 - 3.1 Area, ES, A4C (N) 18 cm^2 10 - 18 Vol, ES, 1-p A4C 56 ml --------- Vol/bsa, ES, 1-p A4C (N) 28 ml/m^2 9 - 33 Aortic valve Value Ref Peak v, S 1.5 m/sec --------- Mean v, S 0.9 m/sec --------- VTI, S 20.3 cm --------- Mean grad, S 4 mm Hg --------- Peak grad, S 8 mm Hg --------- LVOT/AV, VTI ratio 0.9 --------- PRITESH, VTI 2.3 cm^2 --------- PRITESH/bsa, VTI 1.16 cm^2/m^2 --------- LVOT/AV, Vpeak ratio 0.79 --------- PRITESH, Vmax 2.0 cm^2 --------- PRITESH/bsa, Vmax 1.02 cm^2/m^2 --------- Mitral valve Value Ref Peak E 0.94 m/sec --------- Peak A 0.66 m/sec --------- Decel time 114 ms --------- Peak grad, D 4 mm Hg --------- Peak E/A ratio 1.4 --------- Pulmonic valve Value Ref Peak v, S 0.7 m/sec --------- Peak grad, S 2 mm Hg --------- Tricuspid valve Value Ref TR peak v (H) 3 m/sec <=2.8 Peak RV-RA grad, S 35 mm Hg --------- Aortic root Value Ref Root diam, 2.8 cm --------- Pulmonary artery Value Ref Pressure, S 40 mm Hg --------- Legend: (L) and (H) cruz values outside specified reference range. (N) chapin values inside specified reference range. Procedure data: Procedure information: A transthoracic echocardiogram was performed. Scanning was performed from the parasternal, apical, and subcostal acoustic windows. Intravenous contrast (Definity) was administered. Transthoracic echocardiogram. Complete 2D, complete spectral Doppler, and color Doppler. Birthdate: Patient birthdate: 1955. Age: Patient is 69year(s) old. Sex: gender: female. Height: 157.5cm. 62in. Weight: 97.5kg. 215lb. Body mass index: 39.3kg/m^2. Body surface area: 1.97m^2. Study date: Study date: 12/06/2024. Study time: 04:11 PM. Prepared and Electronically Authenticated Cruz Valladares [id number] Procedure Note Cruz Valladares MD - 12/06/[address] [address] [email or web address] Transthoracic Echocardiogram Patient: Ofelia Hilliard Study ID: [id number] Gender: F :1955 Age: 69 Race: JODIE Height 157.5cm Study Date:12/06/2024 Weight: 97.5kg Access. #:[id number] BP: *Referring Physician:Susu Nettles *Ordering Physician:Susu Nettles team assembler: Nurse: STUDY CONCLUSIONS: SUMMARY: - Left ventricle: The cavity size was normal. Wall thickness was normal.Basal LV and inferior hypokinesis. The estimated ejection fraction is 35-40%.For Epic reporting: the left ventricular ejection fraction is 40% .Diastolic function assessment consistent with increased left atrial pressure. - Aortic valve: There is a sub-optimally visualized mobile echodensitythat appears to be on the LV side of aortic valve (0.7cm x 0.2cm, view 7) - possible vegetation. Trileaflet. No significant regurgitation. - Mitral valve: Moderate regurgitation. - Left atrium: The atrium is normal in size. - Right ventricle: The cavity size is normal. Systolic function isnormal. - Tricuspid valve: Mild regurgitation. - Pulmonary arteries: The peak systolic pressure is 40mm Hg. - Pericardium: There is a small pericardial effusion, no hemodynamiceffect. Cardiac Anatomy: LEFT VENTRICLE: The cavity size was normal. Wall thickness was normal.Basal LV and inferior hypokinesis. The estimated ejection fraction is 35-40%.For Epic reporting: the left ventricular ejection fraction is 40% .Diastolic function assessment consistent with increased left atrial pressure. AORTIC VALVE: There is a sub-optimally visualized mobile echodensitythat appears to be on the LV side of aortic valve (0.7cm x 0.2cm, view 7) - possible vegetation. Trileaflet. No significant regurgitation. The mean systolic gradient is 4mm Hg. The peak systolic gradient is 8mm Hg. TheLVOT to aortic valve VTI ratio is 0.9. The valve area is 2.3cm^2. The ratio ofLVOT to aortic valve peak velocity is 0.79. AORTA: Aortic root: The root is normal-sized. MITRAL VALVE: Mitral annular calcification. Moderate regurgitation. Thepeak diastolic gradient is 4mm Hg. LEFT ATRIUM: The atrium is normal in size. RIGHT VENTRICLE: The cavity size is normal. Systolic function isnormal. PULMONIC VALVE: Structurally normal valve. No significantregurgitation. TRICUSPID VALVE: Structurally normal valve. Mild regurgitation. RIGHT ATRIUM: The atrium was normal in size. SYSTEMIC VEINS: Inferior vena cava: The IVC is normal-sized. PERICARDIUM: There is a small pericardial effusion, no hemodynamiceffect. Measurements Left ventricle Value Ref EDV, 2-p (H) 139 ml 46 - 106 ESV, 2-p (H) 87 ml 14 - 42 EF, 2-p (L) 37 % 54 - 74 SV, 2-p 52 ml --------- SV/bsa, 2-p 26.3 ml/m^2 --------- E', lat helene, TDI (L) 7.0 cm/sec >=10.0 E/e', lat helene, TDI (N) 13 <=13 E', med helene, TDI (L) 4.8 cm/sec >=7.0 E/e', med helene, TDI 19 --------- E', avg, TDI 5.9 cm/sec --------- E/e', avg, TDI (H) 16 <=14 LVOT Value Ref Diam, S 1.8 cm --------- Area 2.5 cm^2 --------- Peak rachael, S 1.15 m/sec --------- VTI, S 18.3 cm --------- Peak grad, S 5 mm Hg --------- Right ventricle Value Ref TAPSE, MM (L) 1.6 cm >=1.7 S' lateral (N) 10.7 cm/sec >=9.5 Left atrium Value Ref AP dim, ES (H) 4.1 cm 2.7 - 3.8 AP dim index, ES (N) 2.1 cm/m^2 1.5 - 2.3 SI dim, A4C 6.1 cm --------- Area ES, A4C (N) 19 cm^2 <=20 Area/bsa ES, A4C 9.44 cm^2/m^2 --------- SI dim, A2C 5.3 cm --------- SI dim, shorter 5.3 cm --------- Vol, ES, 1-p A4C (N) 45 ml 22 - 52 Vol/bsa, ES, 1-p A4C (N) 23 ml/m^2 11 - 40 Vol, ES, 1-p A2C (N) 48 ml 22 - 52 Vol/bsa, ES, 1-p A2C (N) 24 ml/m^2 13 - 40 Vol, ES, 2-p 49 ml --------- Vol/bsa, ES, 2-p (N) 25 ml/m^2 16 - 34 LA/Ao root ratio 1.46 --------- Right atrium Value Ref SI dim, ES, A4C (N) 4.6 cm 3.4 - 5.3 SI dim/bsa, ES, A4C (N) 2.4 cm/m^2 1.9 - 3.1 Area, ES, A4C (N) 18 cm^2 10 - 18 Vol, ES, 1-p A4C 56 ml --------- Vol/bsa, ES, 1-p A4C (N) 28 ml/m^2 9 - 33 Aortic valve Value Ref Peak v, S 1.5 m/sec --------- Mean v, S 0.9 m/sec --------- VTI, S 20.3 cm --------- Mean grad, S 4 mm Hg --------- Peak grad, S 8 mm Hg --------- LVOT/AV, VTI ratio 0.9 --------- PRITESH, VTI 2.3 cm^2 --------- PRITESH/bsa, VTI 1.16 cm^2/m^2 --------- LVOT/AV, Vpeak ratio 0.79 --------- PRITESH, Vmax 2.0 cm^2 --------- PRITESH/bsa, Vmax 1.02 cm^2/m^2 --------- Mitral valve Value Ref Peak E 0.94 m/sec --------- Peak A 0.66 m/sec --------- Decel time 114 ms --------- Peak grad, D 4 mm Hg --------- Peak E/A ratio 1.4 --------- Pulmonic valve Value Ref Peak v, S 0.7 m/sec --------- Peak grad, S 2 mm Hg --------- Tricuspid valve Value Ref TR peak v (H) 3 m/sec <=2.8 Peak RV-RA grad, S 35 mm Hg --------- Aortic root Value Ref Root diam, 2.8 cm --------- Pulmonary artery Value Ref Pressure, S 40 mm Hg --------- Legend: (L) and (H) cruz values outside specified reference range. (N) chapin values inside specified reference range. Procedure data: Procedure information: A transthoracic echocardiogram was performed.Scanning was performed from the parasternal, apical, and subcostal acousticwindows. Intravenous contrast (Definity) was administered. Transthoracic echocardiogram. Complete 2D, complete spectral Doppler, and colorDoppler. Birthdate: Patient birthdate: 1955. Age: Patient is 69year(s)old. Sex: gender: female. Height: 157.5cm. 62in. Weight: 97.5kg.215lb. Body mass index: 39.3kg/m^2. Body surface area: 1.97m^2. Studydate: Study date: 12/06/2024. Study time: 04:11 PM. Prepared andElectronically Authenticated Crzu Valladares [id number] us Susu Rowan MD US ORDERABLES Final Result Performing Organization Address City/[facility] Co de Phone Number INTERFACE SYSTEM Refer to clinic/hospital department * (ABNORMAL) CALCIUM IONIZED (12/06/2024 2:23 PM PERSONAL LINES SALES EXECUTIVE) PH, VENOUS 7.19(LL) 7.32 - 7.43 12/06/2024 2:42 PM PERSONAL LINES SALES EXECUTIVE [facility] CALCIUM IONIZED 4.9 4.8 - 5.2 mg/dL 12/06/2024 2:42 PM PERSONAL LINES SALES EXECUTIVE [facility] Blood Venipuncture / Unknown 12/06/2024 2:23 PM PERSONAL LINES SALES EXECUTIVE 12/06/2024 2:28 PM PERSONAL LINES SALES EXECUTIVE Susu Rowan MD CHEMISTRY ORDERABLES Final R esult Performing Organization Address [facility] Co de Phone Number [facility] Meeps [facility] CLIA# [id number] [address] [facility] [address] [place] [address] * (ABNORMAL) TROPONIN BASELINE, 5TH GEN (12/06/2024 1:46 PM PERSONAL LINES SALES EXECUTIVE) TROPONIN T, BASELINE 5TH GEN 770(HH) <=10 ng/L 12/06/2024 3:08 PM PERSONAL LINES SALES EXECUTIVE [facility] Blood Venipuncture / Unknown 12/06/2024 1:46 PM PERSONAL LINES SALES EXECUTIVE 12/06/2024 2:01 PM PERSONAL LINES SALES EXECUTIVE Narrative [facility] - 12/06/2024 3:08 PM PERSONAL LINES SALES EXECUTIVE Troponin elevated. Susu Rowan MD CHEMISTRY ORDERABLES Final R esult [facility]# [id number] [address] [place] [address] * TSH REFLEXIVE (12/06/2024 1:46 PM PERSONAL LINES SALES EXECUTIVE) Pathologist [facility] TSH 1.00 0.27 - 4.20 uIU/mL 12/06/2024 5:12 PM PERSONAL LINES SALES EXECUTIVE [facility] Blood Venipuncture / Unknown 12/06/2024 1:46 PM PERSONAL LINES SALES EXECUTIVE 12/06/2024 2:01 PM PERSONAL LINES SALES EXECUTIVE Quentin BAUTISTA CHEMISTRY ORDERABLES Fin al Result [facility]# [id number] [address] [place] [address] * (ABNORMAL) PROCALCITONIN (12/06/2024 1:46 PM PERSONAL LINES SALES EXECUTIVE) Pathologist [facility] PROCALCITONIN 89.90(H) <=0.25 ng/mL 12/06/2024 3:01 PM PERSONAL LINES SALES EXECUTIVE [facility] Blood Venipuncture / Unknown 12/06/2024 1:46 PM PERSONAL LINES SALES EXECUTIVE 12/06/2024 2:01 PM PERSONAL LINES SALES EXECUTIVE Narrative [facility] - 12/06/2024 3:01 PM PERSONAL LINES SALES EXECUTIVE The utility of procalcitonin is limited/NOT recommended in certain populations (e.g. newborns, dialysis/ESRD, patients with recent major surgery/trauma/tijerina, liver cirrhosis, viral hepatitis, certain cancers, etc.). Procalcitonin levels MUST be interpreted in the context of the patient's clinical condition and CANNOT be solely relied upon for diagnosis of infection. <0.25 ng/mL: Bacterial infection unlikely, particularly lower respiratory tract infections. <0.5 ng/mL: Low risk for progression to severe sepsis/septic shock. Localized infection possible. Measurements done early (<6 hours) after systemic process starts may still be low. 0.5-2 ng/mL: Moderate risk for progression to severe sepsis/septic shock. >2 ng/mL: High risk for progression to severe sepsis/septic shock. If antibiotics ARE administered, repeat testing is recommended every 2-3 days to help guide antibiotic cessation. Once a decrease of 80% or more has occurred from baseline, discontinuation of antibiotics should strongly be considered in clinically stable patients. Procalcitonin is produced in the setting of systemic inflammation, particularly bacterial infections. It is detectable within 2-4 hours and peaks within 6-24 hours. us Susu Rowan MD CHEMISTRY ORDERABLES Final R esult [facility] Meeps [facility]# [id number] [address] [place] [address] * (ABNORMAL) DIC PROFILE (12/06/2024 1:46 PM PERSONAL LINES SALES EXECUTIVE) PROTIME 18.9(H) 12.7 - 15.1 Seconds 12/06/2024 3:44 PM PERSONAL LINES SALES EXECUTIVE [facility] INR 1.6(H) 0.9 - 1.1 12/06/2024 3:44 PM PERSONAL LINES SALES EXECUTIVE [facility] Comment: INR Therapeutic Range: Adult: 2.0 - 3.0 for pulmonary embolism or prophylaxis against venous thrombosis or systemic embolization. 2.0 - 3.0 for patients with tissue heart valves. 2.5 - 3.5 for patients with mechanical heart valves or post OK. Pediatric (12 years and under): 1.5 - 3.0 Although the target range in children is not well established, INR values of 1.5 - 3.0 are recommended for most patients. Higher values have been used in children with prosthetic cardiac valves and hereditary clotting disorders. [place] (<3 days) therapeutic ranges have not been established PTT 33.7 24.4 - 36.4 seconds 12/06/2024 3:44 PM PERSONAL LINES SALES EXECUTIVE [facility] Meeps [facility] Comment: PTT Therapeutic Range: Heparin Level PTT (seconds) <0.10 units/mL <53 0.10 - 0.30 units/mL 53 - 67 0.30 - 0.70 units/mL* 67 - 95* 0.70 - 1.00 units/mL 95 - 116 *corresponds to therapeutic range for unfractionated heparin FIBRINOGEN 698(H) 205 - 450 mg/dL 12/06/2024 3:44 PM PERSONAL LINES SALES EXECUTIVE [facility] D-DIMER QUANT >4.00(H) <0.50 ug/mL FEU 12/06/2024 3:44 PM PERSONAL LINES SALES EXECUTIVE [facility] Meeps [facility] Comment: The DIC reference range is not clearly established in uncomplicated pregnancies. Values above the upper limit of the reference range are common from the 31st to 40th week of . High negative predictive values for DVT have been reported with the current methodology, as part of a comprehensive medical examination, including risk stratification. Various clinical studies utilizing this method have shown that a result of <0.5 mcg/ml FEU excludes deep vein thrombosis and pulmonary embolism with high sensitivity when used in conjunction with a non-high clinical pre-test probability assessment. Verified by repeat analysis. Blood Venipuncture / Unknown 12/06/2024 1:46 PM PERSONAL LINES SALES EXECUTIVE 12/06/2024 2:01 PM PERSONAL LINES SALES EXECUTIVE us Susu Rowan MD HEMATOLOGY ORDERABLES Final Result [id number] [address] [place] [address] * (ABNORMAL) HEMOGLOBIN A1C (12/06/2024 1:46 PM PERSONAL LINES SALES EXECUTIVE) HEMOGLOBIN A1C 6.1(H) <5.7 % 12/06/2024 2:34 PM PERSONAL LINES SALES EXECUTIVE [facility] EST. AVG GLUCOSE, A1C 128 mg/dL 12/06/2024 2:34 PM PERSONAL LINES SALES EXECUTIVE [facility] Blood Venipuncture / Unknown 12/06/2024 1:46 PM PERSONAL LINES SALES EXECUTIVE 12/06/2024 2:01 PM PERSONAL LINES SALES EXECUTIVE Narrative [facility] - 12/06/2024 2:34 PM PERSONAL LINES SALES EXECUTIVE HGB A1C INTERPRETATION NORMAL: <5.7% PRE-DIABETES: 5.7 - 6.4% DIABETES: 6.5% OR GREATER us Susu Rowan MD CHEMISTRY ORDERABLES Final R esult [facility] CLIA# [id number] [address] [place] [address] [place] [address] * OCCULT BLOOD IMMUNOASSAY, COLORECTAL SCREEN (12/20/2020 5:06 PM PERSONAL LINES SALES EXECUTIVE) OCCULT BLOOD, STOOL Negative Negative [facility] 12/20/2020 5:06 PM PERSONAL LINES SALES EXECUTIVE 12/20/2020 Narrative [facility] - 12/21/2020 3:08 PM PERSONAL LINES SALES EXECUTIVE Performed at: 01 - [address] [id number] Chief Medical Director: Brad Pacheco PhD, Phone: [phone] us Yogesh Amos MD BODY FLUIDS AND STOOLS Final Re sult [facility] [phone] from Last 3 Months or Most Recently Relevant to Health Maintenance Insurance [facility] [id number] [place] [address] [facility] [address] Advance Directives For more information, please contact: [phone] * Full Code (Latest Code Status on File) Date Activated Date Inactivated Comments 12/06/2024 1:35 PM 12/21/2024 3:24 PM Care Teams Principal System Software Engineer Relationship Specialty Start Date End Date Sly Driver DO [address] [id number] PCP - General Internal Medicine 12/18/20
== END 2025-01-19 11:48 | disposition home or self-care (01) ==
LOC: HOME HLTH 11:48
PROVIDERS: PCP Internal Medicine; Visit Provider Clinical Nurse Specialist
DX: D72.829 Elevated white blood cell count, unspecified (principal); R74.01 Elevation of levels of liver transaminase levels
CPT/HCPCS: 80053; 85025

== ENCOUNTER 2025-02-09 09:35 | Outpatient (CLI) | payer MEDICARE, SELFPAY ==
--- NOTE | 2025-02-09 09:55 | ECHO_ITS ---
Patient Info Name: Ofelia Hilliard Age: 69 years : 1955 Gender: Female Ht: 62 in Wt: 185 lbs BSA: 1.95 m2 HR: 78 bpm BP: 142 / 114 mmHg Technical Quality: Good Exam Date: 02/09/2025 10:03 AM Exam Location: Echo Lab Patient Status: Outpatient Admit Date: 02/09/2025 Staff Ordering Physician: Karissa Koch Biomedical Instrument Technician: Maru Davila RDCS Attending Provider: Karissa Koch Referring Physician: August TIPTON; Exam Type: CA echo doppler color flow Study Info Indications R93.1 - Abnormal findings on diagnostic imaging of heart and coronary circulation Complete two-dimensional, color flow and Doppler transthoracic echocardiogram is performed. Summary 1. Complete two-dimensional, color flow and Doppler transthoracic echocardiogram is performed. 2. Left ventricular chamber dimension is normal. 3. Left ventricular systolic function is normal, estimated at 60-65%. 4. The left ventricular diastolic function is grade I diastolic dysfunction. 5. E/e' 11 is mildly elevated. 6. There is trace mitral valve regurgitation. 7. There is smallcircumferential pericardial effusion with small to moderate amount posteriorly. Left Ventricle E/e' 11 is mildly elevated. Left ventricular chamber dimension is normal. Left ventricular systolic function is normal, estimated at 60-65%. The left ventricular diastolic function is grade I diastolic dysfunction. Right Ventricle Right ventricular chamber dimension is normal. Right ventricular systolic function is normal. Left Atria Left atrial chamber dimension is normal. Right Atria Right atrial chamber dimension is normal. Aortic Valve The aortic valve is trileaflet. There is no aortic valve stenosis. There is no aortic valve regurgitation. Pulmonic Valve There is no pulmonic regurgitation. Mitral Valve There is no mitral valve stenosis. There is trace mitral valve regurgitation. Tricuspid Valve There is no tricuspid valve regurgitation. Pericardium/Pleural There is smallcircumferential pericardial effusion with small to moderate amount posteriorly. No cardiac tamponade. Inferior Vena Cava Normal inferior vena cava with >50% collapse upon inspiration consistent with normal right atrial pressure, 5 mmHg. Aorta The aortic root size at the sinus of Valsalva is normal. Left Ventricular Outflow Tract Name Value Normal LVOT 2D LVOT Diameter 1.9 cm LVOT Doppler LVOT Peak Gradient 8 mmHg LVOT Mean Gradient 4 mmHg LVOT VTI 25 cm LVOT VTI/AV VTI Ratio 0.8 LVOT Stroke Volume 71 ml LVOT CO 16.8 l/min LVOT CI 8.6 l/min/m2 Pulmonic Valve Name Value Normal PV Doppler PV Peak Gradient 4 mmHg Mitral Valve Name Value Normal MV Doppler MV Decel Sumner 296 cm/s2 MV PHT 70 ms MV Area (PHT) 3.1 cm2 4.0-5.0 MV Diastolic Function MV E Peak Velocity 72 cm/s MV A Peak Velocity 102 cm/s MV E/A 0.7 MV Decel Time 242 ms MV Annular TDI MV E/e' (Septal) 10.7 <=8.0 MV E/e' (Lateral) 12.5 <=8.0 MV E/e' (Average) 11.6 Tricuspid Valve Name Value Normal Estimated PAP/RSVP RA Pressure 5 mmHg <=5 Aorta Name Value Normal Ascending Aorta Ao Root Diameter (MM) 3.1 cm Ao Root Diam Index (MM) 1.6 cm/m2 Aortic Valve Name Value Normal AV Doppler AV Peak Velocity 152 cm/s AV Peak Gradient 9 mmHg AV Mean Gradient 6 mmHg AV VTI 30 cm AV Area (Cont Eq VTI) 2.3 cm2 >=3.0 AV Area (Cont Eq Wilfredo) 2.7 cm2 AV Regurgitation 2D LVOT Area 2.8 cm2 Ventricles Name Value Normal LV Dimensions 2D/MM IVS Diastolic Thickness (2D) 1.0 cm 0.6-1.0 LVID Diastole (2D) 4.3 cm 3.8-5.2 LVIW Diastolic Thickness (2D) 0.9 cm 0.6-0.9 LVID Systole (2D) 2.3 cm 2.2-3.5 LVOT Diameter 1.9 cm LV Mass (2D Cubed) 135.14 g 67.00-162.00 LV Mass Index (2D Cubed) 69 g/m2 43-95 Relative Wall Thickness (2D) 0.42 LV Fractional Shortening/Ejection Fraction 2D/MM LV Fractional Shortening (2D) 46 % 27-45 LV EF (2D Teicholz) 78 % 54-74 LV Diastolic Volume (4C MOD) 101 ml LV EF (4C MOD) 69 % LV Diastolic Volume (2C MOD) 73 ml LV EF (2C MOD) 64 % LV Diastolic Volume (BP MOD) 90 ml 46-106 LV Diastolic Volume Index (BP MOD) 46 ml/m2 29-61 LV Systolic Volume (BP MOD) 31 ml 14-42 LV Systolic Volume Index (BP MOD) 16 ml/m2 8-24 LV EF (BP MOD) 66 % 54-74 LV Diastolic Length (4C) 8.3 cm LV Systolic Length (4C) 6.6 cm LV Stroke Volume (4C MOD) 70 ml RV Dimensions 2D/MM RVID Diastole (2D) 2.9 cm 2.5-3.5 Atria Name Value Normal LA Dimensions LA Volume (4C A-L) 31 ml LA Volume (BP A-L) 33 ml RA Dimensions RA Area (4C) 10.5 cm2 <=18.0 Report Signatures
--- OUTSIDE RECORDS SUMMARY | 2025-02-09 10:39 | XMS_ITS | Data Portability ---
Author Organization [facility] Address [address] [place] [address] Care Team Providers Care Programming Coordinator Name Role Phone KAMARI OTTO Primary Care [...] eral No observ ation record ed. layran [facility] [address], [place], [address], 12/29/2020 18:37:45 Result Notes None recorded. Problems Name Problem SNOMED Code Status Onset Date Resolution Date Notes Provider Name and Address Organization Details Recorded Time SNOMED CT Concept Completed 201512/25/2021 Well woman check w/o abnormal finding;R ecorded Elsewhere : No [facility]: EHR Chron ic: N Practic e ID: 0001 Bill able Time: 09:00:00 AM Olga Jessica [facility] [address] 09:54:[address] Concept Completed 201612/25/2021 Encntr for general adult medical exam w/o abnormal findings; Recorded Elsewhere : No [facility]ati [facility] So [facility]ce: EHR Chron ic: N Practic e ID: 0001 Bill able Time: 01:30:00 PM Olga Jessica [facility] 2 09:54:36 Speciali zed medical examinat ion Completed 201312/25/2021 Gynecolog ical Examinati on;Record ed Elsewhere : No [facility]ati [facility] So [facility]: EHR Chron ic: N Practic e ID: 0001 Bill able Time: 10:45:00 AM Olga Jessica [facility] 2 09:54:40 Mammogra phy abnormal [id number] Completed 201412/25/2021 Unspecifi ed abnormal mammogram ;Recorded Elsewhere : No [facility]ati [facility] So [facility]: EHR Chron ic: N Practic e ID: 0001 Bill able Time: 03:36:09 PM Olga Jessica [facility] 2 09:54:31 Adult health examinat ion Completed 201412/25/2021 ROUTINE MEDICAL EXAM;Gen rded Elsewhere : No [facility]ati [facility] So [facility]: EHR Chron ic: N Practic e ID: [id number] Bill able Time: 08:30:00 AM Olga Jessica [facility] 2 09:54:28 Screenin g for malignan t neoplasm of rectum Completed 201112/25/2021 Screening for malignant neoplasms of the rectum;Re corded Elsewhere : No [facility]ati [facility] So [facility]: EHR Chron ic: N Practic e ID: [id number] Bill able Time: 01:30:00 PM Olga Jessica [facility] 2 09:54:35 Screenin g for malignan t neoplasm of cervix Completed 201112/25/2021 Screening for malignant neoplasms of the cervix;Re corded Elsewhere : No [facility]ati [facility] So [facility]: EHR Chron ic: N Practic e ID: [id number] Bill able Time: 01:30:00 PM Olga [facility] 2 09:54:33 Leukocyt osis [id number] Completed 201212/25/2021 LEUKOCYTO SIS NOS;Recor ded Elsewhere : No [facility]ati [facility] So [facility]: EHR Chron ic: N Practic e ID: 0001 Bill able Time: 03:30:00 PM Olga Jessica [facility] 2 09:54:30 Problem Notes None recorded. Procedures Surgical History Date Name Laterality Status Provider Name and Address Organization Details Recorded Time 11/25/19 20 Date of Last Mammogram completed [facility] 11/17/2020 10:57:25 09/14/20 18 Date of Last Pap Smear completed [facility] 11/17/2020 10:54:42 10/20/19 06 cholecystectomy completed [facility] 11/17/2020 10:45:09 10/20/19 05 abdominoplasty completed [facility] 11/17/2020 10:46:20 10/20/19 04 colonoscopy completed [facility] 11/17/2020 10:44:54 10/20/19 03 Gastric Bypass completed [facility] 11/17/2020 10:45:34 Total Hysterectomy completed Jeanette Juarez [facility] 12/25/2020 09:46:45 Imaging Results Imaging Date Name Status LastModified by Organiz ation Details LastModified Time 12/25/2020 MAMMO, screening, bilateral completed [facility] [address], [place], [address], 12/29/2020 18:37:45 Procedure Notes None recorded. Medical Equipment None Reported. Allergies No known drug allergies Medications Name Sig Start Date Stop Date Status Note LastModified by Organization Details LastModified Time furosemid e 10 mg/mL injection solution inject 2 millilit er by intraven ous route every day slowly 12/25 completed Prescrib ed Elsewher e: Yes Loca tion: [facility] odify By: miah Branch nter DateTime : [...] Prescrib ed Elsewher e: Yes Loca tion: [facility] M odify By: miah Branch nter DateTime [...] Prescrib ed Elsewher e: Yes [facility] By: shellie brown DateTime : 01/27/20 [...] Elsewher e: Yes Loca tion: [facility] odify By: trey sam DateTime : [...] Elsewher e: Yes Loca tion: [facility] odify By: miah blas DateTime : 12/22/19 12 06:07:01 PM Not Available Not Available Not Available Vitamins and Minerals tablet active Prescrib ed Elsewher e: Yes [facility] odify By: trey sam DateTime : 12/24/19 12 01:30:00 PM Not Available Not Available Not Available iron ER 325 mg (65 mg iron) capsule,e xtended release 09/08 completed Prescrib ed Elsewher e: Yes [facility] odify By: gunner sam DateTime : 12/24/19 12 01:30:00 PM Not Available Not Available Not Available nitrofura ntoin monohydra te/macroc rystals 100 mg capsule TAKE 1 CAPSULE BY MOUTH EVERY 12 HOURS FOR 5 DAYS active Not Available Not Available No t Available Calcio Carmelita 500 mg tablet 10/27 completed Prescrib ed Elsewher e: Yes Loca tion: [facility] odify By: tomasa sam DateTime : 12/24/19 12 01:30:00 PM Not Available Not Available Not Available metformin active Not Available Not Dee ilable Not Available ProAir HFA 90 mcg/actua tion aerosol inhaler active Not Available Not Available Not Available Fish Oil 340 mg-1,000 mg capsule active Prescrib ed Elsewher e: Yes Loca tion: [facility] odify By: gunner sam DateTime : 08/07/20 16 09:00:00 AM Not Available Not Available Not Available Probiotic active Not Available Not Dee ilable Not Available Vitals Date Recorded Body height Body mass index (BMI) Body weight Systolic blood pressure Diastolic blood pressure Provider Name and Address Organization Details Last Updated DateTime 12/25/2020 157.48 cm 41.3 kg/m2 246657.8 8 g 137 mm[Hg] 82 mm[Hg] Jeanette Juarez [facility] 10:00:59 Social History Question Answer Notes LastModified by Organizat ion Details LastModified Time Tobacco Smoking Status Never Smoker Jeanette Juarez [facility] 12/25/2020 10:01:38 What Is Your Level [...] SNOMED-CT Code Diagnosis ICD10 Code Diagnosis Note [id number] Lindsay Akhtar [facility] [address] [address] 12/25/2020 09:48:10 12/25/2020 10:47:30 Gynecologic examination [id number] Z01.419 Take Calcium with Vitamin D 12-1500mg daily. Do monthly self breast exams. It is advised to get annual flu shot in the fall and she could obtain at [facility] or [facility] care clinic. If you haven't received the [...] partner Not SA No issues or concerns [id number] RICKY Castanon-[facility] [address] [address] 12/25/2021 09:52:02 12/26/2021 15:26:13 Health Concerns Section Related Observation LastModified by Organization Detai ls LastModified Time None Recorded Concern Status LastModified by Organization Details LastModified Time None Recorded Advance Directives Directive None Recorded Payers Encounter Date Sequence Insurance Name Policy Number Policy Lemos Covered Member ID Lemos Member ID Guarantor Name 12/25/2020 1 [place] Ofelia Cartyay [id number] Ofelia Cartyay 12/25/2021 1 [facility] (MEDICARE REPLACEMENT/A DVANTAGE - PPO) [id number] Ofelia Cueva Hagaman [id number] Ofelia Cartyay Notes Date Note Type Note Provider Name and Address Organization Details Recorded Time 12/25/2020 text/html 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 12/25/2020 10:27:07 OBGyn Episode No OBEpisode recorded.
--- OUTSIDE RECORDS SUMMARY | 2025-02-09 10:39 | XMS_ITS | Clinical Summary ---
Author Organization [facility] Address [address] [place] [address] Care Team Providers Care Repairer Recreational Vehicle Name Role Phone Sly Driver DO Primary [...] vit C/vit E ac/lut/copper/z inc (VIT C-VIT Q-[id number] UTEIN ORAL) Take by mouth. Active metoprolol tartrate (LOPRESSOR) 25 mg tablet Take 1 Tablet (25 mg) by mouth 2 times daily. 12/21/2024 Active tamsulosin (FLOMAX) 0.4 mg capsule Take 2 Capsules (0.8 mg) by mouth daily after supper. 12/21/2024 Active carbidopa-levod opa (SINEMET) 25-100 mg tablet Take 1 Tablet by mouth 3 times daily. 12/21/2024 Active Active Problems Problem Noted Date Diagnosed [...] STL ABSTRACTION Provider, Abstract 12/06/2024 1:07 PM EXPERIMENTAL WORKER - 12/21/2024 1:19 PM EXPERIMENTAL WORKER Hospital Encounter [facility] [address] [place] [address] Laurie Espinoza MD Bunaye, Zerihun A, MD Sangani, Vikram, MD Hassan, MD Octavio Jesus, Christian Palma MD Severe sepsis with septic shock ([facility]) Discharge Disposition: Long Term Fac(SNF) with Medicare Certification in Anticipation of Skilled Care from Last 3 Months Family History Medical [...] week 12/18/2020 How often do you attend [facility] or taoist services? Not asked 12/18/2020 Do you belong to any clubs o r organizations such as religion groups, unions, fraternal or athletic groups, or [...] on file Legal Sex Female 11:13 AM EXPERIMENTAL WORKER Gender Identity Not on file Sexual Orientation Not on file Last Filed Vital Signs Vital Sign Reading Time Taken Comments Blood Pressure 155/79 12/21/2024 5:57 AM EXPERIMENTAL WORKER Pulse 73 12/21/2024 5:57 AM EXPERIMENTAL WORKER Temperature 36.6 C (97.9 F) 12/21/2024 4:49 AM EXPERIMENTAL WORKER Respiratory Rate 18 12/21/2024 4:49 AM EXPERIMENTAL WORKER Oxygen Saturation 98% 12/21/2024 4:49 AM EXPERIMENTAL WORKER Inhaled Oxygen Concentration - - Weight 85.7 kg (189 lb) 12/13/2024 11:00 AM EXPERIMENTAL WORKER Height 157.5 cm (5' 2 ) 12/06/2024 3:05 PM EXPERIMENTAL WORKER Body Mass Index 34.57 12/06/2024 3:05 PM EXPERIMENTAL WORKER Plan of Treatment Health Maintenance Due Date [...] Additional history exists INFLUENZA VACCINE (#1) 2024 OSTEOPOROSIS SCREENING 11/23/2024 11/23/2019 DIABETES HBA1C Q 6 MONTHS 06/05/20252024, 10/18/2021, 06/21/2021, Additional history exists RSV VACCINE (60+ or ) (1 - 1-dose 75+ series) 2029 Procedures Procedure Name Priority Date/Time Associated Diagnosis Comments TELEMETRY REPORT 12/22/2024 10:0 1 AM EXPERIMENTAL WORKER POC GLUCOSE Routine 12/21/2024 8:02 AM EXPERIMENTAL WORKER PHOSPHORUS Routine 12/21/2024 7:07 AM EXPERIMENTAL WORKER MAGNESIUM LEVEL Routine 12/21/2024 7:07 AM EXPERIMENTAL WORKER CBC WITH DIFFERENTIAL Routine 12/21/2024 7:07 AM EXPERIMENTAL WORKER COMPREHENSIVE METABOLIC PANEL Routine 12/21/2024 7:07 AM EXPERIMENTAL WORKER POC GLUCOSE Routine 12/20/2024 8:58 PM EXPERIMENTAL WORKER POC GLUCOSE Routine 12/20/2024 4:56 PM EXPERIMENTAL WORKER POC GLUCOSE Routine 12/20/2024 12:40 PM EXPERIMENTAL WORKER POC GLUCOSE Routine 12/20/2024 7:47 AM EXPERIMENTAL WORKER PHOSPHORUS Routine 12/20/2024 3:24 AM EXPERIMENTAL WORKER MAGNESIUM LEVEL Routine 12/20/2024 3:24 AM EXPERIMENTAL WORKER CBC WITH DIFFERENTIAL Routine 12/20/2024 3:24 AM EXPERIMENTAL WORKER COMPREHENSIVE METABOLIC PANEL Routine 12/20/2024 3:24 AM EXPERIMENTAL WORKER POC GLUCOSE Routine 12/19/2024 9:53 PM EXPERIMENTAL WORKER POC GLUCOSE Routine 12/19/2024 4:54 PM EXPERIMENTAL WORKER POC GLUCOSE Routine 12/19/2024 12:44 PM EXPERIMENTAL WORKER POC GLUCOSE Routine 12/19/2024 8:11 AM EXPERIMENTAL WORKER PHOSPHORUS Routine 12/19/2024 6:45 AM EXPERIMENTAL WORKER MAGNESIUM LEVEL Routine 12/19/2024 6:45 AM EXPERIMENTAL WORKER CBC WITH DIFFERENTIAL Routine 12/19/2024 6:45 AM EXPERIMENTAL WORKER COMPREHENSIVE METABOLIC PANEL Routine 12/19/2024 6:45 AM EXPERIMENTAL WORKER POC GLUCOSE Routine 12/18/2024 10:02 PM EXPERIMENTAL WORKER POC GLUCOSE Routine 12/18/2024 4:58 PM EXPERIMENTAL WORKER POC GLUCOSE Routine 12/18/2024 12:32 PM EXPERIMENTAL WORKER POC GLUCOSE Routine 12/18/2024 9:31 AM EXPERIMENTAL WORKER PHOSPHORUS Routine 12/18/2024 4:17 AM EXPERIMENTAL WORKER MAGNESIUM LEVEL Routine 12/18/2024 4:17 AM EXPERIMENTAL WORKER CBC WITH DIFFERENTIAL Routine 12/18/2024 4:17 AM EXPERIMENTAL WORKER COMPREHENSIVE METABOLIC PANEL Routine 12/18/2024 4:17 AM EXPERIMENTAL WORKER POC GLUCOSE Routine 12/17/2024 9:12 PM EXPERIMENTAL WORKER POC GLUCOSE Routine 12/17/2024 6:34 PM EXPERIMENTAL WORKER POC GLUCOSE Routine 12/17/2024 3:05 PM EXPERIMENTAL WORKER POC GLUCOSE Routine 12/17/2024 10:12 AM EXPERIMENTAL WORKER PHOSPHORUS Routine 12/17/2024 6:33 AM EXPERIMENTAL WORKER MAGNESIUM LEVEL Routine 12/17/2024 6:33 AM EXPERIMENTAL WORKER CBC WITH DIFFERENTIAL Routine 12/17/2024 6:33 AM EXPERIMENTAL WORKER COMPREHENSIVE METABOLIC PANEL Routine 12/17/2024 6:33 AM EXPERIMENTAL WORKER POC GLUCOSE Routine 12/16/2024 10:44 PM EXPERIMENTAL WORKER POC GLUCOSE Routine 12/16/2024 5:16 PM EXPERIMENTAL WORKER TELEMETRY REPORT 12/16/2024 2:21 PM EXPERIMENTAL WORKER POC GLUCOSE Routine 12/16/2024 12:33 PM EXPERIMENTAL WORKER POC GLUCOSE Routine 12/16/2024 8:58 AM EXPERIMENTAL WORKER POC GLUCOSE Routine 12/16/2024 4:46 AM EXPERIMENTAL WORKER PHOSPHORUS Routine 12/16/2024 3:43 AM EXPERIMENTAL WORKER MAGNESIUM LEVEL Routine 12/16/2024 3:43 AM EXPERIMENTAL WORKER CBC WITH DIFFERENTIAL Routine 12/16/2024 3:43 AM EXPERIMENTAL WORKER COMPREHENSIVE METABOLIC PANEL Routine 12/16/2024 3:43 AM EXPERIMENTAL WORKER POC GLUCOSE Routine 12/16/2024 12:14 AM EXPERIMENTAL WORKER POC GLUCOSE Routine 12/15/2024 8:02 PM EXPERIMENTAL WORKER PHOSPHORUS Routine 12/15/2024 4:25 PM EXPERIMENTAL WORKER MAGNESIUM LEVEL Routine 12/15/2024 4:25 PM EXPERIMENTAL WORKER CBC WITH DIFFERENTIAL Routine 12/15/2024 4:25 PM EXPERIMENTAL WORKER COMPREHENSIVE METABOLIC PANEL Routine 12/15/2024 4:25 PM EXPERIMENTAL WORKER POC GLUCOSE Routine 12/15/2024 12:32 PM EXPERIMENTAL WORKER TELEMETRY REPORT 12/15/2024 12:0 8 PM EXPERIMENTAL WORKER NM MYOCARD PERF IMAG SPECT MULT Routine 12/15/2024 11:10 AM EXPERIMENTAL WORKER HM EJECTION FRACTION Routine 12/15/2024 11:10 AM EXPERIMENTAL WORKER NM PHARMACOLOGICAL STRESS TEST Routine 12/15/2024 9:32 AM EXPERIMENTAL WORKER POC GLUCOSE Routine 12/15/2024 3:44 AM EXPERIMENTAL WORKER POC GLUCOSE Routine 12/14/2024 11:47 PM EXPERIMENTAL WORKER POC GLUCOSE Routine 12/14/2024 7:38 PM EXPERIMENTAL WORKER POC GLUCOSE Routine 12/14/2024 4:03 PM EXPERIMENTAL WORKER XR VIDEO SWALLOW W SPEECH Routine 12/14/2024 2:20 PM EXPERIMENTAL WORKER DIFFERENTIAL, MANUAL Routine 12/14/2024 12:25 PM EXPERIMENTAL WORKER PHOSPHORUS Routine 12/14/2024 12:25 PM EXPERIMENTAL WORKER MAGNESIUM LEVEL Routine 12/14/2024 12:25 PM EXPERIMENTAL WORKER CBC WITH DIFFERENTIAL Routine 12/14/2024 12:25 PM EXPERIMENTAL WORKER COMPREHENSIVE METABOLIC PANEL Routine 12/14/2024 12:25 PM EXPERIMENTAL WORKER POC GLUCOSE Routine 12/14/2024 12:18 PM EXPERIMENTAL WORKER POC GLUCOSE Routine 12/14/2024 9:03 AM EXPERIMENTAL WORKER ECHO LIMITED W CONTRAST Routine 12/14/19 7:24 AM EXPERIMENTAL WORKER POC GLUCOSE Routine 12/14/2024 3:29 AM EXPERIMENTAL WORKER POC GLUCOSE Routine 12/13/2024 11:56 PM EXPERIMENTAL WORKER POC GLUCOSE Routine 12/13/2024 7:48 PM EXPERIMENTAL WORKER POC GLUCOSE Routine 12/13/2024 4:43 PM EXPERIMENTAL WORKER XR CHEST PA OR AP 1 VW Routine 2:51 PM EXPERIMENTAL WORKER TELEMETRY REPORT 12/13/2024 11:4 7 AM EXPERIMENTAL WORKER POC GLUCOSE Routine 12/13/2024 11:45 AM EXPERIMENTAL WORKER POC GLUCOSE Routine 12/13/2024 7:25 AM EXPERIMENTAL WORKER DIFFERENTIAL, MANUAL Routine 12/13/2024 5:18 AM EXPERIMENTAL WORKER PHOSPHORUS Routine 12/13/2024 5:18 AM EXPERIMENTAL WORKER MAGNESIUM LEVEL Routine 12/13/2024 5:18 AM EXPERIMENTAL WORKER CBC WITH DIFFERENTIAL Routine 12/13/2024 5:18 AM EXPERIMENTAL WORKER COMPREHENSIVE METABOLIC PANEL Routine 12/13/2024 5:18 AM EXPERIMENTAL WORKER POC GLUCOSE Routine 12/13/2024 4:19 AM EXPERIMENTAL WORKER POC GLUCOSE Routine 12/12/2024 11:51 PM EXPERIMENTAL WORKER POC GLUCOSE Routine 12/12/2024 7:55 PM EXPERIMENTAL WORKER BASIC METABOLIC PANEL Routine 12/12/2024 4:39 PM EXPERIMENTAL WORKER POC GLUCOSE Routine 12/12/2024 3:56 PM EXPERIMENTAL WORKER POC GLUCOSE Routine 12/12/2024 12:28 PM EXPERIMENTAL WORKER XR CHEST PA OR AP 1 VW Routine 9:02 AM EXPERIMENTAL WORKER POC GLUCOSE Routine 12/12/2024 7:45 AM EXPERIMENTAL WORKER C-REACTIVE PROTEIN Routine 12/12/2024 4: 28 AM EXPERIMENTAL WORKER DIFFERENTIAL, MANUAL Routine 12/12/2024 4:28 AM EXPERIMENTAL WORKER PHOSPHORUS Routine 12/12/2024 4:28 AM EXPERIMENTAL WORKER MAGNESIUM LEVEL Routine 12/12/2024 4:28 AM EXPERIMENTAL WORKER CBC WITH DIFFERENTIAL Routine 12/12/2024 4:28 AM EXPERIMENTAL WORKER COMPREHENSIVE METABOLIC PANEL Routine 12/12/2024 4:28 AM EXPERIMENTAL WORKER POC GLUCOSE Routine 12/12/2024 3:32 AM EXPERIMENTAL WORKER POC GLUCOSE Routine 12/12/2024 12:11 AM EXPERIMENTAL WORKER POC GLUCOSE Routine 12/11/2024 9:09 PM EXPERIMENTAL WORKER POC GLUCOSE Routine 12/11/2024 4:16 PM EXPERIMENTAL WORKER US ABDOMEN LIMITED Routine 12/11/2024 3: 35 PM EXPERIMENTAL WORKER POC GLUCOSE Routine 12/11/2024 1:14 PM EXPERIMENTAL WORKER XR CHEST PA OR AP 1 VW Routine 10:44 AM EXPERIMENTAL WORKER POC GLUCOSE Routine 12/11/2024 8:07 AM EXPERIMENTAL WORKER DIFFERENTIAL, MANUAL Routine 12/11/2024 4:27 AM EXPERIMENTAL WORKER PHOSPHORUS Routine 12/11/2024 4:27 AM EXPERIMENTAL WORKER MAGNESIUM LEVEL Routine 12/11/2024 4:27 AM EXPERIMENTAL WORKER CBC WITH DIFFERENTIAL Routine 12/11/2024 4:27 AM EXPERIMENTAL WORKER COMPREHENSIVE METABOLIC PANEL Routine 12/11/2024 4:27 AM EXPERIMENTAL WORKER POC GLUCOSE Routine 12/11/2024 3:47 AM EXPERIMENTAL WORKER POC GLUCOSE Routine 12/10/2024 11:[address] SOFT TISSUE NECK W CONTRAST Stat 12/10/2024 10:27 PM EXPERIMENTAL WORKER POC GLUCOSE Routine 12/10/2024 7:36 PM EXPERIMENTAL WORKER POC GLUCOSE Routine 12/10/2024 4:05 PM EXPERIMENTAL WORKER POC GLUCOSE Routine 12/10/2024 12:16 PM EXPERIMENTAL WORKER TELEMETRY REPORT 12/10/2024 11:3 9 AM EXPERIMENTAL WORKER POC GLUCOSE Routine 12/10/2024 7:58 AM EXPERIMENTAL WORKER DIFFERENTIAL, MANUAL Routine 12/10/2024 4:22 AM EXPERIMENTAL WORKER PHOSPHORUS Routine 12/10/2024 4:22 AM EXPERIMENTAL WORKER MAGNESIUM LEVEL Routine 12/10/2024 4:22 AM EXPERIMENTAL WORKER CBC WITH DIFFERENTIAL Routine 12/10/2024 4:22 AM EXPERIMENTAL WORKER COMPREHENSIVE METABOLIC PANEL Routine 12/10/2024 4:22 AM EXPERIMENTAL WORKER POC GLUCOSE Routine 12/10/2024 3:42 AM EXPERIMENTAL WORKER POC GLUCOSE Routine 12/09/2024 11:42 PM EXPERIMENTAL WORKER POC GLUCOSE Routine 12/09/2024 7:59 PM EXPERIMENTAL WORKER POC GLUCOSE Routine 12/09/2024 4:16 PM EXPERIMENTAL WORKER POC GLUCOSE Routine 12/09/2024 12:01 PM EXPERIMENTAL WORKER BLOOD GAS VENOUS Stat 12/09/2024 10:4 4 AM EXPERIMENTAL WORKER XR CHEST PA OR AP 1 VW Stat 10:43 AM EXPERIMENTAL WORKER EXTUBATION Routine 12/09/2024 8:23 AM EXPERIMENTAL WORKER POC GLUCOSE Routine 12/09/2024 7:49 AM EXPERIMENTAL WORKER C-REACTIVE PROTEIN Routine 12/09/2024 4: 39 AM EXPERIMENTAL WORKER PHOSPHORUS Routine 12/09/2024 4:39 AM EXPERIMENTAL WORKER MAGNESIUM LEVEL Routine 12/09/2024 4:39 AM EXPERIMENTAL WORKER CBC WITH DIFFERENTIAL Routine 12/09/2024 4:39 AM EXPERIMENTAL WORKER COMPREHENSIVE METABOLIC PANEL Routine 12/09/2024 4:39 AM EXPERIMENTAL WORKER POC GLUCOSE Routine 12/09/2024 3:36 AM EXPERIMENTAL WORKER POC GLUCOSE Routine 12/08/2024 11:35 PM EXPERIMENTAL WORKER POC GLUCOSE Routine 12/08/2024 7:58 PM EXPERIMENTAL WORKER POC GLUCOSE Routine 12/08/2024 3:57 PM EXPERIMENTAL WORKER POC GLUCOSE Routine 12/08/2024 12:09 PM EXPERIMENTAL WORKER US DOPPLER VENOUS ARM BILATERAL Routine 12/08/2024 10:39 AM EXPERIMENTAL WORKER POC GLUCOSE Routine 12/08/2024 8:08 AM EXPERIMENTAL WORKER DIFFERENTIAL, MANUAL Routine 12/08/2024 4:25 AM EXPERIMENTAL WORKER PHOSPHORUS Routine 12/08/2024 4:25 AM EXPERIMENTAL WORKER MAGNESIUM LEVEL Routine 12/08/2024 4:25 AM EXPERIMENTAL WORKER CBC WITH DIFFERENTIAL Routine 12/08/2024 4:25 AM EXPERIMENTAL WORKER COMPREHENSIVE METABOLIC PANEL Routine 12/08/2024 4:25 AM EXPERIMENTAL WORKER POC GLUCOSE Routine 12/08/2024 3:43 AM EXPERIMENTAL WORKER POC GLUCOSE Routine 12/07/2024 11:39 PM EXPERIMENTAL WORKER POC GLUCOSE Routine 12/07/2024 8:32 PM EXPERIMENTAL WORKER POC GLUCOSE Routine 12/07/2024 7:41 PM EXPERIMENTAL WORKER POC GLUCOSE Routine 12/07/2024 4:19 PM EXPERIMENTAL WORKER XR ABDOMEN FOR FEEDING TUBE 1 VW Stat 12/07/2024 12:18 PM EXPERIMENTAL WORKER POC GLUCOSE Routine 12/07/2024 11:59 AM EXPERIMENTAL WORKER LACTIC ACID Timed Study 12/07/2024 11:58 AM EXPERIMENTAL WORKER BLOOD CULTURE Routine 12/07/2024 11:51 AM EXPERIMENTAL WORKER BLOOD CULTURE Routine 12/07/2024 11:51 AM EXPERIMENTAL WORKER ECHO TRANSESOPHAGEAL W DOPPLER AND COLOR FLOW Stat 12/07/2024 11:34 AM EXPERIMENTAL WORKER POC GLUCOSE Routine 12/07/2024 10:27 AM EXPERIMENTAL WORKER BLOOD GAS ARTERIAL Routine 12/07/2024 10 :27 AM EXPERIMENTAL WORKER POC GLUCOSE Routine 12/07/2024 9:15 AM EXPERIMENTAL WORKER SPUTUM CULTURE WITH GRAM STAIN Routine 12/07/2024 8:44 AM EXPERIMENTAL WORKER POC GLUCOSE Routine 12/07/2024 8:32 AM EXPERIMENTAL WORKER POC GLUCOSE Routine 12/07/2024 7:06 AM EXPERIMENTAL WORKER POC GLUCOSE Routine 12/07/2024 6:37 AM EXPERIMENTAL WORKER POC GLUCOSE Routine 12/07/2024 5:57 AM EXPERIMENTAL WORKER POC GLUCOSE Routine 12/07/2024 5:26 AM EXPERIMENTAL WORKER POC GLUCOSE Routine 12/07/2024 4:09 AM EXPERIMENTAL WORKER DIFFERENTIAL, MANUAL Routine 12/07/2024 4:01 AM EXPERIMENTAL WORKER PHOSPHORUS Routine 12/07/2024 4:01 AM EXPERIMENTAL WORKER MAGNESIUM LEVEL Routine 12/07/2024 4:01 AM EXPERIMENTAL WORKER CBC WITH DIFFERENTIAL Routine 12/07/2024 4:01 AM EXPERIMENTAL WORKER COMPREHENSIVE METABOLIC PANEL Routine 12/07/2024 4:01 AM EXPERIMENTAL WORKER VANCOMYCIN LEVEL RANDOM Routine 12/07/19 4:01 AM EXPERIMENTAL WORKER LACTIC ACID Timed Study 12/07/2024 4:01 AM EXPERIMENTAL WORKER POC GLUCOSE Routine 12/07/2024 3:18 AM EXPERIMENTAL WORKER POC GLUCOSE Routine 12/07/2024 2:10 AM EXPERIMENTAL WORKER POC GLUCOSE Routine 12/07/2024 1:03 AM EXPERIMENTAL WORKER BLOOD CULTURE Routine 12/07/2024 12:14 AM EXPERIMENTAL WORKER BLOOD CULTURE Routine 12/07/2024 12:14 AM EXPERIMENTAL WORKER LACTIC ACID Timed Study 12/07/2024 12:08 AM EXPERIMENTAL WORKER POC GLUCOSE Routine 12/06/2024 11:55 PM EXPERIMENTAL WORKER POC GLUCOSE Routine 12/06/2024 11:24 PM EXPERIMENTAL WORKER POC GLUCOSE Routine 12/06/2024 10:46 PM EXPERIMENTAL WORKER POC GLUCOSE Routine 12/06/2024 10:[address] CHEST W CONTRAST Stat 12/06/2024 9 :[address] SOFT TISSUE NECK W CONTRAST Stat 12/06/2024 9:04 PM EXPERIMENTAL WORKER POC GLUCOSE Routine 12/06/2024 8:03 PM EXPERIMENTAL WORKER POC GLUCOSE Routine 12/06/2024 7:18 PM EXPERIMENTAL WORKER SODIUM, RANDOM URINE Routine 12/06/2024 6:39 PM EXPERIMENTAL WORKER DRUG SCREEN, URINE Routine 12/06/2024 6: 39 PM EXPERIMENTAL WORKER URINALYSIS W/REFLEX MICROSCOPIC Routine 12/06/2024 6:39 PM EXPERIMENTAL WORKER URINE CULTURE Routine 12/06/2024 6:39 PM EXPERIMENTAL WORKER KETONES/BETA HYDROXYBUTYRATE Routine 12/06/2024 6:19 PM EXPERIMENTAL WORKER TROPONIN 6 HR, 5TH GEN Timed Study 5 6:19 PM EXPERIMENTAL WORKER LACTIC ACID Timed Study 12/06/2024 6:19 PM EXPERIMENTAL WORKER POC GLUCOSE Routine 12/06/2024 5:50 PM EXPERIMENTAL WORKER RESPIRATORY PATHOGEN PCR PANEL Routine 12/06/2024 5:15 PM EXPERIMENTAL WORKER MRSA PCR RAPID SCREEN Routine 12/06/2024 5:04 PM EXPERIMENTAL WORKER POC GLUCOSE Routine 12/06/2024 5:00 PM EXPERIMENTAL WORKER TROPONIN 2 HR, 5TH GEN Timed Study 5 4:57 PM EXPERIMENTAL WORKER BLOOD GAS ARTERIAL Stat 12/06/2024 4: 56 PM EXPERIMENTAL WORKER ECHOCARDIOGRAM W/ CONTRAST AGENT Stat 12/06/2024 3:41 PM EXPERIMENTAL WORKER POC GLUCOSE Routine 12/06/2024 3:37 PM EXPERIMENTAL WORKER XR CHEST PA OR AP 1 VW Stat 2:25 PM EXPERIMENTAL WORKER CALCIUM IONIZED Routine 12/06/2024 2:23 PM EXPERIMENTAL WORKER DIFFERENTIAL, MANUAL Routine 12/06/2024 1:46 PM EXPERIMENTAL WORKER CBC WITH DIFFERENTIAL Routine 12/06/2024 1:46 PM EXPERIMENTAL WORKER TSH REFLEXIVE Routine 12/06/2024 1:46 PM EXPERIMENTAL WORKER TROPONIN BASELINE, 5TH GEN Stat 12/06/2024 1:46 PM EXPERIMENTAL WORKER PROCALCITONIN Routine 12/06/2024 1:46 PM EXPERIMENTAL WORKER C-REACTIVE PROTEIN Routine 12/06/2024 1: 46 PM EXPERIMENTAL WORKER HEMOGLOBIN A1C Routine 12/06/2024 1:46 PM EXPERIMENTAL WORKER COMPREHENSIVE METABOLIC PANEL Routine 12/06/2024 1:46 PM EXPERIMENTAL WORKER LACTIC ACID Stat 12/06/2024 1:46 PM EXPERIMENTAL WORKER MAGNESIUM LEVEL Routine 12/06/2024 1:46 PM EXPERIMENTAL WORKER DIC PROFILE Routine 12/06/2024 1:46 PM EXPERIMENTAL WORKER POC GLUCOSE Routine 12/06/2024 1:23 PM EXPERIMENTAL WORKER OCCULT BLOOD IMMUNOASSAY, COLORECTAL SCREEN Routine 12/20/2020 5:06 PM EXPERIMENTAL WORKER from Last 3 Months or Most Recently Relevant to Health Maintenance Results * TELEMETRY REPORT (12/22/2024 10:01 AM EXPERIMENTAL WORKER) Only the most recent of5 resultswithin the time period is included. us Provider Scanning ECG ORDERABLES Final Result * (ABNORMAL) POC GLUCOSE (12/21/2024 8:02 AM EXPERIMENTAL WORKER) Only the most recent of94 resultswithin the time period is included. GLUCOSE POC 110(H) 74 - 99 mg/dL 12/21/2024 8:02 AM [facility] [employer] [facility] SPECIMEN SOURCE, GLUCOSE POC Whole Blood 12/21/2024 8:02 AM [facility] [employer] [facility] COMMENT, GLU POC Notified RN/MD 12/21/2024 8:02 AM [facility] [employer] [facility] Blood, whole 12/21/2024 8:02 AM EXPERIMENTAL WORKER 12/21/2024 8:16 AM EXPERIMENTAL WORKER Christian Cunningham MD POINT OF CARE TESTING Final Result [facility]# [id number] 5 [facility] [address] * (ABNORMAL) CBC WITH DIFFERENTIAL (12/21/2024 7:07 AM EXPERIMENTAL WORKER) Only the most recent of16 resultswithin the time period is included. Pathologist [facility] WBC 10.6(H) 4.0 - 9.8 K/uL 12/21/2024 7:40 AM [facility] RBC 3.94 3.90 - 4.90 M/uL 12/21/2024 7:40 AM [facility] HEMOGLOBIN 11.6(L) 11.8 - 14.8 g/dL 12/21/2024 7:40 AM [facility] [employer] [facility] HEMATOCRIT 37.5 35.5 - 44.0 % 12/21/2024 7:40 AM [facility] MCV 95.2 82.0 - 99.0 fL 12/21/2024 7:40 AM [facility] [employer] [facility] MCH 29.4 27.2 - 32.6 pg 12/21/2024 7:40 AM [facility] MCHC 30.9(L) 31.5 - 35.5 g/dL 12/21/2024 7:40 AM EXPERIMENTAL WORKER [facility] [facility] RDW 16.4(H) 11.5 - 14.5 % 12/21/2024 7:40 AM EXPERIMENTAL WORKER [facility] RDW-STDEV 55.8(H) 37.1 - 48.7 fL 12/21/2024 7:40 AM EXPERIMENTAL WORKER [facility] PLATELETS 410(H) 140 - 350 K/uL 12/21/2024 7:40 AM EXPERIMENTAL WORKER [facility] MPV 11.4 9.3 - 12.4 fL 12/21/2024 7:40 AM EXPERIMENTAL WORKER [employer] [facility] NEUTROPHILS 45 % 12/21/2024 7:40 AM EXPERIMENTAL WORKER [employer] [facility] LYMPHOCYTES 43 % 12/21/2024 7:40 AM EXPERIMENTAL WORKER [employer] [facility] MONOCYTES 9 % 12/21/2024 7:40 AM EXPERIMENTAL WORKER [employer] [facility] EOSINOPHILS 1 % 12/21/2024 7:40 AM [employer] [facility] BASOPHILS 1 % 12/21/2024 7:40 AM EXPERIMENTAL WORKER [employer] [facility] IMMATURE GRANULOCYTES 1 % 12/21/2024 7:40 AM EXPERIMENTAL WORKER [employer] [facility] Comment:IG (Immature Granulo cyte) count includes Metamyelocytes, Myelocytes, and Promyelocytes NEUTROPHIL ABSOLUTE 4.80 1.90 - 7.00 K/uL 12/21/2024 7:40 AM [facility] LYMPHOCYTE ABSOLUTE 4.56(H) 0.70 - 4.50 K/uL 12/21/2024 7:40 AM EXPERIMENTAL WORKER [employer] [facility] MONOCYTE ABSOLUTE 1.00 0.10 - 1.30 K/uL 12/21/2024 7:40 AM EXPERIMENTAL WORKER [employer] [facility] EOSINOPHIL ABSOLUTE 0.12 0.00 - 0.70 K/uL 12/21/2024 7:40 AM EXPERIMENTAL WORKER [employer] [facility] BASOPHILS ABSOLUTE 0.08 0.00 - 0.20 K/uL 12/21/2024 7:40 AM EXPERIMENTAL WORKER [employer] [facility] IMMATURE GRANULOCYTES ABSOLUTE 0.05(H) 0.00 - 0.03 K/uL 12/21/2024 7:40 AM EXPERIMENTAL WORKER [facility] LABORATORY [facility] Blood Venipuncture / Unknown 12/21/2024 7:07 AM EXPERIMENTAL WORKER 12/21/2024 7:26 AM EXPERIMENTAL WORKER [facility] HEMATOLOGY ORDERABLES Fi nal Result Performing Organization Address City/[facility]/ZIP Co de Phone Number [facility] CLIA# [id number] [address] [place], [place] [address] * PHOSPHORUS (12/21/2024 7:07 AM EXPERIMENTAL WORKER) Only the most recent of15 resultswithin the time period is included. PHOSPHORUS 2.8 2.5 - 4.5 mg/dL 12/21/2024 8:16 AM EXPERIMENTAL WORKER [facility] [employer] [facility] Blood Venipuncture / Unknown 12/21/2024 7:07 AM EXPERIMENTAL WORKER 12/21/2024 7:26 AM EXPERIMENTAL WORKER [facility] CHEMISTRY ORDERABLES Fin al Result Performing Organization Address [facility] Phone Number [facility]# [id number] [address] [place] [address] * MAGNESIUM LEVEL (12/21/2024 7:07 AM EXPERIMENTAL WORKER) Only the most recent of16 resultswithin the time period is included. MAGNESIUM 1.8 1.6 - 2.4 mg/dL 12/21/2024 8:16 AM EXPERIMENTAL WORKER [facility] [employer] [facility] Blood Venipuncture / Unknown 12/21/2024 7:07 AM EXPERIMENTAL WORKER 12/21/2024 7:26 AM EXPERIMENTAL WORKER [facility] CHEMISTRY ORDERABLES Fin al Result Performing Organization Address City/[facility] Co de Phone Number [facility] CLIA# [id number] [address] [facility] [place] [address] * (ABNORMAL) COMPREHENSIVE METABOLIC PANEL (12/21/2024 7:07 AM EXPERIMENTAL WORKER) Only the most recent of16 resultswithin the time period is included. SODIUM 138 136 - 145 mmol/L 12/21/2024 9:06 AM [facility] [employer] LABORATORY SERVICES - [facility] POTASSIUM 3.6 3.5 - 5.0 mmol/L 12/21/2024 9:06 AM EXPERIMENTAL WORKER [employer] LABORATORY SERVICES - . [facility] CHLORIDE 102 98 - 107 mmol/L 12/21/2024 9:06 AM [employer] LABORATORY SERVICES - . [facility] CO2 25 22 - 29 mmol/L 12/21/2024 9:06 AM [facility] [employer] LABORATORY SERVICES - . [facility] CALCIUM 9.2 8.6 - 10.2 mg/dL 12/21/2024 9:06 AM [facility] [employer] LABORATORY SERVICES [facility] BUN 7(L) 8 - 23 mg/dL 12/21/2024 9:06 AM [facility] [employer] LABORATORY [facility] CREATININE 0.60 0.51 - 0.95 mg/dL 12/21/2024 9:06 AM [facility] [employer] LABORATORY SERVICES [facility] Comment:The GFR result is no t clinically significant on patients <18 or >70 years of age. GLUCOSE 126(H) 74 - 99 mg/dL 12/21/2024 9:06 AM [facility] [employer] LABORATORY SERVICES [facility] TOTAL PROTEIN 5.5(L) 6.7 - 8.6 g/dL 12/21/2024 9:06 AM EXPERIMENTAL WORKER [employer] LABORATORY SERVICES [facility] ALBUMIN 2.7(L) 3.5 - 5.2 g/dL 12/21/2024 9:06 AM [employer] LABORATORY SERVICES [facility] BILIRUBIN TOTAL 0.3 0.2 - 1.1 mg/dL 12/21/2024 9:06 AM EXPERIMENTAL WORKER [employer] LABORATORY [facility] ALKALINE PHOSPHATASE 73 35 - 104 U/L 12/21/2024 9:06 AM EXPERIMENTAL WORKER [employer] LABORATORY [facility] AST 21 <33 U/L 12/21/2024 9:06 AM [facility] [employer] LABORATORY SERVICES [facility] Comment:Hemolysis present. R esult may be falsely elevated. ALT <5 <34 U/L 12/21/2024 9:06 AM [facility] LABORATORY [facility] GFR >60 mL/min/1.7 3 sq meter 12/21/2024 9:06 AM [facility] Comment:eGFR calculated with 2020 CKD-EPI equation. Vegetarian diet, extremely high or low muscle mass, and may affect results. Cystatin C with Glomerular Filtration Rate is a suitable alternative for these patients. ANION GAP 11 8 - 16 mmol/L 12/21/2024 9:06 AM [facility] Blood Venipuncture / Unknown 12/21/2024 7:07 AM EXPERIMENTAL WORKER 12/21/2024 7:26 AM EXPERIMENTAL WORKER Narrative [facility] - 12/21/2024 9:06 AM EXPERIMENTAL WORKER Samples containing indocyanine green cause interferences on Total and/or Direct Bilirubin and must not be measured. Quentin Cloud [place] CHEMISTRY ORDERABLES Fin al Result [facility]# [id number] [address] [facility] [place] [address] * NM MYOCARD PERF IMAG SPECT MULT (12/15/2024 11:10 AM EXPERIMENTAL WORKER) 12/15/2024 11:1 1 AM EXPERIMENTAL WORKER Impressions INTERFACE SYSTEM - 12/15/2024 12:20 PM EXPERIMENTAL WORKER IMPRESSION: 1) Stress EKG response was negative [...] Narrative INTERFACE SYSTEM - 12/15/2024 12:20 PM EXPERIMENTAL WORKER Procedure Type: One Day Myoview Regadenoson Pharmacologic [...] comparison. Recommendations: Clinical correlation is recommended. Result [facility] Quentin Cloud [facility] ORDERABLES Final Re sult INTERFACE SYSTEM Refer to clinic/hospital department * (ABNORMAL) EJECTION FRACTION (12/15/2024 11:10 AM EXPERIMENTAL WORKER) [facility] EJECTION FRACTION 72(A) 50 - 65 % Result [facility] Historical Provider HEALTH MAINTENANCE Final Res ult * NM PHARMACOLOGICAL STRESS TEST (12/15/2024 9:32 AM EXPERIMENTAL WORKER) Narrative 12/15/2024 9:33 AM EXPERIMENTAL WORKER Order information only. Exam was auto-finalized. Result [facility] Quentin Cloud [place] NM ORDERABLES Final Re sult * XR VIDEO SWALLOW W SPEECH (12/14/2024 2:20 PM EXPERIMENTAL WORKER) Anatomical Region Laterality Modality Chest Computed Radiogr aphy 12/14/2024 2:22 PM EXPERIMENTAL WORKER Impressions 12/14/2024 2:51 PM EXPERIMENTAL WORKER IMPRESSION: No laryngeal penetration or tracheal aspiration. DICTATION LOCATION: Location 1 - [facility] Narrative 12/14/2024 2:51 PM EXPERIMENTAL WORKER EXAMINATION: MODIFIED SWALLOWING STUDY DATE: 12/14/2024 2:20 [...] further details. INCIDENTAL FINDINGS: None. Procedure Note Mktawanda Guillaume, DO - 12/14/2024 EXAMINATION: MODIFIED SWALLOWING STUDY [...] aspiration. DICTATION LOCATION: Location 1 - [facility] Susu Rowan MD DIAGNOSTIC IMAGING ORDERABLE S Final Result * (ABNORMAL) MANUAL DIFFERENTIAL (12/14/2024 12:25 PM EXPERIMENTAL WORKER) Only the most recent of8 resultswithin the time period is included. SEGMENTED NEUTROPHILS 51 % 12/15/2024 10:23 AM [facility] LABORATORY [facility] LYMPHOCYTES RELATIVE 38(L) 43 - 53 % 12/15/2024 10:23 AM [facility] [employer] [facility] ATYPICAL LYMPHOCYTES RELATIVE 11(H) 0 - 5 % 12/15/2024 10:23 AM [facility] [employer] [facility] NEUTROPHILS ABSOLUTE COUNT 10.15(H) 1.90 - 7.00 K/uL 12/15/2024 10:23 AM [facility] [employer] [facility] LYMPHOCYTES ABSOLUTE 7.56(H) 0.70 - 4.50 K/uL 12/15/2024 10:23 AM [facility] [employer] [facility] TOTAL CELLS COUNTED IN DIFF 100 12/15/2024 10:23 AM [facility] [employer] [facility] PLATELET EST. Consistent w Count 12/15/2024 10:23 AM [facility] [employer] [facility] ANISOCYTOSIS 1+ /hpf 12/15/2024 10:23 AM EXPERIMENTAL WORKER [facility] LABORATORY [facility] SMUDGE CELLS Present /100 12/15/2024 10:23 AM EXPERIMENTAL WORKER [facility] Blood Venipuncture / Unknown 12/14/2024 12:25 PM EXPERIMENTAL WORKER 12/14/2024 12:33 PM EXPERIMENTAL WORKER Narrative [facility] LABORATORY [facility] - 12/15/2024 10:23 AM EXPERIMENTAL WORKER Manual differential performed on albumin slide.Pathologist's comment: Leukocytosis with absolute neutrophilia and lymphocytosis. Scattered atypical lymphocytes. Suggest flow cytometry to further evaluate. Reviewed by: Tatiana Mitchell MD. us Quentin ROMAN HEMATOLOGY ORDERABLES CO M Final Result [facility] CLIA# [id number] [address] [place] [address] * ECHO LIMITED W CONTRAST (12/14/2024 7:24 AM EXPERIMENTAL WORKER) EJECTION FRACTION 65 INTERFACE SYSTEM 12/14/2024 7:09 AM EXPERIMENTAL WORKER Narrative INTERFACE SYSTEM - 12/14/2024 9:09 AM [facility] [address] [place] [address] [email or web address] Transthoracic Echocardiogram Patient: Ofelia Hilliard Study ID: ECHO LIMITED W C Gender: F : 1955 Age: 69 Race: CAU Height 157.5cm Study Date: 12/14/2024 Weight: 85.7kg Access. #: [id number] BP: *Referring Physician:* Raegan Cooley Lalasa *Ordering Physician:* Raegan Cooley tooth clerk: Nurse: Indications: Cardiomyopathy. Limited study. STUDY CONCLUSIONS: [...] Prepared and Electronically Authenticated Dano Reno Bruce [id number]:53 Procedure Note Salomon Reno MD - 12/14/2024 [place] [address] [email or web address] [email or web address] Echocardiogram Patient: Ofelia Hilliard Study ID: ECHO LIMITED W C Gender: F : 1955 Age: 69 Race: [facility] Height 157.5cm Study Date: 12/14/2024 Weight: 85.7kg Access. #: [id number] BP: *Referring Physician:* Raegan Cooley Lalasa *Ordering Physician:* Raegan Cooley tooth clerk: Nurse: Indications: Cardiomyopathy. Limited study. STUDY CONCLUSIONS: [...] AM. Prepared andElectronically Authenticated Dano Reno, Salomon [id number]:53 us Raegan Cooley NP ORDERABLES Final Result Performing Organization Address City/State/[facility] Co de Phone Number INTERFACE SYSTEM Refer to clinic/hospital department * XR CHEST PA OR AP 1 VW (12/13/2024 2:51 PM EXPERIMENTAL WORKER) Only the most recent of5 resultswithin the time period is included. Anatomical Region Laterality Modality Chest Computed Radiogr aphy 12/13/2024 2:51 PM EXPERIMENTAL WORKER Impressions 12/13/2024 3:47 PM EXPERIMENTAL WORKER IMPRESSION: Hypoinflated lungs. No new focal consolidation or enlarging pleural effusion. DICTATION LOCATION: Location [address] [place] [address] 12/13/2024 3:47 PM EXPERIMENTAL WORKER EXAMINATION: XR CHEST PA OR AP 1 [...] consolidation or enlarging pleural effusion. DICTATION LOCATION: [address] Quentin Cloud [place] DIAGNOSTIC IMAGING ORDER ZAIN Final Result * (ABNORMAL) BASIC METABOLIC PANEL (12/12/2024 4:39 PM EXPERIMENTAL WORKER) SODIUM 138 136 - 145 mmol/L 12/12/2024 6:17 PM EXPERIMENTAL WORKER [employer] LABORATORY SERVICES [facility] POTASSIUM 4.0 3.5 - 5.0 mmol/L 12/12/2024 6:17 PM EXPERIMENTAL WORKER [employer] LABORATORY SERVICES [facility] CHLORIDE 103 98 - 107 mmol/L 12/12/2024 6:17 PM EXPERIMENTAL WORKER [employer] LABORATORY SERVICES [facility] CO2 23 22 - 29 mmol/L 12/12/2024 6:17 PM [facility] [employer] LABORATORY [facility] CALCIUM 9.0 8.6 - 10.2 mg/dL 12/12/2024 6:17 PM EXPERIMENTAL WORKER [employer] LABORATORY SERVICES [facility] BUN 36(H) 8 - 23 mg/dL 12/12/2024 6:17 PM EXPERIMENTAL WORKER [employer] LABORATORY SERVICES [facility] CREATININE 0.76 0.51 - 0.95 mg/dL 12/12/2024 6:17 PM EXPERIMENTAL WORKER [employer] LABORATORY SERVICES [facility] Comment:The GFR result is no t clinically significant on patients <18 or >70 years of age. GLUCOSE 265(H) 74 - 99 mg/dL 12/12/2024 6:17 PM EXPERIMENTAL WORKER [employer] LABORATORY SERVICES [facility] GFR >60 mL/min/1.7 3 sq meter 12/12/2024 6:17 PM EXPERIMENTAL WORKER [facility] LABORATORY [facility] Comment:eGFR calculated with 2020 CKD-EPI equation. Vegetarian diet, extremely high or low muscle mass, and may affect results. Cystatin C with Glomerular Filtration Rate is a suitable alternative for these patients. ANION GAP 12 8 - 16 mmol/L 12/12/2024 6:17 PM EXPERIMENTAL WORKER [facility] LABORATORY [facility] Blood Venipuncture / Unknown 12/12/2024 4:39 PM EXPERIMENTAL WORKER 12/12/2024 4:59 PM EXPERIMENTAL WORKER Quentin ROMAN CHEMISTRY ORDERABLES Fin al Result Performing Organization Address [facility]/ZIP Co de Phone Number [facility]# [id number] [address] [place] [address] * (ABNORMAL) C-REACTIVE PROTEIN (12/12/2024 4:28 AM EXPERIMENTAL WORKER) Only the most recent of3 resultswithin the time period is included. CRP 14.6(H) <5.0 mg/L 12/12/2024 8:54 AM EXPERIMENTAL WORKER [facility] Blood Venipuncture / Unknown 12/12/2024 4:28 AM EXPERIMENTAL WORKER 12/12/2024 4:34 AM EXPERIMENTAL WORKER Sudhakar Napier MD CHEMISTRY ORDERABLES Final Resul t Performing Organization Address [facility] Co de Phone Number [facility]# [id number] [address] [place] [address] * US ABDOMEN LIMITED (12/11/2024 3:35 PM EXPERIMENTAL WORKER) Anatomical Region Laterality Modality Abdomen Ultrasound 12/11/2024 3:37 PM EXPERIMENTAL WORKER Impressions 12/11/2024 4:01 PM EXPERIMENTAL WORKER IMPRESSION: 1. Mild diffuse hepatic steatosis with morphologic features suggestive of underlying hepatic fibrosis. Trace perihepatic ascites. 2. Status post cholecystectomy without significant biliary ductal dilatation. DICTATION LOCATION: Location 1 - [facility] Narrative 12/11/2024 4:01 PM EXPERIMENTAL WORKER EXAMINATION: Limited abdominal ultrasound HISTORY: Elevated LFT's [...] dilatation. DICTATION LOCATION: Location 1 - [facility] Quentin Cloud [place] US ORDERABLES Final Re sult * CT SOFT TISSUE NECK W CONTRAST (12/10/2024 10:27 PM EXPERIMENTAL WORKER) Only the most recent of2 resultswithin the time period is included. Anatomical Region Laterality Modality Neck Computed Tomogra phy 12/10/2024 10:1 1 PM EXPERIMENTAL WORKER Impressions 12/10/2024 10:49 PM EXPERIMENTAL WORKER IMPRESSION: 1. Soft tissue mass in the subcutaneous fat of the submental space. No fluid collection to suggest abscess 2. Bilateral pleural effusions, similar to prior exam 3. Unchanged retrocaval meningioma DICTATION LOCATION: Location 1 - [facility] Narrative 12/10/2024 10:[address] SOFT TISSUE NECK WITH IV CONTRAST [...] meningioma DICTATION LOCATION: Location 1 - [facility] Quentin Cloud [place] ORDERABLES Final Re sult * BLOOD GAS VENOUS (12/09/2024 10:44 AM [facility]) [facility] PH, VENOUS 7.42 7.32 - 7.43 12/09/2024 10:58 AM [facility] LABORATORY [facility] PCO2 VENOUS 39 38 - 50 mm Hg 12/09/2024 10:58 AM [facility] [employer] [facility] PO2 VENOUS 36 25 - 40 mm Hg 12/09/2024 10:58 AM [facility] [employer] [facility] HCO3 VENOUS 24 22 - 29 mmol/L 10:58 AM [facility] [employer] [facility] BASE EXCESS VENOUS 0.4 Reference Range Not Established mmol/L 12/09/2024 10:58 AM [facility] LABORATORY [facility] HEMOGLOBIN VENOUS 12.5 No Ref Range Estab g/dL 12/09/2024 10:58 AM [facility] LABORATORY [facility] O2 SAT EST VENOUS 64 40 - 70 % 12/09/2024 10:58 AM [facility] [employer] [facility] OXYGEN MODE BIPAP/CPA P 12/09/2024 10:58 AM [facility] [employer] [facility] FIO2 21.0 21.0 - 100.0 % 12/09/2024 10:58 AM [facility] [employer] [facility] Blood, venous Venipuncture / Unknown 12/09/2024 10:44 AM EXPERIMENTAL WORKER 12/09/2024 10:51 AM EXPERIMENTAL WORKER Sarah LAINEZ ABG ORDERABLES Final Result [facility]# [id number] [address] [facility] BHAVIK [id number] * US DOPPLER VENOUS ARM BILATERAL (12/08/2024 10:39 AM EXPERIMENTAL WORKER) Anatomical Region Laterality Modality Upper Extremity Ultrasound 12/08/2024 10:0 3 AM EXPERIMENTAL WORKER Narrative 12/08/2024 1:37 PM EXPERIMENTAL WORKER [facility] [address] [place] [address] [email or web address] Venous Exam Complete Upper Extremity Duplex Patient: Ofelia Hilliard Study ID: [id number] Gender: F : 1955 Age: 69 Race: CAU Height Study Date: 12/08/2024 Weight: Access. #: [id number] *Referring Physician:* Quentin Cloud Lalasa *Ordering Physician:* Quentin Cloud *Ribbon Tier:* Lavern Washburn History: DVT per ordering provider. [...] mm Prepared and Electronically Authenticated Sukumar Barraza [id number]:55 Procedure Note Sukumar Barraza MD - 12/08/2024 [place] [address] [place] [address] [email or web address] Venous Exam Complete Upper Extremity Duplex Patient: Ofelia Hilliard Study ID:[id number] Gender: F :1955 Age: 69 Race: CAU Height Study Date:12/08/2024 Weight: Access. #:[id number] *Referring Physician:Quentin Cruz Lalasa *Ordering Physician:* Quentin CloudRibbon Tier:Lavern Butts History: DVT per ordering provider. PMH: No prior study is availablefor comparison. Concern [...] mm Prepared and Electronically Authenticated Sukumar Barraza [id number]:55 us Quentin ROMAN US ORDERABLES Final Re sult * XR ABDOMEN FOR FEEDING TUBE 1 VW (12/07/2024 12:18 PM EXPERIMENTAL WORKER) Anatomical Region Laterality Modality Abdomen Computed Radiogr aphy 12/07/2024 12:1 9 PM EXPERIMENTAL WORKER Impressions 12/07/2024 10:31 PM EXPERIMENTAL WORKER : The exam shows a gastric tube extending below the diaphragm into the stomach. The tip is in the proximal stomach. DICTATION LOCATION: Location 1 - [facility] Narrative 12/07/2024 10:31 PM EXPERIMENTAL WORKER XR ABDOMEN FOR FEEDING TUBE 1 VW DATE: 12/07/2024 12:18 PM HISTORY: Check Tube Placement. COMPARISON: None. TECHNIQUE: Supine portable abdomen. FINDINGS/ us Susu Rowan MD DIAGNOSTIC IMAGING ORDERABLE S Final Result * LACTIC ACID (12/07/2024 11:58 AM EXPERIMENTAL WORKER) Only the most recent of5 resultswithin the time period is included. LACTIC ACID 1.4 <=2.0 mmol/L 12/07/2024 12:38 PM EXPERIMENTAL WORKER [facility] LABORATORY [facility] Blood Venipuncture / Unknown 12/07/2024 11:58 AM EXPERIMENTAL WORKER 12/07/2024 12:10 PM EXPERIMENTAL WORKER Quentin ROMANBS CHEMISTRY ORDERABLES Fin al Result Performing Organization Address City/[facility]/ZIP Co de Phone Number [facility]# [id number] [address] [place] [address] * BLOOD CULTURE (12/07/2024 11:51 AM EXPERIMENTAL WORKER) Only the most recent of2 resultswithin the time period is included. BLOOD CULTURE No growth 12/12/2024 1:05 PM EXPERIMENTAL WORKER [facility] Blood (Peripheral) Venipuncture / Unknown 12/07/2024 11:51 AM EXPERIMENTAL WORKER 12/07/2024 12:20 PM EXPERIMENTAL WORKER [facility] - 12/12/2024 1:05 PM EXPERIMENTAL WORKER Specimen processed with suboptimal blood volume collected. Susu Rowan MD MICROBIOLOGY - GENERAL ORDER ZAIN Final Result Performing Organization Address [facility] Co de Phone Number [facility]# [id number] [facility] [place] [address] * ECHO TRANSESOPHAGEAL W DOPPLER AND COLOR FLOW (12/07/2024 11:34 AM EXPERIMENTAL WORKER) EJECTION FRACTION EF: INTERFACE SYSTEM 12/07/2024 10:4 1 AM EXPERIMENTAL WORKER Narrative INTERFACE SYSTEM - 12/07/2024 5:17 PM EXPERIMENTAL WORKER [facility] [address] [place] [address] [email or web address] Transesophageal Echocardiogram Patient: Ofelia Hilliard Study ID: SHIRLEY VEE Gender: F : 1955 Age: 69 Race: CAU Height Study Date: 12/07/2024 Weight: Access. #: [id number] BP: *Referring Physician:* Quentin Cloud *Ordering Physician:* Quentin Cloud tooth clerk: Nurse: Indications: Bacteremia / Endocarditis. STUDY CONCLUSIONS: [...] transesophageal probe was inserted by the attending wind turbine sheet metal worker without difficulty. Study completion: There were no complications. Administered medications: Fentanyl. Diagnostic transesophageal echocardiogram. 2D, spectral Doppler, and color Doppler. Birthdate: Patient birthdate: 1955. Age: Patient is 69year(s) old. Sex: gender: female. Study date: Study date: 12/07/2024. Study time: 10:41 AM. Prepared and Electronically Authenticated Dano Reno Bruce [id number]:54 Procedure Note Salomon Reno MD - 02/18/[address] [place] [address] [email or web address] Transesophageal Echocardiogram Patient: Ofelia Hilliard Study ID: ECHO TRANSKELI Gender: F : 1955 Age: 69 Race: CAU Height Study Date: 12/07/2024 Weight: Access. #: [id number] BP: *Referring Physician:* Quentin Cloud *Ordering Physician:* Quentin Cloud tooth clerk: Nurse: Indications: Bacteremia / Endocarditis. STUDY CONCLUSIONS: [...] transesophageal probe was inserted by the attending wind turbine sheet metal worker without difficulty. Study completion: There were no complications.Administered medications: Fentanyl. Diagnostic transesophagealechocardiogram. 2D, spectral Doppler, and color Doppler. Birthdate: Patient birthdate: 1955. Age: Patient is 69year(s) old. Sex: gender:female. Study date: Study date: 12/07/2024. Study time: 10:41 AM. Preparedand Electronically Authenticated Dano Reno, Salomon [id number] us Quentin Cloud MB US ORDERABLES Final Re sult INTERFACE SYSTEM Refer to clinic/hospital department * (ABNORMAL) BLOOD GAS ARTERIAL (12/07/2024 10:27 AM EXPERIMENTAL WORKER) Only the most recent of2 resultswithin the time period is included. PH ARTERIAL 7.43 7.35 - 7.45 12/07/2024 10:46 AM [facility] [employer] LABORATORY SERVICES [facility] PCO2 ARTERIAL 30(L) 35 - 48 mm Hg 12/07/2024 10:46 AM [facility] [employer] LABORATORY [facility] PO2 ARTERIAL 179(H) 83 - 108 mm Hg 12/07/2024 10:46 AM [facility] [employer] LABORATORY SERVICES [facility] HCO3 ARTERIAL 20(L) 22 - 26 mmol/L 12/07/2024 10:46 AM [facility] [employer] SERVICES [facility] BASE EXCESS ABG -3.5(L) -2.0 - 3.0 mmol/L 12/07/2024 10:46 AM [facility] [employer] LABORATORY SERVICES [facility] O2 SAT EST ARTERIAL 99 95 - 99 % 12/07/2024 10:46 AM [facility] [employer] LABORATORY SERVICES [facility] P/F RATIO ARTERIAL 511 12/07/2024 10:46 AM [facility] [employer] [facility] OXYGEN MODE Ventilator 12/07/2024 10:46 AM [facility] [employer] [facility] FIO2 35.0 21.0 - 100.0 % 12/07/2024 10:46 AM [facility] [employer] LABORATORY SERVICES [facility] Blood, arterial Arterial / Unknown 2024 10:27 AM EXPERIMENTAL WORKER 12/07/2024 10:43 AM EXPERIMENTAL WORKER Quentin BAUTISTA ABG ORDERABLES Final Re sult Performing Organization Address [facility] Co de Phone Number [facility] [id number] [address] [place] [address] * SPUTUM CULTURE WITH GRAM STAIN (12/07/2024 8:44 AM EXPERIMENTAL WORKER) CULTURE No growth 12/09/2024 11:02 AM EXPERIMENTAL WORKER [facility] [employer] [facility] GRAM STAIN Non diagnostic pattern 12/09/2024 11:02 AM EXPERIMENTAL WORKER [facility] [employer] [facility] GRAM STAIN 2+ (Few) Polymorphonuclear WBC 12/09/2024 11:02 AM EXPERIMENTAL WORKER [facility] [employer] [facility] Sputum SPUTUM SPECIMEN OBTAINED BY ASPIRATION / Unknown Collection / Unknown 12/07/2024 8:44 AM EXPERIMENTAL WORKER 12/07/2024 8:50 AM EXPERIMENTAL WORKER Result [facility] Quentin BAUTISTA MICROBIOLOGY - GENERAL O RDERABLES Final Result Performing Organization Address [facility] Co de Phone Number [facility] [employer] [facility] [id number] [address] [place] [address] * VANCOMYCIN LEVEL RANDOM (12/07/2024 4:01 AM EXPERIMENTAL WORKER) VANCOMYCIN, RANDOM 13.4 See Comment ug/mL 12/07/2024 4:50 AM EXPERIMENTAL WORKER [facility] [employer] [facility] Blood Venipuncture / Unknown 12/07/2024 4:01 AM EXPERIMENTAL WORKER 12/07/2024 4:16 AM EXPERIMENTAL WORKER Narrative [facility] LABORATORY [facility] - 12/07/2024 4:50 AM EXPERIMENTAL WORKER Vancomycin Trough Therapeutic Range = 10.0 - 20.0 ug/mL Vancomycin Trough Toxic Level = >25.0 ug/mL Laurie Davis MD CHEMISTRY ORDERABLES [facility]ly [facility], 1928–1983 Result [facility] LABORATORY SERVICES [facility]# [id number] [place] [place] [address] * CT CHEST W CONTRAST (12/06/2024 9:05 PM EXPERIMENTAL WORKER) Anatomical Region Laterality Modality Chest Computed Tomogra phy 12/06/2024 8:40 PM EXPERIMENTAL WORKER Impressions 12/06/2024 9:42 PM EXPERIMENTAL WORKER IMPRESSION: 1. Motion limited evaluation. 2. Soft [...] report. DICTATION LOCATION: Location 1 - [facility] Narrative 12/06/2024 9:[address] CHEST W CONTRAST IOPAMIDOL 61 % [...] report. DICTATION LOCATION: Location 1 - [facility] Quentin BAUTISTA CT ORDERABLES Final Re sult * SODIUM, RANDOM URINE (12/06/2024 6:39 PM EXPERIMENTAL WORKER) SODIUM, URINE 62 mmol/L 12/07/2024 10:21 AM EXPERIMENTAL WORKER [facility] [employer] [facility] Comment:Reference range not established Urine URINE SPECIMEN OBTAINED BY CLEAN CATCH PROCEDURE / Unknown Collection / Unknown 12/06/2024 6:39 PM EXPERIMENTAL WORKER 12/06/2024 6:45 PM EXPERIMENTAL WORKER Susu Rowan MD URINE ORDERABLES Final Resul t [facility] [employer] [facility]# [id number] [address] [place] [place] [address] * (ABNORMAL) DRUG SCREEN, URINE (12/06/2024 6:39 PM EXPERIMENTAL WORKER) [facility] AMPHETAMINE QUAL, URINE Negative Negative 12/06/2024 7:49 PM [facility] BARBITURATE QUAL, URINE Negative Negative 12/06/2024 7:49 PM [facility] BENZODIAZEPINE QUAL, URINE Presumptive Positive(A) Negative 12/06/2024 7:49 PM [facility] [employer] [facility] COCAINE QUAL URINE Negative Negative 12/06/2024 7:49 PM [facility] OPIATE QUAL, URINE Negative Negative 12/06/2024 7:49 PM [facility] [employer] [facility] CANNABINOIDS QUAL, URINE Negative Negative 12/06/2024 7:49 PM [facility] [employer] [facility] PCP QUAL, URINE Negative Negative 7:49 PM [facility] [employer] [facility] OXYCODONE QUAL, URINE Negative Negative 12/06/2024 7:49 PM [facility] METHADONE QUAL, URINE Negative Negative 12/06/2024 7:49 PM [facility] FENTANYL QUAL, URINE Presumptive Positive(A) Negative 12/06/2024 7:49 PM [facility] CREATININE, URINE 126.0 29.0 - 226.0 mg/dL 12/06/2024 7:49 PM [facility] [employer] [facility] Comment:Reference Range vari es with fluid intake and diet. Urine URINE SPECIMEN OBTAINED BY CLEAN CATCH PROCEDURE / Unknown Collection / Unknown 12/06/2024 6:39 PM EXPERIMENTAL WORKER 12/06/2024 6:45 PM [facility] - 12/06/2024 7:49 PM EXPERIMENTAL WORKER This test is a qualitative screen. The [...] ng/mL Fentanyl Negative 5 ng/mL Quentin Cloud MBBS URINE ORDERABLES Final R esult [employer] LABORATORY SERVICES [facility] CLIA# [id number] [address] [facility] [address] [place], [place] [address] * (ABNORMAL) URINALYSIS WITH REFLEX MICROSCOPIC (12/06/2024 6:39 PM EXPERIMENTAL WORKER) COLOR UA Yellow Pale to Dark Yellow 12/06/2024 7:52 PM [facility] [employer] LABORATORY SERVICES - [facility] CLARITY UA Slightly Cloudy(A) Clear 12/06/2024 7:52 PM [facility] [employer] [facility]ORY [facility] - [facility] SPECIFIC GRAVITY UA >=1.030 1.003 - 1.035 12/06/2024 7:52 PM EXPERIMENTAL WORKER [employer] LABORATORY SERVICES - [facility] PH UA 5.5 5.0 - 8.0 12/06/2024 7:52 PM EXPERIMENTAL WORKER [employer] [facility]ORATORY SERVICES - [facility] LEUKOCYTE ESTERASE UA Negative Negative 12/06/2024 7:52 PM [facility] [employer] [facility] - [facility] NITRITE UA Negative Negative 12/06/2024 7:52 PM [facility] [employer] [facility] - [facility] PROTEIN UA 2+(A) Negative 12/06/2024 7:52 PM EXPERIMENTAL WORKER [employer] [facility]ATORY [facility] - [facility] GLUCOSE UA Negative Negative 12/06/2024 7:52 PM EXPERIMENTAL WORKER [employer] [facility]ORATORY [facility] - [facility] KETONES UA Negative Negative 12/06/2024 7:52 PM EXPERIMENTAL WORKER [employer] [facility] - [facility] UROBILINOGEN UA 1.0 <2.0 mg/dL 7:52 PM EXPERIMENTAL WORKER [employer] [facility]ATORY SERVICES - [facility] BILIRUBIN UA 1+(A) Negative 12/06/2024 7:52 PM EXPERIMENTAL WORKER [employer] [facility] - [facility] BLOOD UA 2+(A) Negative 12/06/2024 7:52 PM EXPERIMENTAL WORKER [employer] [facility]ATORY [facility] - [facility] WBC UA 6-10(A) 0 - 2 /hpf 12/06/2024 7:52 PM EXPERIMENTAL WORKER [facility] LABORATORY SERVICES - [facility] RBC UA 0-2 0 - 2 /hpf 12/06/2024 7:52 PM [facility] LABORATORY [facility] - [facility] BACTERIA UA 1+(A) Negative /hpf 12/06/2024 7:52 PM [facility] LABOR[facility]ORY [facility] - [facility] EPITHELIAL CELLS, URINE 0-5 0 - 5 /hpf 12/06/2024 7:52 PM EXPERIMENTAL WORKER [facility] LABORATORY SERVICES - [facility] GRANULAR CAST 11-25(A) None Seen /lpf 12/06/2024 7:52 PM EXPERIMENTAL WORKER [facility] LABORATORY SERVICES - [facility] Urine URINE SPECIMEN OBTAINED BY CLEAN CATCH PROCEDURE / Unknown Collection / Unknown 12/06/2024 6:39 PM EXPERIMENTAL WORKER 12/06/2024 6:45 PM EXPERIMENTAL WORKER us Susu Rowan MD URINE ORDERABLES Final Resul t Performing Organization Address [facility]/ZIP Co de Phone Number [facility] CLIA# [id number] [address] [place], [place] [address] * URINE CULTURE (12/06/2024 6:39 PM EXPERIMENTAL WORKER) CULTURE No growth at 24 hours 12/08/2024 8:25 AM [facility] LABORATORY [facility] Urine URINE SPECIMEN OBTAINED BY CLEAN CATCH PROCEDURE / Unknown Collection / Unknown 12/06/2024 6:39 PM EXPERIMENTAL WORKER 12/06/2024 6:45 PM EXPERIMENTAL WORKER us Quentin BAUTISTA MICROBIOLOGY - GENERAL O RDERABLES Final Result Performing Organization Address [facility]/ZIP Co de Phone Number [facility]# [id number] [address] [place] [address] * (ABNORMAL) TROPONIN 6 HR, 5TH GEN (12/06/2024 6:19 PM EXPERIMENTAL WORKER) TROPONIN T, 6 HR 5TH GEN 564(HH) <11 ng/L 12/06/2024 7:29 PM EXPERIMENTAL WORKER [facility] LABORATORY [facility] DELTA 6HR TROPONIN T % -27(LL) See Interp. % 12/06/2024 7:29 PM EXPERIMENTAL WORKER [facility] Blood Venipuncture / Unknown 12/06/2024 6:19 PM EXPERIMENTAL WORKER 12/06/2024 6:28 PM EXPERIMENTAL WORKER Narrative [facility] LABORATORY [facility] - 12/06/2024 7:29 PM EXPERIMENTAL WORKER Troponin elevated. Delay in collection of timed specimen beyond recommended collection interval. Results must be interpreted in clinical context. Delta significant change. Susu Rowan MD CHEMISTRY ORDERABLES Final R esult Performing Organization Address [facility]/ZIP Co de Phone Number [facility]# [id number] [address] [place] [address] * KETONES/BETA HYDROXYBUTYRATE (12/06/2024 6:19 PM EXPERIMENTAL WORKER) BETA HYDROXYBUTYRATE <0.2 <0.4 mmol/L 12/06/2024 7:19 PM [facility] Blood Venipuncture / Unknown 12/06/2024 6:19 PM EXPERIMENTAL WORKER 12/06/2024 6:28 PM EXPERIMENTAL WORKER Quentin BAUTISTA CHEMISTRY ORDERABLES Fin al Result Performing Organization Address [facility]/ZIP Co de Phone Number [facility]# [id number] [address] [place] [address] * RESPIRATORY PATHOGEN PCR PANEL (12/06/2024 5:15 PM EXPERIMENTAL WORKER) Respiratory Pathogen PCR Panel NOT DETECTED No respiratory pathogen nucleic acids detected. 12/06/2024 6:54 PM EXPERIMENTAL WORKER [facility] [employer] [facility] COVID-19 PCR NOT DETECTED Not Detected 12/06/2024 6:54 PM EXPERIMENTAL WORKER [facility] Upper Respiratory ENTIRE NASOPHARYNX / Unknown Collection / Unknown 12/06/2024 5:15 PM EXPERIMENTAL WORKER 12/06/2024 5:30 PM EXPERIMENTAL WORKER [facility] - 12/06/2024 6:54 PM EXPERIMENTAL WORKER [employer] Film Array Respiratory Panel (RP2.1) is [...] Bordetella parapertussis Chlamydophila pneumoniae Mycoplasma pneumoniae Quentin ROMAN MICROBIOLOGY - GENERAL O RDERABLES Final Result Performing Organization Address City/[facility]/ZIP Co de Phone Number [facility]# [id number] [address] [place] [address] * MRSA PCR RAPID SCREEN (12/06/2024 5:04 PM EXPERIMENTAL WORKER) Pathologist [facility] MRSA PCR RESULT MRSA not detected MRSA not detected 12/06/2024 7:09 PM EXPERIMENTAL WORKER [facility] Surveillance ANTERIOR NARES SWAB / Unknown Collection / Unknown 12/06/2024 5:04 PM EXPERIMENTAL WORKER 12/06/2024 5:22 PM EXPERIMENTAL WORKER [facility] - 12/06/2024 7:09 PM EXPERIMENTAL WORKER This assay is used to detect Methicillin-Resistant S. aureus (MRSA) colonization of the nares. PLEASE NOTE: This test has not been approved to monitor effectiveness of MRSA decolonization. Residual DNA may temporarily be present after successful decolonization. This test was performed using an FDA approved screening methodology. us Susu Rowan MD MICROBIOLOGY - GENERAL ORDER ZAIN Final Result [facility] [employer] [facility] [id number] [address] [facility] [place] [id number] * (ABNORMAL) TROPONIN 2 HR, 5TH GEN (12/06/2024 4:57 PM EXPERIMENTAL WORKER) TROPONIN T, 2 HR 5TH GEN 600(HH) <=10 ng/L 12/06/2024 6:45 PM EXPERIMENTAL WORKER [facility] LABORATORY [facility] DELTA 2HR TROPONIN T % -22(LL) See Interp. % 12/06/2024 6:45 PM EXPERIMENTAL WORKER [facility] [employer] [facility] Blood Venipuncture / Unknown 12/06/2024 4:57 PM EXPERIMENTAL WORKER 12/06/2024 5:22 PM EXPERIMENTAL WORKER Narrative [facility] LABORAT[facility] - 12/06/2024 6:45 PM EXPERIMENTAL WORKER Troponin elevated. Delay in collection of timed specimen beyond recommended collection interval. Results must be interpreted in clinical context. Delta significant change. us Susu Rowan MD CHEMISTRY ORDERABLES Final R esult [facility] [employer] [facility]# [id number] [address] [facility] [address] [place] [address] * ECHOCARDIOGRAM W/ CONTRAST AGENT (12/06/2024 3:41 PM EXPERIMENTAL WORKER) EJECTION FRACTION 40 INTERFACE SYSTEM 12/06/2024 4:11 PM EXPERIMENTAL WORKER Narrative INTERFACE SYSTEM - 12/06/2024 4:34 PM EXPERIMENTAL WORKER [facility] [address] [place] [address] [employer]surinder Transthoracic Echocardiogram Patient: Ofelia Hilliard Study ID: [id number] Gender: F : 1955 Age: 69 Race: JODIE Height 157.5cm Study Date: 12/06/2024 Weight: 97.5kg Access. #: [id number] BP: *Referring Physician:* Susu Rowan *Ordering Physician:Susu Nettles tooth clerk: Nurse: STUDY CONCLUSIONS: SUMMARY: - Left ventricle: [...] PM. Prepared and Electronically Authenticated Cruz Valladares [id number] Procedure Note Cruz Valladares MD - 12/06/2024 [place] [address] [email or web address] Transthoracic Echocardiogram Patient: Ofelia Hilliard Study ID: [id number] Gender: F :1955 Age: 69 Race: CAU Height 157.5cm Study Date:12/06/2024 Weight: 97.5kg Access. #:[id number] BP: *Referring Physician:* Susu Rowan *Ordering Physician:* Susu Rowan tooth clerk: Nurse: STUDY CONCLUSIONS: SUMMARY: - Left ventricle: [...] Study time: 04:11 PM. Prepared andElectronically Authenticated Cruz Valladares [id number]:39 Susu Rowan MD US ORDERABLES Final Result Performing Organization Address City/State/[facility] Co de Phone Number INTERFACE SYSTEM Refer to clinic/hospital department * (ABNORMAL) CALCIUM IONIZED (12/06/2024 2:23 PM EXPERIMENTAL WORKER) PH, VENOUS 7.19(LL) 7.32 - 7.43 12/06/2024 2:42 PM EXPERIMENTAL WORKER [facility] LAB[facility] CALCIUM IONIZED 4.9 4.8 - 5.2 mg/dL 12/06/2024 2:42 PM EXPERIMENTAL WORKER [facility] Blood Venipuncture / Unknown 12/06/2024 2:23 PM EXPERIMENTAL WORKER 12/06/2024 2:28 PM EXPERIMENTAL WORKER Susu Rowan MD CHEMISTRY ORDERABLES Final R esult [facility]# [id number] [address] [facility] [place] [address] * (ABNORMAL) TROPONIN BASELINE, 5TH GEN (12/06/2024 1:46 PM EXPERIMENTAL WORKER) TROPONIN T, BASELINE 5TH GEN 770(HH) <=10 ng/L 12/06/2024 3:08 PM EXPERIMENTAL WORKER [facility] Blood Venipuncture / Unknown 12/06/2024 1:46 PM EXPERIMENTAL WORKER 12/06/2024 2:01 PM EXPERIMENTAL WORKER Narrative [facility] LABORAT[facility] - 12/06/2024 3:08 PM EXPERIMENTAL WORKER Troponin elevated. Susu Rowan MD CHEMISTRY ORDERABLES Final R esult Performing Organization Address [facility]/ZIP Co de Phone Number [facility] CLIA# [id number] [address] [place] [address] * TSH REFLEXIVE (12/06/2024 1:46 PM EXPERIMENTAL WORKER) TSH 1.00 0.27 - 4.20 uIU/mL 12/06/2024 5:12 PM EXPERIMENTAL WORKER [facility] [employer] [facility] Blood Venipuncture / Unknown 12/06/2024 1:46 PM EXPERIMENTAL WORKER 12/06/2024 2:01 PM EXPERIMENTAL WORKER Quentin BAUTISTA CHEMISTRY ORDERABLES Fin al Result Performing Organization Address [facility]/ZIP Co de Phone Number [facility] [employer] [facility] CLIA# [id number] [address] [place] [address] * (ABNORMAL) PROCALCITONIN (12/06/2024 1:46 PM EXPERIMENTAL WORKER) PROCALCITONIN 89.90(H) <=0.25 ng/mL 12/06/2024 3:01 PM EXPERIMENTAL WORKER [facility] [employer] [facility] Blood Venipuncture / Unknown 12/06/2024 1:46 PM EXPERIMENTAL WORKER 12/06/2024 2:01 PM EXPERIMENTAL WORKER Narrative [facility] [employer] [facility] - 12/06/2024 3:01 PM EXPERIMENTAL WORKER The utility of procalcitonin is limited/NOT recommended [...] Rowan MD CHEMISTRY ORDERABLES Final R esult [facility] [employer] [facility]# [id number] [address] [facility] [place] [address] * (ABNORMAL) DIC PROFILE (12/06/2024 1:46 PM EXPERIMENTAL WORKER) PROTIME 18.9(H) 12.7 - 15.1 Seconds 12/06/2024 3:44 PM EXPERIMENTAL WORKER [facility] INR 1.6(H) 0.9 - 1.1 12/06/2024 3:44 PM EXPERIMENTAL WORKER [facility] Comment: INR Therapeutic Range: Adult: 2.0 - 3.0 for pulmonary embolism or prophylaxis against venous thrombosis or systemic embolization. 2.0 - 3.0 for patients with tissue heart valves. 2.5 - 3.5 for patients with mechanical heart valves or post IL. Pediatric (12 years and under): 1.5 - 3.0 Although the target range in children is not well established, INR values of 1.5 - 3.0 are recommended for most patients. Higher values have been used in children with prosthetic cardiac valves and hereditary clotting disorders. Randolph (<3 days) therapeutic ranges have not been established PTT 33.7 24.4 - 36.4 seconds 12/06/2024 3:44 PM [facility] Comment: PTT Therapeutic Range: Heparin Level PTT (seconds) <0.10 units/mL <53 0.10 - 0.30 units/mL 53 - 67 0.30 - 0.70 units/mL* 67 - 95* 0.70 - 1.00 units/mL 95 - 116 *corresponds to therapeutic range for unfractionated heparin FIBRINOGEN 698(H) 205 - 450 mg/dL 12/06/2024 3:44 PM EXPERIMENTAL WORKER [facility] D-DIMER QUANT >4.00(H) <0.50 ug/mL FEU 12/06/2024 3:44 PM [facility] Comment: The DIC reference range is [...] Blood Venipuncture / Unknown 12/06/2024 1:46 PM EXPERIMENTAL WORKER 12/06/2024 2:01 PM EXPERIMENTAL WORKER us Susu Rowan MD HEMATOLOGY ORDERABLES Final Result [facility]# [id number] [address] [facility] [place] [address] * (ABNORMAL) HEMOGLOBIN A1C (12/06/2024 1:46 PM EXPERIMENTAL WORKER) HEMOGLOBIN A1C 6.1(H) <5.7 % 12/06/2024 2:34 PM EXPERIMENTAL WORKER [facility] EST. AVG GLUCOSE, A1C 128 mg/dL 12/06/2024 2:34 PM EXPERIMENTAL WORKER [facility] Blood Venipuncture / Unknown 12/06/2024 1:46 PM EXPERIMENTAL WORKER 12/06/2024 2:01 PM EXPERIMENTAL WORKER Narrative [facility] LAB[facility] - 12/06/2024 2:34 PM EXPERIMENTAL WORKER HGB A1C INTERPRETATION NORMAL: <5.7% PRE-DIABETES: 5.7 - 6.4% DIABETES: 6.5% OR GREATER us Susu Rowan MD CHEMISTRY ORDERABLES Final R esult Performing Organization Address City/[facility]/ZIP Co de Phone Number [facility] CLIA# [id number] [address] [place] [address] [facility] [place] [address] * OCCULT BLOOD IMMUNOASSAY, COLORECTAL SCREEN (12/20/2020 5:06 PM EXPERIMENTAL WORKER) OCCULT BLOOD, STOOL Negative Negative [facility] 12/20/2020 5:06 PM EXPERIMENTAL WORKER 12/20/2020 Narrative [facility] - 12/21/2020 3:08 PM EXPERIMENTAL WORKER Performed at: [facility] [place] [id number] [employer]: Brad Pacheco PhD, Phone: [phone] us Yogesh Amos MD BODY FLUIDS AND STOOLS Final Re sult Performing Organization Address City/[facility] Co de Phone Number [facility] [phone] from Last 3 Months or Most Recently Relevant to Health Maintenance Insurance [facility] DUAL COM[facility]TE [facility] [id number] [facility] [address] Advance Directives For more information, please contact: [phone] * Full Code (Latest Code Status on File) Date Activated Date Inactivated Comments 12/06/2024 1:35 PM 12/21/2024 3:24 PM Care Teams Repairer Recreational Vehicle Relationship Specialty Start Date End Date Sly Driver DO [address] [phone] PCP - General Internal Medicine 12/18/20
== END 2025-02-09 09:36 | disposition home or self-care (01) ==
LOC: ANHCARD 09:36
PROVIDERS: PCP Internal Medicine; Visit Provider Clinical Nurse Specialist
DX: Q23.9 Congenital malformation of aortic and mitral valves, unspecified (principal); R93.1 Abnormal findings on diagnostic imaging of heart and coronary circulation
CPT/HCPCS: 93306

== ENCOUNTER 2025-03-09 12:57 | Outpatient (CLI) | payer MEDICARE, SELFPAY ==
--- NOTE | ~2025-03-09 | MM_ITS ---
EXAMINATION: MM screening patrick BI w ezequiel HISTORY: Screening TECHNIQUE: Craniocaudal and mediolateral oblique 3-D tomosynthesis images were obtained and synthetic 2-D images were generated. CAD analysis was submitted and interpreted. COMPARISON: No prior mammogram is available for comparison at this institution. BREAST PARENCHYMAL COMPOSITION: Not dense: There are scattered areas of fibroglandular density. FINDINGS: There is a mass in the upper outer quadrant of the left breast, middle third. There is no e vidence for malignancy in the right breast. IMPRESSION: 1. Left breast mass, upper outer quadrant, middle third. 2. Additional mammographic views and possible breast ultrasound are recommended. BI-RADS Category 0: Incomplete: Needs additional imaging evaluation. Reviewed, dictated and finalized at location B. IMPRESSION: 1. Left breast mass, upper outer quadrant, middle third. 2. Additional mammographic views and possible breast ultrasound are recommended . BI-RADS Category 0: Incomplete: Needs additional imaging evaluation.
== END 2025-03-09 12:58 | disposition home or self-care (01) ==
LOC: MICIMG 12:58
PROVIDERS: PCP Internal Medicine; Visit Provider Clinical Nurse Specialist
DX: Z12.31 Encounter for screening mammogram for malignant neoplasm of breast (principal); R92.8 Other abnormal and inconclusive findings on diagnostic imaging of breast
CPT/HCPCS: 77063; 77067

== ENCOUNTER 2025-03-24 09:30 | Outpatient (CLI) | payer MEDICARE, SELFPAY ==
--- NOTE | ~2025-03-24 | NM_ITS ---
EXAMINATION: NM chris stress w perfusion DATE: 03/24/2025 12:12 INDICATION: Other forms of dyspnea TECHNIQUE: Rest images were obtained following intravenous administration of 8.5 mCi Tc99m tetrofosmi n (Myoview). The patient was infused intravenously with Lexiscan (Regadenoson). Then, 28.0 mCi Tc99m tetrofosmin (Myoview) was administered intravenously, and stress images were obtained. Data was recon structed into short axis and horizontal and vertical long axis SPECT images. Gated SPECT images were also obtained. COMPARISON: None. FINDINGS: There is no definite reversible or fixed perfusion abnormality to suggest ischemia or infar ction. There is normal left ventricular chamber size, wall motion and ejection fraction. Left ventr icular ejection fraction measures 70%. IMPRESSION: 1. Normal myocardial perfusion at rest and during stress. 2. Left ventricular ejection fraction measuring 70%. Reviewed, dictated and finalized at location A.
--- NOTE | 2025-03-24 09:37 | EST_ITS ---
Patient Info Name: Ofelia Hilliard Age: 69 years : 1955 Gender: Female Ht: 62 in Wt: 180 lbs BSA: 1.92 m2 Exam Date: 03/24/2025 9:37 AM Patient Status: O Admit Date: 03/24/2025 Exam Type: CA stress chris w NM A regadenoson stress test was performed. Staff Referring Physician: Britton Wang DO Attending Provider: Britton Wang DO Exercise Technologist: Adela Craig Exercise Physician: Britton Wang DO Summary 1. 1. Negative lexiscan stress test for ischemic ST changes by ECG criteria. 2. 2. Baseline hypertension. 3. 3. Nuclear scan to follow and will be reported separately. Please correlate with it. 4. 4. Patient informed of the above results. Protocol: Lexiscan Stress ECG Details Stage: REST Duration (min): 2 min : 48 sec HR (bpm): 74 SBP (mmHg): 177 DBP (mmHg): 97 Stage: REST Duration (min): 7 min : 33 sec HR (bpm): 69 SBP (mmHg): 177 DBP (mmHg): 97 Stage: STAGE 1 Duration (min): 1 min : 0 sec HR (bpm): 96 SBP (mmHg): 150 DBP (mmHg): 93 Stage: RECOVERY Duration (min): 1 min : 0 sec HR (bpm): 100 SBP (mmHg): 142 DBP (mmHg): 92 Stage: RECOVERY Duration (min): 2 min : 0 sec HR (bpm): 96 SBP (mmHg): 142 DBP (mmHg): 92 Stage: RECOVERY Duration (min): 3 min : 0 sec HR (bpm): 96 SBP (mmHg): 161 DBP (mmHg): 93 Stage: RECOVERY Duration (min): 3 min : 11 sec HR (bpm): 96 SBP (mmHg): 161 DBP (mmHg): 93 Rest HR: 69 bpm Peak HR: 100 bpm Rest Sys BP: 177 mmHg Peak Sys BP: 161 mmHg Max Pred HR: 150 bpm % Max Pred HR: 67 % Target HR: 128 bpm Max RPP: 16,100 bpm*mmHg Termination Reason: Completed protocol Cardiac Symptoms: Shortness of breath Total Time: 1 min : 0 sec Rest Hurd BP: 97 mmHg Peak Hurd BP: 93 mmHg Total Dose: 0.4 mg Resting ECG Sinus rhythm, low voltage in diffuse leads, consider anterior infarct. Stress ECG No ST changes. Arrhythmias None. Report Signatures
--- OUTSIDE RECORDS SUMMARY | 2025-03-24 10:17 | XMS_ITS | Clinical Summary ---
Author Organization [facility] nemo [facility] Address [address] [facility] [place] [address] Care Team Providers Care Hotel Receptionist Name Role Phone Sly Driver DO Primary [...] vit C/vit E ac/lut/copper/z inc (VIT C-VIT [id number] UTEIN ORAL) Take by mouth. Active metoprolol [...] Encounters Date Type Department Care Team Description 03/09/2025 External Device Data [facility] ABSTRACTION Provider, Abstract 03/08/2025 External Device Data [facility] ABSTRACTION Provider, Abstract 02/22/2025 External Device Data [facility] ABSTRACTION Provider, Abstract 02/15/2025 External Device Data [facility] ABSTRACTION Provider, Abstract [...] often do you attend chur ch or judaism services? Not asked 12/18/2020 Do you belong to any clubs o r organizations such as restorationist groups, unions, fraternal or athletic groups, or [...] answer 12/12/2024 Food Insecurity Answer Date Recorded Patient needs follow up regardin 02/15/2025 Transportation Needs Answer Date Record ed Patient needs follow up regardin 02/15/2025 Utility Needs Answer Date Recorded Patient needs follow up regardin 02/15/2025 Comments Unknown Sex and Gender Information Value Date Recorded Sex Assigned at Not on file Legal Sex Female 11:13 AM QUILL REAMER Gender Identity Not on file Sexual Orientation Not on file Last Filed Vital Signs Vital Sign Reading Time Taken Comments Blood Pressure 155/79 12/21/2024 5:57 AM QUILL REAMER Pulse 73 12/21/2024 5:57 AM QUILL REAMER Temperature 36.6 C (97.9 F) 12/21/2024 4:49 AM QUILL REAMER Respiratory Rate 18 12/21/2024 4:49 AM QUILL REAMER Oxygen Saturation 98% 12/21/2024 4:49 AM QUILL REAMER Inhaled Oxygen Concentration - - Weight 85.7 kg (189 lb) 12/13/2024 11:00 AM QUILL REAMER Height 157.5 cm (5' 2) 12/06/2024 3:05 PM QUILL REAMER Body Mass Index 34.57 12/06/2024 3:05 PM QUILL REAMER Plan of Treatment Health Maintenance Due Date [...] Comments TELEMETRY REPORT 12/22/2024 10:0 1 AM QUILL REAMER HEMOGLOBIN A1C Routine 12/06/2024 1:46 PM QUILL REAMER OCCULT BLOOD IMMUNOASSAY, COLORECTAL SCREEN Routine 12/20/2020 5:06 PM QUILL REAMER from Last 3 Months or Most Recently Relevant to Health Maintenance Results * TELEMETRY REPORT (12/22/2024 10:01 AM QUILL REAMER) us Provider Scanning ECG ORDERABLES Final Result * (ABNORMAL) HEMOGLOBIN A1C (12/06/2024 1:46 PM QUILL REAMER) HEMOGLOBIN A1C 6.1(H) <5.7 % 12/06/2024 2:34 PM QUILL REAMER [facility] EST. AVG GLUCOSE, A1C 128 mg/dL 12/06/2024 2:34 PM QUILL REAMER [facility] Blood Venipuncture / Unknown 12/06/2024 1:46 PM QUILL REAMER 12/06/2024 2:01 PM QUILL REAMER Narrative [facility] - 12/06/2024 2:34 PM QUILL REAMER HGB A1C INTERPRETATION NORMAL: <5.7% PRE-DIABETES: 5.7 - 6.4% DIABETES: 6.5% OR GREATER Susu Rowan MD CHEMISTRY ORDERABLES Final R esult Performing Organization Address City/[facility]/ZIP Co de Phone Number [facility] CLIA# [id number] [address] [place] [address] [place] [address] * OCCULT BLOOD IMMUNOASSAY, COLORECTAL SCREEN (12/20/2020 5:06 PM QUILL REAMER) OCCULT BLOOD, STOOL Negative Negative [facility] 12/20/2020 5:06 PM QUILL REAMER 12/20/2020 Narrative [facility] - 12/21/2020 3:08 PM QUILL REAMER Performed at: - [facility] [id number] [employer]: Brad Pacheco PhD, Phone: [phone] Yogesh Amos MD BODY FLUIDS AND STOOLS Final Re sult [facility] [phone] from Last 3 Months or Most Recently Relevant to Health Maintenance Insurance [facility] DUAL COMPLETE [facility] [id number] Advance Directives For more information, please contact: [phone] * Full Code (Latest Code Status on File) Date Activated Date Inactivated Comments 12/06/2024 1:35 PM 12/21/2024 3:24 PM Care Teams Hotel Receptionist Relationship Specialty Start Date End Date Sly Driver DO [address] [phone] PCP - General Internal Medicine 12/18/20
--- OUTSIDE RECORDS SUMMARY | 2025-03-24 10:17 | XMS_ITS | Data Portability ---
Author Organization [facility] Address [address] [place] [address] Care Team Providers Care Mother Tester Name Role Phone KAMARI OTTO Primary Care [...] eral No observ ation record ed. layran [facility] [address], [place], [address], 12/29/2020 18:37:45 Result Notes None recorded. Problems Name Problem SNOMED Code Status Onset Date Resolution Date Notes Provider Name and Address Organization Details Recorded Time SNOMED CT Concept Completed 201512/25/2021 Well woman check w/o abnormal finding;R ecorded Elsewhere : No Locati on: [facility] So urce: EHR Chron ic: N Practic e ID: 0001 Bill able Time: 09:00:00 AM Olga [facility] 2 09:54:[address] Concept Completed 201612/25/2021 Encntr for general adult medical exam w/o abnormal findings; Recorded Elsewhere : No Locati on: [facility] So urce: EHR Chron ic: N Practic e ID: 0001 Bill able Time: 01:30:00 PM Olga [facility] 2 09:54:36 Speciali zed medical examinat ion Completed 201312/25/2021 Gynecolog ical Examinati on;Record ed Elsewhere : No Locati on: [facility] So urce: EHR Chron ic: N Practic e ID: 0001 Bill able Time: 10:45:00 AM Olga [facility] 2 09:54:40 Mammogra phy abnormal [id number] Completed 201412/25/2021 Unspecifi ed abnormal mammogram ;Recorded Elsewhere : No Locati on: [facility] So urce: EHR Chron ic: N Practic e ID: 0001 Bill able Time: 03:36:09 PM Olga [facility] 2 09:54:31 Adult health examinat ion Completed 201412/25/2021 ROUTINE MEDICAL EXAM;Gen rded Elsewhere : No Locati on: [facility] So urce: EHR Chron ic: N Practic e ID: 0001 Bill able Time: 08:30:00 AM Olga [facility] 2 09:54:28 Screenin g for malignan t neoplasm of rectum Completed 201112/25/2021 Screening for malignant neoplasms of the rectum;Re corded Elsewhere : No Locati on: [facility] So urce: EHR Chron ic: N Practic e ID: 0001 Bill able Time: 01:30:00 PM Olga [facility] 2 09:54:35 Screenin g for malignan t neoplasm of cervix Completed 201112/25/2021 Screening for malignant neoplasms of the cervix;Re corded Elsewhere : No Locati on: [facility] So urce: EHR Chron ic: N Practic e ID: 0001 Bill able Time: 01:30:[address] [facility] 2 09:54:33 Leukocyt osis [id number] Completed 201212/25/2021 LEUKOCYTO SIS NOS;Recor ded Elsewhere : No Locati on: [facility] So urce: EHR Chron ic: N Practic e ID: 0001 Bill able Time: 03:30:00 PM Olga Jessica [facility] 2 09:54:30 Problem Notes None recorded. Procedures Surgical History Date Name Laterality Status Provider Name and Address Organization Details Recorded Time 11/25/19 20 Date of Last Mammogram completed [facility] 11/17/2020 10:57:25 09/14/20 18 Date of Last Pap Smear completed [facility] 11/17/2020 10:54:42 10/20/19 06 cholecystectomy completed [facility] 11/17/2020 10:45:09 10/20/19 05 abdominoplasty completed [facility] 11/17/2020 10:46:20 10/20/19 04 colonoscopy completed [facility] 11/17/2020 10:44:54 10/20/19 03 Gastric Bypass completed [facility] 11/17/2020 10:45:34 Total Hysterectomy completed Jeanette Juarez [facility] 12/25/2020 09:46:45 Imaging Results None recorded. Procedure Notes None recorded. Medical Equipment None Reported. Allergies No known drug allergies Medications Name Sig Start Date Stop Date Status Note LastModified by Organization Details LastModified Time furosemid e 10 mg/mL injection solution inject 2 millilit er by intraven ous route every day slowly 12/25 completed Prescrib ed Elsewher e: Yes Loca tion: [facility] odify By: miah tz Encou nter DateTime : 12/22/19 12 06:07:01 PM [...] Prescrib ed Elsewher e: Yes Loca tion: [facility] odify By: miah guerrier Encou nter DateTime : 12/22/19 12 06:07:01 PM [...] Elsewher e: Yes Loca tion: Quique baptiste [facility] odify By: shellie brown DateTime : [...] Elsewher e: Yes Loca tion: Quique baptiste [facility] odify By: trey sam DateTime : [...] Elsewher e: Yes Loca tion: Quique baptiste [facility] odify By: miah blas DateTime : 12/22/19 12 06:07:01 PM Not Available Not Available Not Available Vitamins and Minerals tablet active Prescrib ed Elsewher e: Yes Loca tion: Quique baptiste [facility] odify By: trey sam DateTime : 12/24/19 12 01:30:00 PM Not Available Not Available Not Available iron ER 325 mg (65 mg iron) capsule,e xtended release 09/08 completed Prescrib ed Elsewher e: Yes Loca tion: Quique baptiste [facility] odify By: gunner sam DateTime : 12/24/19 12 01:30:00 PM Not Available Not Available Not Available nitrofura ntoin monohydra te/macroc rystals 100 mg capsule TAKE 1 CAPSULE BY MOUTH EVERY 12 HOURS FOR 5 DAYS active Not Available Not Available No t Available Calcio Carmelita 500 mg tablet 10/27 completed Prescrib ed Elsewher e: Yes Loca tion: Quique baptiste [facility] odify By: tmryan E ncounter DateTime : 12/24/19 12 01:30:00 PM Not Available Not Available Not Available metformin active Not Available Not Dee ilable Not Available ProAir HFA 90 mcg/actua tion aerosol inhaler active Not Available Not Available Not Available Fish Oil 340 mg-1,000 mg capsule active Prescrib ed Elsewher e: Yes Loca tion: [facility] M odify By: gunner Baptiste ncounter DateTime : 08/07/20 16 09:00:00 AM Not Available Not Available Not Available Probiotic active Not Available Not Dee ilable Not Available Vitals Date Recorded Body height Body mass index (BMI) Body weight Systolic blood pressure Diastolic blood pressure Provider Name and Address Organization Details Last Updated DateTime 12/25/2020 157.48 cm 41.3 kg/m2 918121.8 8 g 137 mm[Hg] 82 mm[Hg] Jeanette Juarez [facility] 10:00:59 Social History Question Answer Notes LastModified by Organizat ion Details LastModified Time Tobacco Smoking Status Never Smoker Jeanette bourgeois, [facility] 12/25/2020 10:01:38 What Is Your Level Of Caffeine Consumption? Occasional Information not available 12/25/2020 Has Tobacco Cessation Counseling Been Provided? No Information not available 12/25/2020 Sex: Unknown Functional Status Question Answer Note LastModified by Organization D etails LastModified Time Do you or have you ever used any other forms of tobacco or nicotine? No Information not available 12/25/2020 What is your level of alcohol consumption? None Information not available 12/25/2020 Mental Status None recorded. Family History Relationship Description Onset Age of this Age Resolved Age Notes LastModified by Organization Details LastModified Time Maternal Grandmother Malignant tumor of breast jgumber Not available 2020 10:48:16 Maternal Aunt Malignant tumor of breast jgumber Not available 2020 10:48:16 Maternal Aunt Leukemia jgumber Not dee ilable 11/17/2020 10:48:36 Maternal Aunt Diabetes mellitus jgumber Not available 01/29/ 2021 10:48:58 Mother Diabetes mellitus jgumber Not available [...] aunt: Diabetes mellitus Medical History Condition Response High Cholesterol Y Diabetes Y Hypertension Y Gynecological History Statement/Question Response Date of Last Pap Smear 09/14/2018 Current Control Method Hysterectom y Date of Last Mammogram 11/25/2019 Obstetrics History GPAL:G 0 P 0 0 0 0 Past Encounters Encounter ID Performer Location Encounter Start Date Encounter Closed Date Diagnosis/Indication Diagnosis SNOMED-CT Code Diagnosis ICD10 Code Diagnosis Note [id number] Lindsay Akhtar [facility] [address] [address] 12/25/2020 09:48:10 12/25/2020 10:47:30 Gynecologic examination 35967992 Z01.419 Take Calcium with Vitamin D 12-1500mg daily. Do monthly self breast exams. It is advised to get annual flu shot in the fall and she could obtain at [facility] or [facility] take care clinic. If you haven't received the [...] s. Dexa due 2021 COlonoscop y UTD 2017 wnl No partner Not SA No issues or concerns [id number] [facility] [address] [address] 12/25/2021 09:52:02 12/26/2021 15:26:13 Health Concerns Section Related Observation LastModified by Organization Detai ls LastModified Time None Recorded Concern Status LastModified by Organization Details LastModified Time None Recorded Advance Directives Directive None Recorded Payers Encounter Date Sequence Insurance Name Policy Number Policy Lemos Covered Member ID Lemos Member ID Guarantor Name 12/25/2020 1 [place] ([place]ICARE) Ofelia S Lennox [id number] Ofelia S Arminda 12/25/2021 1 [facility] (MEDICARE REPLACEMENT/A DVANTAGE - PPO) [id number] Ofelia S Arminda [id number] Ofelia S Arminda Notes Date Note Type Note Provider Name and Address Organization Details Recorded Time 12/25/2020 text/html 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 12/25/2020 10:27:07 OBGyn Episode No OBEpisode recorded.
== END 2025-03-24 09:31 | disposition home or self-care (01) ==
PROVIDERS: PCP Internal Medicine; Visit Provider Internal Medicine Cardiovascular Disease
DX: R06.09 Other forms of dyspnea (principal)
CPT/HCPCS: 78452; 93017; A9502; J2785

== ENCOUNTER 2025-03-30 08:56 | Outpatient (CLI) | payer MEDICARE, SELFPAY ==
--- NOTE | ~2025-03-30 | MMUS_ITS ---
EXAMINATION: MM diagnostic patrick LT w ezequiel, US breast LT limited HISTORY: Follow-up left breast mass. TECHNIQUE: Additional 3-D tomosynthesis images of the left breast were performed and synthetic 2-D im ages were generated. CAD analysis was submitted and interpreted. High resolution Limited left breast ultrasound was performed. COMPARISON: 03/09/2025 BREAST PARENCHYMAL COMPOSITION: Not dense: There are scattered areas of fibroglandular density. FINDINGS: MAMMOGRAPHIC FINDINGS: There is a small mass in the upper outer quadrant of the left breast, middle third. There are no susp icious calcifications or architectural distortion. ULTRASOUND: Limited left breast ultrasound: At 10:00, 5 cm from the nipple there is 4 mm cyst. There is heterogen eous echotexture at 11:00, 3 cm from the nipple, likely normal fibroglandular content. At 12:00, 5 cm from nipple there is a 7 mm cyst. At 1:00, 4 cm from the nipple there is a 4 mm cyst. At 2:00, 2 cm from the nipple there is 3 mm cyst. IMPRESSION: 1. No evidence for malignancy in the left breast. Benign findings. 2. Routine yearly screening mammogram and regular clinical breast examination are recommended. BI-RADS Category 2: Benign finding(s). Reviewed, dictated and finalized at location B. IMPRESSION: 1. No evidence for malignancy in the left breast. Benign findings. 2. Routine yearly screening mammogram and regular clinical breast examination a re recommended. BI-RADS Category 2: Benign finding(s).
== END 2025-03-30 08:57 | disposition home or self-care (01) ==
LOC: MICIMG 08:57
PROVIDERS: PCP Internal Medicine; Visit Provider Clinical Nurse Specialist
DX: R92.8 Other abnormal and inconclusive findings on diagnostic imaging of breast (principal)
CPT/HCPCS: 76642; 77061; 77065; G0279

== ENCOUNTER 2025-06-13 08:19 | Outpatient (CLI) | payer MEDICARE, SELFPAY ==
--- NOTE | ~2025-06-13 | XR_ITS ---
EXAMINATION: XR shoulder LT min 2V DATE: 06/13/2025 08:52 INDICATION: Pain in left shoulder TECHNIQUE: 4 images of the left shoulder were obtained. COMPARISON: None FINDINGS: Bones appear osteopenic. Moderate degenerative change in the left acromioclavicular joint. Moderate narrowing of the glenohumeral joint. Moderate size inferior spur along the medial aspect of left humeral head. Narrowing of the subacromial joint space. No fracture identified. No dislocation of the left humeral head relative to the left glenohumeral joint. IMPRESSION: 1. No fracture. 2. Moderate degenerative change in the left acromioclavicular joint. 3. Moderate degenerative change in the left glenohumeral joint. 4. Narrowing of the subacromial joint space. Differential includes artifact from positioning versus rotator cuff pathology. If symptoms persist or worsen, consider an MRI of the left shoulder for further assessment. Reviewed, dictated and finalized at location Q. IMPRESSION: 1. No fracture. 2. Moderate degenerative change in the left acromioclavicular joint. 3. Moderate degenerative change in the left glenohumeral joint. 4. Narrowing of the subacromial joint space. Differential includes artifact fro m positioning versus rotator cuff pathology. If symptoms persist or worsen, consider an MRI of the left shoulder for further assessment.
== END 2025-06-13 08:20 | disposition home or self-care (01) ==
PROVIDERS: PCP Internal Medicine; Visit Provider Orthopaedic Surgery
DX: M19.012 Primary osteoarthritis, left shoulder (principal)
CPT/HCPCS: 73030

== ENCOUNTER 2025-08-29 01:31 | Day surgery (SDC) | payer MEDICARE, SELFPAY ==
[2025-08-15 11:26] VITALS: BMI 33.8
--- OUTSIDE RECORDS SUMMARY | 2025-08-29 01:34 | XMS_ITS | Data Portability ---
Author Organization [facility] Address [address] [place] [address] Care Team Providers Care Toolsmith Name Role Phone MARILEEKAMARI AHN Primary Care Provider [phone] Assessment Encounter Date Assessment Date Assessment LastModified [...] eral No observ ation record ed. layran [facility] [address], [place], [address], 12/29/2020 18:37:45 Result Notes None recorded. Problems Name Problem SNOMED Code Status Onset Date Resolution Date Notes Provider Name and Address Organization Details Recorded Time Screenin g for malignan t neoplasm of rectum Completed 201112/25/2021 Screening for malignant neoplasms of the rectum;Re corded Elsewhere : No Locati on: [facility] So urce: EHR Chron ic: N Practic e ID: 0001 Bill able Time: 01:30:00 PM Olga Jessica [facility] 2 09:54:35 Screenin g for malignan t neoplasm of cervix Completed 201112/25/2021 Screening for malignant neoplasms of the cervix;Re corded Elsewhere : No Locati on: [facility] So urce: EHR Chron ic: N Practic e ID: 0001 Bill able Time: 01:30:00 PM Olga Jessica [facility] 2 09:54:33 Leukocyt osis [id number] Completed 201212/25/2021 LEUKOCYTO SIS NOS;Recor ded Elsewhere : No Locati on: [facility] So urce: EHR Chron ic: N Practic e ID: 0001 Bill able Time: 03:30:00 PM Olga Jessica [facility] 2 09:54:30 Speciali zed medical examinat ion Completed 201312/25/2021 Gynecolog ical Examinati on;Record ed Elsewhere : No Locati on: [facility] So urce: EHR Chron ic: N Practic e ID: 0001 Bill able Time: 10:45:00 AM Olga Jessica [facility] 2 09:54:40 Adult health examinat ion Completed 201412/25/2021 ROUTINE MEDICAL EXAM;Gen rded Elsewhere : No Locati on: [facility] So urce: EHR Chron ic: N Practic e ID: 0001 Bill able Time: 08:30:00 AM Olga Jessica [facility] 2 09:54:28 Mammogra phy abnormal [id number] Completed 201412/25/2021 Unspecifi ed abnormal mammogram ;Recorded Elsewhere : No Locati on: [facility] So urce: EHR Chron ic: N Practic e ID: 0001 Bill able Time: 03:36:09 PM Olga Jessica [facility] [address] 09:54:[address] Concept Completed 201512/25/2021 Well woman check w/o abnormal finding;R ecorded Elsewhere : No Locati on: [facility] So urce: EHR Chron ic: N Practic e ID: 0001 Bill able Time: 09:00:00 AM Olga Jessica [facility] [address] 09:54:[address] Concept Completed 201612/25/2021 Encntr for general adult medical exam w/o abnormal findings; Recorded Elsewhere : No Locati on: [facility] So urce: EHR Chron ic: N Practic e ID: 0001 Bill able Time: 01:30:00 PM Olga bourgeois [facility] 2 09:54:36 Problem Notes None recorded. Procedures Surgical History Date Name Laterality Status Provider Name and Address Organization Details Recorded Time 11/25/19 20 Date of Last Mammogram completed [facility] 11/17/2020 10:57:25 09/14/20 18 Date of Last Pap Smear completed [facility] 11/17/2020 10:54:42 10/20/19 06 cholecystectomy completed [facility] 11/17/2020 10:45:09 10/20/19 05 abdominoplasty completed [facility] 11/17/2020 10:46:20 10/20/19 04 colonoscopy completed [facility] 11/17/2020 10:44:54 10/20/19 03 Gastric Bypass completed [facility] 11/17/2020 10:45:34 Total Hysterectomy completed Jeanette Juarez [facility] 12/25/2020 09:46:45 Imaging Results None recorded. Procedure Notes None recorded. Medical Equipment None Reported. Allergies No known drug allergies Medications Name Sig Start Date Stop Date Status Note LastModified by Organization Details LastModified Time furosemid e 10 mg/mL injection solution inject 2 millilit er by intraven ous route every day slowly 12/25 completed Prescrib ed Elsewher e: Yes Loca tion: [facility] odify By: miah tz Encou nter DateTime [...] Prescrib ed Elsewher e: Yes Loca tion: [facility] M odify By: miah tz Encou nter DateTime : 12/22/19 12 06:07:01 PM Not Available Not Available Not Available simvastat in 20 mg tablet active Not Available Not Available Not Available nitrofura ntoin macrocrys jmaes 100 mg capsule TAKE 1 CAPSULE BY [...] Elsewher e: Yes Loca tion: Quique baptiste [facility] odify By: shellie brown DateTime : [...] Elsewher e: Yes Loca tion: Quique baptiste [facility] odify By: trey sam DateTime : [...] Elsewher e: Yes Loca tion: Quique baptiste [facility] odify By: miah blas DateTime : 12/22/19 12 06:07:01 PM Not Available Not Available Not Available Vitamins and Minerals tablet active Prescrib ed Elsewher e: Yes Loca tion: Quique baptiste [facility] odify By: trey sam DateTime : 12/24/19 12 01:30:00 PM Not Available Not Available Not Available iron ER 325 mg (65 mg iron) capsule,e xtended release 09/08 completed Prescrib ed Elsewher e: Yes Loca tion: Qu[facility] baptiste [facility] odify By: gunner sam DateTime : 12/24/19 12 01:30:00 PM Not Available Not Available Not Available nitrofura ntoin monohydra te/macroc rystals 100 mg capsule TAKE 1 CAPSULE BY MOUTH EVERY 12 HOURS FOR 5 DAYS active Not Available Not Available No t Available Calcio Carmelita 500 mg tablet 10/27 completed Prescrib ed Elsewher e: Yes Loca tion: Quique baptiste [facility] odify By: tmryan E ncounter DateTime : 12/24/19 12 01:30:00 PM Not Available Not Available Not Available metformin active Not Available Not Dee ilable Not Available ProAir HFA 90 mcg/actua tion aerosol inhaler active Not Available Not Available Not Available Fish Oil 340 mg-1,000 mg capsule active Prescrib ed Elsewher e: Yes Loca tion: [facility] M odify By: gunner Baptiste ncounter DateTime : 08/07/20 16 09:00:00 AM Not Available Not Available Not Available Probiotic active Not Available Not Dee ilable Not Available Vitals Date Recorded Body height Body mass index (BMI) Body weight Systolic And Diastolic Provider Name and Address Organization Details Last Updated DateTime 12/25/2020 157.48 cm 41.3 kg/m2 508723.88 g 137/82 mm[Hg] Jeanette Juarez [facility] 12/25/2020 10:00:59 Social History Question Answer Notes LastModified by Organizat ion Details LastModified Time Tobacco Smoking Status Never Smoker Jeanette bourgeois, [facility] 12/25/2020 10:01:38 What Is Your Level [...] Organization Details LastModified Time Maternal Grandmother Malignant neoplasm of breast jgumber Not available 2020 10:48:16 Maternal Aunt Malignant neoplasm of breast jgumber Not available 2020 10:48:16 [...] Diagnosis SNOMED-CT Code Diagnosis ICD10 Code Diagnosis IMO Codes Diagnosis Note [id number] [facility] [address] [address] 12/25/2020 09:48:10 12/25/2020 10:47:30 Gynecologic examination 25562573 Z01.419 Take Calcium with Vitamin D 12-1500mg daily. Do monthly self breast exams. It is advised to get annual flu shot in the fall and she could obtain at [facility] or [facility] care clinic. If you haven't received [...] for cervical cancer. Hyst for non-cancer indication sFly Crowe due 2021 COlonoscop y UTD 2017 wnl No partner Not SA No issues or concerns [id number] Lindsay Akhtar , [facility] [address] [address] 12/25/2021 09:52:02 12/26/2021 15:26:13 Health Concerns Section Related Observation LastModified by Organization Detai ls LastModified Time None Recorded Concern Status LastModified by Organization Details LastModified Time None Recorded Advance Directives Directive None Recorded Payers Insurance Date Sequence Insurance Name Policy Number Policy Lemos Covered Member ID Lemos Member ID Guarantor Name 01/16/2023 1 [place] Ofelia S Lancing [id number] Ofelia S Lancing 01/16/2023 2 [facility] (INDEMNITY) [id number] Ofelia S Arminda [id number] Ofelia S Arminda 05/12/2023 1 [facility] (MEDICARE REPLACEMENT/A DVANTAGE - PPO) [id number] Ofelia S Lancing [id number] Ofelia S Lancing Notes Date Note Type Note Provider Name and Address Organization Details Recorded Time 1 text/html 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 For vaginal bleeding, patient reportshistory of menopause having occurredandno history of post menopausal bleeding. For urinary symptoms, patient reportsno hematuria,no incontinence,no nocturia, andno urinary frequency. For vulva, patient reportsno genital lesionandno vulvar atrophy. For vagina, patient reportsnormal vaginal dischargeandno vaginal atrophy.Breast symptomsFor breast, patient reportsno breast lump,no nipple discharge, andno breast pain.Psychological symptomsFor sexual complaints, patient reportsno sexual complaints. For psychological symptoms, patient reportsno depressionandno anxiety.Preventative measuresFor preventive measures, patient reportsencourage regular mammograms starting age 40,encourage self breast examination,encourage regular exercise,encourage no tobacco use,needs to schedule mammogram, andhistory of recent colonoscopy(dexa due 2021). NOt sexuall active Lindsay Akhtar, [facility] [address], [place], [address], [place] [facility] 12/25/2020 10:27:07 OBGyn Episode No OBEpisode recorded.
--- OUTSIDE RECORDS SUMMARY | 2025-08-29 01:34 | XMS_ITS | Clinical Summary ---
Author Organization [facility] nemo [facility] Address [address] [place] [address] Care Team Providers Care Grapple Operator Name Role Phone Sly Driver DO Primary [...] vit C/vit E ac/lut/copper/z inc (VIT C-VIT C-[id number]-[id number] UTEIN ORAL) Take by mouth. Active metoprolol [...] Encounters Date Type Department Care Team Description 08/10/2025 External Device Data [facility] ABSTRACTION Provider, Abstract 06/21/2025 External Device Data [facility] ABSTRACTION Provider, Abstract [...] week 12/18/2020 How often do you attend [facility]? Not asked 12/18/2020 Do [...] on file Legal Sex Female 11:13 AM MANAGER E [employer] Gender Identity Not on file Sexual Orientation Not on file Last Filed Vital Signs Vital Sign Reading Time Taken Comments Blood Pressure 155/79 12/21/2024 5:57 AM MANAGER E [employer] Pulse 73 12/21/2024 5:57 AM MANAGER [employer] Temperature 36.6 C (97.9 F) 12/21/2024 4:49 AM MANAGER E [employer] Respiratory Rate 18 12/21/2024 4:49 AM MANAGER E [employer] Oxygen Saturation 98% 12/21/2024 4:49 AM MANAGER E [employer] Inhaled Oxygen Concentration - - Weight 85.7 kg (189 lb) 12/13/2024 11:00 AM MANAGER E [employer] Height 157.5 cm (5' 2) 12/06/2024 3:05 PM MANAGER [employer] Body Mass Index 34.57 12/06/2024 3:05 PM MANAGER [employer] Plan of Treatment Health Maintenance Due Date [...] 12/26/19 21, 12/25/2020, 11/23/2019, Additional history exists OSTEOPOROSIS SCREENING 11/23/2024 11/23/2019 INFLUENZA VACCINE (#1) 2025 DIABETES HBA1C Q 6 MONTHS 06/05/20252024, 10/18/2021, 06/21/2021, Additional history exists RSV VACCINE (60+ or ) (1 - 1-dose 75+ series) 2029 Procedures Procedure Name Priority Date/Time Associated Diagnosis Comments HEMOGLOBIN A1C Routine 12/06/2024 1:46 PM MANAGER [employer] OCCULT BLOOD IMMUNOASSAY, COLORECTAL SCREEN Routine 12/20/2020 5:06 PM MANAGER [employer] from Last 3 Months or Most Recently Relevant to Health Maintenance Results * (ABNORMAL) HEMOGLOBIN A1C (12/06/2024 1:46 PM MANAGER E [employer]) HEMOGLOBIN A1C 6.1(H) <5.7 % 12/06/2024 2:34 PM MANAGER E [employer]CE [facility] EST. AVG GLUCOSE, A1C 128 mg/dL 12/06/2024 2:34 PM MANAGER E [employer] [facility] Blood Venipuncture / Unknown 12/06/2024 1:46 PM MANAGER E [employer] 12/06/2024 2:01 PM MANAGER E [employer] Narrative [facility] - 12/06/2024 2:34 PM MANAGER E [employer] HGB A1C INTERPRETATION NORMAL: <5.7% PRE-DIABETES: 5.7 - 6.4% DIABETES: 6.5% OR GREATER us Susu Rowan MD CHEMISTRY ORDERABLES Final R esult Performing Organization Address City/[facility]/ZIP Co de Phone Number [facility] CLIA# [id number] [address] [place] [address] [facility] [place] [id number] * OCCULT BLOOD IMMUNOASSAY, COLORECTAL SCREEN (12/20/2020 5:06 PM MANAGER E [employer]) OCCULT BLOOD, STOOL Negative Negative [facility] 12/20/2020 5:06 PM MANAGER E [employer]CE 12/20/2020 Narrative [facility] - 12/21/2020 3:08 PM MANAGER E [employer] Performed at: - [facility] [id number] Solution Designer: Brad Pacheco PhD, Phone: [phone] us Yogesh Amos MD BODY FLUIDS AND STOOLS Final Re sult Performing Organization Address City/[facility] Co de Phone Number [facility] [phone] from Last 3 Months or Most Recently Relevant to Health Maintenance Insurance [facility] DUAL COMPLETE HMO [facility] [id number] [facility] [id number] Advance Directives For more information, please contact: [phone] * Full Code (Latest Code Status on File) Date Activated Date Inactivated Comments 12/06/2024 1:35 PM 12/21/2024 3:24 PM Care Teams Grapple Operator Relationship Specialty Start Date End Date Sly Driver DO [address] [facility] [address] [place] [address] PCP - General Internal Medicine 12/18/20
[2025-08-29 09:48] VITALS: BP 143/88; PULSE 76; RESP 18; TEMP 36.2; O2SAT 99; BMI 35.9
--- NOTE | 2025-08-29 10:32 | WPDANESEPPF ---
Anes - Initial Pre Proc Eval Procedure: Operation Date: 08/29/25 11:00 Proposed Procedures p Screening Colonoscopy - Francisco Cox MD Date/Time: 08/29/25 10:32 Surgeon: Francisco Cox MD Pre Op Diagnosis: Encounter for screening for malignant neoplasm of Patient Data Age: 70 Gender: F Height: 1.57 m Weight: 89.2 kg Last Vital Signs Temp 36.2 C L 08/29/25 09:48 Pulse 76 08/29/25 09:48 Resp 18 08/29/25 09:48 BP 143/88 H 08/29/25 09:48 Pulse Ox 99 08/29/25 09:48 O2 Del Method Room Air 08/29/25 09:48 Allergies Allergy/AdvReac Type Severity Reaction Status Date / Time No Known Allergies Allergy Verified 08/29/25 09:54 Home Medications ?Medication ?Instructions ?Recorded ?Confirmed ?Type aspirin 81 mg tablet,delayed 81 mg PO DAILY 12/22/19 08/29/25 History release (Adult Low Dose Aspirin) multivitamin (Chewable-Shannon tablet) 1 tablet PO DAILY 12/22/19 08/29/25 History ascorbate calcium (vitamin C) 500 500 mg PO DAILY 10/24/20 08/29/25 History mg tablet cholecalciferol (vitamin D3) 50 5,000 unit PO DAILY 12/31/22 08/29/25 History mcg (2,000 unit) chewable tablet ferrous sulfate 134 mg (27 mg 134 mg PO DAILY 01/28/23 08/29/25 History iron) tablet magnesium 1 tablet PO DAILY 12/03/23 08/29/25 History carbidopa 10 mg-levodopa 100 mg 1 tablet PO QHS 09/06/24 08/29/25 History tablet metformin 500 mg tablet See Rx Instructions .Route 11/29/24 08/29/25 Rx .COMPLEX #180 tabs lisinopril 20 mg tablet 20 mg PO DAILY 01/12/25 08/29/25 History amitriptyline 25 mg tablet See Rx Instructions .Route 02/22/25 08/29/25 Rx .COMPLEX #90 tabs perphenazine 4 mg tablet 4 mg PO BID 90 days #180 tabs 02/22/25 08/29/25 Rx linaclotide 145 mcg capsule See Rx Instructions .Route 06/14/25 08/29/25 Rx (Linzess) .COMPLEX #90 caps simvastatin 20 mg tablet See Rx Instructions .Route 07/25/25 08/29/25 Rx .COMPLEX #45 tabs Laboratory Tests 08/29/25 10:02 POC Capillary Glucose 130 H mg/dl (65-105) Patient hx anesthesia problems: none Family hx anesthesia problems: none Results Review: All pre-operative results and documents have been reviewed as part of the pre-operative evaluation. [facility] Past Medical History Medical History (Updated 08/29/25 @ 10:32 by Teddy John DO) STOUT (dyspnea on exertion) Acute hypoxic respiratory failure Hospital discharge follow-up Septic shock Cellulitis and abscess of neck Sepsis UTI (urinary tract infection) Abnormal urinalysis High anion gap metabolic acidosis Endotracheally intubated Vitamin D deficiency Benign meningioma on carbidopa/levodopa for balance issues Obesity (BMI 35.0-39.9 without comorbidity) Type 2 diabetes mellitus, without long-term current use of insulin Arthritis of left glenohumeral joint Esophageal spasm GERD (gastroesophageal reflux disease) Chronic constipation Hypertension Hyperlipidemia Surgical History Surgical History History of abdominoplasty 2006 History of gastric bypass 2004 History of hysterectomy 1996 Hx of cholecystectomy 2006 Family History Family History Father Family history of lung cancer Hypertension Heart disease Mother Family history of Parkinson's disease Diabetes mellitus Hypertension Sibling History of brain shunt Social History Social History Social History: The patient lives alone. She has never been . She does not have any children. Code status: Full code Surrogate decision maker: Ellie Cancino (sister) Caffeine--daily Smoking status: Never smoker Alcohol intake: current Alcohol use details: rarely Substance use: never Substance use type: does not use Do You Feel Safe in your Home?: Yes Lack of Transportation: No Lack of Food: Never True Current Housing: I Have Housing Concerned About Future Housing: No Difficulty Paying Gas/Electric Bills: No Difficulty Paying for Meds: No Currently Unemployed: No Education: Master's Degree or Higher Difficulty w/ Childcare or Family Care: No Gender identity (if verbalized by the patient): Female Spiritual care concerns: No Agree to blood products: Yes Anes - Eval Final PreProcedure Day of Procedure 08/29/25 10:32 Patient weight: obese Heart: regular rate and rhythm Lungs: clear to auscultation Airway: Mallampati scale class II Neurological: alert and oriented Last oral intake: >/= 8 hours ASA classification: III Emergent: no Anesthetic plan: proceed Anesthesia type and monitoring: general GIVS and standard monitoring Results Review: All pre-operative results and documents have been reviewed as part of the pre-operative evaluation. Informed Consent: The patient's anesthetic plan and its attendant risks and benefits were discussed with the patient/family/POA. Questions were solicited and answers provided to the satisfaction of the patient/family/POA.
[2025-08-29] MEDS: LACTATED RINGERS 1,000 ML 150 ML IV CONT (10:34)
--- NOTE | 2025-08-29 10:54 | PM.IMHP ---
H&P: HPI History of Present Illness Date/Time: 08/29/25 10:54 Chief Complaint: Screening colonoscopy Narrative: This is the patient's 3rd screening colonoscopy. There are no GI symptoms and there is no family history of colorectal cancer. Review of Systems Review of Systems: All systems reviewed & are unremarkable except as noted in HPI and below PMFSH Past Medical History Medical History (Updated 08/29/25 @ 10:32 by Teddy John DO) STOUT (dyspnea on exertion) Acute hypoxic respiratory failure Hospital discharge follow-up Septic shock Cellulitis and abscess of neck Sepsis UTI (urinary tract infection) Abnormal urinalysis High anion gap metabolic acidosis Endotracheally intubated Vitamin D deficiency Benign meningioma on carbidopa/levodopa for balance issues Obesity (BMI 35.0-39.9 without comorbidity) Type 2 diabetes mellitus, without long-term current use of insulin Arthritis of left glenohumeral joint Esophageal spasm GERD (gastroesophageal reflux disease) Chronic constipation Hypertension Hyperlipidemia Surgical History Surgical History History of abdominoplasty 2006 History of gastric bypass 2004 History of hysterectomy 1996 Hx of cholecystectomy 2007 Family History Family History Father Family history of lung cancer Hypertension Heart disease Mother Family history of Parkinson's disease Diabetes mellitus Hypertension Sibling History of brain shunt Social History Social History Social History: The patient lives alone. She has never been . She does not have any children. Code status: Full code Surrogate decision maker: Ellie Cancino (sister) Caffeine--daily Smoking status: Never smoker Alcohol intake: current Alcohol use details: rarely Substance use: never Substance use type: does not use Do You Feel Safe in your Home?: Yes Lack of Transportation: No Lack of Food: Never True Current Housing: I Have Housing Concerned About Future Housing: No Difficulty Paying Gas/Electric Bills: No Difficulty Paying for Meds: No Currently Unemployed: No Education: Master's Degree or Higher Difficulty w/ Childcare or Family Care: No Gender identity (if verbalized by the patient): Female Spiritual care concerns: No Agree to blood products: Yes Meds Home Medications and Allergies Home Medications ?Medication ?Instructions ?Recorded ?Confirmed ?Type aspirin 81 mg tablet,delayed 81 mg PO DAILY 12/22/19 08/29/25 History release (Adult Low Dose Aspirin) multivitamin (Chewable-Shannon tablet) 1 tablet PO DAILY 12/22/19 08/29/25 History ascorbate calcium (vitamin C) 500 500 mg PO DAILY 10/24/20 08/29/25 History mg tablet cholecalciferol (vitamin D3) 50 5,000 unit PO DAILY 12/31/22 08/29/25 History mcg (2,000 unit) chewable tablet ferrous sulfate 134 mg (27 mg 134 mg PO DAILY 01/28/23 08/29/25 History iron) tablet magnesium 1 tablet PO DAILY 12/03/23 08/29/25 History carbidopa 10 mg-levodopa 100 mg 1 tablet PO QHS 09/06/24 08/29/25 History tablet metformin 500 mg tablet See Rx Instructions .Route 11/29/24 08/29/25 Rx .COMPLEX #180 tabs lisinopril 20 mg tablet 20 mg PO DAILY 01/12/25 08/29/25 History amitriptyline 25 mg tablet See Rx Instructions .Route 02/22/25 08/29/25 Rx .COMPLEX #90 tabs perphenazine 4 mg tablet 4 mg PO BID 90 days #180 tabs 02/22/25 08/29/25 Rx linaclotide 145 mcg capsule See Rx Instructions .Route 06/14/25 08/29/25 Rx (Linzess) .COMPLEX #90 caps simvastatin 20 mg tablet See Rx Instructions .Route 07/25/25 08/29/25 Rx .COMPLEX #45 tabs Allergies Allergy/AdvReac Type Severity Reaction Status Date / Time No Known Allergies Allergy Verified 08/29/25 09:54 Vital Signs Vital Signs - 24 hr 08/29/25 09:48 Temperature 97.2 F L Pulse Rate 76 Respiratory Rate 18 Blood Pressure 143/88 H Pulse Oximetry 99 Oxygen Delivery Room Air Exam Const: General: cooperative and healthy appearing Resp: Effort & Inspection: normal respiratory effort and able to speak in complete sentences Auscultation: clear to auscultation bilaterally Cardio: Rate: regular rate Rhythm: regular rhythm GI: Inspection: normal to inspection GI Palp: No No hepatosplenomegaly present Auscultation: normal bowel sounds Rectal Exam: deferred Skin: General skin exam: normal color Psych: Appearance: grossly normal Mental Status: mental status grossly normal Assessment and Plan Assessment and plan (1) Encounter for colorectal cancer screening: Code(s): Z12.11 - Encounter for screening for malignant neoplasm of colon; Z12.12 - Encounter for screening for malignant neoplasm of rectum Status: Acute Assessment and Plan: The patient is deemed a good candidate for the procedure. Consent signed. Will proceed.
--- NOTE | 2025-08-29 11:12 | S_PTH ---
PATIENT: Ofelia Hilliard LOC: [facility] U#:[id number] AGE/SX: 70/F ROOM: RE08/29/[address]: Francisco Cox MD : 1955 BED: DIS: 08/29/2025 SPEC #: [id number] RECD: 08/29/25 11:48 STATUS: JIGAR REQ #: [id number] ADRI: 08/29/25 11:[address]: Francisco Cox DEPT: [facility] Surgical RECD BY: Helene Obrien ENTERED: 08/29/25 11:48 SP TYPE: Surgical OTHR DR: Sly Driver DO Tissues: A - Colon Polypectomy B - Colon Polypectomy Procedures: Hematoxylin and Eosin Stain Gross and Microscopic Level 4
[2025-08-29 11:16] VITALS: BP 138/82; PULSE 68; RESP 20; O2SAT 98
[2025-08-29 11:26] VITALS: BP 152/81; PULSE 69; RESP 18; O2SAT 98
[2025-08-29 11:36] VITALS: BP 187/94; PULSE 68; RESP 20; O2SAT 100
--- NOTE | 2025-08-29 11:47 | SUR.PHASEII ---
Dr. John notified of patient's last blood pressure. He is okay with the patient discharging and taking blood pressure medications once she gets home.
== END 2025-08-29 11:47 | disposition home or self-care (01) ==
PROVIDERS: PCP Internal Medicine; Referring Provider Nurse Practitioner; Visit Provider Internal Medicine Gastroenterology
PROC: 0DJD8ZZ Inspection of Lower Intestinal Tract, Via Natural or Artificial Opening Endoscopic (ICD-10-PCS; CPT 45378; principal; 2025-08-29 11:00)
DX: Z12.11 Encounter for screening for malignant neoplasm of colon (principal); D12.3 Benign neoplasm of transverse colon; D12.8 Benign neoplasm of rectum; K64.8 Other hemorrhoids; E11.9 Type 2 diabetes mellitus without complications; E66.9 Obesity, unspecified; Z68.36 Body mass index [BMI] 36.0-36.9, adult
CPT/HCPCS: 45385; 82948; 88305; J2704; J7120